=== PATIENT | female | born 1950 | race American Indian/Alaskan Native ===

== ENCOUNTER 2016-08-31 18:50 | Emergency (ER) | payer BC ==
[2016-08-31 19:09] VITALS: BP 153/81; PULSE 87; RESP 16; TEMP 98.4; O2SAT 96
--- NOTE | 2016-08-31 19:23 | ED PDOC ---
Arrival/HPI <Mart Olson - Last Filed: 08/31/16 20:58> - General Historian: Patient - History of Present Illness Time/Duration: Other (hours) Context: Home <John Cadena - Last Filed: 09/03/16 14:44> - General Chief Complaint: Upper Extremity Problem/Injury Time Seen by Provider: 08/31/16 19:17 - History of Present Illness Narrative History of Present Illness (Text): 08/31/16 19:20 This 66 yo female presents to this ED c/o right arm pain x 7 hours. Patient she tripped and fell down forward. She developed arm pain. Denies head injury , dizziness, n/v, abdominal pain, hematuria, neck pain, cp, sob, wrist pain, elbow pain, or abnormal gait (John Cadena) Past Medical History - Provider Review Nursing Documentation Reviewed: Yes - Cardiac Hx Hypertension: Yes - Pulmonary Hx Respiratory Disorders: No - Neurological Hx Neurological Disorder: No - HEENT Hx HEENT Disorder: No - Renal Hx Renal Disorder: No - Endocrine/Metabolic Hx Diabetes Mellitus Type 2: Yes - Hematological/Oncological Hx Blood Disorders: No - Integumentary Hx Dermatological Disorder: No - Musculoskeletal/Rheumatological Hx Falls: Yes - Gastrointestinal Hx Gastrointestinal Disorders: No - Genitourinary/Gynecological Hx Genitourinary Disorders: No - Psychiatric Hx Psychophysiologic Disorder: No Hx Substance Use: No <John Cadena - Last Filed: 09/03/16 14:44> Family/Social History - Physician Review Nursing Documentation Reviewed: Yes Family/Social History: No Known Family HX Smoking Status: Never Smoked Hx Alcohol Use: No Hx Substance Use: No <John Cadena - Last Filed: 09/03/16 14:44> Allergies/Home Meds <Mart Olson - Last Filed: 08/31/16 20:58> <John Cadena - Last Filed: 09/03/16 14:44> Allergies/Adverse Reactions: Allergies No Known Allergies Allergy (Unverified 07/03/13 11:16) Home Medications: Home Meds Medication Instructions Recorded Confirmed Aspirin 81 mg PO DAILY 07/03/13 07/03/13 Nifedipine [Nifedipine ER] 90 mg PO DAILY 07/03/13 07/03/13 Perindopril Erbumine 8 mg PO DAILY 07/03/13 07/03/13 Aspirin [Adult Low Dose Aspirin EC] 1 tab PO DAILY 08/31/16 08/31/16 NIFEdipine ER [Procardia XL] 90 mg PO DAILY 08/31/16 08/31/16 Perindopril Erbumine 8 mg PO DAILY 08/31/16 08/31/16 Review of Systems - Review of Systems Constitutional: Normal. absent: Fatigue, Weight Change, Fevers Eyes: Normal ENT: Normal Respiratory: Normal. absent: SOB, Cough, Sputum Cardiovascular: Normal. absent: Chest Pain, Palpitations Gastrointestinal: Normal. absent: Abdominal Pain, Diarrhea, Nausea, Vomiting Genitourinary Female: Normal. absent: Hematuria Musculoskeletal: Other (See HPI) Skin: Normal. absent: Rash Neurological: Normal. absent: Headache, Dizziness, Focal Weakness, Gait Changes , Speech Changes Endocrine: Normal Hemo/Lymphatic: Normal Psychiatric: Normal <John Cadena P - Last Filed: 09/03/16 14:44> Physical Exam Temperature: Afebrile Blood Pressure: Normal Pulse: Regular Respiratory Rate: Normal Appearance: Positive for: Well-Appearing, Non-Toxic, Comfortable Pain Distress: None Mental Status: Positive for: Alert and Oriented X 3 - Systems Exam Head: Present: Atraumatic, Normocephalic, Other (raccoon sign. No menjivar sign) Pupils: Present: PERRL, Other (no hyphema) Extroacular Muscles: Present: EOMI Conjunctiva: Present: Normal Ears: Present: Normal, NORMAL TM, Normal Canal, Other (no hemotympanum). No: Erythema, TM Bulging, Fluid Mouth: Present: Moist Mucous Membranes Pharnyx: Present: Normal. No: ERYTHEMA, EXUDATE, TONSILS ENLARGED Nose (External): Present: Atraumatic Nose (Internal): Present: Normal Inspection Neck: Present: Normal Range of Motion Respiratory/Chest: Present: Clear to Auscultation, Good Air Exchange. No: Respiratory Distress, Accessory Muscle Use, Wheezes, Tender to Palpation Cardiovascular: Present: Regular Rate and Rhythm, Normal S1, S2. No: Murmurs Abdomen: Present: Normal Bowel Sounds. No: Tenderness, Distention, Peritoneal Signs Back: Present: Normal Inspection Upper Extremity: Present: Normal Inspection, Normal ROM (mild right shoulder tenderness. No deformity, swelling, erythema, or ecchymosis), NORMAL PULSES, Neurovascularly Intact, Capillary Refill < 2s. No: Cyanosis, Edema Lower Extremity: Present: Normal Inspection, NORMAL PULSES, Normal ROM, Neurovascularly Intact, Capillary Refill < 2 s. No: Edema, CALF TENDERNESS Neurological: Present: GCS=15, CN II-XII Intact, Speech Normal Skin: Present: Warm, Dry, Normal Color. No: Rashes Psychiatric: Present: Alert, Oriented x 3, Normal Insight, Normal Concentration <John Cadena - Last Filed: 09/03/16 14:44> Vital Signs Temp Pulse Resp BP Pulse Ox 08/31/16 19:04 98.4 F 87 16 153/81 H 96 Medical Decision Making <Mart Olson - Last Filed: 08/31/16 20:58> Re-evaluation Time: 20:49 Reassessment Condition: Re-examined, Improved <John Cadena - Last Filed: 09/03/16 14:44> ED Course and Treatment: 08/31/16 20:49 Re-evaluation. Patient feels better. Discussed results and plan with patient who expresses understanding. All questions answered and there is agreement with the plan to discharge home with instructions. Patient stable for discharge. Return if symptoms persist or worsen. Patient understand risk of falling when taking Tylenol with Codeine. Patient is aware not to drive or operate machinery while taking pain medication. Patient understands risk of addiction when taking Tylenol with codeine, or other opiods pain medication. (John Cadena) - RAD Interpretation Narrative RAD Interpretations (Text): 08/31/16 20:49 Humerus x-rays: No fx or dislocation Shoulder x-rays: No Fx. or sublux. (John Cadena) Radiology Orders: 08/31/16 19:45 HUMERUS RIGHT [RAD] Stat 08/31/16 19:46 SHOULDER RIGHT [RAD] Stat - Medication Orders Current Medication Orders: Discontinued Medications Acetaminophen (Tylenol 325mg Tab) 650 mg PO STAT STA Stop: 08/31/16 19:47 Last Admin: 08/31/16 19:56 Dose: 650 mg - PA / ENGRAVER / Resident Statement CRISTOPHER has reviewed & agrees with the documentation as recorded. CRISTOPHER has examined the patient and agrees with the treatment plan. <Mart Olson - Last Filed: 08/31/16 20:58> Disposition/Present on Arrival <WesleyMart - Last Filed: 08/31/16 20:58> - Present on Arrival Any Indicators Present on Arrival: No History of DVT/PE: No History of Uncontrolled Diabetes: Yes Urinary Catheter: No History of Decub. Ulcer: No History Surgical Site Infection Following: None - Disposition Have Diagnosis and Disposition been Completed?: Yes Disposition Time: 20:51 Patient Plan: Discharge <John Cadena - Last Filed: 09/03/16 14:44> - Disposition Diagnosis: Arm pain Disposition: HOME/ ROUTINE Condition: GOOD Discharge Instructions (ExitCare): Arm Pain (ED) Additional Instructions: Call Dr. Frank for follow up visit and revaluation in 1-2 days. Take medication as instructed. Return to emergency if symptoms worsen. Be aware pain medication could make you feels drowsy, sleepy and risk for fall. Take it at bedtime only. Prescriptions: Acetaminophen with Codeine [Tylenol with Codeine #3 Tablet] 1 each PO Q6H PRN # 10 tablet PRN Reason: Pain, Severe (8-10) Referrals: Sylvester Frank MD [Primary Care Provider] - Follow up with primary
--- NOTE | 2016-09-01 08:15 | RAD ---
PROCEDURE: Radiographs of the Right Shoulder HISTORY: pain s/p fall COMPARISON: No prior. FINDINGS: BONES: Normal. No fracture. JOINTS: Normal. Glenohumeral and acromioclavicular joints preserved. No osteoarthritis. SOFT TISSUES: Normal. OTHER FINDINGS: None. IMPRESSION: Normal radiographs of the right shoulder.
--- NOTE | 2016-09-01 08:16 | RAD ---
PROCEDURE: Radiographs of the right humerus. HISTORY: pain COMPARISON: None. FINDINGS: BONES: Normal. No fracture or focal lesion. SOFT TISSUES: Normal. OTHER FINDINGS: None. IMPRESSION: Normal radiographs of right humerus.
== END 2016-08-31 21:03 | disposition home or self-care (01) ==
LOC: ED 18:50 → MERGE 18:50 → ED 21:03
DX: M79.601 Pain in right arm (principal)

== ENCOUNTER 2016-11-15 10:35 | Inpatient (IN) | payer MEDICARE, BC ==
[2016-11-15 10:37] VITALS: BMI 22.4
[2016-11-15] MEDS ORDERED: Insulin Regular 1 UNITS/0.01 ML ML IVP STA (10:51)
[2016-11-15] MEDS ORDERED: Sodium Chloride 0.9% 1,000 ML IV ONE (10:52)
--- NOTE | 2016-11-15 10:55 | ED PDOC ---
Arrival/HPI - General Chief Complaint: Weakness/Neurological Deficit Time Seen by Provider: 11/15/16 10:39 Historian: Patient - History of Present Illness Time/Duration: Other (1 day) Symptom Onset: Gradual Symptom Course: Unchanged Severity Level: Moderate Associated Symptoms (Text): 11/15/16 10:53 Generalized weakness and fatigue since yesterday. Some nausea and vomiting this morning. Patient is diabetic, but refuses to take her insulin. No abdominal pain or diarrhea. No chest pain palpitations or dyspnea. No cough congestion or URI. Fever or chills. Past Medical History - Infectious Disease Hx of Infectious Diseases: None - Reproductive Menopause: Yes - Cardiac Hx Hypertension: Yes - Pulmonary Hx Respiratory Disorders: No - Neurological Hx Neurological Disorder: No - HEENT Hx HEENT Disorder: No - Renal Hx Renal Disorder: No - Endocrine/Metabolic Hx Diabetes Mellitus Type 2: Yes - Hematological/Oncological Hx Blood Disorders: No - Integumentary Hx Dermatological Disorder: No - Musculoskeletal/Rheumatological Hx Falls: Yes - Gastrointestinal Hx Gastrointestinal Disorders: No - Genitourinary/Gynecological Hx Genitourinary Disorders: No - Psychiatric Hx Psychophysiologic Disorder: No Hx Substance Use: No - Suicidal Assessment Feels Threatened In Home Enviroment: No Family/Social History - Physician Review Nursing Documentation Reviewed: Yes Family/Social History: Unknown Family HX Smoking Status: Never Smoked Hx Alcohol Use: No Hx Substance Use: No Allergies/Home Meds Allergies/Adverse Reactions: Allergies No Known Allergies Allergy (Verified 11/15/16 13:12) Home Medications: Home Meds Medication Instructions Recorded Confirmed Nifedipine [Nifedipine ER] 90 mg PO DAILY 07/03/13 11/15/16 Perindopril Erbumine 8 mg PO DAILY 08/31/16 11/15/16 Aspirin [Ecotrin] 81 mg PO DAILY 11/15/16 11/15/16 hydroCHLOROthiazide [Microzide] 12.5 mg PO DAILY 11/15/16 11/15/16 Review of Systems - Physician Review All systems were reviewed & negative as marked: Yes - Review of Systems Constitutional: Fatigue. absent: Fevers Respiratory: Normal Cardiovascular: Normal Gastrointestinal: Nausea, Vomiting. absent: Abdominal Pain, Constipation, Diarrhea Genitourinary Female: absent: Dysuria, Frequency, Hematuria Neurological: absent: Headache, Dizziness Physical Exam Vital Signs Temp Pulse Resp BP Pulse Ox 11/15/16 10:46 98.6 F 89 16 117/76 100 Temperature: Afebrile Blood Pressure: Normal Pulse: Regular Respiratory Rate: Normal Appearance: Positive for: Well-Appearing, Non-Toxic, Comfortable Pain Distress: None Mental Status: Positive for: Alert and Oriented X 3 Finger Stick Blood Glucose: 500 - Systems Exam Head: Present: Atraumatic, Normocephalic Pupils: Present: PERRL Extroacular Muscles: Present: EOMI Conjunctiva: Present: Normal Ears: Present: NORMAL TM, Normal Canal. No: Erythema Mouth: Present: Moist Mucous Membranes Pharnyx: No: ERYTHEMA, EXUDATE, TONSILS ENLARGED Neck: Present: Normal Range of Motion Respiratory/Chest: Present: Clear to Auscultation, Good Air Exchange, Decreased Breath Sounds. No: Respiratory Distress, Accessory Muscle Use Cardiovascular: Present: Regular Rate and Rhythm, Normal S1, S2. No: Murmurs Abdomen: Present: Normal Bowel Sounds. No: Tenderness, Distention, Peritoneal Signs, Rebound, Guarding Lower Extremity: Present: Normal Inspection. No: Edema Neurological: Present: GCS=15, CN II-XII Intact, Speech Normal, Motor Func Grossly Intact Skin: Present: Warm, Dry, Normal Color. No: Rashes Psychiatric: Present: Alert, Oriented x 3, Normal Insight, Normal Concentration Medical Decision Making ED Course and Treatment: 11/15/16 10:55 EKG shows normal sinus rhythm rate approximately [address] or T-wave changes 11/15/16 14:[address] dangelo who will place on [facility] observation - Lab Interpretations Lab Results: 11/15/16 11:05 11/15/16 11:05 Lab Results 11/15/16 11:05: Sodium 127 L, Potassium 3.2 L, Chloride 85 L, Carbon Dioxide 25 , Anion Gap 20, BUN 42 H, Creatinine 2.6 H, Est GFR ( Amer) 22, Est GFR ( Non-Af Amer) 18, Random Glucose 691 H*, Calcium 9.2, Magnesium 2.3 H, Total Bilirubin 0.9, AST 35, ALT 10, Alkaline Phosphatase 148 H, Lactate Dehydrogenase 371, Total Creatine Kinase 120, Troponin I 0.03, Total Protein 8.3 , Albumin 4.4, Globulin 3.9, Albumin/Globulin Ratio 1.1 11/15/16 11:05: PT 11.6, INR 1.07, APTT 30.0 11/15/16 11:05: WBC 6.3, RBC 4.95, Hgb 13.1, Hct 37.6, MCV 76.0 L, MCH 26.5, MCHC 34.8, RDW 13.3, Plt Count 224, MPV 10.8, Gran % 63.2, Lymph % (Auto) 29.7, Kingfisher % (Auto) 4.6, Eos % (Auto) 2.2, Baso % (Auto) 0.3, Gran # 4.01, Lymph # 1.9 , Kingfisher # 0.3, Eos # 0.1, Baso # 0.02 - RAD Interpretation Radiology Orders: 11/15/16 10:51 CHEST PORTABLE [RAD] Stat Chest 1 view shows no infiltrate effusion or cardiomegaly Library Media Assistant: ED Physician - Medication Orders Current Medication Orders: Discontinued Medications Sodium Chloride (Sodium Chloride 0.9%) 1,000 mls @ 500 mls/hr IV ONCE ONE Stop: 11/15/16 12:51 Last Admin: 11/15/16 11:11 Dose: 500 mls/hr Insulin Human Regular (Humulin R) 10 units IVP ONCE STA Stop: 11/15/16 10:52 Last Admin: 11/15/16 11:20 Dose: 10 units Disposition/Present on Arrival - Present on Arrival Any Indicators Present on Arrival: No History of DVT/PE: No History of Uncontrolled Diabetes: Yes Urinary Catheter: No History of Decub. Ulcer: No History Surgical Site Infection Following: None - Disposition Have Diagnosis and Disposition been Completed?: Yes Diagnosis: Diabetes, Hyperglycemia, Renal failure, Dehydration Disposition: HOSPITALIZED Disposition Time: 12:41 Patient Plan: Observation Patient Problems: Current Active Problems Problem Status Onset Dehydration Acute Diabetes Acute Hyperglycemia Acute Renal failure Acute Condition: FAIR
[2016-11-15 11:21] LABS: BASO # 0.02 K/mm3 (0.0-2.0); BASO % 0.3 % (0.0-3.0); EOS # 0.1 (0.0-0.7); EOS % 2.2 % (1.5-5.0); GRAN # 4.01 (1.4-6.5); GRAN % 63.2 % (50.0-68.0); HEMOGLOBIN 13.1 gm/dL (12.0-16.0); LYMPH # 1.9 (1.2-3.4); LYMPH % 29.7 % (22.0-35.0); MEAN CORPUSCULAR HEMOGLOBIN 26.5 pg (25.0-35.0); MEAN CORPUSCULAR HGB CONC 34.8 g/dl (31.0-37.0); MEAN PLATELET VOLUME 10.8 fl (7.0-11.0); MONO # 0.3 (0.1-0.6); MONO % 4.6 % (1.0-6.0); PLATELET COUNT 224 10^3/uL (120.0-450.0); RBC 4.95 10^6/uL (3.5-6.1); RED CELL DISTRIBUTION WIDTH 13.3 % (11.5-14.5); WHITE BLOOD COUNT 6.3 10^3/ul (4.5-11.0)
[2016-11-15 11:29] LABS: ALB/GLOB RATIO 1.1 (1.1-1.8); ALBUMIN 4.4 g/dL (3.0-4.8); CALCIUM 9.2 mg/dL (8.4-10.5); MAGNESIUM 2.3 mg/dL (1.7-2.2)
[2016-11-15 11:32] LABS: INR 1.07 (0.93-1.08); PROTHROMBIN TIME 11.6 Seconds (9.9-11.8)
[2016-11-15 11:40] LABS: TROPONIN I 0.03 ng/mL
--- NOTE | 2016-11-15 11:43 | RAD ---
HISTORY: weakness COMPARISON: No prior. FINDINGS: LUNGS: No active pulmonary disease. PLEURA: No significant pleural effusion identified, no pneumothorax apparent. CARDIOVASCULAR: Mild cardiomegaly and aortic tortuosity. OSSEOUS STRUCTURES: No significant abnormalities. VISUALIZED UPPER ABDOMEN: Normal. OTHER FINDINGS: None. IMPRESSION: No active disease.
[2016-11-15 13:39] LABS: PH,URINE 6.5 (4.7-8.0); URINE BILIRUBIN NEGATIVE (NEGATIVE); URINE BLOOD TRACE-INTACT (NEGATIVE); URINE GLUCOSE (UA) >=1000 mg/dL (NEGATIVE); URINE LEUKOCYTE ESTERASE NEGATIVE Leu/uL (NEGATIVE); URINE NITRATE NEGATIVE (NEGATIVE); URINE PROTEIN NEGATIVE mg/dL (<30 mg/dL); URINE UROBILINOGEN 0.2 E.U./dL (<1 E.U./dL)
[2016-11-15 13:41] LABS: URINE APPEARANCE CLEAR (CLEAR); URINE COLOR YELLOW (YELLOW)
[2016-11-15 13:46] LABS: URINE EPITHELIAL CELLS 0 - 2 /hpf (0-5); URINE RBC 0 - 2 /hpf (0-2); URINE WBC 0 - 2 /hpf (0-6)
[2016-11-15] MEDS ORDERED: Pneumococcal 23-Valent Vaccine IM ONE (14:53)
[2016-11-15] MEDS ORDERED: Potassium Chl 40 mEq in D5-1/2 1,000 ML IV SCH (17:10)
[2016-11-15] MEDS ORDERED: Insulin Reg-HIGH-Coverage SC STA (17:48)
[2016-11-15] MEDS ORDERED: Insulin Regular 1 UNITS/0.01 ML ML SC STA (17:51)
--- NOTE | 2016-11-15 18:50 | CT ---
PROCEDURE: CT Abdomen and Pelvis without intravenous contrast HISTORY: abdominal pain COMPARISON: None. TECHNIQUE: Unenhanced study. Neither oral nor intravenous contrast administered. Sensitivity and specificity for acute inflammatory processes limited by the absence of oral and intravenous contrast. Radiation dose: Total exam DLP = 303.74 mGy-cm. This CT exam was performed using one or more of the following dose reduction techniques: Automated exposure control, adjustment of the mA and/or kV according to patient size, and/or use of iterative reconstruction technique. FINDINGS: LOWER THORAX: Unremarkable. LIVER: Punctate calcifications within the liver likely reflecting prior exposure to granulomatous disease. GALLBLADDER AND BILE DUCTS: Unremarkable. PANCREAS: Unremarkable. No gross lesion or ductal dilatation. SPLEEN: Unremarkable. ADRENALS: Unremarkable. No mass. KIDNEYS AND URETERS: Unremarkable. No hydronephrosis. No solid mass. VASCULATURE: Unremarkable. No aortic aneurysm. Diffuse vascular calcifications. BOWEL: Unremarkable. No obstruction. No gross mural thickening. APPENDIX: Unremarkable. Normal appendix. PERITONEUM: Unremarkable. No free fluid. No free air. LYMPH NODES: Unremarkable. No enlarged lymph nodes. BLADDER: Unremarkable. REPRODUCTIVE: Mildly enlarged uterus with calcified fibroids BONES: T11 vertebral body fracture age indeterminate likely old. If Grade 1 anterolisthesis L4-L5. OTHER FINDINGS: None. IMPRESSION: No significant or acute findings to account for/ related to the clinical presentation. Additional benign and/or incidental findings described above.
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
--- NOTE | 2016-11-15 19:08 | CARD ---
APPROVED REPORT EKG Measurement Heart [id number] HI 190P37 [id number] <Conclusion> Normal sinus rhythm Left axis deviation Minimal voltage criteria for LVH, may be normal variant Septal infarct, age undetermined Prolonged QT Abnormal ECG
[2016-11-15] MEDS ORDERED: Potassium Chloride 40 MEQ in Sodium Chloride 0.45% 1,000 ML IV SCH (20:45)
[2016-11-15] MEDS: Insulin Reg-HIGH-Coverage SC SCH (21:56)
[2016-11-15] MEDS ORDERED: Insulin Reg-HIGH-Coverage SC SCH (22:00)
[2016-11-15 22:42] LABS: CALCIUM 9.5 mg/dL (8.4-10.5)
[2016-11-15] MEDS ORDERED: Potassium Chloride 40 mEq/30 ml LIQ UD PO ONE (23:23)
[2016-11-15] MEDS ORDERED: Potassium Chloride 20 mEq ER Tab PO ONE (23:28)
[2016-11-16] MEDS ORDERED: Potassium Chloride 20 mEq ER Tab PO ONE ×2 (03:30→10:29)
[2016-11-16 06:44] LABS: HEMOGLOBIN 13.3 gm/dL (12.0-16.0); MEAN CELL VOLUME 76.2 fL (80.0-105.0); MEAN CORPUSCULAR HEMOGLOBIN 26.4 pg (25.0-35.0); MEAN CORPUSCULAR HGB CONC 34.6 g/dl (31.0-37.0); MEAN PLATELET VOLUME 10.2 fl (7.0-11.0); RBC 5.04 10^6/uL (3.5-6.1); RED CELL DISTRIBUTION WIDTH 13.7 % (11.5-14.5); WHITE BLOOD COUNT 9.7 10^3/ul (4.5-11.0)
[2016-11-16] MEDS: Insulin Reg-HIGH-Coverage SC SCH ×4 (09:19→21:23)
[2016-11-16] MEDS: NIFEdipine 90 mg ER Tab PO SCH (09:32)
[2016-11-16] MEDS ORDERED: PERINDOPRIL ERBUMINE PO SCH (10:00)
[2016-11-16] MEDS: Sodium Chloride 0.9% 1,000 ML IV SCH ×2 (10:57→23:46)
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
--- NOTE | 2016-11-17 00:15 | CP.PCM.PN ---
Subjective - Date & Time of Evaluation Date of Evaluation: 11/16/16 Time of Evaluation: 23:30 - Subjective Subjective: Internal Medicine Follow Up: November 16, 2016 66 yo AA female presenting with abdominal pain and "not feeling well". The patient states that the symptoms started two days ago. The patient was at my office yesterday with similar symptoms. History given by state that the patient was sick for at least 8 days. states that the patient had poor appetite and was very lethargic. The patient laboratories are more consistent with being ill for the 8 days. The patient with significantly elevated glucose levels... blood glucose up to 691. Hypokalemia. There is JASON and renal insufficiency at this time. A day later, the patient's electrolytes have improved. Appreciate Renal Dr. Cesar's note. IVF changed to NS. Dehydration improved. CT abdomen and pelvis did not show any acute disease. Renal function improving but not back to the patient's baseline. Continued supportive care. Objective - Vital Signs/Intake and Output Vital Signs (last 24 hours): Temp Pulse Resp BP Pulse Ox 98.6 F 78 20 102/66 98 11/16/16 16:00 11/16/16 16:00 11/16/16 16:00 11/16/16 16:00 11/16/16 16:00 Intake and Output: 11/16/16 11/17/16 18:59 06:59 Intake Total 1080 1260 Balance 1080 1260 - Medications Medications: Current Medications Aspirin (Ecotrin) 81 mg PO DAILY [facility] Last Admin: 11/16/16 09:20 Dose: 81 mg Fluconazole (Diflucan) 100 mg PO DAILY [facility] PRN Reason: Protocol Stop: 11/21/16 10:01 Sodium Chloride (Sodium Chloride 0.9%) 1,000 mls @ 100 mls/hr IV .Q10H [facility] Stop: 11/19/16 10:31 Last Admin: 11/16/16 23:46 Dose: 100 mls/hr Insulin Human Regular (Humulin R High) 0 units SC ACHS [facility] PRN Reason: Protocol Last Admin: 11/16/16 21:23 Dose: Not Given Nifedipine (Procardia Xl) 90 mg PO DAILY [facility] Last Admin: 11/16/16 09:32 Dose: 90 mg - Labs Labs: 11/16/16 06:15 11/16/16 06:15 PT 11.6 Seconds (9.9-11.8) 11/15/16 11:05 INR 1.07 (0.93-1.08) 11/15/16 11:05 APTT 30.0 Seconds (23.7-30.8) 11/15/16 11:05 - Constitutional Appears: Non-toxic, No Acute Distress, Chronically Ill - Head Exam Head Exam: ATRAUMATIC, NORMOCEPHALIC - Eye Exam Eye Exam: EOMI, PERRL Pupil Exam: NORMAL ACCOMODATION, PERRL - ENT Exam ENT Exam: Mucous Membranes Moist, Normal External Ear Exam, TM's Normal Bilaterally - Neck Exam Neck Exam: Full ROM, Normal Inspection - Respiratory Exam Respiratory Exam: Clear to Ausculation Bilateral, NORMAL BREATHING PATTERN. absent: Rales, Rhonchi, Wheezes - Cardiovascular Exam Cardiovascular Exam: REGULAR RHYTHM, RRR, +S1, +S2 - GI/Abdominal Exam GI & Abdominal Exam: Soft, Normal Bowel Sounds. absent: Distended, Tenderness - Extremities Exam Extremities Exam: Full ROM, Normal Inspection - Neurological Exam Neurological Exam: Alert, Awake, CN II-XII Intact, Oriented x3 - Psychiatric Exam Psychiatric exam: Normal Affect, Normal Mood - Skin Skin Exam: Intact, Normal Color Assessment and Plan - Assessment and Plan (Free Text) Assessment: 66 yo AA female with abdominal pain, fatigue, weakness, and generally feeling unwell. The patient was found to have low sodium, low potassium, low chloride, new onset renal insufficiency, and significantly elevated glucose levels. The patient was severely dehydrated. Multiple electrolyte imbalances. Started on diabetic diet. Hydration with 1/2 NS with 40 mEq of Potassium. Renal consult with Dr. Tolentino who is familiar with this patient from her time at [facility]. Recheck laboratories in AM. Continue on insulin sliding scale for now. Normally, the patient's diabetes is diet controlled. CT abdomen for abdominal pain... negative Electrolyte imbalances are resolving. SHOAIB-I/ARB on hold Renal insufficiency and JASON Continue hydration with NS at this time. Potential discharge in the next 24 to 48 hours.
[2016-11-17 08:03] LABS: CALCIUM 8.3 mg/dL (8.4-10.5)
[2016-11-17] MEDS: Insulin Reg-HIGH-Coverage SC SCH ×4 (08:33→22:00)
[2016-11-17] MEDS: NIFEdipine 90 mg ER Tab PO SCH (09:23)
[2016-11-17] MEDS: Sodium Chloride 0.9% 1,000 ML IV SCH (09:29)
--- NOTE | 2016-11-17 13:12 | CP.PCM.PN ---
Subjective - Date & Time of Evaluation Date of Evaluation: 11/17/16 Time of Evaluation: 13:08 - Subjective Subjective: Follow up Nephrology Consultation: Assessment: Stable Acute Kidney Injury (N17.9) likely due to pre-renal state caused by dehydration , osmotic diuresis, severe hyperglycemia, hyperosmolar state: improving Hypokalemia Possibly had Hypertensive Chronic Kidney Disease (I12.9) May have underlying Chronic Kidney Disease (N18.9) Stage 3 with ? mg proteinuria (R80.9) ? due to HTN (serum creatinine 1.5 in 2013) HTN (I12.9) Hypertriglyceridemia Plan Hypertension control with meds as ordered. Hold ACEI or ARB due to JASON. can resume it as outpt once renal function close to baseline Supplement KDUR as needed. Vit D 1000 units/day added continue with IVF as normal saline @ 100 ml/hr Monitor Input/Output, daily weights and renal function with basic metabolic panel Check spot protein/creatinine and albumin/creatinine ratio GN work up not indicated at this time. Dose meds/antibiotics for reduced GFR. Avoid fleets enema/magnesium based laxatives. Avoid nephrotoxins/NSAIDs/ iodinated contrast (unless needed emergently) Glycemic control. avoid metformin for now. Further work up/management as per primary team Thanks for allowing me to participate in care of your patient. Please call if any Qs. Stable from renal perspective once planned for d/c and to f/up in office with me in 1-[address] Fernie Cesar Office: [phone] ROS: Denies chest pain, palpitation, shortness of breath, leg swelling. no urinary complaints she feel well Physical Examination: General Appearance: Comfortable, in no acute respiratory distress, co-operative . Vitals reviewed and noted as below Lungs: Normal respiratory rate/effort. Breath sounds bilateral equal and clear Heart: Normal rate. s1s2 normal. No rub or gallop. Extremities: no edema. No varicose veins Neurological: Patient is alert, awake and oriented to person, place and time. No focal deficit. Strength bilateral appropriate and equal Skin: Warm and dry. Normal turgor. No rash. Palpitation: Normal elasticity for age Abdomen: Abdomen is soft. Bowel sounds +. There is no abdominal tenderness, no guarding/rigidity no organomegaly Psych: normal insight and normal affect/mood MSK: no joint tenderness or swelling. Digits and nails normal, no deformity : kidney or bladder not palpable Labs/imaging/EKG reviewed. Past medical history, past surgical history, family history, social history, allergy reviewed and noted as below Family hx: no hx of CKD. Rest non-contributory WORK up; UA: trace blood no protein CT abdomen: unremarkable kidneys/bladder/adrenals Objective - Vital Signs/Intake and Output Vital Signs (last 24 hours): Temp Pulse Resp BP Pulse Ox 98.5 F 82 19 125/87 98 11/17/16 06:00 11/17/16 06:00 11/17/16 06:00 11/17/16 06:00 11/17/16 06:00 Intake and Output: 11/17/16 11/17/16 06:59 18:59 Intake Total 1260 0 Balance 1260 0 - Medications Medications: Current Medications Aspirin (Ecotrin) 81 mg PO DAILY [facility] Last Admin: 11/17/16 09:23 Dose: 81 mg Fluconazole (Diflucan) 100 mg PO DAILY [facility] PRN Reason: Protocol Stop: 11/21/16 10:01 Last Admin: 11/17/16 09:23 Dose: 100 mg Sodium Chloride (Sodium Chloride 0.9%) 1,000 mls @ 100 mls/hr IV .Q10H [facility] Stop: 11/19/16 10:31 Last Admin: 11/17/16 09:29 Dose: 100 mls/hr Insulin Human Regular (Humulin R High) 0 units SC ACHS [facility] PRN Reason: Protocol Last Admin: 11/17/16 12:14 Dose: 7 units Nifedipine (Procardia Xl) 90 mg PO DAILY [facility] Last Admin: 11/17/16 09:23 Dose: 90 mg Vitamin D (Vitamin D 400 Intl Units Tab) 1,000 intlu PO DAILY [facility] - Labs Labs: 11/16/16 06:15 11/17/16 07:40 PT 11.6 Seconds (9.9-11.8) 11/15/16 11:05 INR 1.07 (0.93-1.08) 11/15/16 11:05 APTT 30.0 Seconds (23.7-30.8) 11/15/16 11:05
--- NOTE | 2016-11-17 18:12 | CP.PCM.PN ---
Subjective - Date & Time of Evaluation Date of Evaluation: 11/17/16 Time of Evaluation: 17:30 - Subjective Subjective: Internal Medicine Follow Up: November 17, 2016 66 yo AA female presenting with abdominal pain and "not feeling well". The patient states that the symptoms started two days ago. The patient was at my office yesterday with similar symptoms. History given by state that the patient was sick for at least 8 days. states that the patient had poor appetite and was very lethargic. The patient laboratories are more consistent with being ill for the 8 days. The patient with significantly elevated glucose levels... blood glucose up to 691. Hypokalemia. There is JASON and renal insufficiency at this time. A day later, the patient's electrolytes have improved. Appreciate Renal Dr. Cesar's note. IVF changed to NS. Dehydration improved. CT abdomen and pelvis did not show any acute disease. Renal function improving but not back to the patient's baseline. Creatinine at 2 today. Continued supportive care. Potential discharge tomorrow. Objective - Vital Signs/Intake and Output Vital Signs (last 24 hours): Temp Pulse Resp BP Pulse Ox 98.5 F 82 19 125/87 98 11/17/16 06:00 11/17/16 06:00 11/17/16 06:00 11/17/16 06:00 11/17/16 06:00 Intake and Output: 11/17/16 11/17/16 06:59 18:59 Intake Total 1260 720 Balance 1260 720 - Medications Medications: Current Medications Aspirin (Ecotrin) 81 mg PO DAILY [facility] Last Admin: 11/17/16 09:23 Dose: 81 mg Cholecalciferol (Vitamin D) 1,000 iu PO DAILY [facility] Fluconazole (Diflucan) 100 mg PO DAILY [facility] PRN Reason: Protocol Stop: 11/21/16 10:01 Last Admin: 11/17/16 09:23 Dose: 100 mg Sodium Chloride (Sodium Chloride 0.9%) 1,000 mls @ 100 mls/hr IV .Q10H [facility] Stop: 11/19/16 10:31 Last Admin: 11/17/16 09:29 Dose: 100 mls/hr Insulin Human Regular (Humulin R High) 0 units SC ACHS [facility] PRN Reason: Protocol Last Admin: 11/17/16 17:52 Dose: 2 units Nifedipine (Procardia Xl) 90 mg PO DAILY [facility] Last Admin: 11/17/16 09:23 Dose: 90 mg - Labs Labs: 11/16/16 06:15 11/17/16 07:40 PT 11.6 Seconds (9.9-11.8) 11/15/16 11:05 INR 1.07 (0.93-1.08) 11/15/16 11:05 APTT 30.0 Seconds (23.7-30.8) 11/15/16 11:05 - Constitutional Appears: Non-toxic, No Acute Distress, Chronically Ill - Head Exam Head Exam: ATRAUMATIC, NORMOCEPHALIC - Eye Exam Eye Exam: EOMI, PERRL Pupil Exam: NORMAL ACCOMODATION, PERRL - ENT Exam ENT Exam: Mucous Membranes Moist, Normal External Ear Exam, TM's Normal Bilaterally - Neck Exam Neck Exam: Full ROM, Normal Inspection - Respiratory Exam Respiratory Exam: Clear to Ausculation Bilateral, NORMAL BREATHING PATTERN. absent: Rales, Rhonchi, Wheezes - Cardiovascular Exam Cardiovascular Exam: REGULAR RHYTHM, RRR, +S1, +S2 - GI/Abdominal Exam GI & Abdominal Exam: Soft, Normal Bowel Sounds. absent: Distended, Tenderness - Extremities Exam Extremities Exam: Full ROM, Normal Inspection - Neurological Exam Neurological Exam: Alert, Awake, CN II-XII Intact, Oriented x3 - Psychiatric Exam Psychiatric exam: Normal Affect, Normal Mood - Skin Skin Exam: Intact, Normal Color Assessment and Plan - Assessment and Plan (Free Text) Assessment: 66 yo AA female with abdominal pain, fatigue, weakness, and generally feeling unwell. The patient was found to have low sodium, low potassium, low chloride, new onset renal insufficiency, and significantly elevated glucose levels. The patient was severely dehydrated. Multiple electrolyte imbalances. Started on diabetic diet. Hydration with 1/2 NS with 40 mEq of Potassium. Renal consult with Dr. Tolentino who is familiar with this patient from her time at [facility]. Recheck laboratories in AM. Continue on insulin sliding scale for now. Normally, the patient's diabetes is diet controlled. CT abdomen for abdominal pain... negative Electrolyte imbalances mostly resolved. SHOAIB-I/ARB on hold Renal insufficiency and JASON - follow by Dr. Cesar of nephrology. Slowly improving. Continue hydration with NS at this time. Potential discharge in the next 24 hours.
[2016-11-18] MEDS: Sodium Chloride 0.9% 1,000 ML IV SCH (05:10)
[2016-11-18 06:29] LABS: HEMOGLOBIN 12.7 gm/dL (12.0-16.0); MEAN CELL VOLUME 78.3 fL (80.0-105.0); MEAN CORPUSCULAR HGB CONC 33.2 g/dl (31.0-37.0); RBC 4.89 10^6/uL (3.5-6.1); WHITE BLOOD COUNT 8.6 10^3/ul (4.5-11.0)
[2016-11-18 07:19] LABS: ALBUMIN 3.9 g/dL (3.0-4.8); CALCIUM 8.4 mg/dL (8.4-10.5)
[2016-11-18] MEDS: Insulin Reg-HIGH-Coverage SC SCH ×2 (08:09→12:39)
[2016-11-18] MEDS: NIFEdipine 90 mg ER Tab PO SCH (10:10)
[2016-11-18] MEDS ORDERED: Potassium Chloride 20 mEq ER Tab PO ONE ×2 (13:55→17:15)
--- NOTE | 2016-11-18 13:58 | CP.PCM.PN ---
Subjective - Date & Time of Evaluation Date of Evaluation: 11/18/16 Time of Evaluation: 13:56 - Subjective Subjective: Follow up Nephrology Consultation: Assessment: Stable Acute Kidney Injury (N17.9) likely due to pre-renal state caused by dehydration , osmotic diuresis, severe hyperglycemia, hyperosmolar state: improving Hypokalemia Possibly had Hypertensive Chronic Kidney Disease (I12.9) May have underlying Chronic Kidney Disease (N18.9) Stage 3 without proteinuria ? due to HTN (serum creatinine 1.5 in 2012) HTN (I12.9) Hypertriglyceridemia Plan Hypertension control with meds as ordered. Hold ACEI or ARB due to JASON. can resume it as outpt once renal function close to baseline and if BP elevated Supplement KDUR today. Vit D 1000 units/day added Check spot protein/creatinine and albumin/creatinine ratio GN work up not indicated at this time. Dose meds/antibiotics for improved GFR. Avoid fleets enema/magnesium based laxatives. Avoid nephrotoxins/NSAIDs/ iodinated contrast (unless needed emergently) Glycemic control. can use metformin but avoid extended release or high dosage. Further work up/management as per primary team Thanks for allowing me to participate in care of your patient. Please call if any Qs. Stable from renal perspective once planned for d/c and to f/up in office with me in 1-[address] Fernie Cesar Office: [phone] ROS: Denies chest pain, palpitation, shortness of breath, leg swelling. no urinary complaints she feel well Physical Examination: General Appearance: Comfortable, in no acute respiratory distress, co-operative . Vitals reviewed and noted as below Lungs: Normal respiratory rate/effort. Breath sounds bilateral equal and clear Heart: Normal rate. s1s2 normal. No rub or gallop. Extremities: no edema. No varicose veins Neurological: Patient is alert, awake and oriented to person, place and time. No focal deficit. Strength bilateral appropriate and equal Skin: Warm and dry. Normal turgor. No rash. Palpitation: Normal elasticity for age Abdomen: Abdomen is soft. Bowel sounds +. There is no abdominal tenderness, no guarding/rigidity no organomegaly : kidney or bladder not palpable Labs/imaging/EKG reviewed. Past medical history, past surgical history, family history, social history, allergy reviewed and noted as below Family hx: no hx of CKD. Rest non-contributory WORK up; UA: trace blood no protein CT abdomen: unremarkable kidneys/bladder/adrenals Objective - Vital Signs/Intake and Output Vital Signs (last 24 hours): Temp Pulse Resp BP Pulse Ox 97.9 F 82 18 123/85 97 11/18/16 06:00 11/18/16 06:00 11/18/16 06:00 11/17/16 16:00 11/18/16 06:00 Intake and Output: 11/18/16 11/18/16 06:59 18:59 Intake Total 1999 Balance 1999 - Medications Medications: Current Medications Aspirin (Ecotrin) 81 mg PO DAILY [facility] Last Admin: 11/18/16 10:10 Dose: 81 mg Cholecalciferol (Vitamin D) 1,000 iu PO DAILY [facility] Last Admin: 11/18/16 10:10 Dose: 1,000 iu Fluconazole (Diflucan) 100 mg PO DAILY [facility] PRN Reason: Protocol Stop: 11/21/16 10:01 Last Admin: 11/18/16 10:10 Dose: 100 mg Sodium Chloride (Sodium Chloride 0.9%) 1,000 mls @ 100 mls/hr IV .Q10H [facility] Stop: 11/19/16 10:31 Last Admin: 11/18/16 05:10 Dose: 100 mls/hr Insulin Human Regular (Humulin R High) 0 units SC ACHS [facility] PRN Reason: Protocol Last Admin: 11/18/16 12:39 Dose: 7 units Nifedipine (Procardia Xl) 90 mg PO DAILY [facility] Last Admin: 11/18/16 10:10 Dose: 90 mg Potassium Chloride (K-Dur 20 Meq Er Tab) 40 meq PO ONCE ONE Stop: 11/18/16 13:56 - Labs Labs: 11/18/16 06:00 11/18/16 06:00 PT 11.6 Seconds (9.9-11.8) 11/15/16 11:05 INR 1.07 (0.93-1.08) 11/15/16 11:05 APTT 30.0 Seconds (23.7-30.8) 11/15/16 11:05
--- NOTE | 2016-11-18 16:17 | CP.PCM.DIS ---
Provider - Provider Date of Admission: 11/15/16 18:13 Attending physician: Sylvester Frank MD Primary care physician: NO PRIMARY CARE PROVIDER Consults: Nephrology - Dr. Cesar Time Spent in preparation of Discharge (in minutes): 45 Hospital Course - Lab Results Lab Results: Most Recent Lab Values WBC 8.6 10^3/ul (4.5-11.0) 11/18/16 06:00 RBC 4.89 10^6/uL (3.5-6.1) 11/18/16 06:00 Hgb 12.7 gm/dL (12.0-16.0) 11/18/16 06:00 Hct 38.3 % (36.0-48.0) 11/18/16 06:00 MCV 78.3 fL (80.0-105.0) L 11/18/16 06:00 MCH 26.0 pg (25.0-35.0) 11/18/16 06:00 MCHC 33.2 g/dl (31.0-37.0) 11/18/16 06:00 RDW 14.0 % (11.5-14.5) 11/18/16 06:00 Plt Count 234 10^3/uL (120.0-450.0) 11/18/16 06:00 MPV 10.0 fl (7.0-11.0) 11/18/16 06:00 Gran % 63.2 % (50.0-68.0) 11/15/16 11:05 Lymph % (Auto) 29.7 % (22.0-35.0) 11/15/16 11:05 [place] % (Auto) 4.6 % (1.0-6.0) 11/15/16 11:05 Eos % (Auto) 2.2 % (1.5-5.0) 11/15/16 11:05 Baso % (Auto) 0.3 % (0.0-3.0) 11/15/16 11:05 Gran # 4.01 (1.4-6.5) 11/15/16 11:05 Lymph # 1.9 (1.2-3.4) 11/15/16 11:05 [place] # 0.3 (0.1-0.6) 11/15/16 11:05 Eos # 0.1 (0.0-0.7) 11/15/16 11:05 Baso # 0.02 K/mm3 (0.0-2.0) 11/15/16 11:05 PT 11.6 Seconds (9.9-11.8) 11/15/16 11:05 INR 1.07 (0.93-1.08) 11/15/16 11:05 APTT 30.0 Seconds (23.7-30.8) 11/15/16 11:05 Sodium 140 mmol/L (132-148) 11/18/16 06:00 Potassium 3.6 mmol/L (3.6-5.0) 11/18/16 06:00 Chloride 106 mmol/L (98-107) 11/18/16 06:00 Carbon Dioxide 22 mmol/L (21-33) 11/18/16 06:00 Anion Gap 16 (10-20) 11/18/16 06:00 BUN 22 mg/dL (7-21) H 11/18/16 06:00 Creatinine 1.6 mg/dL (0.5-1.4) H 11/18/16 06:00 Est GFR ( Amer) 39 11/18/16 06:00 Est GFR (Non-Af Amer) 32 11/18/16 06:00 POC Glucose (mg/dL) 268 mg/dL (65-110) H 11/18/16 11:48 Random Glucose 245 mg/dL (70-110) H 11/18/16 06:00 Hemoglobin A1c 17.2 % (4.2-6.5) H D 11/16/16 06:15 Calcium 8.4 mg/dL (8.4-10.5) 11/18/16 06:00 Phosphorus 2.6 mg/dL (2.5-4.5) 11/17/16 07:40 Magnesium 2.3 mg/dL (1.7-2.2) H 11/15/16 11:05 Total Bilirubin 1.0 mg/dL (0.2-1.3) 11/18/16 06:00 AST 30 U/L (15-39) 11/18/16 06:00 ALT 22 U/L (7-56) 11/18/16 06:00 Alkaline Phosphatase 95 U/L (38-133) 11/18/16 06:00 Lactate Dehydrogenase 371 U/L (333-699) 11/15/16 11:05 Total Creatine Kinase 120 U/L (35-230) 11/15/16 11:05 Troponin I 0.03 ng/mL 11/15/16 11:05 Total Protein 7.9 g/dL (5.8-8.3) 11/18/16 06:00 Albumin 3.9 g/dL (3.0-4.8) 11/18/16 06:00 Globulin 3.9 gm/dL 11/18/16 06:00 Albumin/Globulin Ratio 1.0 (1.1-1.8) L 11/18/16 06:00 Triglycerides 402 mg/dL (35-160) H 11/16/16 06:15 Cholesterol 223 mg/dL (130-200) H 11/16/16 06:15 HDL Cholesterol 29 mg/dL (29-60) 11/16/16 06:15 25-OH Vitamin D Total 32.0 NG/ML (30.0-100.0) 11/17/16 05:50 PTH Intact Whole [place] 79 pg/mL (14-64) H 11/16/16 14:13 Urine Color Yellow (YELLOW) 11/15/16 13:25 Urine Appearance Clear (CLEAR) 11/15/16 13:25 Urine pH 6.5 (4.7-8.0) 11/15/16 13:25 Ur Specific [place] <= 1.005 (1.005-1.035) 11/15/16 13:25 Urine Protein Negative mg/dL (<30 mg/dL) 11/15/16 13:25 Urine Glucose (UA) >=1000 mg/dL (NEGATIVE) 11/15/16 13:25 Urine Ketones Negative mg/dL (NEGATIVE) 11/15/16 13:25 Urine Blood Trace-intact (NEGATIVE) H 11/15/16 13:25 Urine Nitrate Negative (NEGATIVE) 11/15/16 13:25 Urine Bilirubin Negative (NEGATIVE) 11/15/16 13:25 Urine Urobilinogen 0.2 E.U./dL (<1 E.U./dL) 11/15/16 13:25 Ur Leukocyte Esterase Negative Raghav/uL (NEGATIVE) 11/15/16 13:25 Urine RBC 0 - 2 /hpf (0-2) 11/15/16 13:25 Urine WBC 0 - 2 /hpf (0-6) 11/15/16 13:25 Ur Epithelial Cells 0 - 2 /hpf (0-5) 11/15/16 13:25 - Hospital Course Hospital Course: Internal Medicine Follow Up: November 18, 2016 66 yo AA female presenting with abdominal pain and "not feeling well". The patient states that the symptoms started two days ago. The patient was at my office yesterday with similar symptoms. History given by state that the patient was sick for at least 8 days. states that the patient had poor appetite and was very lethargic. The patient laboratories are more consistent with being ill for the 8 days. The patient with significantly elevated glucose levels... blood glucose up to 691. Hypokalemia. There is JASON and renal insufficiency at this time. A day later, the patient's electrolytes have improved. Appreciate Renal Dr. Cesar's note. IVF changed to NS. Dehydration improved. CT abdomen and pelvis did not show any acute disease. Renal function improving but not back to the patient's baseline. Creatinine at 1.6 today from initial 2.6. Continued supportive care. Will start Metformin. Diabetic teaching and nutrition done today. Supportive care. - Date & Time of H&P Date of H&P: 11/15/16 Discharge Exam - Head Exam Head Exam: ATRAUMATIC, NORMOCEPHALIC - Eye Exam Eye Exam: EOMI, PERRL Pupil Exam: NORMAL ACCOMODATION, PERRL - ENT Exam ENT Exam: Mucous Membranes Moist, Normal External Ear Exam, TM's Normal Bilaterally - Respiratory Exam Respiratory Exam: Clear to PA & Lateral, NORMAL BREATHING PATTERN. absent: Rales, Rhonchi, Wheezes - Cardiovascular Exam Cardiovascular Exam: REGULAR RHYTHM, RRR, +S1, +S2 - GI/Abdominal Exam GI & Abdominal Exam: Normal Bowel Sounds, Soft. absent: Distended, Tenderness - Extremities Exam Extremities exam: full ROM, normal inspection - Neurological Exam Neurological exam: Alert, CN II-XII Intact, Oriented x3 - Psychiatric Exam Psychiatric exam: Normal Affect, Normal Mood - Skin Skin Exam: Intact, Normal Color Discharge Plan - Follow Up Plan Condition: GOOD Disposition: HOME/ ROUTINE Patient education suggested?: Yes Instructions: Metformin (By mouth) Referrals: Sylvester Frank MD [Staff Provider] - Clinical Quality Measures - Date & Time of Discharge Summary Date of Discharge Summary: 11/18/16 Time of Discharge Summary: 16:16
[2016-11-18 18:04] VITALS: BP 130/74; PULSE 80; RESP 20; TEMP 97.6; O2SAT 98
== END 2016-11-18 18:47 | disposition home or self-care (01) | DRG 683 ==
LOC: ED 10:35 → ERH 12:40 → 3RSO 14:27 → OBSVTOIN 18:13
PROVIDERS: ADMIT Internal Medicine Infectious Disease; ATTEND Internal Medicine Infectious Disease
DX: N17.9 Acute kidney failure, unspecified (principal); E87.0 Hyperosmolality and hypernatremia; E11.22 Type 2 diabetes mellitus with diabetic chronic kidney disease; E87.8 Other disorders of electrolyte and fluid balance, not elsewhere classified; E86.0 Dehydration; E11.65 Type 2 diabetes mellitus with hyperglycemia; E87.6 Hypokalemia; E78.1 Pure hyperglyceridemia; I25.10 Atherosclerotic heart disease of native coronary artery without angina pectoris; I25.2 Old myocardial infarction; Z79.82 Long term (current) use of aspirin; Z86.73 Personal history of transient ischemic attack (TIA), and cerebral infarction without residual deficits; I12.9 Hypertensive chronic kidney disease with stage 1 through stage 4 chronic kidney disease, or unspecified chronic kidney disease; N18.3 Chronic kidney disease, stage 3 (moderate)

== ENCOUNTER 2016-11-22 08:47 | Observation (INO) | payer BC, MEDICARE ==
[2016-11-22 08:47] VITALS: BMI 22.4
[2016-11-22] MEDS ORDERED: Sodium Chloride 0.9% 1,000 ML IV STA (09:06)
[2016-11-22] MEDS ORDERED: Famotidine 20mg/50ml 20 MG/50 ML BAG IV STA (09:06)
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
[2016-11-22 09:40] LABS: VENOUS BLOOD GAS BASE EXCESS 2.8 mmol/L (0.0-2.0); VENOUS BLOOD GAS PO2 24 mm/Hg (30-55); VENOUS BLOOD PH 7.49 (7.32-7.43)
[2016-11-22 09:44] LABS: BASO # 0.02 K/mm3 (0.0-2.0); BASO % 0.2 % (0.0-3.0); EOS # 0.2 (0.0-0.7); EOS % 1.9 % (1.5-5.0); GRAN % 60.4 % (50.0-68.0); HEMOGLOBIN 12.3 gm/dL (12.0-16.0); LYMPH # 2.7 (1.2-3.4); MEAN CELL VOLUME 77.3 fL (80.0-105.0); MEAN CORPUSCULAR HEMOGLOBIN 26.9 pg (25.0-35.0); MEAN CORPUSCULAR HGB CONC 34.7 g/dl (31.0-37.0); MEAN PLATELET VOLUME 9.7 fl (7.0-11.0); MONO # 0.4 (0.1-0.6); MONO % 4.5 % (1.0-6.0); PLATELET COUNT 260 10^3/uL (120.0-450.0); RBC 4.58 10^6/uL (3.5-6.1); RED CELL DISTRIBUTION WIDTH 13.8 % (11.5-14.5); WHITE BLOOD COUNT 8.3 10^3/ul (4.5-11.0)
[2016-11-22 09:50] LABS: ALB/GLOB RATIO 1.1 (1.1-1.8); ALBUMIN 4.5 g/dL (3.0-4.8); CALCIUM 10.1 mg/dL (8.4-10.5)
--- NOTE | 2016-11-22 09:50 | RAD ---
HISTORY: Cough COMPARISON: 11/15/2016. FINDINGS: LUNGS: The lungs are well inflated and clear. PLEURA: No significant pleural effusion identified, no pneumothorax apparent. CARDIOVASCULAR: Normal. OSSEOUS STRUCTURES: No significant abnormalities. VISUALIZED UPPER ABDOMEN: Normal. OTHER FINDINGS: None. IMPRESSION: No active pulmonary disease.
[2016-11-22 09:53] LABS: INR 1.01 (0.93-1.08); PARTIAL THROMBOPLASTIN TIME 29.5 Seconds (23.7-30.8); PROTHROMBIN TIME 10.9 Seconds (9.9-11.8)
[2016-11-22 10:02] LABS: TROPONIN I 0.02 ng/mL
--- NOTE | 2016-11-22 10:36 | CT ---
PROCEDURE: CT Abdomen and Pelvis without intravenous contrast HISTORY: Abdominal pain COMPARISON: 11/15/2016. TECHNIQUE: CT scan of the abdomen and pelvis was performed without administration of intravenous or oral contrast. Coronal and sagittal reformatted images were obtained. This CT exam was performed using one or more of the following dose reduction techniques: Automated exposure control, adjustment of the mA and/or kV according to patient size, and/or use of iterative reconstruction technique. FINDINGS: LOWER THORAX: The lung bases are clear. LIVER: The liver is normal in size. No gross lesion or ductal dilatation. GALLBLADDER AND BILE DUCTS: There are no calcified gallstones, wall thickening or pericholecystic fluid. PANCREAS: Normal in size. No gross lesion or ductal dilatation. SPLEEN: The spleen is normal in size. ADRENALS: Normal in size without discrete nodule. KIDNEYS AND URETERS: Both kidneys are normal in size without hydronephrosis or nephrolithiasis. . No hydronephrosis. No solid mass. VASCULATURE: There are atherosclerotic vascular calcifications. No aortic aneurysm. BOWEL: The small bowel loops are normal in caliber. There is mild distention of fluid-filled ascending and transverse colon. There is large amount of stool in the descending colon. APPENDIX: The appendix is normal in caliber. There is mild distension of fluid base of appendix. There is air in the proximal appendix. There are no significant inflammatory changes in the right lower quadrant. PERITONEUM: There is interval development of small amount of free fluid in the pelvis. No free intraperitoneal air. LYMPH NODES: No enlarged lymph nodes. BLADDER: Grossly normal in appearance. REPRODUCTIVE: There is an enlarged fibroid uterus. BONES: There is an age indeterminate anterior compression deformity of the T11 vertebral body. There is advanced degenerative disc disease at L4-5 with grade 1 anterior listhesis of L4 on L5, vacuum disc and vacuum phenomenon in the facet joints. OTHER FINDINGS: There is a small sliding hiatal hernia. IMPRESSION: 1. Interval development of free fluid in the pelvis which is of uncertain etiology. 2. Mild dilatation of fluid-filled ascending and transverse colon is nonspecific and could represent nonspecific colitis. No definite evidence of pericolonic inflammatory changes. Large amount of stool in the descending colon and rectum consistent with constipation. No evidence of bowel obstruction. 3. Apparent mild mural thickening of the urinary bladder wall is nonspecific and could be related to underdistention however acute cystitis cannot be excluded. Please correlate with urine analysis.
[2016-11-22 11:18] LABS: URINE BILIRUBIN NEGATIVE (NEGATIVE); URINE BLOOD NEGATIVE (NEGATIVE); URINE GLUCOSE (UA) 250 mg/dL (NEGATIVE); URINE LEUKOCYTE ESTERASE NEGATIVE Leu/uL (NEGATIVE); URINE NITRATE NEGATIVE (NEGATIVE); URINE PROTEIN TRACE mg/dL (<30 mg/dL); URINE UROBILINOGEN 0.2 E.U./dL (<1 E.U./dL)
[2016-11-22 11:19] LABS: URINE APPEARANCE CLEAR (CLEAR); URINE COLOR LIGHT YELLOW (YELLOW)
[2016-11-22 11:25] LABS: URINE BACTERIA TRACE (NEG); URINE EPITHELIAL CELLS 0 - 2 /hpf (0-5); URINE RBC NEGATIVE /hpf (0-2); URINE WBC 0 - 2 /hpf (0-6)
--- NOTE | 2016-11-22 14:22 | CP.PCM.CON ---
History of Present Illness - History of Present Illness History of Present Illness: Initial Nephrology Consultation: Assessment: Stable Acute Kidney Injury (N17.9) likely due to pre-renal state as evident by hemoconcentration elevated albumin/ca Constipation Possibly had Hypertensive Chronic Kidney Disease (I12.9) May have underlying Chronic Kidney Disease (N18.3) Stage 3 without proteinuria ? due to HTN (serum creatinine 1.5 in 2013) HTN (I12.9) Hypertriglyceridemia Plan No acute need for renal replacement therapy at this time. Hypertension control with home meds. Hold ACEI/ARB due to JASON will order IVF as normal saline @ 100 ml/hr will give lactulose Monitor Input/Output, daily weights and renal function with basic metabolic panel Check spot protein/creatinine and albumin/creatinine ratio Dose meds/antibiotics for reduced GFR. Avoid fleets enema/magnesium based laxatives. Avoid nephrotoxins/NSAIDs/ iodinated contrast (unless needed emergently) Glycemic control Further work up/management as per primary team Thanks for allowing me to participate in care of your patient. Will follow patient with you. Please call if any Qs Dr Fernie Cesar Office: [phone] Chief Complaint; pain abdomen Reason for consult: elevated creatinine, JASON HPI: Pt is a 66 y/o F with hx of diabetes Mellitus , hypertension (x 3 years), hx of CAD/MA and stroke in past presented with complaints of abdomen pain since last night and found to have severe constipation with elevated creatinine. She was recently admitted and d/c from hospital for hyperosmolar hyperglycemic state and JASON her serum creatinine was 1.5 in 2013. improved from 2.6 at presentation to 1.6 at d/c now back with cr 2.2 Denies chest pain, palpitation, shortness of breath, leg swelling Denies blood or bubbles in urine Denies OTC/herbal meds or NSAIDs No recent iodinated contrast exposure. No obvious episodes of low BP. c/o abdomen pain and constipation. ROS: Constitutional Symptoms: Denies fever. No chills. No Recent Weight Changes Eyes: denies change in vision, denies watery eyes, denies double vision Ears/Nose/Mouth/Throat: Denies Abnormal Taste. No Bad breath no Bad Taste. Cardiovascular: No chest pain. There is no shortness of breath. No palpitations. Pulmonary: No shortness of breath no cough. Gastrointestinal: c/o abdominal pain No nausea. No vomiting. c/o constipation. Denies Bleeding Genitourinary: No Change in force of strain when urinating. had increase in urinary frequency. No pain while urinating. Denies blood in urine. Neurological: Denies headaches. No dizziness. Denies loss of balance. Denies weakness, denies tingling/numbness Dermatological: No Rash or Bruising or ulcers. Psychiatric: Denies Anxiety. No depression. Denies hallucinations. Rheumatological: No joint pain. Denies Joint swelling Endocrine: Denies tiredness/Fatigue denies Heat/Cold Intolerance. All other negative Physical Examination: General Appearance: Comfortable, in no acute respiratory distress, co-operative . Vitals reviewed and noted as below Head; Atraumatic, normocephalic ENT: no ulcers no thrush. Tongue is midline appears dry and coated. Oropharynx: no rash or ulcers. EYES: Pupils are equal, round and reactive to light accommodation. Eye muscles and extraocular movement intact. Sclera is anicteric. Neck; supple no lymphadenopathy, no thyromegaly or bruit Lungs: Normal respiratory rate/effort. Breath sounds bilateral equal and clear Heart: Normal rate. s1s2 normal. No rub or gallop. Extremities: no edema. No varicose veins Neurological: Patient is alert, awake and oriented to person, place and time. No focal deficit. Strength bilateral appropriate and equal Skin: Warm and dry. Normal turgor. No rash. Palpitation: Normal elasticity for age Abdomen: Abdomen is soft. Bowel sounds +. There is lower abdominal tenderness, no guarding/rigidity no organomegaly Psych: normal insight and normal affect/mood MSK: no joint tenderness or swelling. Digits and nails normal, no deformity : kidney or bladder not palpable Labs/imaging/EKG reviewed. Past medical history, past surgical history, family history, social history, allergy reviewed and noted as below Family hx: no hx of CKD. Rest non-contributory WORK up; UA: trace blood no protein has glucoe CT abdomen: unremarkable kidneys/bladder/adrenals. has extensive stool CK normal previously Vit D 32 and PTH 79 Past Patient History - Infectious Disease Hx of Infectious Diseases: None - Past Medical History & Family History Past Medical History?: Yes - Past Social History Smoking Status: Never Smoked - CARDIAC Hx Cardiac Disorders: Yes Hx Hypertension: Yes - PULMONARY Hx Respiratory Disorders: No - NEUROLOGICAL Hx Neurological Disorder: No - HEENT Hx HEENT Problems: No - RENAL Hx Chronic Kidney Disease: No - ENDOCRINE/METABOLIC Hx Endocrine Disorders: Yes Hx Diabetes Mellitus Type 2: Yes (diet controlled) - HEMATOLOGICAL/ONCOLOGICAL Hx Blood Disorders: No - INTEGUMENTARY Hx Dermatological Problems: Yes Other/Comment: BILATERAL LE SCARRING FROM A MECHANICAL FALL.HIT IT UNDER HER CAR. - MUSCULOSKELETAL/RHEUMATOLOGICAL Hx Falls: Yes - GASTROINTESTINAL Hx Gastrointestinal Disorders: No - GENITOURINARY/GYNECOLOGICAL Hx Genitourinary Disorders: No - PSYCHIATRIC Hx Psychophysiologic Disorder: No Hx Substance Use: No - SURGICAL HISTORY Hx Surgeries: No Meds Allergies/Adverse Reactions: Allergies Allergy/AdvReac Type Severity Reaction Status Date / Time No Known Allergies Allergy Verified 11/22/16 09:20 Results - Vital Signs Recent Vital Signs: Last Vital Signs Temp 98.0 F 11/22/16 11:04 Pulse 76 11/22/16 13:00 Resp 16 11/22/16 13:00 BP 134/70 11/22/16 13:00 Pulse Ox 98 11/22/16 13:00 - Labs Result Diagrams: 11/22/16 09:30 11/22/16 09:30 Labs: Laboratory Results - last 24 hr 11/22/16 13:29 POC Glucose (mg/dL) 228 H
[2016-11-22] MEDS ORDERED: Pneumococcal 23-Valent Vaccine IM ONE (16:34)
--- NOTE | 2016-11-22 16:35 | CARD ---
APPROVED REPORT EKG Measurement Heart [id number] <Conclusion> Normal sinus rhythm Nonspecific T wave abnormality Abnormal ECG
[2016-11-22] MEDS: Insulin Reg-MEDIUM-Coverage SC SCH ×2 (16:55→22:54)
--- NOTE | 2016-11-22 17:10 | CP.PCM.HP ---
History of Present Illness - History of Present Illness History of Present Illness: Internal Medicine H&P: November 22, 2016 66 yo AA female presenting again with one day history of abdominal pain and " not feeling well". There is JASON and renal insufficiency at this time with a creatinine value up to 2.2 again. Appear pre-renal in origin. The patient was found to have glucose levels above 250 again. She describes the pain as stabbing but intermittent. CT of the abdomen and pelvis was negative. Spoke with Dr. Cesar who recommended holding ACEI/ARB and hydralazine at this point. Patient admitted for observation. PMHx: Diabetes Mellitus - controlled by diet usually - average glucose 130-140 CAD HTN Stroke and HI several years ago. Back Pain PSHx: cardiac cath Allergies: NKDA Social Hx: No tobacco, EtOH, or illicit drug use Active Medications Aspirin (Ecotrin) 81 mg PO DAILY [facility] Sodium Chloride (Sodium Chloride 0.9%) 1,000 mls @ 100 mls/hr IV .Q10H [facility] Stop: 11/25/16 14:31 Insulin Human Regular (Humulin R Med) 0 units SC ACHS [facility] PRN Reason: Protocol Last Admin: 11/22/16 16:55 Dose: 3 units Nifedipine (Procardia Xl) 90 mg PO DAILY [facility] Family Hx: none given ROS: weakness. poor appetite. Patient denies fevers, chills, nausea, vomiting, diarrhea, headaches, dizziness, chest pain, melena, hematuria, hematemesis, hematochezia, depression, anxiety. Present on Admission - Present on Admission Any Indicators Present on Admission: Yes History of DVT/PE: No History of Uncontrolled Diabetes: Yes Urinary Catheter: No Decubitus Ulcer Present: No Review of Systems - Gastrointestinal Gastrointestinal: Abdominal Pain Past Patient History - Infectious Disease Hx of Infectious Diseases: None - Past Medical History & Family History Past Medical History?: Yes - Past Social History Smoking Status: Never Smoked Chewing Tobacco Use: No Cigar Use: No Alcohol: Social Drugs: Denies Home Situation {Lives}: With Family Domestic Violence: Negative - CARDIAC Hx Cardiac Disorders: Yes Hx Hypertension: Yes - PULMONARY Hx Respiratory Disorders: No - NEUROLOGICAL Hx Transient Ischemic Attacks (TIA): Yes (x2 5 yrs ago) Other/Comment: intermittent tingling numbness to r arm and r leg since tia x 2 - HEENT Hx HEENT Problems: Yes Hx Blind: Yes - RENAL Hx Chronic Kidney Disease: No - ENDOCRINE/METABOLIC Hx Endocrine Disorders: Yes Hx Diabetes Mellitus Type 2: Yes - HEMATOLOGICAL/ONCOLOGICAL Hx Blood Disorders: No - INTEGUMENTARY Hx Dermatological Problems: Yes Other/Comment: BILATERAL LE SCARRING FROM A MECHANICAL FALL.HIT IT UNDER HER CAR , 10 yrs ago her car door flew open she went to grab the handle and fell out and under car - MUSCULOSKELETAL/RHEUMATOLOGICAL Hx Falls: (mechanical fall 10 yrs ago) - GASTROINTESTINAL Hx Gastrointestinal Disorders: No - GENITOURINARY/GYNECOLOGICAL Hx Genitourinary Disorders: No - PSYCHIATRIC Hx Psychophysiologic Disorder: No Hx Substance Use: No - SURGICAL HISTORY Hx Surgeries: No Meds Allergies/Adverse Reactions: Allergies Allergy/AdvReac Type Severity Reaction Status Date / Time No Known Allergies Allergy Verified 11/22/16 09:20 Physical Exam - Constitutional Appears: Non-toxic, No Acute Distress, Chronically Ill - Head Exam Head Exam: ATRAUMATIC, NORMOCEPHALIC - Eye Exam Eye Exam: EOMI, PERRL Pupil Exam: NORMAL ACCOMODATION, PERRL - ENT Exam ENT Exam: Mucous Membranes Moist, Normal External Ear Exam, TM's Normal Bilaterally - Neck Exam Neck exam: Positive for: Full Rom, Normal Inspection - Respiratory Exam Respiratory Exam: Clear to Auscultation Bilateral, NORMAL BREATHING PATTERN. absent: Rales, Rhonchi, Wheezes - Cardiovascular Exam Cardiovascular Exam: REGULAR RHYTHM, RRR, +S1, +S2 - GI/Abdominal Exam GI & Abdominal Exam: Normal Bowel Sounds, Soft, Tenderness. absent: Distended Additional comments: mild epigastric tenderness - Extremities Exam Extremities exam: Positive for: full ROM, normal inspection - Neurological Exam Neurological exam: Alert, CN II-XII Intact, Oriented x3 - Psychiatric Exam Psychiatric exam: Normal Affect, Normal Mood - Skin Skin Exam: Intact, Normal Color Results - Vital Signs Recent Vital Signs: Last Vital Signs Temp 98 F 11/22/16 16:17 Pulse 76 11/22/16 16:17 Resp 16 11/22/16 16:17 BP 134/70 11/22/16 16:17 Pulse Ox 98 11/22/16 13:00 - Labs Result Diagrams: 11/22/16 09:30 11/22/16 09:30 Labs: Laboratory Results - last 24 hr 11/22/16 11/22/16 13:29 15:50 POC Glucose (mg/dL) 228 H 217 H Assessment & Plan - Assessment and Plan (Free Text) Assessment: 66 yo AA female with abdominal pain, fatigue, weakness, and generally feeling unwell for one day. Recent discharged from [facility] 5 days ago. The patient was found to have significantly elevated glucose levels and elevated BUN/Cr values. The patient appears dehydrated. No significant electrolyte imbalances compared to the prior hospitalization. Appreciate Renal consult with Dr. Cesar who is familiar with this patient from her last hospitalization. Held ACEI/ARB and hydralazine as per Dr. Cesar's recommendations. Recheck laboratories in AM. Continue on insulin sliding scale for now. On observation at this time. CT abdomen for abdominal pain.
[2016-11-23] MEDS: Sodium Chloride 0.9% 1,000 ML IV SCH ×3 (06:43→21:35)
[2016-11-23 07:13] LABS: CALCIUM 8.8 mg/dL (8.4-10.5)
[2016-11-23 07:17] VITALS: RESP 20
[2016-11-23] MEDS: Insulin Reg-MEDIUM-Coverage SC SCH ×4 (08:04→21:34)
[2016-11-23] MEDS: NIFEdipine 90 mg ER Tab PO SCH (09:26)
[2016-11-23] MEDS ORDERED: PERINDOPRIL ERBUMINE PO SCH (10:00)
[2016-11-23] MEDS ORDERED: Potassium Chloride 20 mEq ER Tab PO ONE (10:28)
--- NOTE | 2016-11-23 10:59 | CP.PCM.PN ---
Subjective - Date & Time of Evaluation Date of Evaluation: 11/23/16 Time of Evaluation: 10:50 - Subjective Subjective: Follow up Nephrology Consultation: Assessment: Stable Acute Kidney Injury (N17.9) likely due to pre-renal state as evident by hemoconcentration elevated albumin/ca: improved Constipation Hypertensive Chronic Kidney Disease (I12.9) Likely Chronic Kidney Disease (N18.3) Stage 3 with microalbuminuria (100mg) ? due to HTN (serum creatinine 1.5 in 2012) HTN (I12.9) Hypertriglyceridemia Plan renal function improved with IVF. Hypertension controlled. can resume her ACEI at d/c. continue to avoid diuretics /hctz due to tendency to get pre-renal state. ordered 1 dose of KDUR 40 meq Dose meds/antibiotics for reduced GFR. Avoid fleets enema/magnesium based laxatives. Avoid nephrotoxins/NSAIDs/ iodinated contrast (unless needed emergently) Glycemic control Further work up/management as per primary team Thanks for allowing me to participate in care of your patient. stable from renal perspective. f/up in office 1 week. Please call if any Qs Dr Fernie Cesar ([address] [place] [address]) Office: [phone] ROS: she feels well. no complaints. no pain abdomen. had a BM. denies CP/SOB/ nausea/vomitting. No urinary complaints. Physical Examination: General Appearance: Comfortable, in no acute respiratory distress, co-operative . Vitals reviewed and noted as below Lungs: Normal respiratory rate/effort. Breath sounds bilateral equal and clear Heart: Normal rate. s1s2 normal. No rub or gallop. Extremities: no edema. No varicose veins Neurological: Patient is alert, awake and oriented to person, place and time. No focal deficit. Strength bilateral appropriate and equal Skin: Warm and dry. Normal turgor. No rash. Palpitation: Normal elasticity for age Abdomen: Abdomen is soft. Bowel sounds +. There is no abdominal tenderness, no guarding/rigidity no organomegaly : kidney or bladder not palpable WORK up; UA: trace blood no protein has glucoe CT abdomen: unremarkable kidneys/bladder/adrenals. has extensive stool CK normal previously Vit D 32 and PTH 79 Objective - Vital Signs/Intake and Output Vital Signs (last 24 hours): Temp Pulse Resp BP Pulse Ox 98 F 74 20 114/79 98 11/23/16 08:29 11/23/16 08:29 11/23/16 08:29 11/23/16 08:29 11/23/16 08:29 Intake and Output: 11/23/16 11/23/16 06:59 18:59 Intake Total 840 1440 Output Total 200 Balance 640 1440 - Medications Medications: Current Medications Aspirin (Ecotrin) 81 mg PO DAILY [facility] Last Admin: 11/23/16 09:26 Dose: 81 mg Sodium Chloride (Sodium Chloride 0.9%) 1,000 mls @ 100 mls/hr IV .Q10H [facility] Stop: 11/25/16 14:31 Last Admin: 11/23/16 06:43 Dose: 100 mls/hr Insulin Human Regular (Humulin R Med) 0 units SC ACHS [facility] PRN Reason: Protocol Last Admin: 11/23/16 08:04 Dose: 1 units Nifedipine (Procardia Xl) 90 mg PO DAILY [facility] Last Admin: 11/23/16 09:26 Dose: 90 mg - Labs Labs: 11/23/16 06:00 PT 10.9 Seconds (9.9-11.8) 11/22/16 09:30 INR 1.01 (0.93-1.08) 11/22/16 09:30 APTT 29.5 Seconds (23.7-30.8) 11/22/16 09:30
--- NOTE | 2016-11-23 16:36 | CP.PCM.PN ---
Subjective - Date & Time of Evaluation Date of Evaluation: 11/23/16 Time of Evaluation: 15:30 - Subjective Subjective: Internal Medicine Follow Up: November 23, 2016 66 yo AA female presenting again with one day history of abdominal pain and " not feeling well". There is JASON and renal insufficiency at this time with a creatinine value up to 2.2 again. Appear pre-renal in origin. The patient was found to have glucose levels above 250 again. She describes the pain as stabbing but intermittent. CT of the abdomen and pelvis was negative. Spoke with Dr. Cesar who recommended holding ACEI/ARB and hydrochlorothiazide at this point. With the improvement in the kidney function, Perinopril was restarted. Patient admitted for observation. No complaints at this time. Objective - Vital Signs/Intake and Output Vital Signs (last 24 hours): Temp Pulse Resp BP Pulse Ox 98 F 74 20 114/79 98 11/23/16 08:29 11/23/16 08:29 11/23/16 08:29 11/23/16 08:29 11/23/16 08:29 Intake and Output: 11/23/16 11/23/16 06:59 18:59 Intake Total 840 1440 Output Total 200 Balance 640 1440 - Medications Medications: Current Medications Aspirin (Ecotrin) 81 mg PO DAILY [facility] Last Admin: 11/23/16 09:26 Dose: 81 mg Sodium Chloride (Sodium Chloride 0.9%) 1,000 mls @ 100 mls/hr IV .Q10H [facility] Stop: 11/25/16 14:31 Last Admin: 11/23/16 12:45 Dose: 100 mls/hr Insulin Human Regular (Humulin R Med) 0 units SC ACHS [facility] PRN Reason: Protocol Last Admin: 11/23/16 16:09 Dose: 5 units Nifedipine (Procardia Xl) 90 mg PO DAILY [facility] Last Admin: 11/23/16 09:26 Dose: 90 mg - Labs Labs: 11/23/16 06:00 PT 10.9 Seconds (9.9-11.8) 11/22/16 09:30 INR 1.01 (0.93-1.08) 11/22/16 09:30 APTT 29.5 Seconds (23.7-30.8) 11/22/16 09:30 - Constitutional Appears: Non-toxic, No Acute Distress, Chronically Ill - Head Exam Head Exam: ATRAUMATIC, NORMOCEPHALIC - Eye Exam Eye Exam: EOMI, PERRL Pupil Exam: NORMAL ACCOMODATION, PERRL - ENT Exam ENT Exam: Mucous Membranes Moist, Normal External Ear Exam, TM's Normal Bilaterally - Neck Exam Neck Exam: Full ROM, Normal Inspection - Respiratory Exam Respiratory Exam: Clear to Ausculation Bilateral, NORMAL BREATHING PATTERN. absent: Rales, Rhonchi, Wheezes - Cardiovascular Exam Cardiovascular Exam: REGULAR RHYTHM, RRR, +S1, +S2 - GI/Abdominal Exam GI & Abdominal Exam: Soft, Normal Bowel Sounds. absent: Distended, Tenderness - Extremities Exam Extremities Exam: Full ROM, Normal Inspection - Neurological Exam Neurological Exam: Alert, Awake, CN II-XII Intact, Oriented x3 - Psychiatric Exam Psychiatric exam: Normal Affect, Normal Mood - Skin Skin Exam: Intact, Normal Color Assessment and Plan - Assessment and Plan (Free Text) Assessment: 66 yo AA female with abdominal pain, fatigue, weakness, and generally feeling unwell for one day. Recent discharged from [facility] 5 days ago. The patient was found to have significantly elevated glucose levels and elevated BUN/Cr values. The patient appears dehydrated. No significant electrolyte imbalances compared to the prior hospitalization. Appreciate Renal consult with Dr. Cesar who is familiar with this patient from her last hospitalization. Held ACEI/ARB and hydralazine as per Dr. Cesar's recommendations. Recheck laboratories in AM. Continue on insulin sliding scale for now. On observation at this time. CT abdomen for abdominal pain - nonspecific colitis seen. interval fluid appearance in pelvis. Plan for potential discharge tomorrow. Checking to see if the patient is able to receive any nursing services.
[2016-11-24] MEDS: Insulin Reg-MEDIUM-Coverage SC SCH ×3 (08:22→16:55)
[2016-11-24] MEDS: NIFEdipine 90 mg ER Tab PO SCH (09:14)
--- NOTE | 2016-11-24 12:11 | CP.PCM.PN ---
Subjective - Date & Time of Evaluation Date of Evaluation: 11/24/16 Time of Evaluation: 11:59 - Subjective Subjective: Follow up Nephrology Consultation: Assessment: Stable Acute Kidney Injury (N17.9) likely due to pre-renal state as evident by hemo- concentration elevated albumin/ca: improved Constipation Hypertensive Chronic Kidney Disease (I12.9) Likely Chronic Kidney Disease (N18.3) Stage 3 with microalbuminuria (100mg) ? due to HTN (serum creatinine 1.5 in 2012) HTN (I12.9) Hypertriglyceridemia Plan renal function improved with IVF. Hypertension controlled. can resume her ACEI at d/c. continue to avoid diuretics /hctz due to tendency to get pre-renal state. Dose meds/antibiotics for reduced GFR. Avoid fleets enema/magnesium based laxatives. Avoid nephrotoxins/NSAIDs/ iodinated contrast (unless needed emergently) Glycemic control Further work up/management as per primary team Thanks for allowing me to participate in care of your patient. stable from renal perspective. f/up in office 1 week. Please call if any Qs Dr Fernie Cesar ([address] [place] [address]) Office: [phone] ROS: she feels well. no complaints. no pain abdomen. had a BM. denies CP/SOB/ nausea/vomitting. No urinary complaints. Physical Examination: General Appearance: Comfortable, in no acute respiratory distress, co-operative . Vitals reviewed and noted as below Lungs: Normal respiratory rate/effort. Breath sounds bilateral equal and clear Heart: Normal rate. s1s2 normal. No rub or gallop. Extremities: no edema. No varicose veins Neurological: Patient is alert, awake and oriented to person, place and time. No focal deficit. Strength bilateral appropriate and equal Skin: Warm and dry. Normal turgor. No rash. Palpitation: Normal elasticity for age Abdomen: Abdomen is soft. Bowel sounds +. There is no abdominal tenderness, no guarding/rigidity no organomegaly : kidney or bladder not palpable WORK up; UA: trace blood no protein has glucoe CT abdomen: unremarkable kidneys/bladder/adrenals. has extensive stool CK normal previously Vit D 32 and PTH 79 Objective - Vital Signs/Intake and Output Vital Signs (last 24 hours): Temp Pulse Resp BP Pulse Ox 98.2 F 68 20 132/93 H 100 07/27/17 09:37 11/24/16 09:37 11/24/16 09:37 11/24/16 09:37 11/24/16 09:37 Intake and Output: 11/24/16 11/24/16 06:59 18:59 Intake Total 3120 Balance 3120 - Medications Medications: Current Medications Aspirin (Ecotrin) 81 mg PO DAILY [facility] Last Admin: 11/24/16 09:14 Dose: 81 mg Docusate Sodium (Colace) 100 mg PO TID [facility] Last Admin: 11/24/16 09:14 Dose: 100 mg Sodium Chloride (Sodium Chloride 0.9%) 1,000 mls @ 100 mls/hr IV .Q10H [facility] Stop: 11/25/16 14:31 Last Admin: 11/23/16 21:35 Dose: 100 mls/hr Insulin Human Regular (Humulin R Med) 0 units SC ACHS [facility] PRN Reason: Protocol Last Admin: 11/24/16 08:22 Dose: 3 units Nifedipine (Procardia Xl) 90 mg PO DAILY [facility] Last Admin: 11/24/16 09:14 Dose: 90 mg - Labs Labs: 11/23/16 06:00 PT 10.9 Seconds (9.9-11.8) 11/22/16 09:30 INR 1.01 (0.93-1.08) 11/22/16 09:30 APTT 29.5 Seconds (23.7-30.8) 11/22/16 09:30
[2016-11-24 17:30] VITALS: BP 121/87; PULSE 76; TEMP 98.9; O2SAT 98
--- NOTE | 2016-11-24 17:46 | CP.PCM.DIS ---
Provider - Provider Date of Admission: 11/22/16 12:27 Attending physician: Sylvester Frank MD Primary care physician: NO PRIMARY CARE PROVIDER Consults: Nephrology - Dr. Cesar Time Spent in preparation of Discharge (in minutes): 45 Hospital Course - Lab Results Lab Results: Most Recent Lab Values WBC 8.3 10^3/ul (4.5-11.0) 11/22/16 09:30 RBC 4.58 10^6/uL (3.5-6.1) 11/22/16 09:30 Hgb 12.3 gm/dL (12.0-16.0) 11/22/16 09:30 Hct 35.4 % (36.0-48.0) L 11/22/16 09:30 MCV 77.3 fL (80.0-105.0) L 11/22/16 09:30 MCH 26.9 pg (25.0-35.0) 11/22/16 09:30 MCHC 34.7 g/dl (31.0-37.0) 11/22/16 09:30 RDW 13.8 % (11.5-14.5) 11/22/16 09:30 Plt Count 260 10^3/uL (120.0-450.0) 11/22/16 09:30 MPV 9.7 fl (7.0-11.0) 11/22/16 09:30 Gran % 60.4 % (50.0-68.0) 11/22/16 09:30 Lymph % (Auto) 33.0 % (22.0-35.0) 11/22/16 09:30 Yates % (Auto) 4.5 % (1.0-6.0) 11/22/16 09:30 Eos % (Auto) 1.9 % (1.5-5.0) 11/22/16 09:30 Baso % (Auto) 0.2 % (0.0-3.0) 11/22/16 09:30 Gran # 5.00 (1.4-6.5) 11/22/16 09:30 Lymph # 2.7 (1.2-3.4) 11/22/16 09:30 Yates # 0.4 (0.1-0.6) 11/22/16 09:30 Eos # 0.2 (0.0-0.7) 11/22/16 09:30 Baso # 0.02 K/mm3 (0.0-2.0) 11/22/16 09:30 PT 10.9 Seconds (9.9-11.8) 11/22/16 09:30 INR 1.01 (0.93-1.08) 11/22/16 09:30 APTT 29.5 Seconds (23.7-30.8) 11/22/16 09:30 pO2 24 mm/Hg (30-55) L 11/22/16 09:30 VBG pH 7.49 (7.32-7.43) H 11/22/16 09:30 VBG pCO2 34.0 (40-60) L 11/22/16 09:30 VBG HCO3 25.9 mmol/l (21-28) 11/22/16 09:30 VBG Total CO2 26.9 mmol.L (22-28) 11/22/16 09:30 VBG O2 Sat (Calc) 59.4 % (40-65) 11/22/16 09:30 VBG Base Excess 2.8 mmol/L (0.0-2.0) H 11/22/16 09:30 VBG Potassium 4.5 mmol/L (3.6-5.2) 11/22/16 09:30 Sodium 135.0 mmol/L (132-148) 11/22/16 09:30 Chloride 101.0 mmol/L (98-107) 11/22/16 09:30 Glucose 269 mg/dl (65-105) H 11/22/16 09:30 Lactate 1.8 mmol/L (0.7-2.1) 11/22/16 09:30 FiO2 21.0 % 11/22/16 09:30 Sodium 140 mmol/L (132-148) 11/23/16 06:00 Potassium 3.5 mmol/L (3.6-5.0) L 11/23/16 06:00 Chloride 106 mmol/L (98-107) 11/23/16 06:00 Carbon Dioxide 24 mmol/L (21-33) 11/23/16 06:00 Anion Gap 14 (10-20) 11/23/16 06:00 BUN 24 mg/dL (7-21) H 11/23/16 06:00 Creatinine 1.7 mg/dL (0.5-1.4) H 11/23/16 06:00 Est GFR ( Amer) 36 11/23/16 06:00 Est GFR (Non-Af Amer) 30 11/23/16 06:00 POC Glucose (mg/dL) 188 mg/dL (65-110) H 11/24/16 16:05 Random Glucose 150 mg/dL (70-110) H 11/23/16 06:00 Calcium 8.8 mg/dL (8.4-10.5) 11/23/16 06:00 Total Bilirubin 1.2 mg/dL (0.2-1.3) 11/22/16 09:30 AST 39 U/L (15-39) 11/22/16 09:30 ALT 29 U/L (7-56) 11/22/16 09:30 Alkaline Phosphatase 97 U/L (38-133) 11/22/16 09:30 Lactate Dehydrogenase 442 U/L (333-699) 11/22/16 09:30 Total Creatine Kinase 63 U/L (35-230) 11/22/16 09:30 Troponin I 0.02 ng/mL D 11/22/16 09:30 Total Protein 8.6 g/dL (5.8-8.3) H 11/22/16 09:30 Albumin 4.5 g/dL (3.0-4.8) 11/22/16 09:30 Globulin 4.2 gm/dL 11/22/16 09:30 Albumin/Globulin Ratio 1.1 (1.1-1.8) 11/22/16 09:30 Lipase 248 U/L (23-300) 11/22/16 09:30 Venous Blood Potassium 4.5 mmol/L (3.6-5.2) 11/22/16 09:30 Urine Color Light yellow (YELLOW) 11/22/16 11:05 Urine Appearance Clear (CLEAR) 11/22/16 11:05 Urine pH 7.0 (4.7-8.0) 11/22/16 11:05 Ur Specific Orange 1.010 (1.005-1.035) 11/22/16 11:05 Urine Protein Trace mg/dL (<30 mg/dL) H 11/22/16 11:05 Urine Glucose (UA) 250 mg/dL (NEGATIVE) H 11/22/16 11:05 Urine Ketones Negative mg/dL (NEGATIVE) 11/22/16 11:05 Urine Blood Negative (NEGATIVE) 11/22/16 11:05 Urine Nitrate Negative (NEGATIVE) 11/22/16 11:05 Urine Bilirubin Negative (NEGATIVE) 11/22/16 11:05 Urine Urobilinogen 0.2 E.U./dL (<1 E.U./dL) 11/22/16 11:05 Ur Leukocyte Esterase Negative Raghav/uL (NEGATIVE) 11/22/16 11:05 Urine RBC Negative /hpf (0-2) 11/22/16 11:05 Urine WBC 0 - 2 /hpf (0-6) 11/22/16 11:05 Ur Epithelial Cells 0 - 2 /hpf (0-5) 11/22/16 11:05 Urine Bacteria Trace (NEG) 11/22/16 11:05 Ur Random Creatinine 34 mg/dL 11/22/16 16:40 Urine Microalbumin 45.6 mg/L (0.0-16.6) H 11/22/16 16:40 - Hospital Course Hospital Course: Internal Medicine Follow Up: November 24, 2016 66 yo AA female presenting again with one day history of abdominal pain and " not feeling well". There is JASON and renal insufficiency at this time with a creatinine value up to 2.2 again. Appear pre-renal in origin. The patient was found to have glucose levels above 250 again. She describes the pain as stabbing but intermittent. CT of the abdomen and pelvis was negative. Spoke with Dr. Cesar who recommended holding ACEI/ARB and hydrochlorothiazide at this point. With the improvement in the kidney function, Perinopril was restarted. Patient admitted for observation. No complaints at this time. Improved with fluids and renal function improved. Discharge Exam - Head Exam Head Exam: ATRAUMATIC, NORMOCEPHALIC - Eye Exam Eye Exam: EOMI, PERRL Pupil Exam: NORMAL ACCOMODATION, PERRL - ENT Exam ENT Exam: Mucous Membranes Moist, Normal External Ear Exam, TM's Normal Bilaterally - Neck Exam Neck exam: Full Rom, Normal Inspection - Respiratory Exam Respiratory Exam: Clear to PA & Lateral, NORMAL BREATHING PATTERN. absent: Rales, Rhonchi, Wheezes - Cardiovascular Exam Cardiovascular Exam: REGULAR RHYTHM, RRR, +S1, +S2 - GI/Abdominal Exam GI & Abdominal Exam: Normal Bowel Sounds, Soft. absent: Distended, Tenderness - Extremities Exam Extremities exam: full ROM, normal inspection - Neurological Exam Neurological exam: Alert, CN II-XII Intact, Oriented x3 - Psychiatric Exam Psychiatric exam: Normal Affect, Normal Mood - Skin Skin Exam: Intact, Normal Color Discharge Plan - Follow Up Plan Condition: STABLE Disposition: HOME/ ROUTINE Additional Instructions: 66 yo AA female with abdominal pain, fatigue, weakness, and generally feeling unwell for one day. [place] [facility] [place] The patient was found to have significantly elevated glucose levels and elevated BUN/Cr values. The patient appears dehydrated. No significant electrolyte imbalances compared to the prior hospitalization. Appreciate Renal consult with Dr. Cesar who is familiar with this patient from her last hospitalization. Held hydrochlorothiazide as per Dr. Cesar's recommendations. On observation at this time. CT abdomen for abdominal pain - nonspecific colitis seen. interval fluid appearance in pelvis. Improved. Checking to see if the patient is able to receive any nursing services. Discharge to home with follow up in 1 week in my office. Continue to hold hydrochlorothiazide. Referrals: Sylvester Frank MD [Staff Provider] -
== END 2016-11-24 19:18 | disposition home or self-care (01) ==
LOC: ED 08:47 → ERH 12:27 → 3RSO 13:15
PROVIDERS: ADMIT Internal Medicine Infectious Disease; ATTEND Internal Medicine Infectious Disease
DX: N17.9 Acute kidney failure, unspecified (principal); E11.22 Type 2 diabetes mellitus with diabetic chronic kidney disease; I12.9 Hypertensive chronic kidney disease with stage 1 through stage 4 chronic kidney disease, or unspecified chronic kidney disease; N18.3 Chronic kidney disease, stage 3 (moderate); E11.65 Type 2 diabetes mellitus with hyperglycemia; E86.0 Dehydration; E78.1 Pure hyperglyceridemia; H54.0 Blindness, both eyes; I25.10 Atherosclerotic heart disease of native coronary artery without angina pectoris; I25.2 Old myocardial infarction; Z86.73 Personal history of transient ischemic attack (TIA), and cerebral infarction without residual deficits; K59.00 Constipation, unspecified; Z79.82 Long term (current) use of aspirin; W19.XXXA Unspecified fall, initial encounter; R40.2412 Glasgow coma scale score 13-15, at arrival to emergency department; M54.9 Dorsalgia, unspecified; R10.9 Unspecified abdominal pain; R80.9 Proteinuria, unspecified
CPT/HCPCS: 36415; 71010; 74176; 80048; 80053; 81001; 82043; 82550; 82570; 82803; 82948; 83615; 83690; 84484; 85025; 85610; 85730; 93005; 96374; 99285; G0378; J2405; J7040

== ENCOUNTER 2017-06-22 02:01 | Inpatient (IN) | payer MEDICARE, BC ==
[2017-06-22 02:02] VITALS: BMI 22.4
--- NOTE | 2017-06-22 02:46 | ED PDOC ---
Arrival/HPI - General Chief Complaint: Lower Extremity Problem/Injury Time Seen by Provider: 06/22/17 02:30 Historian: Patient - History of Present Illness Narrative History of Present Illness (Text): 06/22/17 02:46 David Rdz is a 67 year old female, whose medical history includes diabetes, CAD, hypertension, TIA, CT, and chronic back pain, who presents to the Emergency department complaining of left lower leg swelling/pain. Patient states she was seen at an Urgent Care Center 2 weeks prior and had a splinter removed from her left lower leg. Patient states she then went to an ER while in [place] last week after she developed pain/swelling to the area and was prescribed Augmentin. Patient states she completed the course of antibiotics but is still experiencing pain/swelling to the area and came in for further evaluation. Patient denies any decreased range of motion, weakness/numbness/ tingling in the extremity, fever, chills, or any other complaints. Time/Duration: < month (2 weeks) Symptom Onset: Gradual Symptom Course: Unchanged Activities at Onset: Light Context: Home Past Medical History - Provider Review Nursing Documentation Reviewed: Yes - Infectious Disease Hx of Infectious Diseases: None - Cardiac Hx Cardiac Disorders: Yes Hx Hypertension: Yes - Pulmonary Hx Respiratory Disorders: No - Neurological Hx Transient Ischemic Attacks (TIA): Yes (x2 5 yrs ago) Other/Comment: intermittent tingling numbness to r arm and r leg since tia x 2 - HEENT Hx HEENT Disorder: Yes Hx Blind: Yes - Renal Hx Renal Disorder: No - Endocrine/Metabolic Hx Endocrine Disorders: Yes Hx Diabetes Mellitus Type 2: Yes - Hematological/Oncological Hx Blood Disorders: No - Integumentary Hx Dermatological Disorder: Yes Other/Comment: BILATERAL LE SCARRING FROM A MECHANICAL FALL.HIT IT UNDER HER CAR , 10 yrs ago her car door flew open she went to grab the handle and fell out and under car - Musculoskeletal/Rheumatological Hx Falls: (mechanical fall 10 yrs ago) - Gastrointestinal Hx Gastrointestinal Disorders: No - Genitourinary/Gynecological Hx Genitourinary Disorders: No - Psychiatric Hx Psychophysiologic Disorder: No Hx Substance Use: No - Suicidal Assessment Feels Threatened In Home Enviroment: No Family/Social History - Physician Review Nursing Documentation Reviewed: Yes Family/Social History: Unknown Family HX Smoking Status: Never Smoked Hx Alcohol Use: No Hx Substance Use: No Allergies/Home Meds Allergies/Adverse Reactions: Allergies EGG Allergy (Verified 11/24/16 16:34) ANAPHYLAXIS Home Medications: Home Meds Medication Instructions Recorded Confirmed Nifedipine [Nifedipine ER] 90 mg PO DAILY 07/03/13 06/22/17 Perindopril Erbumine 8 mg PO DAILY 08/31/16 06/22/17 Aspirin [Ecotrin] 81 mg PO DAILY 11/15/16 06/22/17 hydroCHLOROthiazide [Microzide] 12.5 mg PO DAILY 11/15/16 06/22/17 Review of Systems - Physician Review All systems were reviewed & negative as marked: Yes - Review of Systems Constitutional: Normal. absent: Fevers Eyes: Normal ENT: Normal Respiratory: Normal. absent: SOB, Cough Cardiovascular: Normal. absent: Chest Pain Gastrointestinal: Normal. absent: Abdominal Pain, Diarrhea, Nausea, Vomiting Genitourinary Female: Normal. absent: Dysuria, Frequency, Hematuria, Urine Output Changes Musculoskeletal: Normal. absent: Back Pain, Neck Pain Skin: Cellulitis (+left lower leg cellulitis) Neurological: Normal. absent: Headache, Dizziness Endocrine: Normal Hemo/Lymphatic: Normal Psychiatric: Normal Physical Exam Vital Signs Reviewed: Yes Vital Signs Temp Pulse Resp BP Pulse Ox 06/22/17 02:16 97.8 F 73 18 147/89 98 Temperature: Afebrile Blood Pressure: Normal Pulse: Regular Respiratory Rate: Normal Appearance: Positive for: Well-Appearing, Non-Toxic, Comfortable Pain Distress: None Mental Status: Positive for: Alert and Oriented X 3 - Systems Exam Head: Present: Atraumatic, Normocephalic Pupils: Present: PERRL Extroacular Muscles: Present: EOMI Conjunctiva: Present: Normal Mouth: Present: Moist Mucous Membranes Neck: Present: Normal Range of Motion. No: Meningeal Signs, MIDLINE TENDERNESS , Paraspinal Tenderness Respiratory/Chest: Present: Clear to Auscultation, Good Air Exchange. No: Respiratory Distress, Accessory Muscle Use Cardiovascular: Present: Regular Rate and Rhythm, Normal S1, S2. No: Murmurs Abdomen: Present: Normal Bowel Sounds. No: Tenderness, Distention, Peritoneal Signs Back: Present: Normal Inspection Upper Extremity: Present: Normal Inspection. No: Cyanosis, Edema Lower Extremity: Present: NORMAL PULSES, Normal ROM, Swelling (Swelling with confluent erythema to left lower leg), Erythema, Neurovascularly Intact, Capillary Refill < 2 s. No: Edema, Cyanosis, Deformity, Temperature Abnormalties Neurological: Present: GCS=15, CN II-XII Intact, Speech Normal Skin: Present: Warm, Dry, Normal Color. No: Rashes Psychiatric: Present: Alert, Oriented x 3, Normal Insight, Normal Concentration Medical Decision Making ED Course and Treatment: 06/22/17 02:46 Impression: 67 year old female complaining of a left lower leg wound with swelling and pain to the area for 2 weeks. Differential Diagnosis included but are not limited to: cellulitis Plan: -- Labs, blood culture -- Vancomycin -- Zosyn -- Reassess and disposition Prior Visits: Notes and results from previous visits were reviewed. Progress Notes: 06/22/17 04:[address] Frank, who is aware and agrees with plan. Accepts pt in to his service. Pt will go to [facility] observation for cellulitis. - Lab Interpretations Lab Results: 06/22/17 02:55 06/22/17 02:55 Lab Results 06/22/17 02:55: WBC 10.0 D, RBC 3.98, Hgb 10.6 L, Hct 32.3 L, MCV 81.2, MCH 26.6, MCHC 32.8, RDW 13.8, Plt Count 242, MPV 9.8 06/22/17 02:55: Sodium 145, Potassium 3.2 L, Chloride 104, Carbon Dioxide 28, Anion Gap 16, BUN 23 H, Creatinine 1.6 H, Est GFR ( Amer) 39, Est GFR ( Non-Af Amer) 32, Random Glucose 117 H, Calcium 9.6, Total Bilirubin 0.7, AST 40 H, ALT 21, Alkaline Phosphatase 94, Total Protein 8.3, Albumin 4.2, Globulin 4.1 , Albumin/Globulin Ratio 1.0 L I have reviewed the lab results: Yes - Medication Orders Current Medication Orders: Vancomycin HCl (Vancomycin 500mg In Ns) 500 mg in 100 mls @ 200 mls/hr IVPB STAT STA PRN Reason: Protocol Stop: 06/22/17 04:26 Discontinued Medications Piperacillin Sod/Tazobactam Sod (Zosyn 3.375 In Ns 100ml) 100 mls @ 200 mls/hr IV STAT STA PRN Reason: Protocol Stop: 06/22/17 03:27 Last Admin: 06/22/17 03:25 Dose: 200 mls/hr eMAR Start Stop Document 06/22/17 03:25 RD (Rec: 06/22/17 03:25 RD [id number]) Intravenous Solution Start Date 06/22/17 Start Time 03:25 End Date 06/22/17 End time 03:55 Total Infusion Time 30 Oxycodone/Acetaminophen (Percocet 5/325 Mg Tab) 1 tab PO STAT STA Stop: 06/22/17 03:30 Last Admin: 06/22/17 03:40 Dose: 1 tab MAR Pain Assessment Document 06/22/17 03:40 RD (Rec: 06/22/17 03:41 RD [id number]) Pain Reassessment Is this a pain reassessment? No Sleep Is patient sleeping during reassessment? No Presence of Pain Presence of Pain Yes Pain Scale Used Pain Scale Used Numeric Location Left, Right or Bilateral Left Upper or Lower Lower Pain Location Body Site Leg Description Description Constant Pain Behavior Irritability Potassium Chloride (Potassium Chloride Oral Soln) 20 meq PO STAT STA Stop: 06/22/17 03:53 Last Admin: 06/22/17 04:09 Dose: 20 meq - Scribe Statement The provider has reviewed the documentation as recorded by the Scribe Dilia Frost All medical record entries made by the Celioiblea were at my direction and personally dictated by me. I have reviewed the chart and agree that the record accurately reflects my personal performance of the history, physical exam, medical decision making, and the department course for this patient. I have also personally directed, reviewed, and agree with the discharge instructions and disposition. Disposition/Present on Arrival - Present on Arrival Any Indicators Present on Arrival: No History of DVT/PE: No History of Uncontrolled Diabetes: Yes Urinary Catheter: No History of Decub. Ulcer: No History Surgical Site Infection Following: None - Disposition Have Diagnosis and Disposition been Completed?: Yes Diagnosis: Cellulitis of left leg Disposition: HOSPITALIZED Disposition Time: 04:20 Patient Plan: Observation Condition: STABLE Discharge Instructions (ExitCare): Cellulitis (ED) Forms: [employer] (Portuguese)
[2017-06-22] MEDS ORDERED: Piperacillin/Tazobact 3.375 gm 100 ML IV STA (02:58)
[2017-06-22] MEDS ORDERED: Vancomycin 1gm in NS 250ml 1 GM/250 ML BAG IVPB STA (03:01)
[2017-06-22 03:14] LABS: HEMOGLOBIN 10.6 g/dL (12.0-16.0); MEAN CELL VOLUME 81.2 fl (80.0-105.0); MEAN CORPUSCULAR HEMOGLOBIN 26.6 pg (25.0-35.0); MEAN CORPUSCULAR HGB CONC 32.8 g/dl (31.0-37.0); MEAN PLATELET VOLUME 9.8 fl (7.0-11.0); RBC 3.98 10^6/uL (3.5-6.1); RED CELL DISTRIBUTION WIDTH 13.8 % (11.5-14.5)
[2017-06-22 03:29] LABS: ALBUMIN 4.2 g/dL (3.0-4.8); CALCIUM 9.6 mg/dL (8.4-10.5)
[2017-06-22] MEDS ORDERED: Oxycodone/Acetaminophen 5/325 mg Tab PO STA (03:29)
[2017-06-22] MEDS ORDERED: Potassium Chloride 20 mEq/15 ml LIQ UD PO STA (03:52)
[2017-06-22] MEDS ORDERED: Vancomycin 500mg in NS 500 MG/100 ML BAG IVPB STA (03:57)
[2017-06-22] MEDS: Sodium Chloride 0.9% 1,000 ML IV SCH ×2 (04:36→18:35)
[2017-06-22] MEDS: Oxycodone/Acetaminophen 5/325 mg Tab PO PRN ×2 (13:35→18:31)
--- NOTE | 2017-06-22 20:35 | CP.PCM.HP ---
History of Present Illness - History of Present Illness History of Present Illness: Internal Medicine H&P: June 22, 2017 67 yo AA female presenting with left lower leg pain and swelling. The patient had a splinter removed 2 weeks ago at an Urgent Care center. She was in [place] a week ago where she received Augmentin for treatment of the leg as the pain and swelling did not subside. Still having pain and swelling to the area so she came to the ER for further evaluation. PMHx: Diabetes Mellitus CAD HTN Stroke and NJ several years ago. Chronic Back Pain TIA PSHx: cardiac cath Allergies: NKDA Social Hx: No tobacco, EtOH, or illicit drug use Active Medications Hydrochlorothiazide (Microzide) 12.5 mg PO DAILY SKINNY Sodium Chloride (Sodium Chloride 0.9%) 1,000 mls @ 100 mls/hr IV .Q10H SKINNY Last Admin: 06/22/17 18:35 Dose: 100 mls/hr Lisinopril (Zestril) 40 mg PO DAILY SKINNY Metformin HCl (Glucophage Xr) 1,000 mg PO DAILY [facility] Nifedipine (Procardia Xl) 90 mg PO DAILY SKINNY Oxycodone/Acetaminophen (Percocet 5/325 Mg Tab) 1 tab PO Q6H PRN PRN Reason: Pain, moderate (4-7) Stop: 06/25/17 13:14 Last Admin: 06/22/17 18:31 Dose: 1 tab Family Hx: none given ROS: weakness. poor appetite. Patient denies fevers, chills, nausea, vomiting, diarrhea, headaches, dizziness, chest pain, melena, hematuria, hematemesis, hematochezia, depression, anxiety. Present on Admission - Present on Admission Any Indicators Present on Admission: Yes History of Uncontrolled Diabetes: Yes Review of Systems - Review of Systems All systems: reviewed and no additional remarkable complaints except Past Patient History - Infectious Disease Hx of Infectious Diseases: None - Past Medical History & Family History Past Medical History?: Yes - Past Social History Smoking Status: Never Smoked Drugs: Denies - CARDIAC Hx Heart Attack: Yes Hx Hypertension: Yes - PULMONARY Hx Respiratory Disorders: No - NEUROLOGICAL Hx Transient Ischemic Attacks (TIA): Yes Other/Comment: 2 strokes in 15 years, occasional right sided lower extremity weakness - HEENT Hx HEENT Problems: Yes Hx Blind: Yes - RENAL Hx Chronic Kidney Disease: No - ENDOCRINE/METABOLIC Hx Diabetes Mellitus Type 2: Yes (control with PO meds) - HEMATOLOGICAL/ONCOLOGICAL Hx Blood Disorders: No - INTEGUMENTARY Hx Dermatological Problems: Yes Other/Comment: BILATERAL LE SCARRING FROM A MECHANICAL FALL.HIT IT UNDER HER CAR , 10 yrs ago her car door flew open she went to grab the handle and fell out and under car - MUSCULOSKELETAL/RHEUMATOLOGICAL Hx Falls: No - GASTROINTESTINAL Hx Gastrointestinal Disorders: No - GENITOURINARY/GYNECOLOGICAL Other/Comment: 2 children - PSYCHIATRIC Hx Psychophysiologic Disorder: No Hx Substance Use: No - SURGICAL HISTORY Hx Surgeries: No Meds Allergies/Adverse Reactions: Allergies Allergy/AdvReac Type Severity Reaction Status Date / Time No Known Allergies Allergy Verified 06/22/17 19:55 Physical Exam - Constitutional Appears: Non-toxic, No Acute Distress - Head Exam Head Exam: ATRAUMATIC, NORMOCEPHALIC - Eye Exam Eye Exam: EOMI, PERRL Pupil Exam: NORMAL ACCOMODATION, PERRL - ENT Exam ENT Exam: Mucous Membranes Moist, Normal External Ear Exam, TM's Normal Bilaterally - Neck Exam Neck exam: Positive for: Full Rom, Normal Inspection - Respiratory Exam Respiratory Exam: Clear to Auscultation Bilateral, NORMAL BREATHING PATTERN. absent: Rales, Rhonchi, Wheezes - Cardiovascular Exam Cardiovascular Exam: REGULAR RHYTHM, RRR, +S1, +S2 - GI/Abdominal Exam GI & Abdominal Exam: Normal Bowel Sounds, Soft. absent: Distended, Tenderness - Extremities Exam Extremities exam: Positive for: full ROM Additional comments: 1 cm ulceration just above the Achilles tendon area in left leg with swelling and fullness of the surrounding tissues. No additional warmth and mild tenderness at this time. Full ROM of the leg, ankle, and foot. - Neurological Exam Neurological exam: Alert, CN II-XII Intact, Oriented x3 - Psychiatric Exam Psychiatric exam: Normal Affect, Normal Mood - Skin Skin Exam: Intact, Normal Color Results - Vital Signs Recent Vital Signs: Last Vital Signs Temp 98.4 F 06/22/17 08:20 Pulse 64 06/22/17 08:20 Resp 16 06/22/17 15:56 BP 142/91 H 06/22/17 08:20 Pulse Ox 95 06/22/17 08:20 - Labs Result Diagrams: 06/22/17 02:55 06/22/17 02:55 Labs: Laboratory Results - last 24 hr 06/22/17 06/22/17 06/22/17 07:24 11:11 16:29 POC Glucose (mg/dL) 127 H 131 H 110 Assessment & Plan - Assessment and Plan (Free Text) Assessment: 67 yo AA female with 2 week history of pain in the left calf. The patient had a splinter removed 2 weeks ago at an Urgent Care center. The patient continued to have pain in the left with increasing swelling of the area. She was in [place] and went to the ER for evaluation. Given Augmentin for treatment which did not help. Came to [facility] [place] for [place] and admitted for further care. Percocet for pain control. Patient with DM, CAD with history of [place], and HTN. Currently on Aceon, Metformin, Nifedipine, and HCTZ. Will obtain CT of the left lower leg. Will obtain surgery evaluation of the left lower leg given the 2 week history of the pain and the ulceration. Thank you for allowing me to participate in the care of the patient, we will follow with you.
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
[2017-06-23] MEDS: Oxycodone/Acetaminophen 5/325 mg Tab PO PRN (05:58)
[2017-06-23] MEDS: NIFEdipine 90 mg ER Tab PO SCH (09:59)
--- NOTE | 2017-06-23 10:26 | CT ---
PROCEDURE: CT of the left ankle and foot without contrast HISTORY: splinter and ulceration near achilles area. COMPARISON: No prior similar study available for comparison. TECHNIQUE: Axial and reformatted coronal and sagittal CT images of the left ankle and foot were obtained in bone and soft tissue windows. FINDINGS: There is no evidence of acute fracture or dislocation at the left ankle and proximal left foot. Casa diffuse mild soft tissue swelling noted at the posterior and plantar aspect of the left ankle and proximal left foot. The Achilles tendon appears intact in this study. There is a small enthesophyte noted at the insertion site of the Achilles tendon. No evidence of discrete fluid collection. The assessment for ligament and tendon injury is more sensitive by MRI. IMPRESSION: No evidence of Achilles tendon tear or retraction. Small enthesophyte noted at the insertion site of the Achilles tendon. No evidence of acute fracture or dislocation. Soft tissue swelling more prominent at the posterior and plantar aspect of the left ankle.
--- NOTE | 2017-06-23 10:55 | CP.PCM.PCO ---
Physician Communication Note - Physician Communication Note Physician Communication Note: Cellulitis/DM/No FB-Infection/Rx Topical Bactroban
[2017-06-23] MEDS ORDERED: Vancomycin 500mg in NS 500 MG/100 ML BAG IVPB STA ×2 (13:57→17:15)
[2017-06-23] MEDS: cefTRIAXone 1 gm 1 GM/100 ML BAG IVPB SCH (14:27)
--- NOTE | 2017-06-23 15:38 | CP.PCM.PN ---
Subjective - Date & Time of Evaluation Date of Evaluation: 06/23/17 Time of Evaluation: 14:00 - Subjective Subjective: Internal Medicine Follow Up: June 23, 2017 67 yo AA female presenting with left lower leg pain and swelling. The patient had a splinter removed 2 weeks ago at an Urgent Care center. She was in [place] a week ago where she received Augmentin for treatment of the leg as the pain and swelling did not subside. Still having pain and swelling to the area so she came to the ER for further evaluation. CT showed no major structural abnormalities. Seen by Surgery. Objective - Vital Signs/Intake and Output Vital Signs (last 24 hours): Temp Pulse Resp BP Pulse Ox 98.0 F 88 20 146/88 96 06/23/17 07:30 06/23/17 07:30 06/23/17 07:30 06/23/17 07:30 06/23/17 07:30 Intake and Output: 06/23/17 06/23/17 06:59 18:59 Intake Total 240 240 Balance 240 240 - Medications Medications: Current Medications Hydrochlorothiazide (Microzide) 12.5 mg PO DAILY [facility] Last Admin: 06/23/17 09:59 Dose: 12.5 mg Ceftriaxone Sodium (Rocephin 1 Gram Ivpb) 1 gm in 100 mls @ 100 mls/hr IVPB DAILY [facility] PRN Reason: Protocol Last Admin: 06/23/17 14:27 Dose: 100 mls/hr Vancomycin HCl (Vancomycin 750 Mg In Ns) 750 mg in 250 mls @ 167 mls/hr IVPB DAILY [facility] PRN Reason: Protocol Ketorolac Tromethamine (Toradol) 15 mg IM Q6 PRN PRN Reason: Pain, moderate (4-7) Stop: 06/28/17 14:01 Last Admin: 06/23/17 14:27 Dose: 15 mg Lisinopril (Zestril) 40 mg PO DAILY [facility] Last Admin: 06/23/17 09:59 Dose: 40 mg Metformin HCl (Glucophage Xr) 1,000 mg PO DAILY [facility] Last Admin: 06/23/17 09:58 Dose: 1,000 mg Mupirocin (Bactroban Ointment) 0 gm TOP BID [facility] Last Admin: 06/23/17 11:48 Dose: 1 appl Nifedipine (Procardia Xl) 90 mg PO DAILY [facility] Last Admin: 06/23/17 09:59 Dose: 90 mg - Constitutional Appears: Non-toxic, No Acute Distress - Head Exam Head Exam: ATRAUMATIC, NORMOCEPHALIC - Eye Exam Eye Exam: EOMI, PERRL Pupil Exam: NORMAL ACCOMODATION, PERRL - ENT Exam ENT Exam: Mucous Membranes Moist, Normal External Ear Exam, TM's Normal Bilaterally - Neck Exam Neck Exam: Full ROM, Normal Inspection - Respiratory Exam Respiratory Exam: Clear to Ausculation Bilateral, NORMAL BREATHING PATTERN. absent: Rales, Rhonchi, Wheezes - Cardiovascular Exam Cardiovascular Exam: REGULAR RHYTHM, RRR, +S1, +S2 - GI/Abdominal Exam GI & Abdominal Exam: Soft, Normal Bowel Sounds. absent: Distended, Tenderness - Extremities Exam Extremities Exam: Full ROM Additional comments: 1 cm ulceration just above the Achilles tendon area in left leg with swelling and fullness of the surrounding tissues. No additional warmth and mild tenderness at this time. Full ROM of the leg, ankle, and foot. - Neurological Exam Neurological Exam: Alert, Awake, CN II-XII Intact, Oriented x3 - Psychiatric Exam Psychiatric exam: Normal Affect, Normal Mood - Skin Skin Exam: Intact, Normal Color Assessment and Plan - Assessment and Plan (Free Text) Assessment: 67 yo AA female with 2 week history of pain in the left calf. The patient had a splinter removed 2 weeks ago at an Urgent Care center. The patient continued to have pain in the left with increasing swelling of the area. She was in [place] and went to the ER for evaluation. Given Augmentin for treatment which did not help. Came to [facility] ER for evaluation and admitted for further care. Percocet for pain control. Patient with DM, CAD with history of [place], and HTN. Currently on Aceon, Metformin, Nifedipine, and HCTZ. Will obtain CT of the left lower leg. Will obtain surgery evaluation of the left lower leg given the 2 week history of the pain and the ulceration. CT unremarkable. Surgery was comfortable with local wound care. Thank you for allowing me to participate in the care of the patient, we will follow with you.
[2017-06-23] MEDS ORDERED: oxyCODONE 5 mg Immediate Release Tab PO ONE ×2 (18:08→21:10)
[2017-06-23] MEDS ORDERED: oxyCODONE 5 mg Immediate Release Tab PO PRN (21:02)
[2017-06-24 06:51] LABS: HEMOGLOBIN 11.1 g/dL (12.0-16.0); MEAN CELL VOLUME 80.8 fl (80.0-105.0); MEAN CORPUSCULAR HEMOGLOBIN 26.4 pg (25.0-35.0); MEAN CORPUSCULAR HGB CONC 32.6 g/dl (31.0-37.0); MEAN PLATELET VOLUME 9.5 fl (7.0-11.0); RBC 4.21 10^6/uL (3.5-6.1); RED CELL DISTRIBUTION WIDTH 13.6 % (11.5-14.5); WHITE BLOOD COUNT 7.1 10^3/ul (4.5-11.0)
[2017-06-24 07:02] LABS: CALCIUM 8.9 mg/dL (8.4-10.5)
[2017-06-24] MEDS: cefTRIAXone 1 gm 1 GM/100 ML BAG IVPB SCH (09:47)
[2017-06-24] MEDS: Vancomycin 750mg 750 MG/250 ML BAG IVPB SCH (09:47)
[2017-06-24] MEDS: NIFEdipine 90 mg ER Tab PO SCH (09:47)
--- NOTE | 2017-06-24 16:11 | CP.PCM.PN ---
Subjective - Date & Time of Evaluation Date of Evaluation: 06/24/17 Time of Evaluation: 15:00 - Subjective Subjective: Internal Medicine Follow Up: June 24, 2017 67 yo AA female presenting with left lower leg pain and swelling. The patient had a splinter removed 2 weeks ago at an Urgent Care center. She was in [place] a week ago where she received Augmentin for treatment of the leg as the pain and swelling did not subside. Still having pain and swelling to the area so she came to the ER for further evaluation. CT showed no major structural abnormalities. Seen by Surgery. Overall swelling and induration improving slowly. Objective - Vital Signs/Intake and Output Vital Signs (last 24 hours): Temp Pulse Resp BP Pulse Ox 97.7 F 70 20 146/88 96 06/24/17 07:00 06/24/17 07:00 06/24/17 07:00 06/24/17 07:00 06/24/17 07:00 Intake and Output: 06/24/17 06/24/17 06:59 18:59 Intake Total 240 Balance 240 - Medications Medications: Current Medications Acetaminophen (Tylenol 325mg Tab) 650 mg PO Q6H PRN PRN Reason: Pain, moderate (4-7) Last Admin: 06/24/17 05:48 Dose: 650 mg Hydrochlorothiazide (Microzide) 12.5 mg PO DAILY [facility] Last Admin: 06/24/17 09:46 Dose: 12.5 mg Ceftriaxone Sodium (Rocephin 1 Gram Ivpb) 1 gm in 100 mls @ 100 mls/hr IVPB DAILY [facility] PRN Reason: Protocol Last Admin: 06/24/17 09:47 Dose: 100 mls/hr Vancomycin HCl (Vancomycin 750 Mg In Ns) 750 mg in 250 mls @ 167 mls/hr IVPB DAILY [facility] PRN Reason: Protocol Last Admin: 06/24/17 09:47 Dose: 167 mls/hr Lisinopril (Zestril) 40 mg PO DAILY [facility] Last Admin: 06/24/17 09:47 Dose: 40 mg Metformin HCl (Glucophage Xr) 1,000 mg PO DAILY [facility] Last Admin: 06/24/17 09:46 Dose: 1,000 mg Mupirocin (Bactroban Ointment) 0 gm TOP BID [facility] Last Admin: 06/24/17 09:43 Dose: 1 appl Nifedipine (Procardia Xl) 90 mg PO DAILY [facility] Last Admin: 06/24/17 09:47 Dose: 90 mg - Labs Labs: 06/24/17 06:00 06/24/17 06:00 - Constitutional Appears: Non-toxic, No Acute Distress, Chronically Ill - Head Exam Head Exam: ATRAUMATIC, NORMOCEPHALIC - Eye Exam Eye Exam: EOMI, PERRL Pupil Exam: NORMAL ACCOMODATION, PERRL - ENT Exam ENT Exam: Mucous Membranes Moist, Normal External Ear Exam, TM's Normal Bilaterally - Neck Exam Neck Exam: Full ROM, Normal Inspection - Respiratory Exam Respiratory Exam: Clear to Ausculation Bilateral, NORMAL BREATHING PATTERN. absent: Rales, Rhonchi, Wheezes - Cardiovascular Exam Cardiovascular Exam: REGULAR RHYTHM, RRR, +S1, +S2 - GI/Abdominal Exam GI & Abdominal Exam: Soft, Normal Bowel Sounds. absent: Distended, Tenderness - Extremities Exam Extremities Exam: Full ROM Additional comments: 1 cm ulceration just above the Achilles tendon area in left leg with swelling and fullness of the surrounding tissues. No additional warmth and mild tenderness at this time. Full ROM of the leg, ankle, and foot. - Neurological Exam Neurological Exam: Alert, Awake, CN II-XII Intact, Oriented x3 - Psychiatric Exam Psychiatric exam: Normal Affect, Normal Mood - Skin Skin Exam: Intact, Normal Color Assessment and Plan - Assessment and Plan (Free Text) Assessment: 67 yo AA female with 2 week history of pain in the left calf. The patient had a splinter removed 2 weeks ago at an Urgent Care center. The patient continued to have pain in the left with increasing swelling of the area. She was in [place] and went to the ER for evaluation. Given Augmentin for treatment which did not help. Came to [facility] ER for evaluation and admitted for further care. Percocet for pain control. Patient with DM, CAD with history of [place], and HTN. Currently on Aceon, Metformin, Nifedipine, and HCTZ. Will obtain CT of the left lower leg. Will obtain surgery evaluation of the left lower leg given the 2 week history of the pain and the ulceration. CT unremarkable. Surgery was comfortable with local wound care. On Rocephin and IV Vancomycin for treatment at this time. Thank you for allowing me to participate in the care of the patient, we will follow with you.
[2017-06-24] MEDS ORDERED: Potassium Chloride 20 mEq ER Tab PO ONE (16:26)
[2017-06-24] MEDS ORDERED: oxyCODONE 5 mg Immediate Release Tab PO STA ×2 (16:31)
[2017-06-25 00:52] VITALS: RESP 20
[2017-06-25] MEDS ORDERED: oxyCODONE 5 mg Immediate Release Tab PO STA (03:11)
--- NOTE | 2017-06-25 05:36 | CP.PCM.PN ---
Subjective - Date & Time of Evaluation Date of Evaluation: 06/25/17 Time of Evaluation: 05:36 - Subjective Subjective: S:Seen at bedside. She complained of back pain. It is chronic problem. No other complaints. Medical record was reviewed. O:Stable. Not in distress. Last Vital Signs 3 Temp 98 F 06/25/17 00:00 Pulse 73 06/25/17 00:00 Resp 20 06/25/17 00:00 BP 135/88 06/24/17 16:00 Pulse Ox 92 L 06/25/17 00:00 LUNGS:Normal breathing pattern. Tnnzrnl-[id number]-Ulypfqn intact. A: Back pain. P:Oxycodone as ordered. Objective - Vital Signs/Intake and Output Vital Signs (last 24 hours): Temp Pulse Resp BP Pulse Ox 98 F 73 20 135/88 92 L 06/25/17 00:00 06/25/17 00:00 06/25/17 00:00 06/24/17 16:00 06/25/17 00:00 - Medications Medications: Current Medications Acetaminophen (Tylenol 325mg Tab) 650 mg PO Q6H PRN PRN Reason: Pain, moderate (4-7) Last Admin: 06/24/17 21:26 Dose: 650 mg Hydrochlorothiazide (Microzide) 12.5 mg PO DAILY [facility] Last Admin: 06/24/17 09:46 Dose: 12.5 mg Ceftriaxone Sodium (Rocephin 1 Gram Ivpb) 1 gm in 100 mls @ 100 mls/hr IVPB DAILY [facility] PRN Reason: Protocol Last Admin: 06/24/17 09:47 Dose: 100 mls/hr Vancomycin HCl (Vancomycin 750 Mg In Ns) 750 mg in 250 mls @ 167 mls/hr IVPB DAILY [facility] PRN Reason: Protocol Last Admin: 06/24/17 09:47 Dose: 167 mls/hr Lisinopril (Zestril) 40 mg PO DAILY [facility] Last Admin: 06/24/17 09:47 Dose: 40 mg Metformin HCl (Glucophage Xr) 1,000 mg PO DAILY [facility] Last Admin: 06/24/17 09:46 Dose: 1,000 mg Mupirocin (Bactroban Ointment) 0 gm TOP BID [facility] Last Admin: 06/24/17 17:39 Dose: 1 appl Nifedipine (Procardia Xl) 90 mg PO DAILY [facility] Last Admin: 06/24/17 09:47 Dose: 90 mg - Labs Labs: 06/24/17 06:00 06/24/17 06:00
[2017-06-25] MEDS: NIFEdipine 90 mg ER Tab PO SCH (09:13)
[2017-06-25] MEDS: cefTRIAXone 1 gm 1 GM/100 ML BAG IVPB SCH (09:13)
[2017-06-25] MEDS: Vancomycin 750mg 750 MG/250 ML BAG IVPB SCH (09:14)
--- NOTE | 2017-06-25 17:26 | CP.PCM.DIS ---
Provider - Provider Date of Admission: 06/23/17 16:45 Attending physician: Sylvester Frank MD Primary care physician: Sylvester Frank MD Consults: Dr. Merlos - Surgery Time Spent in preparation of Discharge (in minutes): 35 Hospital Course - Lab Results Lab Results: Most Recent Lab Values WBC 7.1 10^3/ul (4.5-11.0) D 06/24/17 06:00 RBC 4.21 10^6/uL (3.5-6.1) 06/24/17 06:00 Hgb 11.1 g/dL (12.0-16.0) L 06/24/17 06:00 Hct 34.0 % (36.0-48.0) L 06/24/17 06:00 MCV 80.8 fl (80.0-105.0) 06/24/17 06:00 MCH 26.4 pg (25.0-35.0) 06/24/17 06:00 MCHC 32.6 g/dl (31.0-37.0) 06/24/17 06:00 RDW 13.6 % (11.5-14.5) 06/24/17 06:00 Plt Count 245 10^3/uL (120.0-450.0) 06/24/17 06:00 MPV 9.5 fl (7.0-11.0) 06/24/17 06:00 ESR 69 mm/hr (0.0-20.0) H 06/24/17 06:00 Sodium 142 mmol/L (132-148) 06/24/17 06:00 Potassium 3.0 mmol/L (3.6-5.0) L 06/24/17 06:00 Chloride 104 mmol/L (98-107) 06/24/17 06:00 Carbon Dioxide 26 mmol/L (21-33) 06/24/17 06:00 Anion Gap 15 (10-20) 06/24/17 06:00 BUN 17 mg/dL (7-21) 06/24/17 06:00 Creatinine 1.4 mg/dl (0.7-1.2) H 06/24/17 06:00 Est GFR ( Amer) 45 06/24/17 06:00 Est GFR (Non-Af Amer) 37 06/24/17 06:00 POC Glucose (mg/dL) 108 mg/dL (65-110) 06/25/17 16:03 Random Glucose 135 mg/dL (70-110) H 06/24/17 06:00 Calcium 8.9 mg/dL (8.4-10.5) 06/24/17 06:00 Total Bilirubin 0.7 mg/dL (0.2-1.3) 06/22/17 02:55 AST 40 U/L (14-36) H 06/22/17 02:55 ALT 21 U/L (7-56) 06/22/17 02:55 Alkaline Phosphatase 94 U/L (38-126) 06/22/17 02:55 Total Protein 8.3 g/dL (5.8-8.3) 06/22/17 02:55 Albumin 4.2 g/dL (3.0-4.8) 06/22/17 02:55 Globulin 4.1 gm/dL 06/22/17 02:55 Albumin/Globulin Ratio 1.0 (1.1-1.8) L 06/22/17 02:55 - Hospital Course Hospital Course: Internal Medicine Follow Up: June 25, 2017 67 yo AA female presenting with left lower leg pain and swelling. The patient had a splinter removed 2 weeks ago at an Urgent Care center. She was in [place] a week ago where she received Augmentin for treatment of the leg as the pain and swelling did not subside. Still having pain and swelling to the area so she came to the ER for further evaluation. CT showed no major structural abnormalities. Seen by Surgery. Overall swelling and induration improving slowly. Patient still complaining of pain but on exam the Achilles shows no erythema or induration. - Date & Time of H&P Date of H&P: 06/22/17 Time of H&P: 20:22 Discharge Exam - Head Exam Head Exam: ATRAUMATIC, NORMOCEPHALIC - Eye Exam Eye Exam: EOMI, PERRL Pupil Exam: NORMAL ACCOMODATION, PERRL - ENT Exam ENT Exam: Mucous Membranes Moist, Normal External Ear Exam, TM's Normal Bilaterally - Neck Exam Neck exam: Full Rom, Tenderness - Respiratory Exam Respiratory Exam: Clear to PA & Lateral, NORMAL BREATHING PATTERN. absent: Rales, Rhonchi, Wheezes - Cardiovascular Exam Cardiovascular Exam: REGULAR RHYTHM, RRR, +S1, +S2 - GI/Abdominal Exam GI & Abdominal Exam: Normal Bowel Sounds, Soft. absent: Distended, Tenderness - Extremities Exam Extremities exam: full ROM Additional comments: 1 cm ulceration just above the Achilles tendon area in left leg with swelling and fullness of the surrounding tissues. No additional warmth and mild tenderness at this time. Full ROM of the leg, ankle, and foot. - Neurological Exam Neurological exam: Alert, CN II-XII Intact, Oriented x3 - Psychiatric Exam Psychiatric exam: Normal Affect, Normal Mood - Skin Skin Exam: Intact, Normal Color Discharge Plan - Follow Up Plan Condition: STABLE Disposition: HOME/ ROUTINE Additional Instructions: 67 yo AA female with 2 week history of pain in the left calf. The patient had a splinter removed 2 weeks ago at an Urgent Care center. The patient continued to have pain in the left with increasing swelling of the area. She was in [place] and went to the ER for evaluation. Given Augmentin for treatment which did not help. Came to [facility] ER for evaluation and admitted for further care. Percocet for pain control. Patient with DM, CAD with history of [place], and HTN. Currently on Aceon, Metformin, Nifedipine, and HCTZ. Will obtain CT of the left lower leg. Will obtain surgery evaluation of the left lower leg given the 2 week history of the pain and the ulceration. CT unremarkable. Surgery was comfortable with local wound care. On Rocephin and IV Vancomycin for treatment in hospital. For discharge with Omnicef 300mg PO BID, Clindamycin 300mg PO Q8hrs, and Bactoban Ointment to the wound area twice a day. The patient should take the antibiotics for 10 more days. Follow Up in my office within a week.
[2017-06-25 17:37] VITALS: BP 143/86; PULSE 79; TEMP 98.2; O2SAT 98
== END 2017-06-25 19:30 | disposition home or self-care (01) | DRG 603 ==
LOC: ED 02:01 → ERH 04:20 → 5RNO 06:09 → OBSVTOIN 06-23 16:45
PROVIDERS: ADMIT Internal Medicine Infectious Disease; ATTEND Internal Medicine Infectious Disease
DX: L03.116 Cellulitis of left lower limb (principal); E11.621 Type 2 diabetes mellitus with foot ulcer; L97.329 Non-pressure chronic ulcer of left ankle with unspecified severity; I10 Essential (primary) hypertension; I25.10 Atherosclerotic heart disease of native coronary artery without angina pectoris; M54.9 Dorsalgia, unspecified; I25.2 Old myocardial infarction; Z86.73 Personal history of transient ischemic attack (TIA), and cerebral infarction without residual deficits; Z79.82 Long term (current) use of aspirin; Z79.84 Long term (current) use of oral hypoglycemic drugs

== ENCOUNTER 2017-07-18 18:01 | Inpatient (IN) | payer MEDICARE, BC ==
[2017-07-18 18:25] VITALS: BMI 23.3
[2017-07-18] MEDS ORDERED: Oxycodone/Acetaminophen 5/325 mg Tab PO STA (18:25)
[2017-07-18 19:13] LABS: BASO # 0.03 K/mm3 (0.0-2.0); BASO % 0.3 % (0.0-3.0); EOS # 0.3 (0.0-0.7); EOS % 3.4 % (1.5-5.0); GRAN # 5.33 (1.4-6.5); HEMOGLOBIN 11.7 g/dL (12.0-16.0); LYMPH # 3.5 (1.2-3.4); LYMPH % 36.4 % (22.0-35.0); MEAN CELL VOLUME 78.9 fl (80.0-105.0); MEAN CORPUSCULAR HEMOGLOBIN 26.5 pg (25.0-35.0); MEAN CORPUSCULAR HGB CONC 33.6 g/dl (31.0-37.0); MEAN PLATELET VOLUME 9.8 fl (7.0-11.0); MONO # 0.4 (0.1-0.6); MONO % 3.9 % (1.0-6.0); RBC 4.41 10^6/uL (3.5-6.1); WHITE BLOOD COUNT 9.5 10^3/ul (4.5-11.0)
[2017-07-18 19:16] LABS: ALBUMIN 4.7 g/dL (3.0-4.8)
--- NOTE | 2017-07-18 19:25 | ED PDOC ---
Arrival/HPI - General Chief Complaint: Abnormal Skin Integrity Time Seen by Provider: 07/18/17 18:24 Historian: Patient - History of Present Illness Narrative History of Present Illness (Text): 07/18/17 19:21 67yr old female with hx of DM presents today with chronic leg wound x 1 month. pt sent in by PMD dr. dangelo for admission for infected, non healing wound to left leg. pt denies fever/chills. c/o pain to wound site. denies numbness, weakness, tingling in the extremities. no other complaints. Past Medical History - Provider Review Nursing Documentation Reviewed: Yes - Travel History Have you recently traveled outside [place] w/in the past 3 mons?: No - Infectious Disease Hx of Infectious Diseases: None - Reproductive Menopause: Yes - Cardiac Hx Hypertension: Yes - Pulmonary Hx Respiratory Disorders: No - Neurological Hx Transient Ischemic Attacks (TIA): Yes Other/Comment: 2 strokes in 15 years, occasional right sided lower extremity weakness - HEENT Hx HEENT Disorder: Yes Hx Blind: Yes - Renal Hx Renal Disorder: No - Endocrine/Metabolic Hx Diabetes Mellitus Type 2: Yes (control with PO meds) - Hematological/Oncological Hx Blood Disorders: No - Integumentary Hx Dermatological Disorder: Yes - Musculoskeletal/Rheumatological Hx Falls: No - Gastrointestinal Hx Gastrointestinal Disorders: No - Genitourinary/Gynecological Other/Comment: 2 children - Psychiatric Hx Psychophysiologic Disorder: No Hx Substance Use: No - Anesthesia Hx Anesthesia Reactions: No Hx Malignant Hyperthermia: No - Suicidal Assessment Feels Threatened In Home Enviroment: No Family/Social History - Physician Review Nursing Documentation Reviewed: Yes Family/Social History: Unknown Family HX Smoking Status: Never Smoked Hx Alcohol Use: No Hx Substance Use: No Allergies/Home Meds Allergies/Adverse Reactions: Allergies No Known Allergies Allergy (Verified 06/22/17 19:55) Home Medications: Home Meds Medication Instructions Recorded Confirmed Nifedipine [Nifedipine ER] 90 mg PO DAILY 07/03/13 07/18/17 Perindopril Erbumine 8 mg PO DAILY 08/31/16 07/18/17 Aspirin [Ecotrin] 81 mg PO DAILY 11/15/16 07/18/17 hydroCHLOROthiazide [Microzide] 12.5 mg PO DAILY 11/15/16 07/18/17 Review of Systems - Review of Systems Constitutional: absent: Fatigue, Fevers Respiratory: absent: SOB, Cough Cardiovascular: absent: Chest Pain, Palpitations Gastrointestinal: absent: Abdominal Pain, Nausea, Vomiting Genitourinary Female: absent: Dysuria Musculoskeletal: Arthralgias. absent: Back Pain, Neck Pain Skin: Skin Lesions Neurological: absent: Headache, Dizziness Psychiatric: absent: Anxiety, Depression Physical Exam Vital Signs Reviewed: Yes Vital Signs Temp Pulse Resp BP Pulse Ox 07/18/17 18:01 98.1 F 81 18 152/86 H 97 Temperature: Afebrile Blood Pressure: Hypertensive Pulse: Regular Respiratory Rate: Normal Appearance: Positive for: Well-Appearing, Non-Toxic, Comfortable Pain Distress: None Mental Status: Positive for: Alert and Oriented X 3 Finger Stick Blood Glucose: 136 - Systems Exam Head: Present: Atraumatic Neck: Present: Normal Range of Motion Respiratory/Chest: Present: Clear to Auscultation, Good Air Exchange. No: Respiratory Distress, Accessory Muscle Use Cardiovascular: Present: Regular Rate and Rhythm, Normal S1, S2. No: Murmurs Abdomen: No: Tenderness Back: Present: Normal Inspection Upper Extremity: Present: Normal ROM Lower Extremity: Present: Normal ROM, Tenderness (left leg; there is a approx 3cm by 2cm wound to calf with surrounding erythema; + tenderness. ), Erythema Neurological: Present: GCS=15, Speech Normal Skin: Present: Warm, Dry, Normal Color Psychiatric: Present: Alert, Oriented x 3 Medical Decision Making ED Course and Treatment: 07/18/17 20:13 67yr old female with chronic wound to left leg; completed PO abx without improvement. sent in by dr. dangelo for admission. cbc; wnl cmp:cr 2.1 blood cultures pending case discussed with dr. dangelo; will start teflaro and consult dr. spring. teflaro 300mg given IV. wound dressed impression; chronic wound infection, renal insuffiency admit to med/surg - Lab Interpretations Lab Results: 07/18/17 18:45 07/18/17 18:45 Lab Results 07/18/17 18:45: WBC 9.5 D, RBC 4.41, Hgb 11.7 L, Hct 34.8 L, MCV 78.9 L, MCH 26.5, MCHC 33.6, RDW 14.0, Plt Count 301, MPV 9.8, Gran % 56.0, Lymph % (Auto) 36.4 H, [place] % (Auto) 3.9, Eos % (Auto) 3.4, Baso % (Auto) 0.3, Gran # 5.33, Lymph # (Auto) 3.5 H, [place] # (Auto) 0.4, Eos # (Auto) 0.3, Baso # (Auto) 0.03 07/18/17 18:45: Sodium 144, Potassium 3.5 L, Chloride 105, Carbon Dioxide 22, Anion Gap 20, BUN 29 H, Creatinine 2.1 H, Est GFR ( Amer) 28, Est GFR ( Non-Af Amer) 23, Random Glucose 150 H, Calcium 10.0, Total Bilirubin 0.6, AST 30 , ALT 17, Alkaline Phosphatase 105, Total Protein 9.3 H, Albumin 4.7, Globulin 4.6, Albumin/Globulin Ratio 1.0 L 07/18/17 18:17: POC Glucose (mg/dL) 136 H - Medication Orders Current Medication Orders: Discontinued Medications Ceftaroline Fosamil 300 mg/ (Sodium Chloride) 50 mls @ 50 mls/hr IVPB Q12H [facility] PRN Reason: Protocol Stop: 07/18/17 21:29 Ceftaroline Fosamil 300 mg/ (Sodium Chloride) 50 mls @ 50 mls/hr IVPB STAT STA PRN Reason: Protocol Stop: 07/18/17 21:15 Last Admin: 07/18/17 21:17 Dose: 50 mls/hr eMAR Start Stop Document 07/18/17 21:17 HI (Rec: 07/18/17 21:17 HI [id number]) Intravenous Solution Start Date 07/18/17 Start Time 21:17 Oxycodone/Acetaminophen (Percocet 5/325 Mg Tab) 1 tab PO STAT STA Stop: 07/18/17 18:26 Last Admin: 07/18/17 19:10 Dose: 1 tab [facility] Pain Assessment Document 07/18/17 19:10 HI (Rec: 07/18/17 19:17 HI [id number]) Pain Reassessment Is this a pain reassessment? No Sleep Is patient sleeping during reassessment? No Presence of Pain Presence of Pain No Location Left, Right or Bilateral Left Pain Location Body Site Leg Re-Assess: MAR Pain Assessment Document 07/18/17 20:10 HI (Rec: 07/18/17 20:27 NM [id number]) Pain Reassessment Is this a pain reassessment? Yes Sleep Is patient sleeping during reassessment? No Presence of Pain Presence of Pain Yes Pain Scale Used Pain Scale Used Numeric Location Left, Right or Bilateral Left Pain Location Body Site Leg Description Description Constant Intensity of Pain at present 2 Disposition/Present on Arrival - Present on Arrival Any Indicators Present on Arrival: Yes History of DVT/PE: Yes History of Uncontrolled Diabetes: Yes Urinary Catheter: No History of Decub. Ulcer: No History Surgical Site Infection Following: None - Disposition Have Diagnosis and Disposition been Completed?: Yes Diagnosis: Diabetes, Renal insufficiency, Wound, open, leg, Wound infection Disposition: HOSPITALIZED Disposition Time: 20:15 Patient Plan: Admission Patient Problems: Current Active Problems Problem Status Onset Diabetes Acute Renal insufficiency Acute Wound infection Acute Wound, open, leg Acute Condition: FAIR
--- NOTE | 2017-07-18 19:35 | CP.PCM.HP ---
History of Present Illness - History of Present Illness History of Present Illness: Internal Medicine H&P: July 18, 2017 67 yo AA female presenting with left lower leg pain and swelling. The patient had a splinter removed 2 weeks ago at an Urgent Care center. She was in [place] over a month ago where she received Augmentin for treatment of the leg as the pain and swelling did not subside. Still having pain and swelling to the area so she came to the ER for further evaluation. She was in [facility] for several days with IV antibiotics of Vancomycin and Zosyn for antibiotic coverage. She was sent home with Keflex and followed as an outpatient. The patient had worsening of the wound and started on Sivextro and Omnicef which she was nearing completion. The wound continued to increase in size. Persistent pain to the left leg wound at the Achilles site. Tissues here are ng and tender. The original edema is not present however. PMHx: Diabetes Mellitus CAD HTN Stroke and [place] several years ago. Chronic Back Pain TIA PSHx: cardiac cath Allergies: NKDA Social Hx: No tobacco, EtOH, or illicit drug use Active Medications Hydrochlorothiazide (Microzide) 12.5 mg PO DAILY [facility] Sodium Chloride (Sodium Chloride 0.9%) 1,000 mls @ 100 mls/hr IV .Q10H [facility] Last Admin: 06/22/17 18:35 Dose: 100 mls/hr Lisinopril (Zestril) 40 mg PO DAILY [facility] Metformin HCl (Glucophage Xr) 1,000 mg PO DAILY [facility] Nifedipine (Procardia Xl) 90 mg PO DAILY [facility] Oxycodone/Acetaminophen (Percocet 5/325 Mg Tab) 1 tab PO Q6H PRN PRN Reason: Pain, moderate (4-7) Stop: 06/25/17 13:14 Last Admin: 06/22/17 18:31 Dose: 1 tab Family Hx: none given ROS: weakness. poor appetite. Patient denies fevers, chills, nausea, vomiting, diarrhea, headaches, dizziness, chest pain, melena, hematuria, hematemesis, hematochezia, depression, anxiety. Present on Admission - Present on Admission Any Indicators Present on Admission: No Past Patient History - Infectious Disease Hx of Infectious Diseases: None - Past Medical History & Family History Past Medical History?: Yes - Past Social History Smoking Status: Never Smoked - CARDIAC Hx Hypertension: Yes - PULMONARY Hx Respiratory Disorders: No - NEUROLOGICAL Hx Transient Ischemic Attacks (TIA): Yes Other/Comment: 2 strokes in 15 years, occasional right sided lower extremity weakness - HEENT Hx HEENT Problems: Yes Hx Blind: Yes - RENAL Hx Chronic Kidney Disease: No - ENDOCRINE/METABOLIC Hx Diabetes Mellitus Type 2: Yes (control with PO meds) - HEMATOLOGICAL/ONCOLOGICAL Hx Blood Disorders: No - INTEGUMENTARY Hx Dermatological Problems: Yes - MUSCULOSKELETAL/RHEUMATOLOGICAL Hx Falls: No - GASTROINTESTINAL Hx Gastrointestinal Disorders: No - GENITOURINARY/GYNECOLOGICAL Other/Comment: 2 children - PSYCHIATRIC Hx Psychophysiologic Disorder: No Hx Substance Use: No - SURGICAL HISTORY Hx Surgeries: No - ANESTHESIA Hx Anesthesia Reactions: No Hx Malignant Hyperthermia: No Meds Allergies/Adverse Reactions: Allergies Allergy/AdvReac Type Severity Reaction Status Date / Time No Known Allergies Allergy Verified 06/22/17 19:55 Physical Exam - Constitutional Appears: Non-toxic, No Acute Distress - Head Exam Head Exam: ATRAUMATIC, NORMOCEPHALIC - Eye Exam Eye Exam: EOMI, PERRL Pupil Exam: NORMAL ACCOMODATION, PERRL - ENT Exam ENT Exam: Mucous Membranes Moist, Normal External Ear Exam, TM's Normal Bilaterally - Neck Exam Neck exam: Positive for: Full Rom, Normal Inspection - Respiratory Exam Respiratory Exam: Clear to Auscultation Bilateral, NORMAL BREATHING PATTERN. absent: Rales, Rhonchi, Wheezes - Cardiovascular Exam Cardiovascular Exam: REGULAR RHYTHM, RRR, +S1, +S2 - GI/Abdominal Exam GI & Abdominal Exam: Normal Bowel Sounds, Soft. absent: Distended, Tenderness - Extremities Exam Extremities exam: Positive for: full ROM Additional comments: 4 cm diameter wound on the posterior lower left leg at site of a splinter removal. The patient with ng tissue with continued pain and swelling. No drainage. No fevers. - Neurological Exam Neurological exam: Alert, CN II-XII Intact, Oriented x3 - Psychiatric Exam Psychiatric exam: Normal Affect, Normal Mood - Skin Skin Exam: Intact, Normal Color Results - Vital Signs Recent Vital Signs: Last Vital Signs Temp 98.1 F 07/18/17 18:01 Pulse 81 07/18/17 18:01 Resp 18 07/18/17 18:01 BP 152/86 H 07/18/17 18:01 Pulse Ox 97 07/18/17 18:01 - Labs Result Diagrams: 07/18/17 18:45 Labs: Laboratory Results - last 24 hr 07/18/17 07/18/17 18:17 18:45 WBC 9.5 D RBC 4.41 Hgb 11.7 L Hct 34.8 L MCV 78.9 L MCH 26.5 MCHC 33.6 RDW 14.0 Plt Count 301 MPV 9.8 Gran % 56.0 Lymph % (Auto) 36.4 H [place] % (Auto) 3.9 Eos % (Auto) 3.4 Baso % (Auto) 0.3 Gran # 5.33 Lymph # (Auto) 3.5 H [place] # (Auto) 0.4 Eos # (Auto) 0.3 Baso # (Auto) 0.03 POC Glucose (mg/dL) 136 H Assessment & Plan - Assessment and Plan (Free Text) Assessment: 67 yo AA female with left ankle wound that started from a splinter around the Achilles insertion point. Splinter was removed at a [facility] and sent home without antibiotics. Patient went to [place] and went to ER in the area. Given Augmentin PO. When she returned to [place], the [place] [facility] [place] persisted and the wound appeared to the patient to be enlarging. She was given IV antibiotics and cleared for discharge a few days later. She was initially given Keflex then Sivextro and Omnicef for antibiotic treatment. Admitted for further evaluation of the left lower leg wound. Dr. Merlos of surgery to evaluate. Start with Teflaro 600mg IV Q12hrs for antibiotic treatment. May need debridement of the ulceration.
[2017-07-19] MEDS: Oxycodone/Acetaminophen 5/325 mg Tab PO PRN ×3 (05:55→21:38)
--- NOTE | 2017-07-19 07:12 | CP.PCM.PCO ---
Physician Communication Note - Physician Communication Note Physician Communication Note: Wound debridement needed/CT Leg ordered
--- NOTE | 2017-07-19 07:58 | CP.PCM.CON ---
<Sin Rubi - Last Filed: 07/19/17 08:08> History of Present Illness - History of Present Illness History of Present Illness: Surgery 67 F w PMH of Cellulitis, DM, HTN, CAD s/p cardiac cath came with non heeling L LE wound. Ulceration started about a month ago. Denies F/C/N/V/D/CP/SOB/ trauma. Area had gotten gradually worse with pain and ulceration. Pt was admitted last month for IV ABX and was sent home with PO ABX. ABX alone didn't help. Denies bleeding from the wound or drainage, claudication, pain at rest. PMH: cellulitis, DM, HTN, CAD, [place], TIA PSH: Cardiac cath SS: non smoker, non drinker Review of Systems - Review of Systems Review of Systems: See HPI Past Patient History - Infectious Disease Hx of Infectious Diseases: None - Past Medical History & Family History Past Medical History?: Yes - Past Social History Smoking Status: Never Smoked - CARDIAC Hx Hypertension: Yes - PULMONARY Hx Respiratory Disorders: No - NEUROLOGICAL Hx Transient Ischemic Attacks (TIA): Yes Other/Comment: 2 strokes in 15 years, occasional right sided lower extremity weakness - HEENT Hx HEENT Problems: Yes Hx Blind: Yes - RENAL Hx Chronic Kidney Disease: No - ENDOCRINE/METABOLIC Hx Diabetes Mellitus Type 2: Yes (control with PO meds) - HEMATOLOGICAL/ONCOLOGICAL Hx Blood Disorders: No - INTEGUMENTARY Hx Dermatological Problems: Yes - MUSCULOSKELETAL/RHEUMATOLOGICAL Hx Falls: No - GASTROINTESTINAL Hx Gastrointestinal Disorders: No - GENITOURINARY/GYNECOLOGICAL Other/Comment: 2 children - PSYCHIATRIC Hx Psychophysiologic Disorder: No Hx Substance Use: No - SURGICAL HISTORY Hx Surgeries: No - ANESTHESIA Hx Anesthesia Reactions: No Hx Malignant Hyperthermia: No Meds Allergies/Adverse Reactions: Allergies Allergy/AdvReac Type Severity Reaction Status Date / Time EGG Allergy Intermediate RASH Verified 07/19/17 08:40 - Medications Medications: Current Medications Aspirin (Ecotrin) 81 mg PO DAILY [facility] Hydrochlorothiazide (Microzide) 12.5 mg PO DAILY [facility] Lisinopril (Zestril) 40 mg PO DAILY [facility] Metformin HCl (Glucophage) 500 mg PO BID [facility] Nifedipine (Procardia Xl) 90 mg PO DAILY [facility] Oxycodone/Acetaminophen (Percocet 5/325 Mg Tab) 1 tab PO Q8 PRN PRN Reason: Pain, moderate (4-7) Stop: 07/22/17 06:01 Last Admin: 07/19/17 05:55 Dose: 1 tab Physical Exam - Constitutional Appears: No Acute Distress - Head Exam Head Exam: ATRAUMATIC, NORMAL INSPECTION, NORMOCEPHALIC - Eye Exam Eye Exam: EOMI, Normal appearance, PERRL Pupil Exam: NORMAL ACCOMODATION, PERRL - ENT Exam ENT Exam: Mucous Membranes Moist, Normal Exam - Neck Exam Neck exam: Positive for: Normal Inspection - Respiratory Exam Respiratory Exam: Clear to Auscultation Bilateral, NORMAL BREATHING PATTERN - Cardiovascular Exam Cardiovascular Exam: REGULAR RHYTHM - GI/Abdominal Exam GI & Abdominal Exam: Normal Bowel Sounds, Soft. absent: Tenderness - Extremities Exam Extremities exam: Positive for: full ROM, tenderness Additional comments: Above L medial maleolus with 3x4cm ulceration with necrotic tissue surround . 10cm skin discoloration and erythema. Dressing applied. - Back Exam Back exam: NORMAL INSPECTION - Neurological Exam Neurological exam: Alert, CN II-XII Intact, Normal Gait, Oriented x3, Reflexes Normal - Psychiatric Exam Psychiatric exam: Normal Affect, Normal Mood - Skin Skin Exam: Dry, Erythema, Intact, Warm Results - Vital Signs Recent Vital Signs: Last Vital Signs Temp 98.1 F 07/18/17 18:01 Pulse 82 07/18/17 22:37 Resp 18 07/18/17 23:59 BP 150/79 07/18/17 22:37 Pulse Ox 99 07/18/17 22:37 - Labs Result Diagrams: 07/18/17 18:45 07/18/17 18:45 Assessment & Plan - Assessment and Plan (Free Text) Assessment: L LE non healing ulcer -Will plan on wound debridement on THurs AM in OR -NPO after midnight -f/u CT LE -f/u arterial US of LE DW Dr. Merlos <Sylvester Merlos - Last Filed: 07/19/17 11:17> Meds - Medications Medications: Current Medications Aspirin (Ecotrin) 81 mg PO DAILY [facility] Hydrochlorothiazide (Microzide) 12.5 mg PO DAILY [facility] Last Admin: 07/19/17 10:18 Dose: 12.5 mg Lisinopril (Zestril) 40 mg PO DAILY [facility] Last Admin: 07/19/17 10:19 Dose: 40 mg Metformin HCl (Glucophage) 500 mg PO BID [facility] Nifedipine (Procardia Xl) 90 mg PO DAILY [facility] Last Admin: 07/19/17 10:18 Dose: 90 mg Oxycodone/Acetaminophen (Percocet 5/325 Mg Tab) 1 tab PO Q8 PRN PRN Reason: Pain, moderate (4-7) Stop: 07/22/17 06:01 Last Admin: 07/19/17 05:55 Dose: 1 tab Results - Vital Signs Recent Vital Signs: Last Vital Signs Temp 98.9 F 07/19/17 08:11 Pulse 85 07/19/17 08:11 Resp 20 07/19/17 08:11 BP 144/80 07/19/17 08:11 Pulse Ox 99 07/19/17 08:11 - Labs Result Diagrams: 07/18/17 18:45 07/18/17 18:45 Labs: Laboratory Results - last 24 hr 07/19/17 06:24 POC Glucose (mg/dL) 130 H Assessment & Plan - Assessment and Plan (Free Text) Assessment: This consult done under my direct supervision Hayden Merlos MD FACS
--- NOTE | 2017-07-19 08:42 | CT ---
PROCEDURE: CT of the lower extremities bilaterally without contrast HISTORY: non healing wound COMPARISON: TECHNIQUE: CT of the lower extremities was performed from the knee to the ankle. Sagittal and coronal reconstructions were provided Total exam DLP = 218 mGy-cm. This CT exam was performed using one or more of the following dose reduction techniques: Automated exposure control, adjustment of the mA and/or kV according to patient size, and/or use of iterative reconstruction technique. FINDINGS: There is no evidence of osteomyelitis. There is no evidence of a focal abscess. There is minimal subcutaneous edema along the posterior aspect of the left calf. IMPRESSION: No evidence of abscess
[2017-07-19] MEDS: NIFEdipine 90 mg ER Tab PO SCH (10:18)
--- NOTE | 2017-07-19 15:05 | US ---
PROCEDURE: Lower extremity MARIBETH exam HISTORY: Peripheral vascular disease with pain and ulceration PHYSICIAN(S): Bruce Castro MD. FINDINGS: Comparing with the distal waveforms, the ABIs may be inaccurate due to calcification: Right, 1.11 and left, 1.18 The brachial systolic pressures are symmetric. The high thigh pressures and waveforms are relatively normal. The calf PVR waveforms augment normally. No significant gradients are noted across the thighs. The ankle and metatarsal waveforms are somewhat limited by artifact. They appear to be mildly blunted and symmetric. This could represent bilateral tibial disease. IMPRESSION: 1. Limited study. The ABIs may be inaccurate due to calcified vessels 2. Bilateral tibial disease. The distal waveforms at the ankle and metatarsal level are mildly blunted and symmetric
--- NOTE | 2017-07-19 18:52 | CP.PCM.PN ---
Subjective - Date & Time of Evaluation Date of Evaluation: 07/19/17 Time of Evaluation: 17:00 - Subjective Subjective: Internal Medicine Progress Note: July 19, 2017 67 yo AA female presenting with left lower leg pain and swelling. The patient had a splinter removed 2 weeks ago at an Urgent Care center. She was in [place] over a month ago where she received Augmentin for treatment of the leg as the pain and swelling did not subside. Still having pain and swelling to the area so she came to the ER for further evaluation. She was in [facility] for several days with IV antibiotics of Vancomycin and Zosyn for antibiotic coverage. She was sent home with Keflex and followed as an outpatient. The patient had worsening of the wound and started on Sivextro and Omnicef which she was nearing completion. The wound continued to increase in size. Persistent pain to the left leg wound at the Achilles site. Tissues here are ng and tender. The original edema is not present however. Seen by Dr. Merlos. For OR tomorrow for debridement. The patient with renal insufficiency. Metformin stopped. Objective - Vital Signs/Intake and Output Vital Signs (last 24 hours): Temp Pulse Resp BP Pulse Ox 97.4 F L 60 20 136/85 99 07/19/17 14:51 07/19/17 14:51 07/19/17 14:51 07/19/17 14:51 07/19/17 14:51 Intake and Output: 07/19/17 07/19/17 06:59 18:59 Intake Total 120 640 Balance 120 640 - Medications Medications: Current Medications Aspirin (Ecotrin) 81 mg PO DAILY [facility] Hydrochlorothiazide (Microzide) 12.5 mg PO DAILY [facility] Last Admin: 07/19/17 10:18 Dose: 12.5 mg Dextrose/Sodium Chloride (Dextrose 5%/0.9% Ns 1000 Ml) 1,000 mls @ 100 mls/hr IV .Q10H [facility] Lisinopril (Zestril) 40 mg PO DAILY [facility] Last Admin: 07/19/17 10:19 Dose: 40 mg Nifedipine (Procardia Xl) 90 mg PO DAILY [facility] Last Admin: 07/19/17 10:18 Dose: 90 mg Oxycodone/Acetaminophen (Percocet 5/325 Mg Tab) 1 tab PO Q8 PRN PRN Reason: Pain, moderate (4-7) Stop: 07/22/17 06:01 Last Admin: 07/19/17 12:51 Dose: 1 tab - Constitutional Appears: Non-toxic, No Acute Distress - Head Exam Head Exam: ATRAUMATIC, NORMOCEPHALIC - Eye Exam Eye Exam: EOMI, PERRL Pupil Exam: NORMAL ACCOMODATION, PERRL - ENT Exam ENT Exam: Mucous Membranes Moist, Normal External Ear Exam, TM's Normal Bilaterally - Neck Exam Neck Exam: Full ROM, Normal Inspection - Respiratory Exam Respiratory Exam: Clear to Ausculation Bilateral, NORMAL BREATHING PATTERN. absent: Rales, Rhonchi, Wheezes - Cardiovascular Exam Cardiovascular Exam: REGULAR RHYTHM, RRR, +S1, +S2 - GI/Abdominal Exam GI & Abdominal Exam: Soft, Normal Bowel Sounds. absent: Distended, Tenderness - Extremities Exam Extremities Exam: Full ROM Additional comments: 4 cm diameter wound on the posterior lower left leg at site of a splinter removal. The patient with ng tissue with continued pain and swelling. No drainage. No fevers. - Neurological Exam Neurological Exam: Alert, Awake, CN II-XII Intact, Oriented x3 - Psychiatric Exam Psychiatric exam: Normal Affect, Normal Mood - Skin Skin Exam: Intact, Normal Color Assessment and Plan - Assessment and Plan (Free Text) Assessment: 67 yo AA female with left ankle wound that started from a splinter around the Achilles insertion point. Splinter was removed at a [facility] and sent home without antibiotics. Patient went to [place] and went to ER in the area. Given Augmentin PO. When she returned to [place], the [place] [facility] [place] persisted and the wound appeared to the patient to be enlarging. She was given IV antibiotics and cleared for discharge a few days later. She was initially given Keflex then Sivextro and Omnicef for antibiotic treatment. Admitted for further evaluation of the left lower leg wound. Dr. Merlos of surgery to evaluate. Scheduled for OR tomorrow morning. Start with Teflaro 300mg IV Q12hrs for antibiotic treatment. For debridement of the ulceration tomorrow morning in OR. Renal insufficiency. Dr. Cesar for renal evaluation.
[2017-07-20] MEDS: Dextrose 5%/0.9% NS 1,000 ML IV SCH ×2 (02:19→17:50)
[2017-07-20 09:37] LABS: BASO # 0.02 K/mm3 (0.0-2.0); BASO % 0.3 % (0.0-3.0); EOS # 0.3 (0.0-0.7); EOS % 5.3 % (1.5-5.0); GRAN # 3.17 (1.4-6.5); GRAN % 50.7 % (50.0-68.0); HEMOGLOBIN 10.8 g/dL (12.0-16.0); LYMPH # 2.4 (1.2-3.4); LYMPH % 38.9 % (22.0-35.0); MEAN CORPUSCULAR HEMOGLOBIN 26.4 pg (25.0-35.0); MEAN PLATELET VOLUME 9.6 fl (7.0-11.0); MONO # 0.3 (0.1-0.6); MONO % 4.8 % (1.0-6.0); RBC 4.09 10^6/uL (3.5-6.1); RED CELL DISTRIBUTION WIDTH 13.9 % (11.5-14.5); WHITE BLOOD COUNT 6.3 10^3/ul (4.5-11.0)
[2017-07-20 09:50] LABS: INR 1.06 (0.93-1.08); PROTHROMBIN TIME 12.2 SECONDS (9.4-12.5)
[2017-07-20 09:52] LABS: ALBUMIN 4.1 g/dL (3.0-4.8); CALCIUM 9.5 mg/dL (8.4-10.5)
[2017-07-20] MEDS: NIFEdipine 90 mg ER Tab PO SCH (09:56)
[2017-07-20] MEDS ORDERED: Bupivacaine 0.5% Inj(30mL) ONE (10:26)
--- NOTE | 2017-07-20 10:30 | CP.PCM.CON ---
History of Present Illness - History of Present Illness History of Present Illness: Nephrology Consultation Note: Assessment: Stable Left leg wound/ulcer Acute Kidney Injury (N17.9) resolved Hypertensive Chronic Kidney Disease (I12.9) Chronic Kidney Disease (N18.3) Stage 3 with 130 mg albuminuria likely due to HTN /DM Diabetic kidney Disease (E11.22) hx of CAD, CVA Anemia possible PVD Plan No acute need for renal replacement therapy at this time. Hypertension control with meds as ordered. pt on ACEI as lisinopril add statins continue with IVF while she is NPO Monitor Input/Output, daily weights and renal function with basic metabolic panel Check UA, urine spot protein/creatinine and albumin/creatinine ratio, iron studies, PTH/Vit D, SPEP, SAEED and Greasy/lambda ratio Dose meds/antibiotics for reduced GFR. Avoid fleets enema/magnesium based laxatives. Avoid nephrotoxins/NSAIDs/ iodinated contrast (unless needed emergently) Glycemic control Further work up/management as per primary team Thanks for allowing me to participate in care of your patient. Will follow patient with you. Please call if any Qs Dr Fernie Cesar Office: [phone] Chief Complaint; left leg non healing wound Reason for consult: renal insuff HPI: Pt is a 67 y/o F with hx of diabetes Mellitus , hypertension (x 3 years), hx of CAD/PR and stroke in past presented with complaints of non healing painful left leg wound/ulcer. she is planned for wound debridement today. also being treated with antibioitcs. renal consult for CKD management. she has baseline ckd 3 with cr 1.4-1.7 range with intermittent episodes of JASON Denies chest pain, palpitation, shortness of breath, leg swelling Denies blood or bubbles in urine Denies OTC/herbal meds or NSAIDs. admits to occasional use of Alleve No recent iodinated contrast exposure. No obvious episodes of low BP. ROS: Constitutional Symptoms: Denies fever. No chills. No Recent Weight Changes Cardiovascular: No chest pain. No palpitations. Pulmonary: No shortness of breath no cough. All other negative except as in HPI Physical Examination: General Appearance: Comfortable, in no acute respiratory distress, co-operative . Vitals reviewed and noted as below Head; Atraumatic, normocephalic ENT: no ulcers no thrush. Tongue is midline appears dry and coated. Oropharynx: no rash or ulcers. EYES: Pupils are equal, round and reactive to light accommodation. Eye muscles and extraocular movement intact. Sclera is anicteric. Neck; supple no lymphadenopathy, no thyromegaly or bruit Lungs: Normal respiratory rate/effort. Breath sounds bilateral equal and clear Heart: Normal rate. s1s2 normal. No rub or gallop. Extremities: no edema. No varicose veins. left leg posterior aspect wound/ulcer + Neurological: Patient is alert, awake and oriented to person, place and time. No focal deficit. Strength bilateral appropriate and equal Skin: Warm and dry. Normal turgor. No rash. Palpitation: Normal elasticity for age Abdomen: Abdomen is soft. Bowel sounds +. There is lower abdominal tenderness, no guarding/rigidity no organomegaly Psych: normal insight and normal affect/mood MSK: no joint tenderness or swelling. Digits and nails normal, no deformity : kidney or bladder not palpable Labs/imaging/EKG reviewed. Past medical history, past surgical history, family history, social history, allergy reviewed and noted as below Family hx: no hx of CKD. Rest non-contributory Work up; CT abdomen 2017: unremarkable kidneys/bladder/adrenals. previously Vit D 32 and PTH 79 Past Patient History - Infectious Disease Hx of Infectious Diseases: None - Past Medical History & Family History Past Medical History?: Yes - Past Social History Smoking Status: Never Smoked - CARDIAC Hx Hypertension: Yes - PULMONARY Hx Respiratory Disorders: No - NEUROLOGICAL Hx Transient Ischemic Attacks (TIA): Yes Other/Comment: 2 strokes in 15 years, occasional right sided lower extremity weakness - HEENT Hx HEENT Problems: Yes Hx Blind: Yes - RENAL Hx Chronic Kidney Disease: No - ENDOCRINE/METABOLIC Hx Diabetes Mellitus Type 2: Yes (control with PO meds) - HEMATOLOGICAL/ONCOLOGICAL Hx Blood Transfusions: No - INTEGUMENTARY Hx Dermatological Problems: Yes - MUSCULOSKELETAL/RHEUMATOLOGICAL Hx Falls: No - GASTROINTESTINAL Hx Gastrointestinal Disorders: No - GENITOURINARY/GYNECOLOGICAL Other/Comment: 2 children - PSYCHIATRIC Hx Psychophysiologic Disorder: No Hx Substance Use: No - SURGICAL HISTORY Hx Surgeries: No - ANESTHESIA Hx Anesthesia Reactions: (unknown) Meds Allergies/Adverse Reactions: Allergies Allergy/AdvReac Type Severity Reaction Status Date / Time EGG Allergy Intermediate RASH Verified 07/19/17 08:40 - Medications Medications: Current Medications Aspirin (Ecotrin) 81 mg PO DAILY [facility] Hydrochlorothiazide (Microzide) 12.5 mg PO DAILY [facility] Last Admin: 07/20/17 09:56 Dose: 12.5 mg Dextrose/Sodium Chloride (Dextrose 5%/0.9% Ns 1000 Ml) 1,000 mls @ 100 mls/hr IV .Q10H [facility] Last Admin: 07/20/17 02:19 Dose: 100 mls/hr Ceftaroline Fosamil 300 mg/ (Sodium Chloride) 50 mls @ 50 mls/hr IVPB Q12H [facility] PRN Reason: Protocol Stop: 07/24/17 19:01 Last Admin: 07/19/17 21:34 Dose: 50 mls/hr Lisinopril (Zestril) 40 mg PO DAILY [facility] Last Admin: 07/20/17 09:56 Dose: 40 mg Nifedipine (Procardia Xl) 90 mg PO DAILY [facility] Last Admin: 07/20/17 09:56 Dose: 90 mg Oxycodone/Acetaminophen (Percocet 5/325 Mg Tab) 1 tab PO Q8 PRN PRN Reason: Pain, moderate (4-7) Stop: 07/22/17 06:01 Last Admin: 07/19/17 21:38 Dose: 1 tab Results - Vital Signs Recent Vital Signs: Last Vital Signs Temp 97.5 F L 07/20/17 07:30 Pulse 85 07/20/17 07:30 Resp 20 07/20/17 07:30 BP 131/82 07/20/17 07:30 Pulse Ox 94 L 07/20/17 07:30 - Labs Result Diagrams: 07/20/17 09:00 07/20/17 09:00 Labs: Laboratory Results - last 24 hr 07/19/17 07/19/17 07/19/17 06:24 11:28 21:35 WBC RBC Hgb Hct MCV MCH MCHC RDW Plt Count MPV Gran % Lymph % (Auto) [place] % (Auto) Eos % (Auto) Baso % (Auto) Gran # Lymph # (Auto) [place] # (Auto) Eos # (Auto) Baso # (Auto) PT INR APTT Sodium Potassium Chloride Carbon Dioxide Anion Gap BUN Creatinine Est GFR ( Amer) Est GFR (Non-Af Amer) POC Glucose (mg/dL) 130 H 109 120 H Random Glucose Calcium Total Bilirubin AST ALT Alkaline Phosphatase Total Protein Albumin Globulin Albumin/Globulin Ratio 07/20/17 07/20/17 07/20/17 09:00 09:00 09:00 WBC 6.3 D RBC 4.09 Hgb 10.8 L Hct 32.7 L MCV 80.0 MCH 26.4 MCHC 33.0 RDW 13.9 Plt Count 270 MPV 9.6 Gran % 50.7 Lymph % (Auto) 38.9 H [place] % (Auto) 4.8 Eos % (Auto) 5.3 H Baso % (Auto) 0.3 Gran # 3.17 Lymph # (Auto) 2.4 [place] # (Auto) 0.3 Eos # (Auto) 0.3 Baso # (Auto) 0.02 PT 12.2 INR 1.06 APTT 33.0 Sodium 144 Potassium 3.8 Chloride 110 H Carbon Dioxide 22 Anion Gap 16 BUN 28 H Creatinine 1.7 H Est GFR ( Amer) 36 Est GFR (Non-Af Amer) 30 POC Glucose (mg/dL) Random Glucose 150 H Calcium 9.5 Total Bilirubin 0.4 AST 24 ALT 22 Alkaline Phosphatase 77 Total Protein 8.4 H Albumin 4.1 Globulin 4.2 Albumin/Globulin Ratio 1.0 L
[2017-07-20] MEDS ORDERED: Midazolam 2 MG/2 ML VIAL ONE (10:43)
[2017-07-20] MEDS ORDERED: Propofol 10 mg/ml Inj (20 ML) ONE (10:43)
[2017-07-20] MEDS ORDERED: Sodium Chloride 0.9% 1,000 ML IV SCH (10:45)
[2017-07-20] MEDS ORDERED: Etomidate 20 mg/10ml Inj IV ONE (10:45)
--- NOTE | 2017-07-20 11:23 | PCM.SURG1 ---
Surgeon's Initial Post Op Note - Surgeon's Notes Surgeon: Dr. Merlos Duct Layer Helper: Dr. Rubi Type of Anesthesia: IV Sedation, Local Pre-Operative Diagnosis: Left Leg Non-healing wound located above medial malleolus Operative Findings: Left leg non-healing wound [id number] in size located above medial malleolus Post-Operative Diagnosis: Same Operation Performed: Debridement of [id number] wound on left lower leg to muscular plane with sharp instrument Specimen/Specimens Removed: [id number] eschar Estimated Blood Loss: EBL {In ML}: 5 Blood Products Given: N/A Drains Used: No Drains Post-Op Condition: Good Date of Surgery/Procedure: 07/20/17 Time of Surgery/Procedure: 11:24
[2017-07-20] MEDS ORDERED: Morphine 4 mg/ml ISec IVP PRN (11:28)
--- NOTE | 2017-07-20 15:53 | CARD ---
APPROVED REPORT EKG Measurement Heart [id number] <Conclusion> Sinus rhythm with occasional premature ventricular complexes Left axis deviation Moderate voltage criteria for LVH, may be normal variant ST & T wave abnormality, consider lateral ischemia Abnormal ECG
--- NOTE | 2017-07-20 17:04 | CP.PCM.PN ---
Subjective - Date & Time of Evaluation Date of Evaluation: 07/20/17 Time of Evaluation: 15:00 - Subjective Subjective: Internal Medicine Progress Note: July 20, 2017 67 yo AA female presenting with left lower leg pain and swelling. The patient had a splinter removed 2 weeks ago at an Urgent Care center. She was in [place] over a month ago where she received Augmentin for treatment of the leg as the pain and swelling did not subside. Still having pain and swelling to the area so she came to the ER for further evaluation. She was in [facility] for several days with IV antibiotics of Vancomycin and Zosyn for antibiotic coverage. She was sent home with Keflex and followed as an outpatient. The patient had worsening of the wound and started on Sivextro and Omnicef which she was nearing completion. The wound continued to increase in size. Persistent pain to the left leg wound at the Achilles site. Tissues here are ng and tender. The original edema is not present however. Seen by Dr. Merlos. OR this morning for debridement. The patient with renal insufficiency. Metformin stopped. Debridement of 3x4x1 cm left posterior leg lesion. Objective - Vital Signs/Intake and Output Vital Signs (last 24 hours): Temp Pulse Resp BP Pulse Ox 98.0 F 78 17 132/81 96 07/20/17 12:20 07/20/17 12:20 07/20/17 12:20 07/20/17 12:20 07/20/17 12:20 Intake and Output: 07/20/17 07/20/17 06:59 18:59 Intake Total 620 0 Balance 620 0 - Medications Medications: Current Medications Aspirin (Ecotrin) 81 mg PO DAILY [facility] Atorvastatin Calcium (Lipitor) 10 mg PO DIN [facility] Hydrochlorothiazide (Microzide) 12.5 mg PO DAILY [facility] Last Admin: 07/20/17 09:56 Dose: 12.5 mg Dextrose/Sodium Chloride (Dextrose 5%/0.9% Ns 1000 Ml) 1,000 mls @ 100 mls/hr IV .Q10H [facility] Last Admin: 07/20/17 02:19 Dose: 100 mls/hr Ceftaroline Fosamil 300 mg/ (Sodium Chloride) 50 mls @ 50 mls/hr IVPB Q12H [facility] PRN Reason: Protocol Stop: 07/24/17 19:01 Last Admin: 07/20/17 10:50 Dose: 50 mls/hr Lisinopril (Zestril) 40 mg PO DAILY [facility] Last Admin: 07/20/17 09:56 Dose: 40 mg Nifedipine (Procardia Xl) 90 mg PO DAILY [facility] Last Admin: 07/20/17 09:56 Dose: 90 mg Oxycodone/Acetaminophen (Percocet 5/325 Mg Tab) 1 tab PO Q8 PRN PRN Reason: Pain, moderate (4-7) Stop: 07/22/17 06:01 Last Admin: 07/19/17 21:38 Dose: 1 tab Tramadol HCl (Ultram) 50 mg PO TID [facility] Last Admin: 07/20/17 13:50 Dose: 50 mg - Labs Labs: 07/20/17 09:00 07/20/17 09:00 PT 12.2 SECONDS (9.4-12.5) 07/20/17 09:00 INR 1.06 (0.93-1.08) 07/20/17 09:00 APTT 33.0 Seconds (25.1-36.5) 07/20/17 09:00 - Constitutional Appears: Non-toxic, No Acute Distress - Head Exam Head Exam: ATRAUMATIC, NORMOCEPHALIC - Eye Exam Eye Exam: EOMI, PERRL Pupil Exam: NORMAL ACCOMODATION, PERRL - ENT Exam ENT Exam: Mucous Membranes Moist, Normal External Ear Exam, TM's Normal Bilaterally - Neck Exam Neck Exam: Full ROM, Normal Inspection - Respiratory Exam Respiratory Exam: Clear to Ausculation Bilateral, NORMAL BREATHING PATTERN. absent: Rales, Rhonchi, Wheezes - Cardiovascular Exam Cardiovascular Exam: REGULAR RHYTHM, RRR, +S1, +S2 - GI/Abdominal Exam GI & Abdominal Exam: Soft, Normal Bowel Sounds. absent: Distended, Tenderness - Extremities Exam Extremities Exam: Full ROM Additional comments: 4x3x1 cm wound on the posterior lower left leg at site of a splinter removal. The patient with ng tissue with continued pain and swelling. No drainage. No fevers. Debrided today. - Neurological Exam Neurological Exam: Alert, Awake, CN II-XII Intact, Oriented x3 - Psychiatric Exam Psychiatric exam: Normal Affect, Normal Mood - Skin Skin Exam: Intact, Normal Color Assessment and Plan - Assessment and Plan (Free Text) Assessment: 67 yo AA female with left ankle wound that started from a splinter around the Achilles insertion point. Splinter was removed at a [facility] and sent home without antibiotics. Patient went to [place] and went to ER in the area. Given Augmentin PO. When she returned to [place], the patient came to [facility] as the pain persisted and the wound appeared to the patient to be enlarging. She was given IV antibiotics and cleared for discharge a few days later. She was initially given Keflex then Sivextro and Omnicef for antibiotic treatment. Admitted for further evaluation of the left lower leg wound. Dr. Merlos of surgery to evaluate. Scheduled for OR tomorrow morning. Start with Teflaro 300mg IV Q12hrs for antibiotic treatment. Debridement of the ulceration this morning in OR. Renal insufficiency. Dr. Cesar has seen for renal evaluation. Pain management.
[2017-07-20 17:38] LABS: FOLATE 8.1 ng/mL
--- NOTE | 2017-07-20 19:12 | OP ---
PROCEDURE DATE: 07/20/2017 LOCATION: Room 562, bed 2. PREOPERATIVE DIAGNOSES: 1. Nonhealing ulcer 4 x 7 cm left calf. 2. Hypertensive coronary artery disease. 3. Chronic renal failure. POSTOPERATIVE DIAGNOSES: 1. Nonhealing ulcer 4 x 7 cm left calf. 2. Hypertensive coronary artery disease. 3. Chronic renal failure. PATHOLOGY: Pending. PROCEDURE: 07/20/2017, sharp debridement left lower extremity 4 cm x 7 cm x 1 cm deep to muscle. SURGEON: Sylvester Merlos MD EQUAL OPPORTUNITY ASSISTANT: Sin Rubi DO, PGY-2 TYPE OF ANESTHESIA: MAC-bupivacaine 0.5-15 mL. ANESTHESIA ADMINISTERED BY: Keely Hernandez M.D. OPERATIVE INDICATIONS: The patient is a 67-year-old -[place] female who approximately a month ago had a splinter in her left calf posteriorly at the level of the Achilles tendon insertion to the os calcis. This was removed and healing has been extremely prolonged and ineffective. She has significant pain, has had 2 CAT scans failing to demonstrate any further lesions or foreign material-abscess. The vascular studies indicate that there is blunting of the vessels due to calcification and it is likely that the patient's nonhealing is due to circulatory problem. Debridement now will be done to determine if there is anything further within the subcutaneous space or in the muscle. OPERATIVE NOTE: The patient was brought to the operating room, identified by her wristband, undergoes timeout procedure and is left in her operating gurney with the left lower extremity elevated off the bed by hanging technique. The anesthesiologist provides monitoring and oxygenation with minimal sedation and the left lower extremity is prepped with Betadine and the patient is aseptically draped. Field block infiltration is employed with the bupivacaine circumferentially and underneath the lesion and following good take, the eschar and nonhealing ulcer are widely excised with sharp dissection down through the subcutaneous tissues to the fascia of the deeper musculature. At this point, the specimen is partly transected and a specimen submitted for culture, aerobic and anaerobic and the remainder of the specimen submitted for permanent section analysis to rule out foreign body-other material. Once hemostasis is contained, the wound is covered with a 4 x 4 gauze and Kerlix wrap and wound vacuum therapy will be initiated on the first postoperative day. The patient is awakened, transported to the recovery room in a satisfactory condition. Sponge, instrument and suture count were verified as correct at the end of the procedure. Estimated blood loss during this procedure was less than 0.5 mL of blood. This dictation will be electronically signed without being read. Sylvester Merlos MD
[2017-07-20 19:21] LABS: PH,URINE 5.5 (4.7-8.0); URINE BILIRUBIN NEGATIVE (NEGATIVE); URINE BLOOD NEGATIVE (NEGATIVE); URINE GLUCOSE (UA) NEGATIVE (NEGATIVE); URINE LEUKOCYTE ESTERASE NEGATIVE Leu/uL (NEGATIVE); URINE PROTEIN NEGATIVE mg/dL (<30 mg/dL); URINE UROBILINOGEN 0.2 E.U./dL (<1 E.U./dL)
[2017-07-20 19:25] LABS: URINE APPEARANCE CLEAR (CLEAR); URINE COLOR YELLOW (YELLOW)
[2017-07-20 19:29] LABS: CREATININE,RANDOM URINE 47 mg/dL; TOTAL PROTEIN,RANDOM URINE 24 mg/L
[2017-07-21] MEDS: Oxycodone/Acetaminophen 5/325 mg Tab PO PRN ×2 (00:58→09:32)
[2017-07-21] MEDS: NIFEdipine 90 mg ER Tab PO SCH (09:22)
--- NOTE | 2017-07-21 13:19 | CP.PCM.PN ---
Subjective - Date & Time of Evaluation Date of Evaluation: 07/21/17 Time of Evaluation: 13:16 - Subjective Subjective: Surgery Pt s&e. Pt underwent wound debridement of L LE ulcer yesterday and tolerated it well. Denies F/C/N/V/D/CP/SOB. Awaiting wound vac to arrive. Objective - Vital Signs/Intake and Output Vital Signs (last 24 hours): Temp Pulse Resp BP Pulse Ox 97.9 F 75 18 159/91 H 93 L 07/21/17 07:30 07/21/17 07:30 07/21/17 07:30 07/21/17 07:30 07/21/17 07:30 Intake and Output: 07/21/17 07/21/17 06:59 18:59 Intake Total 180 Balance 180 - Medications Medications: Current Medications Aspirin (Ecotrin) 81 mg PO DAILY [facility] Last Admin: 07/21/17 09:22 Dose: 81 mg Atorvastatin Calcium (Lipitor) 10 mg PO DIN [facility] Hydrochlorothiazide (Microzide) 12.5 mg PO DAILY [facility] Last Admin: 07/21/17 09:23 Dose: 12.5 mg Dextrose/Sodium Chloride (Dextrose 5%/0.9% Ns 1000 Ml) 1,000 mls @ 100 mls/hr IV .Q10H [facility] Last Admin: 07/20/17 17:50 Dose: Not Given Ceftaroline Fosamil 300 mg/ (Sodium Chloride) 50 mls @ 50 mls/hr IVPB Q12H [facility] PRN Reason: Protocol Stop: 07/24/17 19:01 Last Admin: 07/21/17 09:22 Dose: 50 mls/hr Lisinopril (Zestril) 40 mg PO DAILY [facility] Last Admin: 07/21/17 09:23 Dose: 40 mg Nifedipine (Procardia Xl) 90 mg PO DAILY [facility] Last Admin: 07/21/17 09:22 Dose: 90 mg Oxycodone/Acetaminophen (Percocet 5/325 Mg Tab) 1 tab PO Q8 PRN PRN Reason: Pain, moderate (4-7) Stop: 07/22/17 06:01 Last Admin: 07/21/17 09:32 Dose: 1 tab Tramadol HCl (Ultram) 50 mg PO TID [facility] Last Admin: 07/21/17 09:23 Dose: 50 mg - Labs Labs: 07/20/17 09:00 07/20/17 09:00 PT 12.2 SECONDS (9.4-12.5) 07/20/17 09:00 INR 1.06 (0.93-1.08) 07/20/17 09:00 APTT 33.0 Seconds (25.1-36.5) 07/20/17 09:00 - Constitutional Appears: No Acute Distress - Head Exam Head Exam: ATRAUMATIC, NORMAL INSPECTION, NORMOCEPHALIC - Eye Exam Eye Exam: EOMI, Normal appearance, PERRL Pupil Exam: NORMAL ACCOMODATION, PERRL - ENT Exam ENT Exam: Mucous Membranes Moist, Normal Exam - Neck Exam Neck Exam: Full ROM, Normal Inspection. absent: Lymphadenopathy - Respiratory Exam Respiratory Exam: Clear to Ausculation Bilateral, NORMAL BREATHING PATTERN - Cardiovascular Exam Cardiovascular Exam: REGULAR RHYTHM, +S1, +S2. absent: Murmur - GI/Abdominal Exam GI & Abdominal Exam: Soft, Normal Bowel Sounds. absent: Distended, Tenderness - Extremities Exam Extremities Exam: Full ROM. absent: Normal Inspection Additional comments: LLE dressing in place. No bleeding - Back Exam Back Exam: NORMAL INSPECTION - Neurological Exam Neurological Exam: Alert, Awake, CN II-XII Intact, Normal Gait, Oriented x3 - Psychiatric Exam Psychiatric exam: Normal Affect, Normal Mood Assessment and Plan - Assessment and Plan (Free Text) Assessment: POD 1 s/p L LE wound debridement -WIll place wound vac today -Medical management Will DW Dr. Merlos
[2017-07-21] MEDS ORDERED: Oxycodone/Acetaminophen 5/325 mg Tab PO STA (13:29)
[2017-07-21] MEDS ORDERED: Oxycodone/Acetaminophen 5/325 mg Tab PO PRN (13:31)
--- NOTE | 2017-07-21 16:18 | CARD ---
APPROVED REPORT EKG Measurement Heart [id number] <Conclusion> Sinus rhythm with 1st degree AV block Left axis deviation Minimal voltage criteria for LVH, may be normal variant Abnormal QRS-T angle, consider primary T wave abnormality in I and AVL. Abnormal ECG
[2017-07-21 19:02] VITALS: BP 142/90; PULSE 101; RESP 20; TEMP 98; O2SAT 96
--- NOTE | 2017-07-21 23:20 | CP.PCM.DIS ---
Provider - Provider Date of Admission: 07/18/17 20:40 Attending physician: Sylvester Frank MD Primary care physician: Sylvester Frank MD Consults: Dr. Merlos - Surgery Dr. Cesar - Nephrology Time Spent in preparation of Discharge (in minutes): 45 Hospital Course - Lab Results Lab Results: Micro Results 07/20/17 11:01 Leg - Left Gram Stain - Final 07/20/17 11:01 Leg - Left Wound Culture - Preliminary NO GROWTH AFTER 24 HOURS Most Recent Lab Values WBC 6.3 10^3/ul (4.5-11.0) D 07/20/17 09:00 RBC 4.09 10^6/uL (3.5-6.1) 07/20/17 09:00 Hgb 10.8 g/dL (12.0-16.0) L 07/20/17 09:00 Hct 32.7 % (36.0-48.0) L 07/20/17 09:00 MCV 80.0 fl (80.0-105.0) 07/20/17 09:00 MCH 26.4 pg (25.0-35.0) 07/20/17 09:00 MCHC 33.0 g/dl (31.0-37.0) 07/20/17 09:00 RDW 13.9 % (11.5-14.5) 07/20/17 09:00 Plt Count 270 10^3/uL (120.0-450.0) 07/20/17 09:00 MPV 9.6 fl (7.0-11.0) 07/20/17 09:00 Gran % 50.7 % (50.0-68.0) 07/20/17 09:00 Lymph % (Auto) 38.9 % (22.0-35.0) H 07/20/17 09:00 [place] % (Auto) 4.8 % (1.0-6.0) 07/20/17 09:00 Eos % (Auto) 5.3 % (1.5-5.0) H 07/20/17 09:00 Baso % (Auto) 0.3 % (0.0-3.0) 07/20/17 09:00 Gran # 3.17 (1.4-6.5) 07/20/17 09:00 Lymph # (Auto) 2.4 (1.2-3.4) 07/20/17 09:00 [place] # (Auto) 0.3 (0.1-0.6) 07/20/17 09:00 Eos # (Auto) 0.3 (0.0-0.7) 07/20/17 09:00 Baso # (Auto) 0.02 K/mm3 (0.0-2.0) 07/20/17 09:00 PT 12.2 SECONDS (9.4-12.5) 07/20/17 09:00 INR 1.06 (0.93-1.08) 07/20/17 09:00 APTT 33.0 Seconds (25.1-36.5) 07/20/17 09:00 Sodium 144 mmol/L (132-148) 07/20/17 09:00 Potassium 3.8 mmol/L (3.6-5.0) 07/20/17 09:00 Chloride 110 mmol/L (98-107) H 07/20/17 09:00 Carbon Dioxide 22 mmol/L (21-33) 07/20/17 09:00 Anion Gap 16 (10-20) 07/20/17 09:00 BUN 28 mg/dL (7-21) H 07/20/17 09:00 Creatinine 1.7 mg/dl (0.7-1.2) H 07/20/17 09:00 Est GFR ( Amer) 36 07/20/17 09:00 Est GFR (Non-Af Amer) 30 07/20/17 09:00 POC Glucose (mg/dL) 126 mg/dL (65-110) H 07/21/17 10:43 Random Glucose 150 mg/dL (70-110) H 07/20/17 09:00 Calcium 9.5 mg/dL (8.4-10.5) 07/20/17 09:00 Iron 59 ug/dL (45-180) 07/20/17 10:15 TIBC 241 ug/dL (265-497) L 07/20/17 10:15 % Saturation 25 % (20-55) 07/20/17 10:15 Ferritin 157.0 ng/mL 07/20/17 10:08 Total Bilirubin 0.4 mg/dL (0.2-1.3) 07/20/17 09:00 AST 24 U/L (14-36) 07/20/17 09:00 ALT 22 U/L (7-56) 07/20/17 09:00 Alkaline Phosphatase 77 U/L (38-126) 07/20/17 09:00 Total Protein 8.4 g/dL (5.8-8.3) H 07/20/17 09:00 Albumin 4.1 g/dL (3.0-4.8) 07/20/17 09:00 Globulin 4.2 gm/dL 07/20/17 09:00 Albumin/Globulin Ratio 1.0 (1.1-1.8) L 07/20/17 09:00 Vitamin B12 461 pg/mL (239-931) 07/20/17 10:08 25-OH Vitamin D Total 18.7 NG/ML (30.0-100.0) L 07/20/17 10:15 Folate 8.1 ng/mL 07/20/17 10:08 PTH Intact Whole Molec 48 pg/mL (14-64) 07/20/17 10:15 Urine Color Yellow (YELLOW) 07/20/17 19:15 Urine Appearance Clear (CLEAR) 07/20/17 19:15 Urine pH 5.5 (4.7-8.0) 07/20/17 19:15 Ur Specific [place] 1.015 (1.005-1.035) 07/20/17 19:15 Urine Protein Negative mg/dL (<30 mg/dL) 07/20/17 19:15 Urine Glucose (UA) Negative mg/dL (NEGATIVE) 07/20/17 19:15 Urine Ketones Negative mg/dL (NEGATIVE) 07/20/17 19:15 Urine Blood Negative (NEGATIVE) 07/20/17 19:15 Urine Nitrate Negative (NEGATIVE) 07/20/17 19:15 Urine Bilirubin Negative (NEGATIVE) 07/20/17 19:15 Urine Urobilinogen 0.2 E.U./dL (<1 E.U./dL) 07/20/17 19:15 Ur Leukocyte Esterase Negative Raghav/uL (NEGATIVE) 07/20/17 19:15 Ur Random Creatinine 47 mg/dL 07/20/17 19:15 U Random Total Protein 24 mg/L 07/20/17 19:15 Urine Microalbumin 83.4 mg/L (0.0-16.6) H 07/20/17 19:15 - Hospital Course Hospital Course: Internal Medicine Progress Note: July 21, 2017 67 yo AA female presenting with left lower leg pain and swelling. The patient had a splinter removed 2 weeks ago at an Urgent Care center. She was in [place] over a month ago where she received Augmentin for treatment of the leg as the pain and swelling did not subside. Still having pain and swelling to the area so she came to the ER for further evaluation. She was in [facility] for several days with IV antibiotics of Vancomycin and Zosyn for antibiotic coverage. She was sent home with Keflex and followed as an outpatient. The patient had worsening of the wound and started on Sivextro and Omnicef which she was nearing completion. The wound continued to increase in size. Persistent pain to the left leg wound at the Achilles site. Tissues here are ng and tender. The original edema is not present however. Seen by Dr. Merlos. OR on morning of 07/20/2017 for debridement of the wound. The patient with renal insufficiency. Metformin stopped. Debridement of 3x4x1 cm left posterior leg lesion. Wound vac placed today. Dr. Cesar reviewed patient as well. - Date & Time of H&P Date of H&P: 07/18/17 Time of H&P: 19:15 Discharge Exam - Head Exam Head Exam: ATRAUMATIC, NORMOCEPHALIC - Eye Exam Eye Exam: EOMI, PERRL Pupil Exam: NORMAL ACCOMODATION, PERRL - ENT Exam ENT Exam: Mucous Membranes Moist, Normal External Ear Exam, TM's Normal Bilaterally - Neck Exam Neck exam: Full Rom, Normal Inspection - Respiratory Exam Respiratory Exam: Clear to PA & Lateral, NORMAL BREATHING PATTERN. absent: Rales, Rhonchi, Wheezes - Cardiovascular Exam Cardiovascular Exam: REGULAR RHYTHM, RRR, +S1, +S2 - GI/Abdominal Exam GI & Abdominal Exam: Normal Bowel Sounds, Soft. absent: Distended, Tenderness - Extremities Exam Extremities exam: full ROM Additional comments: 4x3x1 cm wound on the posterior lower left leg at site of a splinter removal. The patient with ng tissue with continued pain and swelling. No drainage. No fevers. Debrided 07/20/2017. The patient with wound vac placement today. - Neurological Exam Neurological exam: Alert, CN II-XII Intact, Oriented x3 - Psychiatric Exam Psychiatric exam: Normal Affect, Normal Mood - Skin Skin Exam: Intact, Normal Color Discharge Plan - Follow Up Plan Condition: FAIR Disposition: REHAB FACILITY/REHAB UNIT Instructions: Preventing Falls, Peripherally-Inserted Central Catheter (DC), Flu Vaccine, Negative Pressure Wound Therapy, Cellulitis (DC), Cellulitis (GEN) Additional Instructions: 67 yo AA female with left ankle wound that started from a splinter around the Achilles insertion point. Splinter was removed at a [facility] and sent home without antibiotics. Patient went to [place] and went to ER in the area. Given Augmentin PO. When she returned to [place], the patient came to [facility] as the pain persisted and the wound appeared to the patient to be enlarging. She was given IV antibiotics and cleared for discharge a few days later. She was initially given Keflex then Sivextro and Omnicef for antibiotic treatment. Admitted for further evaluation of the left lower leg wound. Dr. Merlos of surgery evaluated patient. Continued with Teflaro 300mg IV Q12hrs for antibiotic treatment. Debridement of the ulceration in OR on 07/20/2017. Renal insufficiency. Dr. Cesar has seen for renal evaluation. Pain management. apply medihoney to the wound , 4x4 gauze, wrap with kerlix. Follow up at Dr. Merlos office in 1-2 weeks. Referrals: Sylvester Frank MD [Primary Care Provider] - Sylvester Merlos MD [Staff Provider] -
[2017-07-24 13:12] LABS: ALPHA-1-GLOBULIN (PEP) 0.3 g/dL (0.2-0.3)
== END 2017-07-21 19:57 | DRG 264 ==
LOC: ED 18:01 → ERH 20:40 → 5RNO 22:41
PROVIDERS: ADMIT Internal Medicine Infectious Disease; ATTEND Internal Medicine Infectious Disease
PROC: 0JBP0ZZ Excision of Left Lower Leg Subcutaneous Tissue and Fascia, Open Approach (ICD-10-PCS; principal; 2017-07-20 11:00)
DX: E11.51 Type 2 diabetes mellitus with diabetic peripheral angiopathy without gangrene (principal); N17.9 Acute kidney failure, unspecified; E11.22 Type 2 diabetes mellitus with diabetic chronic kidney disease; E11.622 Type 2 diabetes mellitus with other skin ulcer; L97.229 Non-pressure chronic ulcer of left calf with unspecified severity; D64.9 Anemia, unspecified; H54.7 Unspecified visual loss; I12.9 Hypertensive chronic kidney disease with stage 1 through stage 4 chronic kidney disease, or unspecified chronic kidney disease; N18.3 Chronic kidney disease, stage 3 (moderate); I25.10 Atherosclerotic heart disease of native coronary artery without angina pectoris; I25.2 Old myocardial infarction; Z86.73 Personal history of transient ischemic attack (TIA), and cerebral infarction without residual deficits; Z79.899 Other long term (current) drug therapy; Z79.84 Long term (current) use of oral hypoglycemic drugs; Z79.82 Long term (current) use of aspirin

== ENCOUNTER 2017-07-21 19:57 | Inpatient (IN) | payer OTHER, BC ==
[2017-07-21 20:27] VITALS: BMI 27.3
[2017-07-21] MEDS: Dextrose 5%/0.9% NS 1,000 ML IV SCH (21:23)
[2017-07-21] MEDS ORDERED: Vancomycin 1gm in NS 250ml 1 GM/250 ML BAG IVPB SCH ×2 (22:28→22:30)
[2017-07-21] MEDS: Vancomycin 1gm in NS 250ml 1 GM/250 ML BAG IVPB SCH (23:30)
[2017-07-21] MEDS: Oxycodone/Acetaminophen 5/325 mg Tab PO PRN (23:48)
[2017-07-22] MEDS: Cefepime 1gm in NS 100ml 1 GM/100 ML BAG IVPB SCH (05:32)
[2017-07-22] MEDS: Dextrose 5%/0.9% NS 1,000 ML IV SCH (05:32)
[2017-07-22 07:20] LABS: HEMOGLOBIN 10.3 g/dL (12.0-16.0); MEAN CELL VOLUME 80.6 fl (80.0-105.0); MEAN CORPUSCULAR HGB CONC 32.3 g/dl (31.0-37.0); MEAN PLATELET VOLUME 9.4 fl (7.0-11.0); RBC 3.96 10^6/uL (3.5-6.1); RED CELL DISTRIBUTION WIDTH 13.9 % (11.5-14.5); WHITE BLOOD COUNT 8.4 10^3/ul (4.5-11.0)
[2017-07-22 07:34] LABS: CALCIUM 9.4 mg/dL (8.4-10.5)
[2017-07-22] MEDS: NIFEdipine 90 mg ER Tab PO SCH (09:40)
[2017-07-22] MEDS: Oxycodone/Acetaminophen 5/325 mg Tab PO PRN ×3 (09:46→21:38)
[2017-07-22] MEDS ORDERED: Potassium Chloride 20 mEq ER Tab PO ONE (10:13)
[2017-07-22] MEDS ORDERED: Ergocalciferol 50,000 Intl Units Cap PO SCH (13:15)
--- NOTE | 2017-07-22 13:15 | CP.PCM.CON ---
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 Hypertension control with meds as ordered. pt on ACEI as lisinopril continue with statins DC IV fluid Added iron supplementation multivitamin and weekly vitamin D Pending SPEP, SAEED and [place]/lambda ratio Dose meds/antibiotics for reduced GFR. Avoid fleets enema/magnesium based laxatives. Avoid nephrotoxins/NSAIDs/ iodinated contrast (unless needed emergently) Glycemic control Further work up/management as per primary team Thanks for allowing me to participate in care of your patient. Will follow patient with you. Please call if any Qs Dr Fernie Cesar Office: [phone] Chief Complaint; left leg non healing wound Reason for consult: renal insuff HPI: Pt is a 67 y/o F with hx of diabetes Mellitus , hypertension (x 3 years), hx of CAD/NH and stroke in past presented with complaints of non healing painful left leg wound/ulcer. she is s/p wound debridement. also being treated with antibioitcs. renal consult for CKD management. she has baseline ckd 3 with cr 1.4-1.7 range with intermittent episodes of JAOSN Denies chest pain, palpitation, shortness of breath, leg swelling Denies blood or bubbles in urine Denies OTC/herbal meds or NSAIDs. admits to occasional use of Alleve No recent iodinated contrast exposure. No obvious episodes of low BP. ROS: Constitutional Symptoms: Denies fever. No chills. No Recent Weight Changes Cardiovascular: No chest pain. No palpitations. Pulmonary: No shortness of breath no cough. All other negative except as in HPI Physical Examination: General Appearance: Comfortable, in no acute respiratory distress, co-operative . Vitals reviewed and noted as below Head; Atraumatic, normocephalic ENT: no ulcers no thrush. Tongue is midline appears dry and coated. Oropharynx: no rash or ulcers. EYES: Pupils are equal, round and reactive to light accommodation. Eye muscles and extraocular movement intact. Sclera is anicteric. Neck; supple no lymphadenopathy, no thyromegaly or bruit Lungs: Normal respiratory rate/effort. Breath sounds bilateral equal and clear Heart: Normal rate. s1s2 normal. No rub or gallop. Extremities: no edema. No varicose veins. left leg posterior aspect wound/ulcer + s/p wound vac Neurological: Patient is alert, awake and oriented to person, place and time. No focal deficit. Strength bilateral appropriate and equal Skin: Warm and dry. Normal turgor. No rash. Palpitation: Normal elasticity for age Abdomen: Abdomen is soft. Bowel sounds +. There is lower abdominal tenderness, no guarding/rigidity no organomegaly Psych: normal insight and normal affect/mood MSK: no joint tenderness or swelling. Digits and nails normal, no deformity : kidney or bladder not palpable Labs/imaging/EKG reviewed. Past medical history, past surgical history, family history, social history, allergy reviewed and noted as below Family hx: no hx of CKD. Rest non-contributory Work up; CT abdomen 2017: unremarkable kidneys/bladder/adrenals. Vitamin D 18 PTH 48 Iron saturation 25% ferritin 157 Past Patient History - Infectious Disease Hx of Infectious Diseases: None - Past Medical History & Family History Past Medical History?: Yes - Past Social History Smoking Status: Never Smoked - CARDIAC Hx Cardiac Disorders: Yes Hx Hypertension: Yes - PULMONARY Hx Respiratory Disorders: No - NEUROLOGICAL HX Cerebrovascular Accident: Yes (2 episodes in past 15 yrs. occasional R sided LE weakness) - HEENT Hx HEENT Problems: Yes Hx Blind: Yes - RENAL Hx Chronic Kidney Disease: No - ENDOCRINE/METABOLIC Hx Diabetes Mellitus Type 2: Yes - HEMATOLOGICAL/ONCOLOGICAL Hx Cancer: No - INTEGUMENTARY Hx Dermatological Problems: Yes - MUSCULOSKELETAL/RHEUMATOLOGICAL Hx Falls: No - GASTROINTESTINAL Hx Gastrointestinal Disorders: No - GENITOURINARY/GYNECOLOGICAL Hx Genitourinary Disorders: No Hx Reproductive Disorders: No - PSYCHIATRIC Hx Psychophysiologic Disorder: No Hx Substance Use: No - SURGICAL HISTORY Hx Mastectomy: No - ANESTHESIA Hx Anesthesia Reactions: No Hx Malignant Hyperthermia: No Meds Allergies/Adverse Reactions: Allergies Allergy/AdvReac Type Severity Reaction Status Date / Time EGG Allergy Intermediate RASH Verified 07/19/17 08:40 - Medications Medications: Current Medications Aspirin (Ecotrin) 81 mg PO 1000 [facility] PRN Reason: Protocol Last Admin: 07/22/17 09:40 Dose: 81 mg Atorvastatin Calcium (Lipitor) 10 mg PO DIN [facility] PRN Reason: Protocol Hydrochlorothiazide (Microzide) 12.5 mg PO DAILY [facility] PRN Reason: Protocol Last Admin: 07/22/17 09:40 Dose: 12.5 mg Cefepime HCl (Maxipime 1gm) 1 gm in 100 mls @ 100 mls/hr IVPB 0600 [facility] PRN Reason: Protocol Last Admin: 07/22/17 05:32 Dose: 100 mls/hr Vancomycin HCl (Vancomycin 1gm) 1 gm in 250 mls @ 167 mls/hr IVPB 2300 [facility] PRN Reason: Protocol Last Admin: 07/21/17 23:30 Dose: 167 mls/hr Lisinopril (Zestril) 40 mg PO DAILY [facility] PRN Reason: Protocol Last Admin: 07/22/17 09:40 Dose: 40 mg Nifedipine (Procardia Xl) 90 mg PO DAILY [facility] PRN Reason: Protocol Last Admin: 07/22/17 09:40 Dose: 90 mg Oxycodone/Acetaminophen (Percocet 5/325 Mg Tab) 1 tab PO Q6H PRN; Protocol PRN Reason: Pain, severe (8-10) Stop: 07/24/17 20:40 Last Admin: 07/22/17 09:46 Dose: 1 tab Tramadol HCl (Ultram) 50 mg PO TID [facility] PRN Reason: Protocol Last Admin: 07/22/17 12:32 Dose: Not Given Results - Vital Signs Recent Vital Signs: Last Vital Signs Temp 97.5 F L 07/22/17 10:00 Pulse 80 07/22/17 10:00 Resp 20 07/22/17 10:00 BP 146/91 H 07/22/17 10:00 Pulse Ox 95 07/22/17 10:00 - Labs Result Diagrams: 07/22/17 06:45 07/22/17 06:45 Labs: Laboratory Results - last 24 hr 07/22/17 07/22/17 07/22/17 05:33 06:45 06:45 WBC 8.4 D RBC 3.96 Hgb 10.3 L Hct 31.9 L MCV 80.6 MCH 26.0 MCHC 32.3 RDW 13.9 Plt Count 289 MPV 9.4 ESR 68 H Sodium 141 Potassium 3.4 L Chloride 104 Carbon Dioxide 26 Anion Gap 14 BUN 24 H Creatinine 1.8 H Est GFR ( Amer) 34 Est GFR (Non-Af Amer) 28 POC Glucose (mg/dL) 165 H Random Glucose 115 H Calcium 9.4 07/22/17 10:32 WBC RBC Hgb Hct MCV MCH MCHC RDW Plt Count MPV ESR Sodium Potassium Chloride Carbon Dioxide Anion Gap BUN Creatinine Est GFR ( Amer) Est GFR (Non-Af Amer) POC Glucose (mg/dL) 217 H Random Glucose Calcium
--- NOTE | 2017-07-22 14:10 | CP.PCM.HP ---
History of Present Illness - History of Present Illness History of Present Illness: Internal Medicine H&P/Progress Note: July 22, 2017 67 yo AA female presenting with left lower leg pain and swelling. The patient had a splinter removed 2 weeks ago at an Urgent Care center. She was in [place] over a month ago where she received Augmentin for treatment of the leg as the pain and swelling did not subside. Still having pain and swelling to the area so she came to the ER for further evaluation. She was in [facility] for several days with IV antibiotics of Vancomycin and Zosyn for antibiotic coverage. She was sent home with Keflex and followed as an outpatient. The patient had worsening of the wound and started on Sivextro and Omnicef which she was nearing completion. The wound continued to increase in size. Persistent pain to the left leg wound at the Achilles site. Tissues here are ng and tender. The original edema is not present however. Seen by Dr. Merlos. In OR for debridement on 07/20/2017. The patient with renal insufficiency. Metformin stopped. Debridement of 3x4x1 cm left posterior leg lesion. Wound vac placed. On Vancomycin and Cefepime now. Present on Admission - Present on Admission Any Indicators Present on Admission: Yes History of DVT/PE: No History of Uncontrolled Diabetes: No Urinary Catheter: No Decubitus Ulcer Present: No History Surgical Site Infection Following: None Past Patient History - Infectious Disease Hx of Infectious Diseases: None - Past Medical History & Family History Past Medical History?: Yes - Past Social History Smoking Status: Never Smoked - CARDIAC Hx Cardiac Disorders: Yes Hx Hypertension: Yes - PULMONARY Hx Respiratory Disorders: No - NEUROLOGICAL HX Cerebrovascular Accident: Yes (2 episodes in past 15 yrs. occasional R sided LE weakness) - HEENT Hx HEENT Problems: Yes Hx Blind: Yes - RENAL Hx Chronic Kidney Disease: No - ENDOCRINE/METABOLIC Hx Diabetes Mellitus Type 2: Yes - HEMATOLOGICAL/ONCOLOGICAL Hx Cancer: No - INTEGUMENTARY Hx Dermatological Problems: Yes - MUSCULOSKELETAL/RHEUMATOLOGICAL Hx Falls: No - GASTROINTESTINAL Hx Gastrointestinal Disorders: No - GENITOURINARY/GYNECOLOGICAL Hx Genitourinary Disorders: No Hx Reproductive Disorders: No - PSYCHIATRIC Hx Psychophysiologic Disorder: No Hx Substance Use: No - SURGICAL HISTORY Hx Mastectomy: No - ANESTHESIA Hx Anesthesia Reactions: No Hx Malignant Hyperthermia: No Meds Allergies/Adverse Reactions: Allergies Allergy/AdvReac Type Severity Reaction Status Date / Time EGG Allergy Intermediate RASH Verified 07/19/17 08:40 Physical Exam - Constitutional Appears: Non-toxic, No Acute Distress - Head Exam Head Exam: ATRAUMATIC, NORMOCEPHALIC - Eye Exam Eye Exam: EOMI, PERRL Pupil Exam: NORMAL ACCOMODATION, PERRL - ENT Exam ENT Exam: Mucous Membranes Moist, Normal External Ear Exam, TM's Normal Bilaterally - Neck Exam Neck exam: Positive for: Full Rom, Normal Inspection - Respiratory Exam Respiratory Exam: Clear to Auscultation Bilateral, NORMAL BREATHING PATTERN. absent: Rales, Rhonchi, Wheezes - Cardiovascular Exam Cardiovascular Exam: REGULAR RHYTHM, RRR, +S1, +S2 - GI/Abdominal Exam GI & Abdominal Exam: Normal Bowel Sounds, Soft. absent: Distended, Tenderness - Extremities Exam Extremities exam: Positive for: full ROM Additional comments: 4x3x1 cm wound on the posterior lower left leg at site of a splinter removal. The patient with ng tissue with continued pain and swelling. No drainage. No fevers. Debrided 07/20/2017. - Neurological Exam Neurological exam: Alert, CN II-XII Intact, Oriented x3 - Psychiatric Exam Psychiatric exam: Normal Affect, Normal Mood - Skin Skin Exam: Intact, Normal Color Results - Vital Signs Recent Vital Signs: Last Vital Signs Temp 97.5 F L 07/22/17 10:00 Pulse 80 07/22/17 10:00 Resp 20 07/22/17 10:00 BP 146/91 H 07/22/17 10:00 Pulse Ox 95 07/22/17 10:00 - Labs Result Diagrams: 07/22/17 06:45 07/22/17 06:45 Labs: Laboratory Results - last 24 hr 07/22/17 07/22/17 07/22/17 05:33 06:45 06:45 WBC 8.4 D RBC 3.96 Hgb 10.3 L Hct 31.9 L MCV 80.6 MCH 26.0 MCHC 32.3 RDW 13.9 Plt Count 289 MPV 9.4 ESR 68 H Sodium 141 Potassium 3.4 L Chloride 104 Carbon Dioxide 26 Anion Gap 14 BUN 24 H Creatinine 1.8 H Est GFR ( Amer) 34 Est GFR (Non-Af Amer) 28 POC Glucose (mg/dL) 165 H Random Glucose 115 H Calcium 9.4 07/22/17 10:32 WBC RBC Hgb Hct MCV MCH MCHC RDW Plt Count MPV ESR Sodium Potassium Chloride Carbon Dioxide Anion Gap BUN Creatinine Est GFR ( Amer) Est GFR (Non-Af Amer) POC Glucose (mg/dL) 217 H Random Glucose Calcium Assessment & Plan - Assessment and Plan (Free Text) Assessment: 67 yo AA female with left ankle wound that started from a splinter around the Achilles insertion point. Splinter was removed at a [facility] and sent home without antibiotics. Patient went to [place] and went to ER in the area. Given Augmentin PO. When she returned to [place], the patient came to [facility] as the pain persisted and the wound appeared to the patient to be enlarging. She was given IV antibiotics and cleared for discharge a few days later. She was initially given Keflex then Sivextro and Omnicef for antibiotic treatment. Admitted for further evaluation of the left lower leg wound. Dr. Merlos of surgery evaluated. On IV Vancomycin and Cefepime for antibiotic treatment. Debridement of the ulceration in OR on 07/20/2017. Renal insufficiency. Dr. Merlos and Dr. Cesar following patient for surgery and nephrology respectively. Wound vac in place on left posterior lower leg. Pain management.
--- NOTE | 2017-07-22 14:51 | CP.PCM.PCO ---
Physician Communication Note - Physician Communication Note Physician Communication Note: PO 2(Debride Ulcer)-Needs wound Vac
[2017-07-22] MEDS ORDERED: Morphine 2 mg/ml ISec IVP ONE (18:56)
[2017-07-22] MEDS ORDERED: Morphine 4 mg/ml ISec IV STA (19:25)
[2017-07-22] MEDS ORDERED: Vancomycin 1gm in NS 250ml 1 GM/250 ML BAG IVPB SCH (22:00)
[2017-07-22] MEDS: Vancomycin 1gm in NS 250ml 1 GM/250 ML BAG IVPB SCH (22:36)
[2017-07-23] MEDS: Oxycodone/Acetaminophen 5/325 mg Tab PO PRN ×3 (05:24→19:30)
[2017-07-23] MEDS: Cefepime 1gm in NS 100ml 1 GM/100 ML BAG IVPB SCH (05:24)
[2017-07-23] MEDS: NIFEdipine 90 mg ER Tab PO SCH ×2 (06:47→09:57)
--- NOTE | 2017-07-23 07:47 | CP.PCM.PN ---
Subjective - Date & Time of Evaluation Date of Evaluation: 07/23/17 Time of Evaluation: 07:44 - Subjective Subjective: Surgery Pt s&E. NAEON. c/o foot pain. Med adjusted. Wound vac in place. Objective - Vital Signs/Intake and Output Vital Signs (last 24 hours): Temp Pulse Resp BP Pulse Ox 98.2 F 74 20 145/100 H 99 07/23/17 06:00 07/23/17 06:58 07/23/17 06:00 07/23/17 06:58 07/23/17 06:00 - Medications Medications: Current Medications Aspirin (Ecotrin) 81 mg PO 1000 SKINNY PRN Reason: Protocol Last Admin: 07/22/17 09:40 Dose: 81 mg Atorvastatin Calcium (Lipitor) 10 mg PO DIN [facility] PRN Reason: Protocol Last Admin: 07/22/17 17:53 Dose: 10 mg Ergocalciferol (Drisdol 50,000 Intl Units Cap) 1 cap PO Q7D [facility] Ferrous Gluconate (Fergon) 324 mg PO TID [facility] Last Admin: 07/22/17 17:52 Dose: 324 mg Hydrochlorothiazide (Microzide) 12.5 mg PO DAILY [facility] PRN Reason: Protocol Last Admin: 07/22/17 09:40 Dose: 12.5 mg Cefepime HCl (Maxipime 1gm) 1 gm in 100 mls @ 100 mls/hr IVPB 0600 [facility] PRN Reason: Protocol Last Admin: 07/23/17 05:24 Dose: 100 mls/hr Vancomycin HCl (Vancomycin 1gm) 1 gm in 250 mls @ 167 mls/hr IVPB 2300 [facility] PRN Reason: Protocol Last Admin: 07/22/17 22:36 Dose: 167 mls/hr Ibuprofen (Motrin Tab) 400 mg PO Q6H PRN PRN Reason: Pain, Mild (1-3) Lisinopril (Zestril) 40 mg PO DAILY [facility] PRN Reason: Protocol Last Admin: 07/22/17 09:40 Dose: 40 mg Multivitamins/Minerals (Therapeutic-M Tab) 1 tab PO 0800 [facility] Nifedipine (Procardia Xl) 90 mg PO DAILY [facility] PRN Reason: Protocol Last Admin: 07/23/17 06:47 Dose: 90 mg Oxycodone/Acetaminophen (Percocet 5/325 Mg Tab) 1 tab PO Q6H PRN; Protocol PRN Reason: Pain, severe (8-10) Stop: 07/24/17 20:40 Last Admin: 07/23/17 05:24 Dose: 1 tab Oxycodone/Acetaminophen (Percocet 5/325 Mg Tab) 2 tab PO Q4H PRN PRN Reason: Pain, moderate (4-7) Stop: 07/26/17 07:44 Tramadol HCl (Ultram) 50 mg PO TID [facility] PRN Reason: Protocol Last Admin: 07/22/17 17:54 Dose: Not Given - Labs Labs: 07/22/17 06:45 07/22/17 06:45 - Constitutional Appears: No Acute Distress - Head Exam Head Exam: ATRAUMATIC, NORMAL INSPECTION, NORMOCEPHALIC - Eye Exam Eye Exam: EOMI, Normal appearance, PERRL Pupil Exam: NORMAL ACCOMODATION, PERRL - ENT Exam ENT Exam: Mucous Membranes Moist, Normal Exam - Neck Exam Neck Exam: Full ROM, Normal Inspection. absent: Lymphadenopathy - Respiratory Exam Respiratory Exam: Clear to Ausculation Bilateral, NORMAL BREATHING PATTERN - Cardiovascular Exam Cardiovascular Exam: REGULAR RHYTHM, +S1, +S2. absent: Murmur - GI/Abdominal Exam GI & Abdominal Exam: Soft, Normal Bowel Sounds. absent: Tenderness - Extremities Exam Extremities Exam: Full ROM, Normal Capillary Refill, Tenderness. absent: Joint Swelling, Pedal Edema Additional comments: dopplerable distal pulses. wound vac in place on LLE. no leak - Back Exam Back Exam: NORMAL INSPECTION - Neurological Exam Neurological Exam: Alert, Awake, CN II-XII Intact, Normal Gait, Oriented x3 - Psychiatric Exam Psychiatric exam: Normal Affect, Normal Mood - Skin Skin Exam: Dry, Intact, Warm Assessment and Plan - Assessment and Plan (Free Text) Assessment: pod 3 s/p LLE wound debridement w wound vac -change vac on 07/25 -Medical management -Pain control -PT WIll LEONARDO Lyon
[2017-07-23] MEDS: Multivitamin With Minerals Tab PO SCH (08:05)
--- NOTE | 2017-07-23 09:10 | CP.PCM.PCO ---
Physician Communication Note - Physician Communication Note Physician Communication Note: Pt agreeable to wound vac/Wound c/s Negative
--- NOTE | 2017-07-23 10:50 | CP.PCM.PN ---
Subjective - Date & Time of Evaluation Date of Evaluation: 07/23/17 Time of Evaluation: 10:49 - Subjective Subjective: Nephrology Consultation Note: Assessment: Stable Left leg wound/ulcer Status post debridement and wound VAC Acute Kidney Injury (N17.9) resolved Hypertensive Chronic Kidney Disease (I12.9) Chronic Kidney Disease (N18.3) Stage 3 with 130 mg albuminuria likely due to HTN /DM Diabetic kidney Disease (E11.22) hx of CAD, CVA Anemia possible PVD Vitamin D deficiency Plan No acute need for renal replacement therapy at this time. Hypertension control with meds as ordered. pt on ACEI as lisinopril. If bP stays persistently high (>140/90) then can add norvasc 5 mg/day continue with statins Added iron supplementation multivitamin and weekly vitamin D Pending SPEP, SAEED and [place]/lambda ratio Dose meds/antibiotics for reduced GFR. Avoid fleets enema/magnesium based laxatives. Avoid nephrotoxins/NSAIDs/ iodinated contrast (unless needed emergently) Glycemic control Further work up/management as per primary team Thanks for allowing me to participate in care of your patient. Will follow patient with you. Please call if any Qs Dr Fernie Cesar Office: [phone] Chief Complaint; left leg non healing wound Reason for consult: renal insuff HPI: Pt is a 67 y/o F with hx of diabetes Mellitus , hypertension (x 3 years), hx of CAD/[place] and stroke in past presented with complaints of non healing painful left leg wound/ulcer. she is s/p wound debridement. also being treated with antibioitcs. renal consult for CKD management. she has baseline ckd 3 with cr 1.4-1.7 range with intermittent episodes of JASON Denies chest pain, palpitation, shortness of breath, leg swelling Denies blood or bubbles in urine Denies OTC/herbal meds or NSAIDs. admits to occasional use of Alleve No recent iodinated contrast exposure. No obvious episodes of low BP. ROS: Constitutional Symptoms: Denies fever. No chills. No Recent Weight Changes Cardiovascular: No chest pain. No palpitations. Pulmonary: No shortness of breath no cough. All other negative except as in HPI Physical Examination: General Appearance: Comfortable, in no acute respiratory distress, co-operative . Vitals reviewed and noted as below Head; Atraumatic, normocephalic ENT: no ulcers no thrush. Tongue is midline appears dry and coated. Oropharynx: no rash or ulcers. EYES: Pupils are equal, round and reactive to light accommodation. Eye muscles and extraocular movement intact. Sclera is anicteric. Neck; supple no lymphadenopathy, no thyromegaly or bruit Lungs: Normal respiratory rate/effort. Breath sounds bilateral equal and clear Heart: Normal rate. s1s2 normal. No rub or gallop. Extremities: no edema. No varicose veins. left leg posterior aspect wound/ulcer + s/p wound vac Neurological: Patient is alert, awake and oriented to person, place and time. No focal deficit. Strength bilateral appropriate and equal Skin: Warm and dry. Normal turgor. No rash. Palpitation: Normal elasticity for age Abdomen: Abdomen is soft. Bowel sounds +. There is lower abdominal tenderness, no guarding/rigidity no organomegaly Psych: normal insight and normal affect/mood MSK: no joint tenderness or swelling. Digits and nails normal, no deformity : kidney or bladder not palpable Labs/imaging/EKG reviewed. Past medical history, past surgical history, family history, social history, allergy reviewed and noted as below Family hx: no hx of CKD. Rest non-contributory Work up; CT abdomen 2017: unremarkable kidneys/bladder/adrenals. Vitamin D 18 PTH 48 Iron saturation 25% ferritin 157 Objective - Vital Signs/Intake and Output Vital Signs (last 24 hours): Temp Pulse Resp BP Pulse Ox 98.2 F 74 20 145/100 H 99 07/23/17 06:00 07/23/17 06:58 07/23/17 06:00 07/23/17 06:58 07/23/17 06:00 - Medications Medications: Current Medications Aspirin (Ecotrin) 81 mg PO 1000 [facility] PRN Reason: Protocol Last Admin: 07/23/17 09:56 Dose: 81 mg Atorvastatin Calcium (Lipitor) 10 mg PO DIN [facility] PRN Reason: Protocol Last Admin: 07/22/17 17:53 Dose: 10 mg Ergocalciferol (Drisdol 50,000 Intl Units Cap) 1 cap PO Q7D [facility] Ferrous Gluconate (Fergon) 324 mg PO TID [facility] Last Admin: 07/23/17 10:02 Dose: 324 mg Hydrochlorothiazide (Microzide) 12.5 mg PO DAILY [facility] PRN Reason: Protocol Last Admin: 07/23/17 09:57 Dose: 12.5 mg Cefepime HCl (Maxipime 1gm) 1 gm in 100 mls @ 100 mls/hr IVPB 0600 [facility] PRN Reason: Protocol Last Admin: 07/23/17 05:24 Dose: 100 mls/hr Vancomycin HCl (Vancomycin 1gm) 1 gm in 250 mls @ 167 mls/hr IVPB 2300 [facility] PRN Reason: Protocol Last Admin: 07/22/17 22:36 Dose: 167 mls/hr Lisinopril (Zestril) 40 mg PO DAILY [facility] PRN Reason: Protocol Last Admin: 07/23/17 09:57 Dose: 40 mg Multivitamins/Minerals (Therapeutic-M Tab) 1 tab PO 0800 [facility] Last Admin: 07/23/17 08:05 Dose: 1 tab Nifedipine (Procardia Xl) 90 mg PO DAILY [facility] PRN Reason: Protocol Last Admin: 07/23/17 09:57 Dose: Not Given Ondansetron HCl (Zofran Inj) 4 mg IVP Q4H PRN PRN Reason: Nausea/Vomiting Oxycodone/Acetaminophen (Percocet 5/325 Mg Tab) 2 tab PO Q4H PRN PRN Reason: Pain, moderate (4-7) Stop: 07/26/17 07:44 Last Admin: 07/23/17 09:56 Dose: 2 tab Tramadol HCl (Ultram) 50 mg PO TID [facility] PRN Reason: Protocol Last Admin: 07/23/17 09:57 Dose: Not Given - Labs Labs: 07/22/17 06:45 07/22/17 06:45
--- NOTE | 2017-07-23 14:51 | CP.PCM.PN ---
Subjective - Date & Time of Evaluation Date of Evaluation: 07/23/17 Time of Evaluation: 13:30 - Subjective Subjective: Internal Medicine Progress Note: July 23, 2017 67 yo AA female presenting with left lower leg pain and swelling. The patient had a splinter removed 2 weeks ago at an Urgent Care center. She was in [place] over a month ago where she received Augmentin for treatment of the leg as the pain and swelling did not subside. Still having pain and swelling to the area so she came to the ER for further evaluation. She was in [facility] for several days with IV antibiotics of Vancomycin and Zosyn for antibiotic coverage. She was sent home with Keflex and followed as an outpatient. The patient had worsening of the wound and started on Sivextro and Omnicef which she was nearing completion. The wound continued to increase in size. Persistent pain to the left leg wound at the Achilles site. Tissues here are ng and tender. The original edema is not present however. Seen by Dr. Merlos. In OR for debridement on 07/20/2017. The patient with renal insufficiency. Metformin stopped. Debridement of 3x4x1 cm left posterior leg lesion. Wound vac placed. On Vancomycin and Cefepime now. Complaining of pain the left posterior ankle. Objective - Vital Signs/Intake and Output Vital Signs (last 24 hours): Temp Pulse Resp BP Pulse Ox 97.1 F L 74 18 165/93 H 98 07/23/17 10:00 07/23/17 10:00 07/23/17 10:00 07/23/17 10:00 07/23/17 10:00 - Medications Medications: Current Medications Aspirin (Ecotrin) 81 mg PO 1000 [facility]INNY PRN Reason: Protocol Last Admin: 07/23/17 09:56 Dose: 81 mg Atorvastatin Calcium (Lipitor) 10 mg PO DIN [facility] PRN Reason: Protocol Last Admin: 07/22/17 17:53 Dose: 10 mg Ergocalciferol (Drisdol 50,000 Intl Units Cap) 1 cap PO Q7D [facility] Ferrous Gluconate (Fergon) 324 mg PO TID [facility] Last Admin: 07/23/17 14:09 Dose: 324 mg Hydrochlorothiazide (Microzide) 12.5 mg PO DAILY [facility] PRN Reason: Protocol Last Admin: 07/23/17 09:57 Dose: 12.5 mg Cefepime HCl (Maxipime 1gm) 1 gm in 100 mls @ 100 mls/hr IVPB 0600 [facility] PRN Reason: Protocol Last Admin: 07/23/17 05:24 Dose: 100 mls/hr Vancomycin HCl (Vancomycin 1gm) 1 gm in 250 mls @ 167 mls/hr IVPB 2300 [facility] PRN Reason: Protocol Last Admin: 07/22/17 22:36 Dose: 167 mls/hr Lisinopril (Zestril) 40 mg PO DAILY [facility] PRN Reason: Protocol Last Admin: 07/23/17 09:57 Dose: 40 mg Multivitamins/Minerals (Therapeutic-M Tab) 1 tab PO 0800 [facility] Last Admin: 07/23/17 08:05 Dose: 1 tab Nifedipine (Procardia Xl) 90 mg PO DAILY [facility] PRN Reason: Protocol Last Admin: 07/23/17 09:57 Dose: Not Given Ondansetron HCl (Zofran Inj) 4 mg IVP Q4H PRN PRN Reason: Nausea/Vomiting Oxycodone/Acetaminophen (Percocet 5/325 Mg Tab) 2 tab PO Q4H PRN PRN Reason: Pain, moderate (4-7) Stop: 07/26/17 07:44 Last Admin: 07/23/17 09:56 Dose: 2 tab Tramadol HCl (Ultram) 50 mg PO TID [facility] PRN Reason: Protocol Last Admin: 07/23/17 14:09 Dose: Not Given - Labs Labs: 07/22/17 06:45 07/22/17 06:45 - Constitutional Appears: Non-toxic, No Acute Distress - Head Exam Head Exam: ATRAUMATIC, NORMOCEPHALIC - Eye Exam Eye Exam: EOMI, PERRL Pupil Exam: NORMAL ACCOMODATION, PERRL - ENT Exam ENT Exam: Mucous Membranes Moist, Normal External Ear Exam, TM's Normal Bilaterally - Neck Exam Neck Exam: Full ROM, Normal Inspection - Respiratory Exam Respiratory Exam: Clear to Ausculation Bilateral, NORMAL BREATHING PATTERN. absent: Rales, Rhonchi, Wheezes - Cardiovascular Exam Cardiovascular Exam: REGULAR RHYTHM, RRR, +S1, +S2 - GI/Abdominal Exam GI & Abdominal Exam: Soft, Normal Bowel Sounds. absent: Distended, Tenderness - Extremities Exam Extremities Exam: Full ROM Additional comments: 4x3x1 cm wound on the posterior lower left leg at site of a splinter removal. The patient with ng tissue with continued pain and swelling. No drainage. No fevers. Debrided 07/20/2017. - Neurological Exam Neurological Exam: Alert, Awake, CN II-XII Intact, Normal Gait - Psychiatric Exam Psychiatric exam: Normal Affect, Normal Mood - Skin Skin Exam: Intact, Normal Color Additional comments: except for the left posterior leg and ankle. Assessment and Plan - Assessment and Plan (Free Text) Assessment: 67 yo AA female with left ankle wound that started from a splinter around the Achilles insertion point. Splinter was removed at a [facility] and sent home without antibiotics. Patient went to [place] and went to ER in the area. Given Augmentin PO. When she returned to [place], the patient came to [facility] as the pain persisted and the wound appeared to the patient to be enlarging. She was given IV antibiotics and cleared for discharge a few days later. She was initially given Keflex then Sivextro and Omnicef for antibiotic treatment. Admitted for further evaluation of the left lower leg wound. Dr. Merlos of surgery evaluated. On IV Vancomycin and Cefepime for antibiotic treatment. Debridement of the ulceration in OR on 07/20/2017. Renal insufficiency. Dr. Merlos and Dr. Cesar following patient for surgery and nephrology respectively. Wound vac in place on left posterior lower leg. Pain management. She still complains of left posterior leg/ankle pain.
[2017-07-23] MEDS: Vancomycin 1gm in NS 250ml 1 GM/250 ML BAG IVPB SCH (22:14)
[2017-07-24] MEDS: Cefepime 1gm in NS 100ml 1 GM/100 ML BAG IVPB SCH (05:14)
[2017-07-24] MEDS: Oxycodone/Acetaminophen 5/325 mg Tab PO PRN ×2 (05:24→21:24)
[2017-07-24] MEDS: Multivitamin With Minerals Tab PO SCH (08:13)
[2017-07-24] MEDS: NIFEdipine 90 mg ER Tab PO SCH (09:58)
--- NOTE | 2017-07-24 10:23 | CP.PCM.PN ---
Subjective - Date & Time of Evaluation Date of Evaluation: 07/24/17 Time of Evaluation: 10:22 - Subjective Subjective: Nephrology Consultation Note: Assessment: Stable Left leg wound/ulcer Status post debridement and wound VAC Acute Kidney Injury (N17.9) resolved Hypertensive Chronic Kidney Disease (I12.9) Chronic Kidney Disease (N18.3) Stage 3 with 130 mg albuminuria likely due to HTN /DM Diabetic kidney Disease (E11.22) hx of CAD, CVA Anemia possible PVD Vitamin D deficiency Plan No acute need for renal replacement therapy at this time. stable renal fxn Hypertension control with meds as ordered. pt on ACEI as lisinopril. If bP stays persistently high (>140/90) then can increase procardia to 120 mg/day. BP control acceptable for now continue with statins Added iron supplementation multivitamin and weekly vitamin D Pending SPEP, SAEED and [place]/lambda ratio Dose meds/antibiotics for reduced GFR. Avoid fleets enema/magnesium based laxatives. Avoid nephrotoxins/NSAIDs/ iodinated contrast (unless needed emergently) Glycemic control Further work up/management as per primary team Thanks for allowing me to participate in care of your patient. Will follow patient with you. Please call if any Qs Dr Fernie Cesar Office: [phone] Chief Complaint; left leg non healing wound Reason for consult: renal insuff HPI: Pt is a 67 y/o F with hx of diabetes Mellitus , hypertension (x 3 years), hx of CAD/[place] and stroke in past presented with complaints of non healing painful left leg wound/ulcer. she is s/p wound debridement. also being treated with antibioitcs. renal consult for CKD management. she has baseline ckd 3 with cr 1.4-1.7 range with intermittent episodes of JASON Denies chest pain, palpitation, shortness of breath, leg swelling Denies blood or bubbles in urine Denies OTC/herbal meds or NSAIDs. admits to occasional use of Alleve No recent iodinated contrast exposure. No obvious episodes of low BP. ROS: Constitutional Symptoms: Denies fever. No chills. No Recent Weight Changes Cardiovascular: No chest pain. No palpitations. Pulmonary: No shortness of breath no cough. All other negative except as in HPI Physical Examination: General Appearance: Comfortable, in no acute respiratory distress, co-operative . Vitals reviewed and noted as below Head; Atraumatic, normocephalic ENT: no ulcers no thrush. Tongue is midline appears dry and coated. Oropharynx: no rash or ulcers. EYES: Pupils are equal, round and reactive to light accommodation. Eye muscles and extraocular movement intact. Sclera is anicteric. Neck; supple no lymphadenopathy, no thyromegaly or bruit Lungs: Normal respiratory rate/effort. Breath sounds bilateral equal and clear Heart: Normal rate. s1s2 normal. No rub or gallop. Extremities: no edema. No varicose veins. left leg posterior aspect wound/ulcer + s/p wound vac Neurological: Patient is alert, awake and oriented to person, place and time. No focal deficit. Strength bilateral appropriate and equal Skin: Warm and dry. Normal turgor. No rash. Palpitation: Normal elasticity for age Abdomen: Abdomen is soft. Bowel sounds +. There is lower abdominal tenderness, no guarding/rigidity no organomegaly Psych: normal insight and normal affect/mood MSK: no joint tenderness or swelling. Digits and nails normal, no deformity : kidney or bladder not palpable Labs/imaging/EKG reviewed. Past medical history, past surgical history, family history, social history, allergy reviewed and noted as below Family hx: no hx of CKD. Rest non-contributory Work up; CT abdomen 2017: unremarkable kidneys/bladder/adrenals. Vitamin D 18 PTH 48 Iron saturation 25% ferritin 157 Objective - Vital Signs/Intake and Output Vital Signs (last 24 hours): Temp Pulse Resp BP Pulse Ox 98.9 F 83 16 140/81 97 07/24/17 06:00 07/24/17 06:00 07/24/17 06:00 07/24/17 06:00 07/24/17 06:00 - Medications Medications: Current Medications Aspirin (Ecotrin) 81 mg PO 1000 [facility] PRN Reason: Protocol Last Admin: 07/24/17 09:57 Dose: 81 mg Atorvastatin Calcium (Lipitor) 10 mg PO DIN [facility] PRN Reason: Protocol Last Admin: 07/23/17 17:23 Dose: 10 mg Ergocalciferol (Drisdol 50,000 Intl Units Cap) 1 cap PO Q7D [facility] Ferrous Gluconate (Fergon) 324 mg PO TID [facility] Last Admin: 03/26/18 09:57 Dose: 324 mg Hydrochlorothiazide (Microzide) 12.5 mg PO DAILY [facility] PRN Reason: Protocol Last Admin: 07/23/17 09:57 Dose: 12.5 mg Cefepime HCl (Maxipime 1gm) 1 gm in 100 mls @ 100 mls/hr IVPB 0600 [facility] PRN Reason: Protocol Last Admin: 07/24/17 05:14 Dose: 100 mls/hr Vancomycin HCl (Vancomycin 1gm) 1 gm in 250 mls @ 167 mls/hr IVPB 2300 [facility] PRN Reason: Protocol Last Admin: 07/23/17 22:14 Dose: 167 mls/hr Lisinopril (Zestril) 40 mg PO DAILY [facility] PRN Reason: Protocol Last Admin: 07/23/17 09:57 Dose: 40 mg Multivitamins/Minerals (Therapeutic-M Tab) 1 tab PO 0800 [facility] Last Admin: 07/24/17 08:13 Dose: 1 tab Nifedipine (Procardia Xl) 90 mg PO DAILY [facility] PRN Reason: Protocol Last Admin: 07/24/17 09:58 Dose: 90 mg Ondansetron HCl (Zofran Inj) 4 mg IVP Q4H PRN PRN Reason: Nausea/Vomiting Oxycodone/Acetaminophen (Percocet 5/325 Mg Tab) 2 tab PO Q4H PRN PRN Reason: Pain, moderate (4-7) Stop: 07/26/17 07:44 Last Admin: 07/24/17 05:24 Dose: 2 tab Tramadol HCl (Ultram) 50 mg PO TID [facility] PRN Reason: Protocol Last Admin: 07/24/17 10:00 Dose: 50 mg - Labs Labs: 07/22/17 06:45 07/22/17 06:45
--- NOTE | 2017-07-24 17:46 | CP.PCM.PN ---
Subjective - Date & Time of Evaluation Date of Evaluation: 07/24/17 Time of Evaluation: 17:00 - Subjective Subjective: Internal Medicine Progress Note: July 24, 2017 67 yo AA female presenting with left lower leg pain and swelling. The patient had a splinter removed 2 weeks ago at an Urgent Care center. She was in [place] over a month ago where she received Augmentin for treatment of the leg as the pain and swelling did not subside. Still having pain and swelling to the area so she came to the ER for further evaluation. She was in [facility] for several days with IV antibiotics of Vancomycin and Zosyn for antibiotic coverage. She was sent home with Keflex and followed as an outpatient. The patient had worsening of the wound and started on Sivextro and Omnicef which she was nearing completion. The wound continued to increase in size. Persistent pain to the left leg wound at the Achilles site. Tissues here are ng and tender. The original edema is not present however. Seen by Dr. Merlos. In OR for debridement on 07/20/2017. The patient with renal insufficiency. Metformin stopped. Debridement of 3x4x1 cm left posterior leg lesion. Wound vac placed. On Vancomycin and Cefepime now. Complaining of pain the left posterior ankle. Increased percocet dosing. Objective - Vital Signs/Intake and Output Vital Signs (last 24 hours): Temp Pulse Resp BP Pulse Ox 97.6 F 71 18 150/95 H 95 07/24/17 16:00 07/24/17 16:00 07/24/17 16:00 07/24/17 16:00 07/24/17 16:00 - Medications Medications: Current Medications Aspirin (Ecotrin) 81 mg PO 1000 [facility]NY PRN Reason: Protocol Last Admin: 07/24/17 09:57 Dose: 81 mg Atorvastatin Calcium (Lipitor) 10 mg PO DIN [facility] PRN Reason: Protocol Last Admin: 07/24/17 17:03 Dose: 10 mg Ergocalciferol (Drisdol 50,000 Intl Units Cap) 1 cap PO Q7D [facility] Ferrous Gluconate (Fergon) 324 mg PO TID [facility] Last Admin: 07/24/17 17:03 Dose: 324 mg Hydrochlorothiazide (Microzide) 12.5 mg PO DAILY [facility] PRN Reason: Protocol Last Admin: 07/24/17 11:02 Dose: 12.5 mg Cefepime HCl (Maxipime 1gm) 1 gm in 100 mls @ 100 mls/hr IVPB 0600 [facility] PRN Reason: Protocol Last Admin: 07/24/17 05:14 Dose: 100 mls/hr Vancomycin HCl (Vancomycin 1gm) 1 gm in 250 mls @ 167 mls/hr IVPB 2300 [facility] PRN Reason: Protocol Last Admin: 07/23/17 22:14 Dose: 167 mls/hr Lisinopril (Zestril) 40 mg PO DAILY [facility] PRN Reason: Protocol Last Admin: 07/24/17 11:02 Dose: 40 mg Multivitamins/Minerals (Therapeutic-M Tab) 1 tab PO 0800 [facility] Last Admin: 07/24/17 08:13 Dose: 1 tab Nifedipine (Procardia Xl) 90 mg PO DAILY [facility] PRN Reason: Protocol Last Admin: 07/24/17 09:58 Dose: 90 mg Ondansetron HCl (Zofran Inj) 4 mg IVP Q4H PRN PRN Reason: Nausea/Vomiting Last Admin: 07/24/17 14:42 Dose: 4 mg Oxycodone/Acetaminophen (Percocet 5/325 Mg Tab) 2 tab PO Q4H PRN PRN Reason: Pain, moderate (4-7) Stop: 07/26/17 07:44 Last Admin: 07/24/17 05:24 Dose: 2 tab Tramadol HCl (Ultram) 50 mg PO TID [facility] PRN Reason: Protocol Last Admin: 07/24/17 17:03 Dose: Not Given - Labs Labs: 07/22/17 06:45 07/22/17 06:45 - Constitutional Appears: Non-toxic, No Acute Distress - Head Exam Head Exam: ATRAUMATIC, NORMOCEPHALIC - Eye Exam Eye Exam: EOMI, PERRL Pupil Exam: NORMAL ACCOMODATION, PERRL - ENT Exam ENT Exam: Mucous Membranes Moist, Normal External Ear Exam, TM's Normal Bilaterally - Neck Exam Neck Exam: Full ROM, Normal Inspection - Respiratory Exam Respiratory Exam: Clear to Ausculation Bilateral, NORMAL BREATHING PATTERN. absent: Rales, Rhonchi, Wheezes - Cardiovascular Exam Cardiovascular Exam: REGULAR RHYTHM, RRR, +S1, +S2 - GI/Abdominal Exam GI & Abdominal Exam: Soft, Normal Bowel Sounds. absent: Distended, Tenderness - Extremities Exam Extremities Exam: Full ROM Additional comments: 4x3x1 cm wound on the posterior lower left leg at site of a splinter removal. The patient with ng tissue with continued pain and swelling. No drainage. No fevers. Debrided 07/20/2017. - Neurological Exam Neurological Exam: Alert, Awake, CN II-XII Intact, Oriented x3 - Psychiatric Exam Psychiatric exam: Normal Affect, Normal Mood - Skin Skin Exam: Intact, Normal Color Additional comments: except for the left posterior leg and ankle. Assessment and Plan - Assessment and Plan (Free Text) Assessment: 67 yo AA female with left ankle wound that started from a splinter around the Achilles insertion point. Splinter was removed at a [facility] and sent home without antibiotics. Patient went to [place] and went to ER in the area. Given Augmentin PO. When she returned to [place], the patient came to [facility] as the pain persisted and the wound appeared to the patient to be enlarging. She was given IV antibiotics and cleared for discharge a few days later. She was initially given Keflex then Sivextro and Omnicef for antibiotic treatment. Admitted for further evaluation of the left lower leg wound. Dr. Merlos of surgery evaluated. On IV Vancomycin and Cefepime for antibiotic treatment. Debridement of the ulceration in OR on 07/20/2017. Renal insufficiency. Dr. Merlos and Dr. Cesar following patient for surgery and nephrology respectively. Wound vac in place on left posterior lower leg. Minimal drainage from wound vac. Pain management. She still complains of left posterior leg/ankle pain. Percocet dosing was increased yesterday.
[2017-07-24] MEDS: Vancomycin 1gm in NS 250ml 1 GM/250 ML BAG IVPB SCH (22:17)
[2017-07-25] MEDS: Oxycodone/Acetaminophen 5/325 mg Tab PO PRN ×2 (01:35→20:06)
[2017-07-25] MEDS: Cefepime 1gm in NS 100ml 1 GM/100 ML BAG IVPB SCH (05:49)
[2017-07-25 06:55] LABS: BASO # 0.03 K/mm3 (0.0-2.0); BASO % 0.4 % (0.0-3.0); EOS # 0.3 (0.0-0.7); EOS % 3.7 % (1.5-5.0); GRAN # 4.44 (1.4-6.5); GRAN % 55.3 % (50.0-68.0); HEMOGLOBIN 10.1 g/dL (12.0-16.0); LYMPH # 2.8 (1.2-3.4); LYMPH % 34.6 % (22.0-35.0); MEAN CELL VOLUME 80.3 fl (80.0-105.0); MEAN CORPUSCULAR HEMOGLOBIN 25.8 pg (25.0-35.0); MEAN CORPUSCULAR HGB CONC 32.2 g/dl (31.0-37.0); MEAN PLATELET VOLUME 9.4 fl (7.0-11.0); MONO # 0.5 (0.1-0.6); RBC 3.91 10^6/uL (3.5-6.1); RED CELL DISTRIBUTION WIDTH 14.1 % (11.5-14.5)
[2017-07-25 07:05] LABS: CALCIUM 9.4 mg/dL (8.4-10.5)
[2017-07-25] MEDS: Multivitamin With Minerals Tab PO SCH (07:53)
--- NOTE | 2017-07-25 08:41 | CP.PCM.PN ---
Subjective - Date & Time of Evaluation Date of Evaluation: 07/25/17 Time of Evaluation: 08:12 - Subjective Subjective: Surgery No acute events overnight. Pain controlled. WOund vac in place. Objective - Vital Signs/Intake and Output Vital Signs (last 24 hours): Temp Pulse Resp BP Pulse Ox 97.8 F 78 16 96/61 L 92 L 07/25/17 06:00 07/25/17 06:00 07/25/17 06:00 07/25/17 06:00 07/25/17 06:00 - Medications Medications: Current Medications Aspirin (Ecotrin) 81 mg PO 1000 [facility] PRN Reason: Protocol Last Admin: 07/24/17 09:57 Dose: 81 mg Atorvastatin Calcium (Lipitor) 10 mg PO DIN [facility] PRN Reason: Protocol Last Admin: 07/24/17 17:03 Dose: 10 mg Ergocalciferol (Drisdol 50,000 Intl Units Cap) 1 cap PO Q7D [facility] Ferrous Gluconate (Fergon) 324 mg PO TID [facility] Last Admin: 07/24/17 17:03 Dose: 324 mg Hydrochlorothiazide (Microzide) 12.5 mg PO DAILY [facility] PRN Reason: Protocol Last Admin: 07/24/17 11:02 Dose: 12.5 mg Cefepime HCl (Maxipime 1gm) 1 gm in 100 mls @ 100 mls/hr IVPB 0600 [facility] PRN Reason: Protocol Last Admin: 07/25/17 05:49 Dose: 100 mls/hr Vancomycin HCl (Vancomycin 1gm) 1 gm in 250 mls @ 167 mls/hr IVPB 2300 [facility] PRN Reason: Protocol Last Admin: 07/24/17 22:17 Dose: 167 mls/hr Lisinopril (Zestril) 40 mg PO DAILY [facility] PRN Reason: Protocol Last Admin: 07/24/17 11:02 Dose: 40 mg Multivitamins/Minerals (Therapeutic-M Tab) 1 tab PO 0800 [facility] Last Admin: 07/25/17 07:53 Dose: 1 tab Nifedipine (Procardia Xl) 90 mg PO DAILY [facility] PRN Reason: Protocol Last Admin: 07/24/17 09:58 Dose: 90 mg Ondansetron HCl (Zofran Inj) 4 mg IVP Q4H PRN PRN Reason: Nausea/Vomiting Last Admin: 07/24/17 14:42 Dose: 4 mg Oxycodone/Acetaminophen (Percocet 5/325 Mg Tab) 2 tab PO Q4H PRN PRN Reason: Pain, moderate (4-7) Stop: 07/26/17 07:44 Last Admin: 07/25/17 01:35 Dose: 2 tab Tramadol HCl (Ultram) 50 mg PO TID [facility] PRN Reason: Protocol Last Admin: 07/24/17 17:03 Dose: Not Given - Labs Labs: 07/25/17 06:30 07/25/17 06:30 - Constitutional Appears: No Acute Distress - Head Exam Head Exam: ATRAUMATIC, NORMAL INSPECTION, NORMOCEPHALIC - Eye Exam Eye Exam: EOMI, Normal appearance, PERRL Pupil Exam: NORMAL ACCOMODATION, PERRL - ENT Exam ENT Exam: Mucous Membranes Moist, Normal Exam - Neck Exam Neck Exam: Full ROM, Normal Inspection. absent: Lymphadenopathy - Respiratory Exam Respiratory Exam: Clear to Ausculation Bilateral, NORMAL BREATHING PATTERN - Cardiovascular Exam Cardiovascular Exam: REGULAR RHYTHM, +S1, +S2. absent: Murmur - GI/Abdominal Exam GI & Abdominal Exam: Soft, Normal Bowel Sounds. absent: Distended, Tenderness - Extremities Exam Extremities Exam: Full ROM. absent: Normal Inspection Additional comments: WOund vac in place. No leak - Back Exam Back Exam: NORMAL INSPECTION - Neurological Exam Neurological Exam: Alert, Awake, CN II-XII Intact, Normal Gait, Oriented x3 - Psychiatric Exam Psychiatric exam: Normal Affect, Normal Mood - Skin Skin Exam: Dry, Intact, Warm Assessment and Plan - Assessment and Plan (Free Text) Assessment: s/p wound debridement with wound vac -WIll change wound vac today -ABX per ID Will DW Dr. Lyon
[2017-07-25] MEDS: NIFEdipine 90 mg ER Tab PO SCH (10:26)
[2017-07-25] MEDS: HYDROmorphone 0.5 mg/0.5 ml ISec IVP PRN (12:16)
--- NOTE | 2017-07-25 16:38 | CP.PCM.PN ---
Subjective - Date & Time of Evaluation Date of Evaluation: 07/25/17 Time of Evaluation: 16:38 - Subjective Subjective: Nephrology Consultation Note: Assessment: Stable Left leg wound/ulcer Status post debridement and wound VAC Acute Kidney Injury (N17.9) resolved Hypertensive Chronic Kidney Disease (I12.9) Chronic Kidney Disease (N18.3) Stage 3 with 130 mg albuminuria likely due to HTN /DM Diabetic kidney Disease (E11.22) hx of CAD, CVA Anemia possible PVD Vitamin D deficiency Plan No acute need for renal replacement therapy at this time. stable renal fxn Hypertension control with meds as ordered. pt on ACEI as lisinopril. If bP stays persistently high (>140/90) then can increase procardia to 120 mg/day. BP control acceptable for now continue with statins Added iron supplementation multivitamin and weekly vitamin D check vanco level tonight Pending SPEP, SAEED and Krum/lambda ratio Dose meds/antibiotics for reduced GFR. Avoid fleets enema/magnesium based laxatives. Avoid nephrotoxins/NSAIDs/ iodinated contrast (unless needed emergently) Glycemic control Further work up/management as per primary team Thanks for allowing me to participate in care of your patient. Will follow patient with you. Please call if any Qs Dr Fernie Cesar Office: [phone] Chief Complaint; left leg non healing wound Reason for consult: renal insuff HPI: Pt is a 67 y/o F with hx of diabetes Mellitus , hypertension (x 3 years), hx of CAD/TX and stroke in past presented with complaints of non healing painful left leg wound/ulcer. she is s/p wound debridement. also being treated with antibioitcs. renal consult for CKD management. she has baseline ckd 3 with cr 1.4-1.7 range with intermittent episodes of JASON Denies chest pain, palpitation, shortness of breath, leg swelling Denies blood or bubbles in urine Denies OTC/herbal meds or NSAIDs. admits to occasional use of Alleve No recent iodinated contrast exposure. No obvious episodes of low BP. ROS: Constitutional Symptoms: Denies fever. No chills. No Recent Weight Changes Cardiovascular: No chest pain. No palpitations. Pulmonary: No shortness of breath no cough. All other negative except as in HPI Physical Examination: General Appearance: Comfortable, in no acute respiratory distress, co-operative . Vitals reviewed and noted as below Head; Atraumatic, normocephalic ENT: no ulcers no thrush. Tongue is midline appears dry and coated. Oropharynx: no rash or ulcers. EYES: Pupils are equal, round and reactive to light accommodation. Eye muscles and extraocular movement intact. Sclera is anicteric. Neck; supple no lymphadenopathy, no thyromegaly or bruit Lungs: Normal respiratory rate/effort. Breath sounds bilateral equal and clear Heart: Normal rate. s1s2 normal. No rub or gallop. Extremities: no edema. No varicose veins. left leg posterior aspect wound/ulcer + s/p wound vac Neurological: Patient is alert, awake and oriented to person, place and time. No focal deficit. Strength bilateral appropriate and equal Skin: Warm and dry. Normal turgor. No rash. Palpitation: Normal elasticity for age Abdomen: Abdomen is soft. Bowel sounds +. There is lower abdominal tenderness, no guarding/rigidity no organomegaly Psych: normal insight and normal affect/mood MSK: no joint tenderness or swelling. Digits and nails normal, no deformity : kidney or bladder not palpable Labs/imaging/EKG reviewed. Past medical history, past surgical history, family history, social history, allergy reviewed and noted as below Family hx: no hx of CKD. Rest non-contributory Work up; CT abdomen 2017: unremarkable kidneys/bladder/adrenals. Vitamin D 18 PTH 48 Iron saturation 25% ferritin 157 Objective - Vital Signs/Intake and Output Vital Signs (last 24 hours): Temp Pulse Resp BP Pulse Ox 97.4 F L 70 18 131/85 93 L 07/25/17 11:02 07/25/17 11:02 07/25/17 11:02 07/25/17 11:02 07/25/17 11:02 - Medications Medications: Current Medications Aspirin (Ecotrin) 81 mg PO 1000 [facility] PRN Reason: Protocol Last Admin: 07/25/17 10:26 Dose: 81 mg Atorvastatin Calcium (Lipitor) 10 mg PO DIN [facility] PRN Reason: Protocol Last Admin: 07/24/17 17:03 Dose: 10 mg Ergocalciferol (Drisdol 50,000 Intl Units Cap) 1 cap PO Q7D [facility] Ferrous Gluconate (Fergon) 324 mg PO TID [facility] Last Admin: 07/25/17 14:32 Dose: 324 mg Hydrochlorothiazide (Microzide) 12.5 mg PO DAILY [facility] PRN Reason: Protocol Last Admin: 07/25/17 10:26 Dose: 12.5 mg Hydromorphone HCl (Dilaudid) 0.5 mg IVP Q4H PRN PRN Reason: Pain, severe (8-10) Last Admin: 07/25/17 12:16 Dose: 0.5 mg Cefepime HCl (Maxipime 1gm) 1 gm in 100 mls @ 100 mls/hr IVPB 0600 [facility] PRN Reason: Protocol Last Admin: 07/25/17 05:49 Dose: 100 mls/hr Vancomycin HCl (Vancomycin 1gm) 1 gm in 250 mls @ 167 mls/hr IVPB 2300 [facility] PRN Reason: Protocol Last Admin: 07/24/17 22:17 Dose: 167 mls/hr Lisinopril (Zestril) 40 mg PO DAILY [facility] PRN Reason: Protocol Last Admin: 07/25/17 10:27 Dose: 40 mg Multivitamins/Minerals (Therapeutic-M Tab) 1 tab PO 0800 [facility] Last Admin: 07/25/17 07:53 Dose: 1 tab Nifedipine (Procardia Xl) 90 mg PO DAILY [facility] PRN Reason: Protocol Last Admin: 07/25/17 10:26 Dose: 90 mg Ondansetron HCl (Zofran Inj) 4 mg IVP Q4H PRN PRN Reason: Nausea/Vomiting Last Admin: 07/25/17 14:33 Dose: 4 mg Oxycodone/Acetaminophen (Percocet 5/325 Mg Tab) 2 tab PO Q4H PRN PRN Reason: Pain, moderate (4-7) Stop: 07/26/17 07:44 Last Admin: 07/25/17 01:35 Dose: 2 tab Tramadol HCl (Ultram) 50 mg PO TID [facility] PRN Reason: Protocol Last Admin: 07/25/17 14:32 Dose: 50 mg - Labs Labs: 07/25/17 06:30 07/25/17 06:30
--- NOTE | 2017-07-25 18:06 | CP.PCM.PN ---
Subjective - Date & Time of Evaluation Date of Evaluation: 07/25/17 Time of Evaluation: 17:30 - Subjective Subjective: Internal Medicine Progress Note: July 25, 2017 67 yo AA female presenting with left lower leg pain and swelling. The patient had a splinter removed 2 weeks ago at an Urgent Care center. She was in [place] over a month ago where she received Augmentin for treatment of the leg as the pain and swelling did not subside. Still having pain and swelling to the area so she came to the ER for further evaluation. She was in [facility] for several days with IV antibiotics of Vancomycin and Zosyn for antibiotic coverage. She was sent home with Keflex and followed as an outpatient. The patient had worsening of the wound and started on Sivextro and Omnicef which she was nearing completion. The wound continued to increase in size. Persistent pain to the left leg wound at the Achilles site. Tissues here are ng and tender. The original edema is not present however. Seen by Dr. Merlos. In OR for debridement on 07/20/2017. The patient with renal insufficiency. Metformin stopped. Debridement of 3x4x1 cm left posterior leg lesion. Wound vac placed. On Vancomycin and Cefepime now. Complaining of pain the left posterior ankle. On percocet for pain. Objective - Vital Signs/Intake and Output Vital Signs (last 24 hours): Temp Pulse Resp BP Pulse Ox 97.8 F 76 18 119/65 96 07/25/17 17:03 07/25/17 17:03 07/25/17 17:03 07/25/17 17:03 07/25/17 17:03 - Medications Medications: Current Medications Aspirin (Ecotrin) 81 mg PO 1000 [facility] PRN Reason: Protocol Last Admin: 07/25/17 10:26 Dose: 81 mg Atorvastatin Calcium (Lipitor) 10 mg PO DIN [facility] PRN Reason: Protocol Last Admin: 07/25/17 17:19 Dose: 10 mg Ergocalciferol (Drisdol 50,000 Intl Units Cap) 1 cap PO Q7D [facility] Ferrous Gluconate (Fergon) 324 mg PO TID [facility] Last Admin: 07/25/17 17:19 Dose: 324 mg Hydrochlorothiazide (Microzide) 12.5 mg PO DAILY [facility] PRN Reason: Protocol Last Admin: 07/25/17 10:26 Dose: 12.5 mg Hydromorphone HCl (Dilaudid) 0.5 mg IVP Q4H PRN PRN Reason: Pain, severe (8-10) Last Admin: 07/25/17 12:16 Dose: 0.5 mg Cefepime HCl (Maxipime 1gm) 1 gm in 100 mls @ 100 mls/hr IVPB 0600 [facility] PRN Reason: Protocol Last Admin: 07/25/17 05:49 Dose: 100 mls/hr Vancomycin HCl (Vancomycin 1gm) 1 gm in 250 mls @ 167 mls/hr IVPB 2300 [facility] PRN Reason: Protocol Last Admin: 07/24/17 22:17 Dose: 167 mls/hr Lisinopril (Zestril) 40 mg PO DAILY [facility] PRN Reason: Protocol Last Admin: 07/25/17 10:27 Dose: 40 mg Multivitamins/Minerals (Therapeutic-M Tab) 1 tab PO 0800 [facility] Last Admin: 07/25/17 07:53 Dose: 1 tab Nifedipine (Procardia Xl) 90 mg PO DAILY [facility] PRN Reason: Protocol Last Admin: 07/25/17 10:26 Dose: 90 mg Ondansetron HCl (Zofran Inj) 4 mg IVP Q4H PRN PRN Reason: Nausea/Vomiting Last Admin: 07/25/17 17:49 Dose: 4 mg Oxycodone/Acetaminophen (Percocet 5/325 Mg Tab) 2 tab PO Q4H PRN PRN Reason: Pain, moderate (4-7) Stop: 07/26/17 07:44 Last Admin: 07/25/17 01:35 Dose: 2 tab Tramadol HCl (Ultram) 50 mg PO TID [facility] PRN Reason: Protocol Last Admin: 07/25/17 17:46 Dose: 50 mg - Labs Labs: 07/25/17 06:30 07/25/17 06:30 - Constitutional Appears: Non-toxic, No Acute Distress - Head Exam Head Exam: ATRAUMATIC, NORMOCEPHALIC - Eye Exam Eye Exam: EOMI, PERRL Pupil Exam: NORMAL ACCOMODATION, PERRL - ENT Exam ENT Exam: Mucous Membranes Moist, Normal External Ear Exam, TM's Normal Bilaterally - Neck Exam Neck Exam: Full ROM, Normal Inspection - Respiratory Exam Respiratory Exam: Clear to Ausculation Bilateral, NORMAL BREATHING PATTERN. absent: Rales, Rhonchi, Wheezes - Cardiovascular Exam Cardiovascular Exam: REGULAR RHYTHM, RRR, +S1, +S2 - GI/Abdominal Exam GI & Abdominal Exam: Soft, Normal Bowel Sounds. absent: Distended, Tenderness - Extremities Exam Extremities Exam: Full ROM Additional comments: 4x3x1 cm wound on the posterior lower left leg at site of a splinter removal. The patient with ng tissue with continued pain and swelling. No drainage. No fevers. Debrided 07/20/2017. - Neurological Exam Neurological Exam: Alert, Awake, CN II-XII Intact, Oriented x3 - Psychiatric Exam Psychiatric exam: Normal Affect, Normal Mood - Skin Skin Exam: Intact, Normal Color Assessment and Plan - Assessment and Plan (Free Text) Assessment: 67 yo AA female with left ankle wound that started from a splinter around the Achilles insertion point. Splinter was removed at a [facility] and sent home without antibiotics. Patient went to [place] and went to ER in the area. Given Augmentin PO. When she returned to [place], the patient came to [facility] as the pain persisted and the wound appeared to the patient to be enlarging. She was given IV antibiotics and cleared for discharge a few days later. She was initially given Keflex then Sivextro and Omnicef for antibiotic treatment. Admitted for further evaluation of the left lower leg wound. Dr. Merlos of surgery evaluated. On IV Vancomycin and Cefepime for antibiotic treatment. Debridement of the ulceration in OR on 07/20/2017. Renal insufficiency. Dr. Merlos and Dr. Cesar following patient for surgery and nephrology respectively. Wound vac in place on left posterior lower leg. Minimal drainage from wound vac. Creatinine 2.0 today. Pain management. She still complains of left posterior leg/ankle pain. Percocet for pain management.
[2017-07-25] MEDS: Vancomycin 1gm in NS 250ml 1 GM/250 ML BAG IVPB SCH (22:02)
[2017-07-26] MEDS: Oxycodone/Acetaminophen 5/325 mg Tab PO PRN (05:57)
[2017-07-26] MEDS: Cefepime 1gm in NS 100ml 1 GM/100 ML BAG IVPB SCH (05:57)
[2017-07-26] MEDS: Multivitamin With Minerals Tab PO SCH (08:33)
[2017-07-26] MEDS: NIFEdipine 90 mg ER Tab PO SCH (10:19)
[2017-07-26] MEDS: HYDROmorphone 0.5 mg/0.5 ml ISec IVP PRN ×2 (10:31→20:53)
--- NOTE | 2017-07-26 13:30 | CP.PCM.PCO ---
Physician Communication Note - Physician Communication Note Physician Communication Note: L lower extremity Wound vac adjusted today. Tolerated it well.3x4x0.5cm
--- NOTE | 2017-07-26 15:59 | CP.PCM.PN ---
Subjective - Date & Time of Evaluation Date of Evaluation: 07/26/17 Time of Evaluation: 15:30 - Subjective Subjective: Internal Medicine Progress Note: July 26, 2017 67 yo AA female presenting with left lower leg pain and swelling. The patient had a splinter removed 2 weeks ago at an Urgent Care center. She was in [place] over a month ago where she received Augmentin for treatment of the leg as the pain and swelling did not subside. Still having pain and swelling to the area so she came to the ER for further evaluation. She was in [facility] for several days with IV antibiotics of Vancomycin and Zosyn for antibiotic coverage. She was sent home with Keflex and followed as an outpatient. The patient had worsening of the wound and started on Sivextro and Omnicef which she was nearing completion. The wound continued to increase in size. Persistent pain to the left leg wound at the Achilles site. Tissues here are ng and tender. The original edema is not present however. Seen by Dr. Merlos. In OR for debridement on 07/20/2017. The patient with renal insufficiency. Metformin stopped. Debridement of 3x4x1 cm left posterior leg lesion. Wound vac placed. On Vancomycin and Cefepime now. Complaining of pain the left posterior ankle. On percocet for pain. Monitoring Vancomycin levels especially with increase in Creatinine to 2. Objective - Vital Signs/Intake and Output Vital Signs (last 24 hours): Temp Pulse Resp BP Pulse Ox 97.6 F 98 H 18 125/79 92 L 07/26/17 10:00 07/26/17 10:00 07/26/17 10:00 07/26/17 10:00 07/26/17 10:00 - Medications Medications: Current Medications Aspirin (Ecotrin) 81 mg PO 1000 [facility] PRN Reason: Protocol Last Admin: 07/26/17 10:18 Dose: 81 mg Atorvastatin Calcium (Lipitor) 10 mg PO DIN [facility] PRN Reason: Protocol Last Admin: 07/25/17 17:19 Dose: 10 mg Docusate Sodium (Colace) 100 mg PO BID [facility] PRN Reason: Protocol Last Admin: 07/26/17 10:18 Dose: 100 mg Ergocalciferol (Drisdol 50,000 Intl Units Cap) 1 cap PO Q7D [facility] Ferrous Gluconate (Fergon) 324 mg PO TID [facility] Last Admin: 07/26/17 14:31 Dose: 324 mg Hydrochlorothiazide (Microzide) 12.5 mg PO DAILY [facility] PRN Reason: Protocol Last Admin: 07/26/17 10:19 Dose: 12.5 mg Hydromorphone HCl (Dilaudid) 0.5 mg IVP Q4H PRN PRN Reason: Pain, severe (8-10) Last Admin: 07/26/17 10:31 Dose: 0.5 mg Cefepime HCl (Maxipime 1gm) 1 gm in 100 mls @ 100 mls/hr IVPB 0600 [facility] PRN Reason: Protocol Last Admin: 07/26/17 05:57 Dose: 100 mls/hr Vancomycin HCl (Vancomycin 1gm) 1 gm in 250 mls @ 167 mls/hr IVPB 2300 [facility] PRN Reason: Protocol Last Admin: 07/25/17 22:02 Dose: 167 mls/hr Lisinopril (Zestril) 40 mg PO DAILY [facility] PRN Reason: Protocol Last Admin: 07/26/17 10:19 Dose: 40 mg Multivitamins/Minerals (Therapeutic-M Tab) 1 tab PO 0800 [facility] Last Admin: 07/26/17 08:33 Dose: 1 tab Nifedipine (Procardia Xl) 90 mg PO DAILY [facility] PRN Reason: Protocol Last Admin: 07/26/17 10:19 Dose: 90 mg Ondansetron HCl (Zofran Inj) 4 mg IVP Q4H PRN PRN Reason: Nausea/Vomiting Last Admin: 07/25/17 17:49 Dose: 4 mg Tramadol HCl (Ultram) 50 mg PO TID [facility] PRN Reason: Protocol Last Admin: 07/26/17 14:30 Dose: Not Given - Labs Labs: 07/25/17 06:30 07/25/17 06:30 - Constitutional Appears: Non-toxic, No Acute Distress, Chronically Ill - Head Exam Head Exam: ATRAUMATIC, NORMOCEPHALIC - Eye Exam Eye Exam: EOMI, PERRL Pupil Exam: NORMAL ACCOMODATION, PERRL - ENT Exam ENT Exam: Mucous Membranes Moist, Normal External Ear Exam, TM's Normal Bilaterally - Neck Exam Neck Exam: Full ROM, Normal Inspection - Respiratory Exam Respiratory Exam: Clear to Ausculation Bilateral, NORMAL BREATHING PATTERN. absent: Rales, Rhonchi, Wheezes - Cardiovascular Exam Cardiovascular Exam: REGULAR RHYTHM, RRR, +S1, +S2 - GI/Abdominal Exam GI & Abdominal Exam: Soft, Normal Bowel Sounds. absent: Distended, Tenderness - Extremities Exam Extremities Exam: Full ROM Additional comments: 4x3x1 cm wound on the posterior lower left leg at site of a splinter removal. The patient with ng tissue with continued pain and swelling. No drainage. No fevers. Debrided 07/20/2017. Wound vac in place. - Neurological Exam Neurological Exam: Alert, Awake, CN II-XII Intact, Oriented x3 - Psychiatric Exam Psychiatric exam: Normal Affect, Normal Mood - Skin Skin Exam: Intact, Normal Color Assessment and Plan - Assessment and Plan (Free Text) Assessment: 67 yo AA female with left ankle wound that started from a splinter around the Achilles insertion point. Splinter was removed at a [facility] and sent home without antibiotics. Patient went to [place] and went to ER in the area. Given Augmentin PO. [place], the patient came to [facility] as the pain persisted and the wound appeared to the patient to be enlarging. She was given IV antibiotics and cleared for discharge a few days later. She was initially given Keflex then Sivextro and Omnicef for antibiotic treatment. Admitted for further evaluation of the left lower leg wound. Dr. Merlos of surgery evaluated. On IV Vancomycin and Cefepime for antibiotic treatment. Debridement of the ulceration in OR on 07/20/2017. Renal insufficiency. Dr. Merlos and Dr. Cesar following patient for surgery and nephrology respectively. Wound vac in place on left posterior lower leg. Minimal drainage from wound vac. Creatinine 2.0 yesterday. Check CBC and BMP tonight. Clearance from surgery for eventual discharge as well as the need for a wound vac as outpatient. Planning for oral antibiotics on discharge. Pain management. She still complains of left posterior leg/ankle pain. Percocet for pain management.
--- NOTE | 2017-07-26 16:07 | CP.PCM.PN ---
Subjective - Date & Time of Evaluation Date of Evaluation: 07/26/17 Time of Evaluation: 16:06 - Subjective Subjective: Nephrology Consultation Note: Assessment: Stable Left leg wound/ulcer Status post debridement and wound VAC Acute Kidney Injury (N17.9) resolved Hypertensive Chronic Kidney Disease (I12.9) Chronic Kidney Disease (N18.3) Stage 3 with 130 mg albuminuria likely due to HTN /DM Diabetic kidney Disease (E11.22) hx of CAD, CVA Anemia possible PVD Vitamin D deficiency Plan No acute need for renal replacement therapy at this time. stable renal fxn Hypertension control with meds as ordered. pt on ACEI as lisinopril. If bP stays persistently high (>140/90) then can increase procardia to 120 mg/day. BP control acceptable for now continue with statins Added iron supplementation multivitamin and weekly vitamin D check vanco level tonight Dose vanco by level. rpt vanc level and BMP tonight. RN was suggested to check with ID about vanco dose once get the level back Pending SPEP, SAEED and [place]/lambda ratio Dose meds/antibiotics for reduced GFR. Avoid fleets enema/magnesium based laxatives. Avoid nephrotoxins/NSAIDs/ iodinated contrast (unless needed emergently) Glycemic control Further work up/management as per primary team Thanks for allowing me to participate in care of your patient. Will follow patient with you. Please call if any Qs. d/w team Dr Fernie Cesar Office: [phone] Chief Complaint; left leg non healing wound Reason for consult: renal insuff HPI: Pt is a 67 y/o F with hx of diabetes Mellitus , hypertension (x 3 years), hx of CAD/LA and stroke in past presented with complaints of non healing painful left leg wound/ulcer. she is s/p wound debridement. also being treated with antibioitcs. renal consult for CKD management. she has baseline ckd 3 with cr 1.4-1.7 range with intermittent episodes of JASON Denies chest pain, palpitation, shortness of breath, leg swelling Denies blood or bubbles in urine Denies OTC/herbal meds or NSAIDs. admits to occasional use of Alleve No recent iodinated contrast exposure. No obvious episodes of low BP. ROS: Constitutional Symptoms: Denies fever. No chills. No Recent Weight Changes Cardiovascular: No chest pain. No palpitations. Pulmonary: No shortness of breath no cough. All other negative except as in HPI Physical Examination: General Appearance: Comfortable, in no acute respiratory distress, co-operative . Vitals reviewed and noted as below Head; Atraumatic, normocephalic ENT: no ulcers no thrush. Tongue is midline appears dry and coated. Oropharynx: no rash or ulcers. EYES: Pupils are equal, round and reactive to light accommodation. Eye muscles and extraocular movement intact. Sclera is anicteric. Neck; supple no lymphadenopathy, no thyromegaly or bruit Lungs: Normal respiratory rate/effort. Breath sounds bilateral equal and clear Heart: Normal rate. s1s2 normal. No rub or gallop. Extremities: no edema. No varicose veins. left leg posterior aspect wound/ulcer + s/p wound vac Neurological: Patient is alert, awake and oriented to person, place and time. No focal deficit. Strength bilateral appropriate and equal Skin: Warm and dry. Normal turgor. No rash. Palpitation: Normal elasticity for age Abdomen: Abdomen is soft. Bowel sounds +. There is lower abdominal tenderness, no guarding/rigidity no organomegaly Psych: normal insight and normal affect/mood MSK: no joint tenderness or swelling. Digits and nails normal, no deformity : kidney or bladder not palpable Labs/imaging/EKG reviewed. Past medical history, past surgical history, family history, social history, allergy reviewed and noted as below Family hx: no hx of CKD. Rest non-contributory Work up; CT abdomen 2017: unremarkable kidneys/bladder/adrenals. Vitamin D 18 PTH 48 Iron saturation 25% ferritin 157 Objective - Vital Signs/Intake and Output Vital Signs (last 24 hours): Temp Pulse Resp BP Pulse Ox 97.6 F 98 H 18 125/79 92 L 07/26/17 10:00 07/26/17 10:00 07/26/17 10:00 07/26/17 10:00 07/26/17 10:00 - Medications Medications: Current Medications Aspirin (Ecotrin) 81 mg PO 1000 [facility] PRN Reason: Protocol Last Admin: 07/26/17 10:18 Dose: 81 mg Atorvastatin Calcium (Lipitor) 10 mg PO DIN [facility] PRN Reason: Protocol Last Admin: 07/25/17 17:19 Dose: 10 mg Docusate Sodium (Colace) 100 mg PO BID [facility] PRN Reason: Protocol Last Admin: 07/26/17 10:18 Dose: 100 mg Ergocalciferol (Drisdol 50,000 Intl Units Cap) 1 cap PO Q7D [facility] Ferrous Gluconate (Fergon) 324 mg PO TID [facility] Last Admin: 07/26/17 14:31 Dose: 324 mg Hydrochlorothiazide (Microzide) 12.5 mg PO DAILY [facility] PRN Reason: Protocol Last Admin: 07/26/17 10:19 Dose: 12.5 mg Hydromorphone HCl (Dilaudid) 0.5 mg IVP Q4H PRN PRN Reason: Pain, severe (8-10) Last Admin: 07/26/17 10:31 Dose: 0.5 mg Cefepime HCl (Maxipime 1gm) 1 gm in 100 mls @ 100 mls/hr IVPB 0600 [facility] PRN Reason: Protocol Last Admin: 07/26/17 05:57 Dose: 100 mls/hr Vancomycin HCl (Vancomycin 1gm) 1 gm in 250 mls @ 167 mls/hr IVPB 2300 [facility] PRN Reason: Protocol Last Admin: 07/25/17 22:02 Dose: 167 mls/hr Lisinopril (Zestril) 40 mg PO DAILY [facility] PRN Reason: Protocol Last Admin: 07/26/17 10:19 Dose: 40 mg Multivitamins/Minerals (Therapeutic-M Tab) 1 tab PO 0800 [facility] Last Admin: 07/26/17 08:33 Dose: 1 tab Nifedipine (Procardia Xl) 90 mg PO DAILY [facility] PRN Reason: Protocol Last Admin: 07/26/17 10:19 Dose: 90 mg Ondansetron HCl (Zofran Inj) 4 mg IVP Q4H PRN PRN Reason: Nausea/Vomiting Last Admin: 07/25/17 17:49 Dose: 4 mg Tramadol HCl (Ultram) 50 mg PO TID [facility] PRN Reason: Protocol Last Admin: 07/26/17 14:30 Dose: Not Given - Labs Labs: 07/25/17 06:30 07/25/17 06:30
[2017-07-26 22:02] LABS: CALCIUM 9.4 mg/dL (8.4-10.5)
[2017-07-27] MEDS: HYDROmorphone 0.5 mg/0.5 ml ISec IVP PRN ×4 (01:37→15:25)
[2017-07-27] MEDS: Cefepime 1gm in NS 100ml 1 GM/100 ML BAG IVPB SCH (05:46)
[2017-07-27] MEDS: Multivitamin With Minerals Tab PO SCH (08:17)
[2017-07-27] MEDS: NIFEdipine 90 mg ER Tab PO SCH (09:54)
--- NOTE | 2017-07-27 10:41 | CP.PCM.PCO ---
Physician Communication Note - Physician Communication Note Physician Communication Note: Wound vac changes every 3 days. Alternate dressing : Wet to dry
--- NOTE | 2017-07-27 17:57 | CP.PCM.PN ---
Subjective - Date & Time of Evaluation Date of Evaluation: 07/27/17 Time of Evaluation: 17:30 - Subjective Subjective: Internal Medicine Progress Note: July 27, 2017 67 yo AA female presenting with left lower leg pain and swelling. The patient had a splinter removed 2 weeks ago at an Urgent Care center. She was in [place] over a month ago where she received Augmentin for treatment of the leg as the pain and swelling did not subside. Still having pain and swelling to the area so she came to the ER for further evaluation. She was in [facility] for several days with IV antibiotics of Vancomycin and Zosyn for antibiotic coverage. She was sent home with Keflex and followed as an outpatient. The patient had worsening of the wound and started on Sivextro and Omnicef which she was nearing completion. The wound continued to increase in size. Persistent pain to the left leg wound at the Achilles site. Tissues here are ng and tender. The original edema is not present however. Seen by Dr. Merlos. In OR for debridement on 07/20/2017. The patient with renal insufficiency. Metformin stopped. Debridement of 3x4x1 cm left posterior leg lesion. Wound vac placed. On Vancomycin and Cefepime now. Complaining of pain the left posterior ankle. On percocet for pain. Monitoring Vancomycin levels especially with increase in Creatinine to 1.9. Objective - Vital Signs/Intake and Output Vital Signs (last 24 hours): Temp Pulse Resp BP Pulse Ox 97.5 F L 81 18 138/93 H 97 07/27/17 16:00 07/27/17 16:00 07/27/17 16:00 07/27/17 16:00 07/27/17 16:00 - Medications Medications: Current Medications Aspirin (Ecotrin) 81 mg PO 1000 [facility] PRN Reason: Protocol Last Admin: 07/27/17 09:55 Dose: 81 mg Atorvastatin Calcium (Lipitor) 10 mg PO DIN [facility] PRN Reason: Protocol Last Admin: 07/27/17 17:41 Dose: 10 mg Docusate Sodium (Colace) 100 mg PO BID [facility] PRN Reason: Protocol Last Admin: 07/27/17 17:40 Dose: 100 mg Ergocalciferol (Drisdol 50,000 Intl Units Cap) 1 cap PO Q7D [facility] Ferrous Gluconate (Fergon) 324 mg PO TID [facility] Last Admin: 07/27/17 17:41 Dose: 324 mg Hydrochlorothiazide (Microzide) 12.5 mg PO DAILY [facility] PRN Reason: Protocol Last Admin: 07/27/17 09:52 Dose: 12.5 mg Hydromorphone HCl (Dilaudid) 0.5 mg IVP Q4H PRN PRN Reason: Pain, severe (8-10) Last Admin: 07/27/17 15:25 Dose: 0.5 mg Cefepime HCl (Maxipime 1gm) 1 gm in 100 mls @ 100 mls/hr IVPB 0600 [facility] PRN Reason: Protocol Last Admin: 07/27/17 05:46 Dose: 100 mls/hr Vancomycin HCl (Vancomycin 1gm) 1 gm in 250 mls @ 167 mls/hr IVPB 2300 [facility] PRN Reason: Protocol Last Admin: 07/25/17 22:02 Dose: 167 mls/hr Lisinopril (Zestril) 40 mg PO DAILY [facility] PRN Reason: Protocol Last Admin: 07/27/17 09:54 Dose: 40 mg Multivitamins/Minerals (Therapeutic-M Tab) 1 tab PO 0800 [facility] Last Admin: 07/27/17 08:17 Dose: 1 tab Nifedipine (Procardia Xl) 90 mg PO DAILY [facility] PRN Reason: Protocol Last Admin: 07/27/17 09:54 Dose: 90 mg Ondansetron HCl (Zofran Inj) 4 mg IVP Q4H PRN PRN Reason: Nausea/Vomiting Last Admin: 07/27/17 10:01 Dose: 4 mg Tramadol HCl (Ultram) 50 mg PO TID [facility] PRN Reason: Protocol Last Admin: 07/27/17 17:40 Dose: 50 mg - Labs Labs: 07/25/17 06:30 07/26/17 21:45 - Constitutional Appears: Non-toxic, No Acute Distress, Chronically Ill - Head Exam Head Exam: ATRAUMATIC, NORMOCEPHALIC - Eye Exam Eye Exam: EOMI, PERRL Pupil Exam: NORMAL ACCOMODATION, PERRL - ENT Exam ENT Exam: Mucous Membranes Moist, Normal External Ear Exam, TM's Normal Bilaterally - Neck Exam Neck Exam: Full ROM, Normal Inspection - Respiratory Exam Respiratory Exam: Clear to Ausculation Bilateral. absent: Rales, Rhonchi, Wheezes - Cardiovascular Exam Cardiovascular Exam: REGULAR RHYTHM, RRR, +S1, +S2 - GI/Abdominal Exam GI & Abdominal Exam: Soft, Normal Bowel Sounds. absent: Distended, Tenderness - Extremities Exam Extremities Exam: Full ROM Additional comments: 4x3x1 cm wound on the posterior lower left leg at site of a splinter removal. The patient with ng tissue with continued pain and swelling. No drainage. No fevers. Debrided 07/20/2017. Wound vac in place. - Neurological Exam Neurological Exam: Alert, Awake, CN II-XII Intact, Oriented x3 - Psychiatric Exam Psychiatric exam: Normal Affect, Normal Mood - Skin Skin Exam: Intact, Normal Color Assessment and Plan - Assessment and Plan (Free Text) Assessment: 67 yo AA female with left ankle wound that started from a splinter around the Achilles insertion point. Splinter was removed at a [facility] and sent home without antibiotics. Patient went to [place] and went to ER in the area. Given Augmentin PO. When she returned to [place], the patient came [place] [facility] [place] persisted and the wound appeared to the patient to be enlarging. She was given IV antibiotics and cleared for discharge a few days later. She was initially given Keflex then Sivextro and Omnicef for antibiotic treatment. Admitted for further evaluation of the left lower leg wound. Dr. Merlos of surgery evaluated. On IV Vancomycin and Cefepime for antibiotic treatment. Debridement of the ulceration in OR on 07/20/2017. Renal insufficiency. Dr. Merlos and Dr. Cesar following patient for surgery and nephrology respectively. Wound vac in place on left posterior lower leg. Minimal drainage from wound vac. Creatinine 2.0 yesterday. Check CBC and BMP tonight. Clearance from surgery for eventual discharge as well as the need for a wound vac as outpatient. Planning for oral antibiotics on discharge. Case discussed with Dr. Merlos and Dr. Cesar. Pain management. She still complains of left posterior leg/ankle pain. Percocet for pain management.
[2017-07-28] MEDS: Cefepime 1gm in NS 100ml 1 GM/100 ML BAG IVPB SCH (05:19)
[2017-07-28] MEDS: Multivitamin With Minerals Tab PO SCH (08:16)
[2017-07-28] MEDS: NIFEdipine 90 mg ER Tab PO SCH (10:04)
[2017-07-28 10:09] LABS: BASO # 0.02 K/mm3 (0.0-2.0); BASO % 0.3 % (0.0-3.0); EOS # 0.3 (0.0-0.7); EOS % 4.2 % (1.5-5.0); GRAN # 3.97 (1.4-6.5); GRAN % 59.1 % (50.0-68.0); HEMOGLOBIN 10.2 g/dL (12.0-16.0); LYMPH % 30.1 % (22.0-35.0); MEAN CELL VOLUME 79.7 fl (80.0-105.0); MEAN CORPUSCULAR HEMOGLOBIN 26.6 pg (25.0-35.0); MEAN CORPUSCULAR HGB CONC 33.3 g/dl (31.0-37.0); MONO # 0.4 (0.1-0.6); MONO % 6.3 % (1.0-6.0); RBC 3.84 10^6/uL (3.5-6.1); RED CELL DISTRIBUTION WIDTH 13.9 % (11.5-14.5); WHITE BLOOD COUNT 6.7 10^3/ul (4.5-11.0)
[2017-07-28 10:16] LABS: CALCIUM 9.6 mg/dL (8.4-10.5)
[2017-07-28] MEDS: HYDROmorphone 0.5 mg/0.5 ml ISec IVP PRN (12:30)
--- NOTE | 2017-07-28 14:41 | CP.PCM.PN ---
Subjective - Date & Time of Evaluation Date of Evaluation: 07/28/17 Time of Evaluation: 14:35 - Subjective Subjective: SUrgery Home wound vac arrived at bedside. Home wound vac changed today. TOlerated it well. Possible DC tomorrow. Rep explained how vac works. Objective - Vital Signs/Intake and Output Vital Signs (last 24 hours): Temp Pulse Resp BP Pulse Ox 98.5 F 81 18 138/93 H 92 L 07/28/17 06:00 07/28/17 06:00 07/28/17 06:00 07/28/17 06:00 07/28/17 06:00 - Medications Medications: Current Medications Aspirin (Ecotrin) 81 mg PO 1000 [facility] PRN Reason: Protocol Last Admin: 07/28/17 10:05 Dose: 81 mg Atorvastatin Calcium (Lipitor) 10 mg PO DIN [facility] PRN Reason: Protocol Last Admin: 07/27/17 17:41 Dose: 10 mg Docusate Sodium (Colace) 100 mg PO BID [facility] PRN Reason: Protocol Last Admin: 07/28/17 10:04 Dose: 100 mg Ergocalciferol (Drisdol 50,000 Intl Units Cap) 1 cap PO Q7D [facility] Ferrous Gluconate (Fergon) 324 mg PO TID [facility] Last Admin: 07/28/17 10:05 Dose: 324 mg Hydrochlorothiazide (Microzide) 12.5 mg PO DAILY [facility] PRN Reason: Protocol Last Admin: 07/28/17 10:06 Dose: 12.5 mg Hydromorphone HCl (Dilaudid) 0.5 mg IVP Q4H PRN PRN Reason: Pain, severe (8-10) Last Admin: 07/28/17 12:30 Dose: 0.5 mg Cefepime HCl (Maxipime 1gm) 1 gm in 100 mls @ 100 mls/hr IVPB 0600 [facility] PRN Reason: Protocol Last Admin: 07/28/17 05:19 Dose: 100 mls/hr Vancomycin HCl (Vancomycin 1gm) 1 gm in 250 mls @ 167 mls/hr IVPB 2300 [facility] PRN Reason: Protocol Last Admin: 07/25/17 22:02 Dose: 167 mls/hr Lisinopril (Zestril) 40 mg PO DAILY [facility] PRN Reason: Protocol Last Admin: 07/28/17 10:04 Dose: 40 mg Multivitamins/Minerals (Therapeutic-M Tab) 1 tab PO 0800 [facility] Last Admin: 07/28/17 08:16 Dose: 1 tab Nifedipine (Procardia Xl) 90 mg PO DAILY [facility] PRN Reason: Protocol Last Admin: 07/28/17 10:04 Dose: 90 mg Ondansetron HCl (Zofran Inj) 4 mg IVP Q4H PRN PRN Reason: Nausea/Vomiting Last Admin: 07/27/17 10:01 Dose: 4 mg Tramadol HCl (Ultram) 50 mg PO TID [facility] PRN Reason: Protocol Last Admin: 07/28/17 10:03 Dose: 50 mg - Labs Labs: 07/28/17 10:00 07/28/17 10:00 - Constitutional Appears: No Acute Distress - Head Exam Head Exam: ATRAUMATIC, NORMAL INSPECTION, NORMOCEPHALIC - Eye Exam Eye Exam: EOMI, Normal appearance, PERRL Pupil Exam: NORMAL ACCOMODATION, PERRL - ENT Exam ENT Exam: Mucous Membranes Moist, Normal Exam - Neck Exam Neck Exam: Full ROM, Normal Inspection. absent: Lymphadenopathy - Respiratory Exam Respiratory Exam: Clear to Ausculation Bilateral, NORMAL BREATHING PATTERN - Cardiovascular Exam Cardiovascular Exam: REGULAR RHYTHM, +S1, +S2. absent: Murmur - GI/Abdominal Exam GI & Abdominal Exam: Soft, Normal Bowel Sounds. absent: Distended, Tenderness - Extremities Exam Extremities Exam: Full ROM, Tenderness. absent: Normal Inspection Additional comments: L LE medial aspect above maleollus has 3x4x0.5cm wound. WOund vac in place. no leak - Back Exam Back Exam: NORMAL INSPECTION - Neurological Exam Neurological Exam: Alert, Awake, CN II-XII Intact, Oriented x3. absent: Normal Gait - Psychiatric Exam Psychiatric exam: Normal Affect, Normal Mood - Skin Skin Exam: Dry, Warm. absent: Intact, Normal Color Assessment and Plan - Assessment and Plan (Free Text) Assessment: s/p wound debridement with wound vac -HOme WOund vac placed. -WOund vac change q 5 days LEONARDO Merlos
--- NOTE | 2017-07-28 15:51 | CP.PCM.PN ---
Subjective - Date & Time of Evaluation Date of Evaluation: 07/28/17 Time of Evaluation: 14:00 - Subjective Subjective: Internal Medicine Progress Note: July 28, 2017 67 yo AA female presenting with left lower leg pain and swelling. The patient had a splinter removed 2 weeks ago at an Urgent Care center. She was in [place] over a month ago where she received Augmentin for treatment of the leg as the pain and swelling did not subside. Still having pain and swelling to the area so she came to the ER for further evaluation. She was in [facility] for several days with IV antibiotics of Vancomycin and Zosyn for antibiotic coverage. She was sent home with Keflex and followed as an outpatient. The patient had worsening of the wound and started on Sivextro and Omnicef which she was nearing completion. The wound continued to increase in size. Persistent pain to the left leg wound at the Achilles site. Tissues here are ng and tender. The original edema is not present however. Seen by Dr. Merlos. In OR for debridement on 07/20/2017. The patient with renal insufficiency. Metformin stopped. Debridement of 3x4x1 cm left posterior leg lesion. Wound vac placed. On Cefepime alone now. Complaining of pain the left posterior ankle. On percocet for pain. Monitoring Vancomycin levels especially with Creatinine of 1.6. Objective - Vital Signs/Intake and Output Vital Signs (last 24 hours): Temp Pulse Resp BP Pulse Ox 98.5 F 81 18 138/93 H 92 L 07/28/17 06:00 07/28/17 06:00 07/28/17 06:00 07/28/17 06:00 07/28/17 06:00 - Medications Medications: Current Medications Aspirin (Ecotrin) 81 mg PO 1000 [facility] PRN Reason: Protocol Last Admin: 07/28/17 10:05 Dose: 81 mg Atorvastatin Calcium (Lipitor) 10 mg PO DIN [facility] PRN Reason: Protocol Last Admin: 07/27/17 17:41 Dose: 10 mg Docusate Sodium (Colace) 100 mg PO BID [facility] PRN Reason: Protocol Last Admin: 07/28/17 10:04 Dose: 100 mg Ergocalciferol (Drisdol 50,000 Intl Units Cap) 1 cap PO Q7D [facility] Ferrous Gluconate (Fergon) 324 mg PO TID [facility] Last Admin: 07/28/17 15:35 Dose: 324 mg Hydrochlorothiazide (Microzide) 12.5 mg PO DAILY [facility] PRN Reason: Protocol Last Admin: 07/28/17 10:06 Dose: 12.5 mg Hydromorphone HCl (Dilaudid) 0.5 mg IVP Q4H PRN PRN Reason: Pain, severe (8-10) Last Admin: 07/28/17 12:30 Dose: 0.5 mg Cefepime HCl (Maxipime 1gm) 1 gm in 100 mls @ 100 mls/hr IVPB 0600 [facility] PRN Reason: Protocol Last Admin: 07/28/17 05:19 Dose: 100 mls/hr Vancomycin HCl (Vancomycin 1gm) 1 gm in 250 mls @ 167 mls/hr IVPB 2300 [facility] PRN Reason: Protocol Last Admin: 07/25/17 22:02 Dose: 167 mls/hr Lisinopril (Zestril) 40 mg PO DAILY [facility] PRN Reason: Protocol Last Admin: 07/28/17 10:04 Dose: 40 mg Multivitamins/Minerals (Therapeutic-M Tab) 1 tab PO 0800 [facility] Last Admin: 07/28/17 08:16 Dose: 1 tab Nifedipine (Procardia Xl) 90 mg PO DAILY [facility] PRN Reason: Protocol Last Admin: 07/28/17 10:04 Dose: 90 mg Ondansetron HCl (Zofran Inj) 4 mg IVP Q4H PRN PRN Reason: Nausea/Vomiting Last Admin: 07/27/17 10:01 Dose: 4 mg Tramadol HCl (Ultram) 50 mg PO TID [facility] PRN Reason: Protocol Last Admin: 07/28/17 14:59 Dose: Not Given - Labs Labs: 07/28/17 10:00 07/28/17 10:00 - Constitutional Appears: Non-toxic, No Acute Distress, Chronically Ill - Head Exam Head Exam: ATRAUMATIC, NORMOCEPHALIC - Eye Exam Eye Exam: EOMI, PERRL Pupil Exam: NORMAL ACCOMODATION, PERRL - ENT Exam ENT Exam: Mucous Membranes Moist, Normal External Ear Exam, TM's Normal Bilaterally - Neck Exam Neck Exam: Full ROM, Normal Inspection - Respiratory Exam Respiratory Exam: Clear to Ausculation Bilateral, NORMAL BREATHING PATTERN. absent: Rales, Rhonchi, Wheezes - Cardiovascular Exam Cardiovascular Exam: REGULAR RHYTHM, RRR, +S1, +S2 - GI/Abdominal Exam GI & Abdominal Exam: Soft, Normal Bowel Sounds. absent: Distended, Tenderness - Extremities Exam Extremities Exam: Full ROM Additional comments: 4x3x1 cm wound on the posterior lower left leg at site of a splinter removal. The patient with ng tissue with continued pain and swelling. No drainage. No fevers. Debrided 07/20/2017. Wound vac in place. - Neurological Exam Neurological Exam: Alert, Awake, CN II-XII Intact, Oriented x3 - Psychiatric Exam Psychiatric exam: Normal Affect, Normal Mood - Skin Skin Exam: Intact, Normal Color Assessment and Plan - Assessment and Plan (Free Text) Assessment: 67 yo AA female with left ankle wound that started from a splinter around the Achilles insertion point. Splinter was removed at a [facility] and sent home without antibiotics. Patient went to [place] and went to ER in the area. Given Augmentin PO. When she returned to [place], the patient [place] [facility] [place] persisted and the wound appeared to the patient to be enlarging. She was given IV antibiotics and cleared for discharge a few days later. She was initially given Keflex then Sivextro and Omnicef for antibiotic treatment. Admitted for further evaluation of the left lower leg wound. Dr. Merlos of surgery evaluated. On IV Vancomycin and Cefepime for antibiotic treatment. Debridement of the ulceration in OR on 07/20/2017. Renal insufficiency. Dr. Merlos and Dr. Cesar following patient for surgery and nephrology respectively. Wound vac in place on left posterior lower leg. Minimal drainage from wound vac. Creatinine 1.6 now. Despite being off of Vancomycin, the patient still has a level of 9.5 on blood draws today (07/28/2017). Needs wound vac on discharge. Will follow with Dr. Merlos and Tali as outpatient. I will continue on Keflex on discharge 500mg PO BID for 14 days more. Follow up in one week in my office. Case discussed with Dr. Merlos and Dr. Cesar. Pain management. She still complains of left posterior leg/ankle pain. Percocet for pain management.
[2017-07-28] MEDS ORDERED: Potassium Chloride 20 mEq ER Tab PO ONE (16:10)
--- NOTE | 2017-07-28 16:11 | CP.PCM.PN ---
Subjective - Date & Time of Evaluation Date of Evaluation: 07/28/17 Time of Evaluation: 16:10 - Subjective Subjective: Nephrology Consultation Note: Assessment: Stable Left leg wound/ulcer Status post debridement and wound VAC Acute Kidney Injury (N17.9) resolved Hypertensive Chronic Kidney Disease (I12.9) Chronic Kidney Disease (N18.3) Stage 3 with 130 mg albuminuria likely due to HTN /DM Diabetic kidney Disease (E11.22) hx of CAD, CVA Anemia possible PVD Vitamin D deficiency Plan No acute need for renal replacement therapy at this time. stable renal fxn Hypertension control with meds as ordered. pt on ACEI as lisinopril. If bP stays persistently high (>140/90) then can increase procardia to 120 mg/day. BP control acceptable for now continue with statins Added iron supplementation multivitamin and weekly vitamin D Dose meds/antibiotics for reduced GFR. Avoid fleets enema/magnesium based laxatives. Avoid nephrotoxins/NSAIDs/ iodinated contrast (unless needed emergently) Glycemic control Further work up/management as per primary team Thanks for allowing me to participate in care of your patient. Will follow patient with you. Please call if any Qs. d/w team Dr Fernie Cesar Office: [phone] Chief Complaint; left leg non healing wound Reason for consult: renal insuff HPI: Pt is a 67 y/o F with hx of diabetes Mellitus , hypertension (x 3 years), hx of CAD/NC and stroke in past presented with complaints of non healing painful left leg wound/ulcer. she is s/p wound debridement. also being treated with antibioitcs. renal consult for CKD management. she has baseline ckd 3 with cr 1.4-1.7 range with intermittent episodes of JASON Denies chest pain, palpitation, shortness of breath, leg swelling Denies blood or bubbles in urine Denies OTC/herbal meds or NSAIDs. admits to occasional use of Alleve No recent iodinated contrast exposure. No obvious episodes of low BP. ROS: Constitutional Symptoms: Denies fever. No chills. No Recent Weight Changes Cardiovascular: No chest pain. No palpitations. Pulmonary: No shortness of breath no cough. All other negative except as in HPI Physical Examination: General Appearance: Comfortable, in no acute respiratory distress, co-operative . Vitals reviewed and noted as below Head; Atraumatic, normocephalic ENT: no ulcers no thrush. Tongue is midline appears dry and coated. Oropharynx: no rash or ulcers. EYES: Pupils are equal, round and reactive to light accommodation. Eye muscles and extraocular movement intact. Sclera is anicteric. Neck; supple no lymphadenopathy, no thyromegaly or bruit Lungs: Normal respiratory rate/effort. Breath sounds bilateral equal and clear Heart: Normal rate. s1s2 normal. No rub or gallop. Extremities: no edema. No varicose veins. left leg posterior aspect wound/ulcer + s/p wound vac Neurological: Patient is alert, awake and oriented to person, place and time. No focal deficit. Strength bilateral appropriate and equal Skin: Warm and dry. Normal turgor. No rash. Palpitation: Normal elasticity for age Abdomen: Abdomen is soft. Bowel sounds +. There is lower abdominal tenderness, no guarding/rigidity no organomegaly Psych: normal insight and normal affect/mood MSK: no joint tenderness or swelling. Digits and nails normal, no deformity : kidney or bladder not palpable Labs/imaging/EKG reviewed. Past medical history, past surgical history, family history, social history, allergy reviewed and noted as below Family hx: no hx of CKD. Rest non-contributory Work up; CT abdomen 2017: unremarkable kidneys/bladder/adrenals. Vitamin D 18 PTH 48 Iron saturation 25% ferritin 157 Objective - Vital Signs/Intake and Output Vital Signs (last 24 hours): Temp Pulse Resp BP Pulse Ox 98.5 F 81 18 138/93 H 92 L 07/28/17 06:00 07/28/17 06:00 07/28/17 06:00 07/28/17 06:00 07/28/17 06:00 - Medications Medications: Current Medications Aspirin (Ecotrin) 81 mg PO 1000 SKINNY PRN Reason: Protocol Last Admin: 07/28/17 10:05 Dose: 81 mg Atorvastatin Calcium (Lipitor) 10 mg PO DIN SKINNY PRN Reason: Protocol Last Admin: 07/27/17 17:41 Dose: 10 mg Docusate Sodium (Colace) 100 mg PO BID SKINNY PRN Reason: Protocol Last Admin: 07/28/17 10:04 Dose: 100 mg Ergocalciferol (Drisdol 50,000 Intl Units Cap) 1 cap PO Q7D SKINNY Ferrous Gluconate (Fergon) 324 mg PO TID [facility] Last Admin: 07/28/17 15:35 Dose: 324 mg Hydrochlorothiazide (Microzide) 12.5 mg PO DAILY SKINNY PRN Reason: Protocol Last Admin: 07/28/17 10:06 Dose: 12.5 mg Hydromorphone HCl (Dilaudid) 0.5 mg IVP Q4H PRN PRN Reason: Pain, severe (8-10) Last Admin: 07/28/17 12:30 Dose: 0.5 mg Cefepime HCl (Maxipime 1gm) 1 gm in 100 mls @ 100 mls/hr IVPB 0600 SKINNY PRN Reason: Protocol Last Admin: 07/28/17 05:19 Dose: 100 mls/hr Vancomycin HCl (Vancomycin 1gm) 1 gm in 250 mls @ 167 mls/hr IVPB 2300 SKINNY PRN Reason: Protocol Last Admin: 07/25/17 22:02 Dose: 167 mls/hr Lisinopril (Zestril) 40 mg PO DAILY [facility] PRN Reason: Protocol Last Admin: 07/28/17 10:04 Dose: 40 mg Multivitamins/Minerals (Therapeutic-M Tab) 1 tab PO 0800 [facility] Last Admin: 07/28/17 08:16 Dose: 1 tab Nifedipine (Procardia Xl) 90 mg PO DAILY [facility] PRN Reason: Protocol Last Admin: 07/28/17 10:04 Dose: 90 mg Ondansetron HCl (Zofran Inj) 4 mg IVP Q4H PRN PRN Reason: Nausea/Vomiting Last Admin: 07/27/17 10:01 Dose: 4 mg Potassium Chloride (K-Dur 20 Meq Er Tab) 20 meq PO ONCE ONE Stop: 07/28/17 16:11 Tramadol HCl (Ultram) 50 mg PO TID [facility] PRN Reason: Protocol Last Admin: 07/28/17 14:59 Dose: Not Given - Labs Labs: 07/28/17 10:00 07/28/17 10:00
[2017-07-29] MEDS: HYDROmorphone 0.5 mg/0.5 ml ISec IVP PRN (00:59)
[2017-07-29] MEDS: Cefepime 1gm in NS 100ml 1 GM/100 ML BAG IVPB SCH (05:32)
[2017-07-29 05:53] VITALS: RESP 16
[2017-07-29] MEDS: Multivitamin With Minerals Tab PO SCH (07:47)
[2017-07-29] MEDS: NIFEdipine 90 mg ER Tab PO SCH (10:40)
[2017-07-29 13:35] VITALS: PULSE 85; O2SAT 96
[2017-07-29 14:29] VITALS: BP 165/98; TEMP 98.4
--- NOTE | 2017-07-29 16:57 | CP.PCM.DIS ---
Provider - Provider Date of Admission: 07/21/17 19:57 Attending physician: Sylvester Frank MD Primary care physician: Sylvester Frank MD Consults: Dr. Merlos - surgery Dr. Cesar - Nephrology Time Spent in preparation of Discharge (in minutes): 45 Diagnosis - Discharge Diagnosis (1) PVD (peripheral vascular disease) Status: Chronic Priority: Medium Hospital Course - Lab Results Lab Results: Most Recent Lab Values WBC 6.7 10^3/ul (4.5-11.0) 07/28/17 10:00 RBC 3.84 10^6/uL (3.5-6.1) 07/28/17 10:00 Hgb 10.2 g/dL (12.0-16.0) L 07/28/17 10:00 Hct 30.6 % (36.0-48.0) L 07/28/17 10:00 MCV 79.7 fl (80.0-105.0) L 07/28/17 10:00 MCH 26.6 pg (25.0-35.0) 07/28/17 10:00 MCHC 33.3 g/dl (31.0-37.0) 07/28/17 10:00 RDW 13.9 % (11.5-14.5) 07/28/17 10:00 Plt Count 271 10^3/uL (120.0-450.0) 07/28/17 10:00 MPV 9.0 fl (7.0-11.0) 07/28/17 10:00 Gran % 59.1 % (50.0-68.0) 07/28/17 10:00 Lymph % (Auto) 30.1 % (22.0-35.0) 07/28/17 10:00 Juncos % (Auto) 6.3 % (1.0-6.0) H 07/28/17 10:00 Eos % (Auto) 4.2 % (1.5-5.0) 07/28/17 10:00 Baso % (Auto) 0.3 % (0.0-3.0) 07/28/17 10:00 Gran # 3.97 (1.4-6.5) 07/28/17 10:00 Lymph # (Auto) 2.0 (1.2-3.4) 07/28/17 10:00 Juncos # (Auto) 0.4 (0.1-0.6) 07/28/17 10:00 Eos # (Auto) 0.3 (0.0-0.7) 07/28/17 10:00 Baso # (Auto) 0.02 K/mm3 (0.0-2.0) 07/28/17 10:00 ESR 68 mm/hr (0.0-20.0) H 07/22/17 06:45 Sodium 140 mmol/L (132-148) 07/28/17 10:00 Potassium 3.5 mmol/L (3.6-5.0) L 07/28/17 10:00 Chloride 100 mmol/L (98-107) 07/28/17 10:00 Carbon Dioxide 30 mmol/L (21-33) 07/28/17 10:00 Anion Gap 14 (10-20) 07/28/17 10:00 BUN 24 mg/dL (7-21) H 07/28/17 10:00 Creatinine 1.6 mg/dl (0.7-1.2) H 07/28/17 10:00 Est GFR ( Amer) 39 07/28/17 10:00 Est GFR (Non-Af Amer) 32 07/28/17 10:00 POC Glucose (mg/dL) 140 mg/dL (65-110) H 07/29/17 05:33 Random Glucose 206 mg/dL (70-110) H 07/28/17 10:00 Hemoglobin A1c 6.2 % (4.2-6.5) 07/22/17 06:45 Calcium 9.6 mg/dL (8.4-10.5) 07/28/17 10:00 Vancomycin Trough 18.8 ug/mL (5.0-10.0) H* 07/26/17 21:45 Random Vancomycin 9.5 ug/mL (20.0-40.0) L 07/28/17 10:00 - Hospital Course Hospital Course: Internal Medicine Progress Note: July 29, 2017 67 yo AA female presenting with left lower leg pain and swelling. The patient had a splinter removed 2 weeks ago at an Urgent Care center. She was in [place] over a month ago where she received Augmentin for treatment of the leg as the pain and swelling did not subside. Still having pain and swelling to the area so she came to the ER for further evaluation. She was in [facility] for several days with IV antibiotics of Vancomycin and Zosyn for antibiotic coverage. She was sent home with Keflex and followed as an outpatient. The patient had worsening of the wound and started on Sivextro and Omnicef which she was nearing completion. The wound continued to increase in size. Persistent pain to the left leg wound at the Achilles site. Tissues here are ng and tender. The original edema is not present however. Seen by Dr. Merlos. In OR for debridement on 07/20/2017. The patient with renal insufficiency. Metformin stopped. Debridement of 3x4x1 cm left posterior leg lesion. Wound vac placed. On Cefepime alone now. Complaining of pain the left posterior ankle. On percocet for pain. Monitoring Vancomycin levels especially with Creatinine of 1.6. - Date & Time of H&P Date of H&P: 07/22/17 Time of H&P: 13:59 Discharge Exam - Head Exam Head Exam: ATRAUMATIC, NORMOCEPHALIC - Eye Exam Eye Exam: EOMI, PERRL Pupil Exam: NORMAL ACCOMODATION, PERRL - ENT Exam ENT Exam: Mucous Membranes Moist, Normal External Ear Exam, TM's Normal Bilaterally - Neck Exam Neck exam: Full Rom, Normal Inspection - Respiratory Exam Respiratory Exam: Clear to PA & Lateral, NORMAL BREATHING PATTERN. absent: Rales, Rhonchi, Wheezes - Cardiovascular Exam Cardiovascular Exam: REGULAR RHYTHM, RRR, +S1, +S2 - GI/Abdominal Exam GI & Abdominal Exam: Normal Bowel Sounds, Soft. absent: Distended, Tenderness - Extremities Exam Extremities exam: full ROM Additional comments: 4x3x1 cm wound on the posterior lower left leg at site of a splinter removal. The patient with ng tissue with continued pain and swelling. No drainage. No fevers. Debrided 07/20/2017. Wound vac in place. - Neurological Exam Neurological exam: Alert, CN II-XII Intact, Oriented x3 - Psychiatric Exam Psychiatric exam: Normal Affect, Normal Mood - Skin Skin Exam: Intact, Normal Color Additional comments: except as listed on extremity exam. Discharge Plan - Discharge Medications Prescriptions: Cephalexin [Keflex] 500 mg PO BID #28 capsule oxyCODONE/Acetaminophen [Percocet 5/325 mg Tab] 1 tab PO Q8H #21 tab - Follow Up Plan Condition: GOOD Disposition: HOME/ ROUTINE Instructions: How to Prevent Surgical Site Infections, Wound Care (DC), Debridement of a Wound or Burn (DC), Cellulitis (DC), Cellulitis (GEN) Additional Instructions: Follow up Dr. Merlos office in 1 month to evaluate for need for continued wound vac therapy Home wound vac change every 5 days. - Assessment and Plan (Free Text) Assessment: 67 yo AA female with left ankle wound that started from a splinter around the Achilles insertion point. Splinter was removed at a [facility] and sent home without antibiotics. Patient went to [place] and went to ER in the area. Given Augmentin PO. When she returned to [place], the patient came [place] [facility] [place] the pain persisted and the wound appeared to the patient to be enlarging. She was given IV antibiotics and cleared for discharge a few days later. She was initially given Keflex then Sivextro and Omnicef for antibiotic treatment. Admitted for further evaluation of the left lower leg wound. Dr. Merlos of surgery evaluated. On IV Vancomycin and Cefepime for antibiotic treatment. Debridement of the ulceration in OR on 07/20/2017. Renal insufficiency. Dr. Merlos and Dr. Cesar following patient for surgery and nephrology respectively. Wound vac in place on left posterior lower leg. Minimal drainage from wound vac. Creatinine 1.6 now. Despite being off of Vancomycin, the patient still has a level of 9.5 on blood draws(07/28/2017). Needs wound vac on discharge. Will follow with Dr. Merlos and Tali as outpatient. I will continue on Keflex on discharge 500mg PO BID for 14 days more. Follow up in one week in my office. Case discussed with Dr. Merlos and Dr. Cesar. Pain management. She still complains of left posterior leg/ankle pain. Percocet for pain management. Referrals: Sylvester Frank MD [Primary Care Provider] - Sylvester Merlos MD [Staff Provider] -
== END 2017-07-29 13:48 | disposition home or self-care (01) | DRG 300 ==
LOC: TRCU 19:57
PROVIDERS: ADMIT Internal Medicine Infectious Disease; ATTEND Internal Medicine Infectious Disease
PROC: F07Z9FZ Gait Training/Functional Ambulation Treatment using Assistive, Adaptive, Supportive or Protective Equipment (ICD-10-PCS; principal; 2017-07-23)
PROC: F07Z8FZ Transfer Training Treatment using Assistive, Adaptive, Supportive or Protective Equipment (ICD-10-PCS; 2017-07-23)
PROC: F07L6ZZ Therapeutic Exercise Treatment of Musculoskeletal System - Lower Back / Lower Extremity (ICD-10-PCS; 2017-07-23)
PROC: F08Z2FZ Grooming/Personal Hygiene Treatment using Assistive, Adaptive, Supportive or Protective Equipment (ICD-10-PCS; 2017-07-29)
DX: E11.51 Type 2 diabetes mellitus with diabetic peripheral angiopathy without gangrene (principal); L97.829 Non-pressure chronic ulcer of other part of left lower leg with unspecified severity; E11.622 Type 2 diabetes mellitus with other skin ulcer; E11.22 Type 2 diabetes mellitus with diabetic chronic kidney disease; I12.9 Hypertensive chronic kidney disease with stage 1 through stage 4 chronic kidney disease, or unspecified chronic kidney disease; N18.3 Chronic kidney disease, stage 3 (moderate); I25.10 Atherosclerotic heart disease of native coronary artery without angina pectoris; D64.9 Anemia, unspecified; E55.9 Vitamin D deficiency, unspecified; Z79.84 Long term (current) use of oral hypoglycemic drugs; I25.2 Old myocardial infarction; Z86.73 Personal history of transient ischemic attack (TIA), and cerebral infarction without residual deficits

== ENCOUNTER 2017-08-07 08:20 | Inpatient (IN) | payer MEDICARE, BC ==
[2017-08-07 09:06] VITALS: BMI 21.6
--- NOTE | 2017-08-07 09:08 | ED PDOC ---
Arrival/HPI - General Time Seen by Provider: 08/07/17 08:21 Historian: Patient - History of Present Illness Narrative History of Present Illness (Text): 08/07/17 09:00 67 year old female, whose PMH includes hypertension, CVA, and diabetes, who presents to the emergency department complaining of left leg burning pain due to an ulcer in the medial aspect of the leg. Patient reports being on antibiotics (Cephalexin), but the pain became worse last night. Patient denies any fever, shortness of breath, nausea, vomiting, diarrhea, or other complaints. PMD: Dr. Diallo Time/Duration: 24 hours Symptom Onset: Gradual Symptom Course: Unchanged Quality: Burning Context: Home Past Medical History - Provider Review Nursing Documentation Reviewed: Yes - Infectious Disease Hx of Infectious Diseases: None - Cardiac Hx Cardiac Disorders: Yes Hx Hypertension: Yes - Pulmonary Hx Respiratory Disorders: No - Neurological HX Cerebrovascular Accident: Yes - HEENT Hx HEENT Disorder: Yes Hx Blind: Yes - Renal Hx Renal Disorder: No - Endocrine/Metabolic Hx Diabetes Mellitus Type 2: Yes - Hematological/Oncological Hx Cancer: No - Integumentary Hx Dermatological Disorder: Yes - Musculoskeletal/Rheumatological Hx Falls: No - Gastrointestinal Hx Gastrointestinal Disorders: No - Genitourinary/Gynecological Hx Genitourinary Disorders: No Hx Reproductive Disorders: No - Psychiatric Hx Psychophysiologic Disorder: No Hx Substance Use: No - Surgical History Hx Mastectomy: No - Anesthesia Hx Anesthesia Reactions: No Hx Malignant Hyperthermia: No - Suicidal Assessment Feels Threatened In Home Enviroment: No Family/Social History - Physician Review Nursing Documentation Reviewed: Yes Family/Social History: Unknown Family HX Smoking Status: Never Smoked Hx Alcohol Use: No Hx Substance Use: No Allergies/Home Meds Allergies/Adverse Reactions: Allergies EGG Allergy (Intermediate, Verified 08/07/17 09:03) RASH Home Medications: Home Meds Medication Instructions Recorded Confirmed Nifedipine [Nifedipine ER] 90 mg PO DAILY 07/03/13 08/07/17 Aspirin [Ecotrin] 81 mg PO DAILY 11/15/16 08/07/17 Review of Systems - Physician Review All systems were reviewed & negative as marked: Yes - Review of Systems Constitutional: absent: Fevers Respiratory: absent: SOB Gastrointestinal: absent: Abdominal Pain Skin: Ulcer (medial left leg) Physical Exam Vital Signs Reviewed: Yes Vital Signs Temp Pulse Resp BP Pulse Ox 08/07/17 11:29 86 18 160/88 H 95 08/07/17 09:05 98.1 F 101 H 18 131/99 H 97 Temperature: Afebrile Blood Pressure: Hypertensive Pulse: Tachycardic Respiratory Rate: Normal Appearance: Positive for: Well-Appearing, Non-Toxic, Comfortable Pain Distress: None Mental Status: Positive for: Alert and Oriented X 3 - Systems Exam Head: Present: Atraumatic, Normocephalic Pupils: Present: PERRL Extroacular Muscles: Present: EOMI Conjunctiva: Present: Normal Mouth: Present: Moist Mucous Membranes Lower Extremity: Present: Normal Inspection, Normal ROM, Neurovascularly Intact , Capillary Refill < 2 s. No: Edema, NORMAL PULSES (diminished pulses), Cyanosis, Tenderness, Swelling, Deformity Neurological: Present: GCS=15, CN II-XII Intact, Speech Normal Skin: Present: Warm, Dry, Normal Color, Other (2cm ulcer on medial aspect of left leg). No: Rashes Psychiatric: Present: Alert, Oriented x 3, Normal Insight, Normal Concentration Medical Decision Making ED Course and Treatment: 08/07/17 Impression: 67 year old female with 2cm ulcer on medial aspect of left leg and diminished pulses. Plan: -- Labs -- Toradol -- Reassess and disposition Progress Notes: 08/07/17 14:[address] dangelo. accepts for obs, worsening luekocytosis. dr spring saw pt bedside. - Lab Interpretations Lab Results: 08/07/17 09:30 08/07/17 09:30 Lab Results 08/07/17 09:30: Sodium 145, Potassium 3.1 L, Chloride 103, Carbon Dioxide 26, Anion Gap 19, BUN 31 H, Creatinine 1.7 H, Est GFR ( Amer) 36, Est GFR ( Non-Af Amer) 30, Random Glucose 181 H, Calcium 9.8, Total Bilirubin 0.3, AST 37 H D, ALT 24, Alkaline Phosphatase 99, Total Protein 9.1 H, Albumin 4.7, Globulin 4.4, Albumin/Globulin Ratio 1.1 08/07/17 09:30: WBC 13.6 H D, RBC 4.12, Hgb 11.0 L, Hct 32.9 L, MCV 79.9 L, MCH 26.7, MCHC 33.4, RDW 14.2, Plt Count 379, MPV 10.2, Gran % 71.9 H, Lymph % (Auto ) 21.2 L, [place]calfe % (Auto) 3.5, Eos % (Auto) 3.1, Baso % (Auto) 0.3, Gran # 9.75 H , Lymph # (Auto) 2.9, [place]calfe # (Auto) 0.5, Eos # (Auto) 0.4, Baso # (Auto) 0.04 08/07/17 09:20: PT 12.4, INR 1.08, APTT 32.2 - Medication Orders Current Medication Orders: Discontinued Medications Vancomycin HCl (Vancomycin 1gm) 1 gm in 250 mls @ 167 mls/hr IVPB STAT STA PRN Reason: Protocol Stop: 08/07/17 11:31 Last Admin: 08/07/17 10:45 Dose: 167 mls/hr eMAR Start Stop Document 08/07/17 10:45 ANGELA (Rec: 08/07/17 10:45 [email or web address] [id number]) Intravenous Solution Start Date 08/07/17 Start Time 10:45 End Date 08/07/17 End time 12:15 Total Infusion Time 90 Piperacillin Sod/Tazobactam Sod (Zosyn 3.375 In Ns 100ml) 100 mls @ 200 mls/hr IVPB STAT STA PRN Reason: Protocol Stop: 08/07/17 10:31 Last Admin: 08/07/17 10:14 Dose: 200 mls/hr eMAR Start Stop Document 08/07/17 10:14 ANGELA (Rec: 08/07/17 10:14 [email or web address] [id number]) Intravenous Solution Start Date 08/07/17 Start Time 10:14 End Date 08/07/17 End time 10:44 Total Infusion Time 30 Ketorolac Tromethamine (Toradol) 30 mg IVP STAT STA Stop: 08/07/17 09:05 Last Admin: 08/07/17 09:15 Dose: 30 mg MAR Pain Assessment Document 08/07/17 09:15 ANGELA (Rec: 08/07/17 09:34 [email or web address] [id number]) Pain Reassessment Is this a pain reassessment? No Sleep Is patient sleeping during reassessment? No Presence of Pain Presence of Pain Yes Pain Scale Used Pain Scale Used Numeric IVP Administration Document 08/07/17 09:15 ANGELA (Rec: 08/07/17 09:34 ANGELA [id number]) Charges for Administration # of IVP Administrations 1 Re-Assess: WAYLON Pain Assessment Document 08/07/17 10:15 ANGELA (Rec: 08/07/17 13:21 ANGELA [id number]) Pain Reassessment Is this a pain reassessment? Yes Sleep Is patient sleeping during reassessment? No Presence of Pain Presence of Pain Yes Pain Scale Used Pain Scale Used Numeric Description Description Intermittent Intensity of Pain at present 5 Pneumococcal Polyvalent Vaccine (Pneumovax 23 Vaccine) 0.5 ml IM .ONCE ONE Stop: 08/07/17 14:10 Potassium Chloride (K-Dur 20 Meq Er Tab) 40 meq PO STAT STA Stop: 08/07/17 09:46 Last Admin: 08/07/17 10:14 Dose: 40 meq - Scribe Statement The provider has reviewed the documentation as recorded by the Celioiblea Le Provider Scribe Attestation: All medical record entries made by the Celioiblea were at my direction and personally dictated by me. I have reviewed the chart and agree that the record accurately reflects my personal performance of the history, physical exam, medical decision making, and the department course for this patient. I have also personally directed, reviewed, and agree with the discharge instructions and disposition. Disposition/Present on Arrival - Present on Arrival Any Indicators Present on Arrival: No History of DVT/PE: No History of Uncontrolled Diabetes: No Urinary Catheter: No History Surgical Site Infection Following: None - Disposition Have Diagnosis and Disposition been Completed?: Yes Diagnosis: Wound infection Disposition: HOSPITALIZED Disposition Time: 14:22 Condition: STABLE
[2017-08-07 09:45] LABS: ALB/GLOB RATIO 1.1 (1.1-1.8); ALBUMIN 4.7 g/dL (3.0-4.8); CALCIUM 9.8 mg/dL (8.4-10.5)
[2017-08-07] MEDS ORDERED: Potassium Chloride 20 mEq ER Tab PO STA (09:45)
[2017-08-07 09:51] LABS: BASO # 0.04 K/mm3 (0.0-2.0); BASO % 0.3 % (0.0-3.0); EOS # 0.4 (0.0-0.7); EOS % 3.1 % (1.5-5.0); GRAN # 9.75 (1.4-6.5); GRAN % 71.9 % (50.0-68.0); LYMPH # 2.9 (1.2-3.4); LYMPH % 21.2 % (22.0-35.0); MEAN CELL VOLUME 79.9 fl (80.0-105.0); MEAN CORPUSCULAR HEMOGLOBIN 26.7 pg (25.0-35.0); MEAN CORPUSCULAR HGB CONC 33.4 g/dl (31.0-37.0); MEAN PLATELET VOLUME 10.2 fl (7.0-11.0); MONO # 0.5 (0.1-0.6); MONO % 3.5 % (1.0-6.0); RBC 4.12 10^6/uL (3.5-6.1); RED CELL DISTRIBUTION WIDTH 14.2 % (11.5-14.5); WHITE BLOOD COUNT 13.6 10^3/ul (4.5-11.0)
[2017-08-07 09:58] LABS: INR 1.08 (0.93-1.08); PARTIAL THROMBOPLASTIN TIME 32.2 Seconds (25.1-36.5); PROTHROMBIN TIME 12.4 SECONDS (9.4-12.5)
[2017-08-07] MEDS ORDERED: Piperacillin/Tazobact 3.375 gm 100 ML IVPB STA (10:02)
[2017-08-07] MEDS ORDERED: Vancomycin 1gm in NS 250ml 1 GM/250 ML BAG IVPB STA (10:02)
--- NOTE | 2017-08-07 10:29 | CP.PCM.CON ---
<Serge England - Last Filed: 08/07/17 10:47> History of Present Illness - History of Present Illness History of Present Illness: 67 year old female with a past medical history of hypertension, type 2 Diabetes Mellitus, and cva (x2) who comes in complaining of left leg pain for the past couple of days. Of note the patient has a slow-healing wound that she currently uses a wound vac for. She reports the pain was so severe last night she was unable to sleep and decided to come in. The patient denies any chest pain, shortness of breath, fevers, chills, nausea, vomiting, changes in vision, or any other complaints. Surgery was consulted due to patient's leg ulcer. PMD: Dr. Frank Past medical history: Hypertension, Type 2 Diabetes ,CVA (x2) Medications: Metformin, Nifedipine, Aspirin Allergies: Egg Past surgical history: Denies Social: Denies any smoking or alcohol usage. Denies illicit drug use. Review of Systems - Constitutional Constitutional: absent: Chills, Headache - EENT Eyes: absent: Blurred Vision, Discharge, Loss of Peripheral Vision Nose/Mouth/Throat: absent: Nasal Congestion, Nose Pain, Bleeding Gums, Halitosis , Mouth Pain - Cardiovascular Cardiovascular: absent: Chest Pain, Claudication, Dyspnea on Exertion, Leg Edema , Lightheadedness, Orthopnea, Palpitations, Pedal Edema, Slow Heart Rate, Syncope - Respiratory Respiratory: absent: Dyspnea, Hemoptysis, Stridor, Pain on Inspiration - Gastrointestinal Gastrointestinal: absent: Belching, Diarrhea, Dyspepsia, Excessive Flatus, Hematochezia, Nausea, Vomiting - Genitourinary Genitourinary: absent: Hematuria, Nocturia, Urinary Incontinence - Integumentary Integumentary: Skin Ulcer Additional comments: Left leg. - Neurological Neurological: absent: Abnormal Hearing, Dizziness, Numbness, Vertigo, Weakness - Psychiatric Psychiatric: absent: Abnormal Sleep Pattern, Anxiety, Change in Appetite, Depression, Hopelessness - Endocrine Endocrine: absent: Polydipsia, Polyphagia, Polyuria Past Patient History - Infectious Disease Hx of Infectious Diseases: None - Past Medical History & Family History Past Medical History?: Yes - Past Social History Smoking Status: Never Smoked - CARDIAC Hx Cardiac Disorders: Yes Hx Hypertension: Yes - PULMONARY Hx Respiratory Disorders: No - NEUROLOGICAL HX Cerebrovascular Accident: Yes - HEENT Hx HEENT Problems: Yes Hx Blind: Yes - RENAL Hx Chronic Kidney Disease: No - ENDOCRINE/METABOLIC Hx Diabetes Mellitus Type 2: Yes - HEMATOLOGICAL/ONCOLOGICAL Hx Cancer: No - INTEGUMENTARY Hx Dermatological Problems: Yes - MUSCULOSKELETAL/RHEUMATOLOGICAL Hx Falls: No - GASTROINTESTINAL Hx Gastrointestinal Disorders: No - GENITOURINARY/GYNECOLOGICAL Hx Genitourinary Disorders: No Hx Reproductive Disorders: No - PSYCHIATRIC Hx Psychophysiologic Disorder: No Hx Substance Use: No - SURGICAL HISTORY Hx Mastectomy: No - ANESTHESIA Hx Anesthesia Reactions: No Hx Malignant Hyperthermia: No Meds Allergies/Adverse Reactions: Allergies Allergy/AdvReac Type Severity Reaction Status Date / Time EGG Allergy Intermediate RASH Verified 08/07/17 09:03 - Medications Medications: Current Medications Vancomycin HCl (Vancomycin 1gm) 1 gm in 250 mls @ 167 mls/hr IVPB STAT STA PRN Reason: Protocol Stop: 08/07/17 11:31 Piperacillin Sod/Tazobactam Sod (Zosyn 3.375 In Ns 100ml) 100 mls @ 200 mls/hr IVPB STAT STA PRN Reason: Protocol Stop: 08/07/17 10:31 Last Admin: 08/07/17 10:14 Dose: 200 mls/hr Physical Exam - Head Exam Head Exam: ATRAUMATIC, NORMAL INSPECTION, NORMOCEPHALIC - Eye Exam Eye Exam: EOMI, Normal appearance, PERRL Pupil Exam: NORMAL ACCOMODATION. absent: Mydriatic - ENT Exam ENT Exam: Mucous Membranes Moist, Normal Exam - Neck Exam Neck exam: Positive for: Normal Inspection. Negative for: Lymphadenopathy, Thyromegaly - Respiratory Exam Respiratory Exam: Clear to Auscultation Bilateral, NORMAL BREATHING PATTERN. absent: Chest Wall Tenderness, Prolonged Expiratory Phase - Cardiovascular Exam Cardiovascular Exam: REGULAR RHYTHM, +S1, +S2 - GI/Abdominal Exam GI & Abdominal Exam: Normal Bowel Sounds, Soft. absent: Hypoactive Bowel Sounds , Organomegaly, Tenderness - Neurological Exam Neurological exam: Alert, CN II-XII Intact, Oriented x3 - Psychiatric Exam Psychiatric exam: Normal Affect, Normal Mood - Skin Additional comments: Left leg ulcer Results - Vital Signs Recent Vital Signs: Last Vital Signs Temp 98.1 F 08/07/17 09:05 Pulse 101 H 08/07/17 09:05 Resp 18 08/07/17 09:05 BP 131/99 H 08/07/17 09:05 Pulse Ox 97 08/07/17 09:05 - Labs Result Diagrams: 08/07/17 09:30 08/07/17 09:30 Assessment & Plan - Assessment and Plan (Free Text) Assessment: 67 year old female with a left left ulcer. Plan: -Lyrica trial dose for pain. -Management per Medical team. -Patient to follow up with Dr. Merlos within one week. D/w Dr. Gaurang England, PGY1 <Sin Rubi - Last Filed: 08/07/17 11:37> History of Present Illness - History of Present Illness History of Present Illness: Surgery fro Dr. Merlos Results - Vital Signs Recent Vital Signs: Last Vital Signs Temp 98.1 F 08/07/17 09:05 Pulse 86 08/07/17 11:29 Resp 18 08/07/17 11:29 BP 160/88 H 08/07/17 11:29 Pulse Ox 95 08/07/17 11:29 - Labs Result Diagrams: 08/07/17 09:30 08/07/17 09:30 Assessment & Plan - Assessment and Plan (Free Text) Plan: Continue wound vac management at home. <Sylvester Merlos - Last Filed: 08/07/17 14:36> Results - Vital Signs Recent Vital Signs: Last Vital Signs Temp 98.3 F 08/07/17 13:52 Pulse 88 08/07/17 13:52 Resp 18 08/07/17 13:52 BP 153/94 H 08/07/17 13:52 Pulse Ox 97 08/07/17 13:38 - Labs Result Diagrams: 08/07/17 09:30 08/07/17 09:30 Assessment & Plan - Assessment and Plan (Free Text) Assessment: Dx Ankle Ulcer(Granulating0-Painful Peripheral Neuropathy Jason Wound Vac Lyrica No further surgery This consult done under my direct ssupervision Hayden Merlos MD FACS
[2017-08-07] MEDS ORDERED: Pneumococcal 23-Valent Vaccine IM ONE (14:09)
[2017-08-07] MEDS: Oxycodone/Acetaminophen 5/325 mg Tab PO PRN (15:27)
--- NOTE | 2017-08-07 21:18 | CON ---
DATE: 08/07/2017 TIME: 06:50 p.m. CHIEF COMPLAINT/HISTORY OF PRESENT ILLNESS: This is a 67-year-old female with a slowly healing wound on the posterior aspect of the left calf. The wound has been present for over 2 months. It was related to a wooden foreign body. There is significant associated pain. She has been followed most recently by Dr. Merlos. Her past medical history is significant for diabetes and hypertension. There has been some improvement in the wound with a wound VAC. Interestingly, she has palpable left DP and PT pulses. Her MARIBETH/PVR exam demonstrates normal MARIBETH's but there appears to be bilateral tibial disease. The distal waveforms are moderately blunted and symmetric. I spoke with Dr. Merlos concerning the case. At the present time, I do not think an arteriogram is warranted. More aggressive wound care measures may be indicated (such as grafting). If the wound healing stalls, an arteriogram can be performed at that time. Of note, her baseline creatinine is between 1.7 and 2.5. The situation was discussed at length with the patient. Bruce Castro, MDDD: 08/07/2017 18:55:03 ZION
[2017-08-07] MEDS ORDERED: Oxycodone/Acetaminophen 5/325 mg Tab PO ONE (22:39)
--- NOTE | 2017-08-07 23:50 | CP.PCM.HP ---
History of Present Illness - History of Present Illness History of Present Illness: Internal Medicine/Infectious Disease H&P: August 07, 2017 67 yo AA female presenting with left lower leg pain recently debrided secondary to enlarging ulceration after splinter removal. The patient with severe pain in the left lower calf that she rates as 9-10 out of 10 and inability to sleep secondary to the pain. The patient was seen by Dr. Merlos of surgery and Dr. Bruce Castro of Interventional Radiology. No further surgery at this time or invasive IR procedures warranted at this point in time. PMHx: Diabetes Mellitus CAD HTN Stroke and NE several years ago. Chronic Back Pain TIA PSHx: cardiac cath Allergies: NKDA Social Hx: No tobacco, EtOH, or illicit drug use Active Medications Hydrochlorothiazide (Microzide) 12.5 mg PO DAILY [facility] Morphine Sulfate (Morphine) 2 mg IVP Q6H PRN PRN Reason: Pain, severe (8-10) Nifedipine (Procardia Xl) 90 mg PO DAILY [facility] Oxycodone/Acetaminophen (Percocet 5/325 Mg Tab) 1 tab PO Q12H PRN PRN Reason: Pain, moderate (4-7) Stop: 08/10/17 15:11 Last Admin: 08/07/17 15:27 Dose: 1 tab Pregabalin (Lyrica) 50 mg PO BID [facility] Last Admin: 08/07/17 18:15 Dose: 50 mg Family Hx: none given ROS: weakness. poor appetite. Patient denies fevers, chills, nausea, vomiting, diarrhea, headaches, dizziness, chest pain, melena, hematuria, hematemesis, hematochezia, depression, anxiety. Present on Admission - Present on Admission Any Indicators Present on Admission: Yes History of Uncontrolled Diabetes: Yes History Surgical Site Infection Following: None Past Patient History - Infectious Disease Hx of Infectious Diseases: None - Past Medical History & Family History Past Medical History?: Yes - Past Social History Smoking Status: Never Smoked - CARDIAC Hx Cardiac Disorders: Yes Hx Hypertension: Yes - PULMONARY Hx Respiratory Disorders: No - NEUROLOGICAL HX Cerebrovascular Accident: Yes - HEENT Hx HEENT Problems: Yes Hx Blind: Yes - RENAL Hx Chronic Kidney Disease: No - ENDOCRINE/METABOLIC Hx Diabetes Mellitus Type 2: Yes - HEMATOLOGICAL/ONCOLOGICAL Hx Cancer: No - INTEGUMENTARY Hx Dermatological Problems: Yes - MUSCULOSKELETAL/RHEUMATOLOGICAL Hx Falls: No - GASTROINTESTINAL Hx Gastrointestinal Disorders: No - GENITOURINARY/GYNECOLOGICAL Hx Genitourinary Disorders: No Hx Reproductive Disorders: No - PSYCHIATRIC Hx Psychophysiologic Disorder: No Hx Substance Use: No - SURGICAL HISTORY Hx Mastectomy: No - ANESTHESIA Hx Anesthesia Reactions: No Hx Malignant Hyperthermia: No Meds Allergies/Adverse Reactions: Allergies Allergy/AdvReac Type Severity Reaction Status Date / Time EGG Allergy Intermediate RASH Verified 08/07/17 09:03 Physical Exam - Constitutional Appears: Non-toxic, No Acute Distress, Chronically Ill - Head Exam Head Exam: ATRAUMATIC, NORMOCEPHALIC - Eye Exam Eye Exam: EOMI, PERRL Pupil Exam: NORMAL ACCOMODATION, PERRL - ENT Exam ENT Exam: Mucous Membranes Moist, Normal External Ear Exam, TM's Normal Bilaterally - Neck Exam Neck exam: Positive for: Full Rom, Normal Inspection - Respiratory Exam Respiratory Exam: Clear to Auscultation Bilateral, NORMAL BREATHING PATTERN. absent: Rales, Rhonchi, Wheezes - Cardiovascular Exam Cardiovascular Exam: REGULAR RHYTHM, RRR, +S1, +S2 - GI/Abdominal Exam GI & Abdominal Exam: Normal Bowel Sounds, Soft. absent: Distended, Tenderness - Extremities Exam Additional comments: 4x3x1 cm wound on the posterior lower left leg at site of a splinter removal. The patient with ng tissue with continued pain and swelling. No drainage. No fevers. Debrided 07/20/2017. Wound vac was in place but not on now. - Neurological Exam Neurological exam: Alert, CN II-XII Intact, Oriented x3 - Psychiatric Exam Psychiatric exam: Normal Affect, Normal Mood - Skin Additional comments: As above. Results - Vital Signs Recent Vital Signs: Last Vital Signs Temp 98.3 F 08/07/17 13:52 Pulse 88 08/07/17 13:52 Resp 18 08/07/17 13:52 BP 153/94 H 08/07/17 13:52 Pulse Ox 97 08/07/17 13:38 - Labs Result Diagrams: 08/07/17 09:30 08/07/17 09:30 Labs: Laboratory Results - last 24 hr 08/07/17 15:54 POC Glucose (mg/dL) 113 H Assessment & Plan - Assessment and Plan (Free Text) Assessment: 67 yo AA female with recent splinter in the left lower posterior calf removed in an urgent care center and developed infection and led to ulcerations of the site. The patient needed debridement of the ulceration. The patient was having difficulty with tolerating the wound vac secondary to persistent nerve pain. Came back to [facility] for worsening pain in the debrided ulceration area. Noted consultations with Dr. Merlos and Dr. Bruce Castro. At this time, no further surgical intervention or invasive interventional radiology procedures. Supportive care. Pain management and local wound care.
[2017-08-07] MEDS ORDERED: Morphine 4 mg/ml ISec IVP ONE (23:59)
[2017-08-08] MEDS ORDERED: Morphine 4 mg/ml ISec IVP PRN (00:15)
--- NOTE | 2017-08-08 07:54 | CP.PCM.PN ---
Subjective - Date & Time of Evaluation Date of Evaluation: 08/08/17 Time of Evaluation: 07:52 - Subjective Subjective: Patient seen and examined at bedside. Per nursing no acute events occurred overnight. Patient is tolerating diet with no complaints. Patient is voiding well with no complications. Patient denies fevers, chills, nausea or vomiting. Objective - Vital Signs/Intake and Output Vital Signs (last 24 hours): Temp Pulse Resp BP Pulse Ox 98.3 F 88 18 153/94 H 97 08/07/17 13:52 08/07/17 13:52 08/07/17 13:52 08/07/17 13:52 08/07/17 13:38 Intake and Output: 08/08/17 08/08/17 06:59 18:59 Intake Total 900 Balance 900 - Medications Medications: Current Medications Hydrochlorothiazide (Microzide) 12.5 mg PO DAILY [facility] Cefepime HCl (Maxipime 1gm) 1 gm in 100 mls @ 100 mls/hr IVPB Q24H [facility] PRN Reason: Protocol Morphine Sulfate (Morphine) 2 mg IVP Q6H PRN PRN Reason: Pain, severe (8-10) Last Admin: 08/08/17 05:32 Dose: 2 mg Nifedipine (Procardia Xl) 90 mg PO DAILY [facility] Oxycodone/Acetaminophen (Percocet 5/325 Mg Tab) 1 tab PO Q12H PRN PRN Reason: Pain, moderate (4-7) Stop: 08/10/17 15:11 Last Admin: 08/07/17 15:27 Dose: 1 tab Pregabalin (Lyrica) 50 mg PO BID [facility] Last Admin: 08/07/17 18:15 Dose: 50 mg - Labs Labs: PT 12.4 SECONDS (9.4-12.5) 08/07/17 09:20 INR 1.08 (0.93-1.08) 08/07/17 09:20 APTT 32.2 Seconds (25.1-36.5) 08/07/17 09:20 - Head Exam Head Exam: ATRAUMATIC, NORMAL INSPECTION, NORMOCEPHALIC - Eye Exam Eye Exam: EOMI, Normal appearance, PERRL. absent: Periorbital tenderness Pupil Exam: NORMAL ACCOMODATION, PERRL - ENT Exam ENT Exam: Mucous Membranes Moist, Normal Oropharynx - Neck Exam Neck Exam: absent: Lymphadenopathy, Thyromegaly - Respiratory Exam Respiratory Exam: Clear to Ausculation Bilateral, NORMAL BREATHING PATTERN. absent: Chest Wall Tenderness, Prolonged Expiratory Phase, Respiratory Distress - Cardiovascular Exam Cardiovascular Exam: REGULAR RHYTHM - GI/Abdominal Exam GI & Abdominal Exam: Soft, Normal Bowel Sounds - Psychiatric Exam Psychiatric exam: Normal Affect, Normal Mood - Skin Additional comments: LLE ulcer s/p debridement (4x3x1 cm wound on the posterior lower left leg) Assessment and Plan - Assessment and Plan (Free Text) Assessment: 67 year old female with a left left ulcer. Plan: -Continue pain management. -Continue wound care. -Management per Medical team. -Patient to follow up with Dr. Merlos within one week. D/w Dr. Gaurang England, PGY1
[2017-08-08] MEDS ORDERED: Morphine 2 mg/2 mL syringe IVP PRN (09:04)
[2017-08-08] MEDS: Cefepime 1gm in NS 100ml 1 GM/100 ML BAG IVPB SCH (09:23)
[2017-08-08] MEDS: NIFEdipine 90 mg ER Tab PO SCH (09:23)
--- NOTE | 2017-08-08 10:57 | CP.PCM.PCO ---
Physician Communication Note - Physician Communication Note Physician Communication Note: Ryanna started with + Effect/Pt wants wound vac not STSG now
--- NOTE | 2017-08-08 15:23 | CP.PCM.CON ---
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 stable renal fxn Hypertension control with meds as ordered. pt was on ACEI as lisinopril 40 mg/ day (resume). If BP stays persistently high (>140/90) then can increase procardia to 120 mg/day. continue with statins Added iron supplementation multivitamin and continue with weekly vitamin D Dose meds/antibiotics for reduced GFR. Avoid fleets enema/magnesium based laxatives. Avoid nephrotoxins/NSAIDs/ iodinated contrast (unless needed emergently) Glycemic control Further work up/management as per primary team pt stable for d/c from renal perspective when planned Thanks for allowing me to participate in care of your patient. Will follow patient with you. Please call if any Qs. d/w team Dr Fernie Cesar Office: [phone] Chief Complaint; left leg non healing wound Reason for consult: renal insuff HPI: Pt is a 67 y/o F with hx of diabetes Mellitus , hypertension (x 3 years), hx of CAD/RI and stroke in past presented with complaints of non healing painful left leg wound/ulcer with burning sensation. she is s/p wound debridement. renal consult for CKD management. she has baseline ckd 3 with cr 1.4-1.7 range with intermittent episodes of JASON Denies chest pain, palpitation, shortness of breath, leg swelling Denies blood or bubbles in urine Denies OTC/herbal meds or NSAIDs. No recent iodinated contrast exposure. No obvious episodes of low BP. ROS: Constitutional Symptoms: Denies fever. No chills. No Recent Weight Changes Cardiovascular: No chest pain. No palpitations. Pulmonary: No shortness of breath no cough. All other negative except as in HPI Physical Examination: General Appearance: Comfortable, in no acute respiratory distress, co-operative . Vitals reviewed and noted as below Head; Atraumatic, normocephalic ENT: no ulcers no thrush. Tongue is midline appears dry and coated. Oropharynx: no rash or ulcers. EYES: Pupils are equal, round and reactive to light accommodation. Eye muscles and extraocular movement intact. Sclera is anicteric. Neck; supple no lymphadenopathy, no thyromegaly or bruit Lungs: Normal respiratory rate/effort. Breath sounds bilateral equal and clear Heart: Normal rate. s1s2 normal. No rub or gallop. Extremities: no edema. No varicose veins. left leg posterior aspect wound/ulcer + dressed Neurological: Patient is alert, awake and oriented to person, place and time. No focal deficit. Strength bilateral appropriate and equal Skin: Warm and dry. Normal turgor. No rash. Palpitation: Normal elasticity for age Abdomen: Abdomen is soft. Bowel sounds +. There is lower abdominal tenderness, no guarding/rigidity no organomegaly Psych: normal insight and normal affect/mood MSK: no joint tenderness or swelling. Digits and nails normal, no deformity : kidney or bladder not palpable Labs/imaging/EKG reviewed. Past medical history, past surgical history, family history, social history, allergy reviewed and noted as below Family hx: no hx of CKD. Rest non-contributory Work up; CT abdomen 2017: unremarkable kidneys/bladder/adrenals. Vitamin D 18 PTH 48 Iron saturation 25% ferritin 157 Past Patient History - Infectious Disease Hx of Infectious Diseases: None - Past Medical History & Family History Past Medical History?: Yes - Past Social History Smoking Status: Never Smoked - CARDIAC Hx Cardiac Disorders: Yes Hx Hypertension: Yes - PULMONARY Hx Respiratory Disorders: No - NEUROLOGICAL HX Cerebrovascular Accident: Yes - HEENT Hx HEENT Problems: Yes Hx Blind: Yes - RENAL Hx Chronic Kidney Disease: No - ENDOCRINE/METABOLIC Hx Diabetes Mellitus Type 2: Yes - HEMATOLOGICAL/ONCOLOGICAL Hx Cancer: No - INTEGUMENTARY Hx Dermatological Problems: Yes - MUSCULOSKELETAL/RHEUMATOLOGICAL Hx Falls: No - GASTROINTESTINAL Hx Gastrointestinal Disorders: No - GENITOURINARY/GYNECOLOGICAL Hx Genitourinary Disorders: No Hx Reproductive Disorders: No - PSYCHIATRIC Hx Psychophysiologic Disorder: No Hx Substance Use: No - SURGICAL HISTORY Hx Mastectomy: No - ANESTHESIA Hx Anesthesia Reactions: No Hx Malignant Hyperthermia: No Meds Allergies/Adverse Reactions: Allergies Allergy/AdvReac Type Severity Reaction Status Date / Time EGG Allergy Intermediate RASH Verified 08/07/17 09:03 - Medications Medications: Current Medications Ferrous Gluconate (Fergon) 324 mg PO TID [facility] Last Admin: 08/08/17 13:10 Dose: 324 mg Hydrochlorothiazide (Microzide) 12.5 mg PO DAILY [facility] Last Admin: 08/08/17 09:22 Dose: 12.5 mg Cefepime HCl (Maxipime 1gm) 1 gm in 100 mls @ 100 mls/hr IVPB Q24H [facility] PRN Reason: Protocol Last Admin: 08/08/17 09:23 Dose: 100 mls/hr Lisinopril (Zestril) 40 mg PO DAILY [facility] Last Admin: 08/08/17 12:31 Dose: 40 mg Morphine Sulfate (Morphine) 2 mg IVP Q6H PRN PRN Reason: Pain, severe (8-10) Nifedipine (Procardia Xl) 90 mg PO DAILY [facility] Last Admin: 08/08/17 09:23 Dose: 90 mg Oxycodone/Acetaminophen (Percocet 5/325 Mg Tab) 1 tab PO Q12H PRN PRN Reason: Pain, moderate (4-7) Stop: 08/10/17 15:11 Last Admin: 08/07/17 15:27 Dose: 1 tab Pregabalin (Lyrica) 50 mg PO BID [facility] Last Admin: 08/08/17 09:22 Dose: 50 mg Vitamin B Complex/Vit C/Folic Acid (Nephro-Jerry) 1 tab PO 0800 [facility] Results - Vital Signs Recent Vital Signs: Last Vital Signs Temp 98.4 F 08/08/17 08:05 Pulse 76 08/08/17 08:05 Resp 20 08/08/17 08:05 BP 153/94 H 08/07/17 13:52 Pulse Ox 94 L 08/08/17 08:05 - Labs Result Diagrams: 08/07/17 09:30 08/07/17 09:30 Labs: Laboratory Results - last 24 hr 08/07/17 08/08/17 08/08/17 15:54 07:07 11:11 POC Glucose (mg/dL) 113 H 136 H 146 H
--- NOTE | 2017-08-08 23:58 | CP.PCM.PN ---
Subjective - Date & Time of Evaluation Date of Evaluation: 08/08/17 Time of Evaluation: 22:00 - Subjective Subjective: Internal Medicine/Infectious Disease H&P: August 08, 2017 67 yo AA female presenting with left lower leg pain recently debrided secondary to enlarging ulceration after splinter removal. The patient with severe pain in the left lower calf that she rates as 9-10 out of 10 and inability to sleep secondary to the pain. The patient was seen by Dr. Merlos of surgery and Dr. rBuce Castro of Interventional Radiology. No further surgery at this time or invasive IR procedures warranted at this point in time. Leg pain has decreased somewhat with Lyrica. Patient took one Morphine oral dose at 5AM. No further doses since. Objective - Vital Signs/Intake and Output Vital Signs (last 24 hours): Temp Pulse Resp BP Pulse Ox 98.8 F 83 20 164/93 H 96 08/08/17 14:00 08/08/17 14:00 08/08/17 14:00 08/08/17 14:00 08/08/17 14:00 - Medications Medications: Current Medications Ferrous Gluconate (Fergon) 324 mg PO TID [facility] Last Admin: 08/08/17 17:32 Dose: 324 mg Hydrochlorothiazide (Microzide) 12.5 mg PO DAILY [facility] Last Admin: 08/08/17 09:22 Dose: 12.5 mg Cefepime HCl (Maxipime 1gm) 1 gm in 100 mls @ 100 mls/hr IVPB Q24H [facility] PRN Reason: Protocol Last Admin: 08/08/17 09:23 Dose: 100 mls/hr Lisinopril (Zestril) 40 mg PO DAILY [facility] Last Admin: 08/08/17 12:31 Dose: 40 mg Morphine Sulfate (Morphine) 2 mg IVP Q6H PRN PRN Reason: Pain, severe (8-10) Nifedipine (Procardia Xl) 90 mg PO DAILY [facility] Last Admin: 08/08/17 09:23 Dose: 90 mg Oxycodone/Acetaminophen (Percocet 5/325 Mg Tab) 1 tab PO Q12H PRN PRN Reason: Pain, moderate (4-7) Stop: 08/10/17 15:11 Last Admin: 08/07/17 15:27 Dose: 1 tab Pregabalin (Lyrica) 50 mg PO BID [facility] Last Admin: 08/08/17 17:28 Dose: 50 mg Vitamin B Complex/Vit C/Folic Acid (Nephro-Jerry) 1 tab PO 0800 [facility] - Labs Labs: PT 12.4 SECONDS (9.4-12.5) 08/07/17 09:20 INR 1.08 (0.93-1.08) 08/07/17 09:20 APTT 32.2 Seconds (25.1-36.5) 08/07/17 09:20 - Constitutional Appears: Non-toxic, No Acute Distress, Chronically Ill - Head Exam Head Exam: ATRAUMATIC, NORMOCEPHALIC - Eye Exam Eye Exam: EOMI, PERRL Pupil Exam: NORMAL ACCOMODATION, PERRL - ENT Exam ENT Exam: Mucous Membranes Moist, Normal External Ear Exam, TM's Normal Bilaterally - Neck Exam Neck Exam: Full ROM, Normal Inspection - Respiratory Exam Respiratory Exam: Clear to Ausculation Bilateral, NORMAL BREATHING PATTERN. absent: Rales, Rhonchi, Wheezes - Cardiovascular Exam Cardiovascular Exam: REGULAR RHYTHM, RRR, +S1, +S2 - GI/Abdominal Exam GI & Abdominal Exam: Soft, Normal Bowel Sounds. absent: Distended, Tenderness - Extremities Exam Additional comments: 4x3x1 cm wound on the posterior lower left leg at site of a splinter removal. The patient with ng tissue with continued pain and swelling. No drainage. No fevers. Debrided 07/20/2017. Wound vac. - Neurological Exam Neurological Exam: Alert, Awake, CN II-XII Intact, Oriented x3 - Psychiatric Exam Psychiatric exam: Normal Affect, Normal Mood - Skin Additional comments: As above. Assessment and Plan - Assessment and Plan (Free Text) Assessment: 67 yo AA female with recent splinter in the left lower posterior calf removed in an urgent care center and developed infection and led to ulcerations of the site. The patient needed debridement of the ulceration. The patient was having difficulty with tolerating the wound vac secondary to persistent nerve pain. Came back to [facility] [place] worsening pain in the debrided ulceration area. Noted consultation with Dr. Cesar. Lisinopril restarted. At this time, no further surgical intervention or invasive interventional radiology procedures. Lyrica appears to have helped with the pain. Supportive care. Pain management and local wound care.
[2017-08-09] MEDS: Multivitamin Vitamin B Complex (Nephro-Vite) Tab PO SCH (08:07)
[2017-08-09] MEDS: NIFEdipine 90 mg ER Tab PO SCH (09:25)
[2017-08-09] MEDS: Oxycodone/Acetaminophen 5/325 mg Tab PO PRN ×2 (09:31→21:08)
[2017-08-09] MEDS: Cefepime 1gm in NS 100ml 1 GM/100 ML BAG IVPB SCH (09:34)
--- NOTE | 2017-08-09 11:26 | CP.PCM.PCO ---
Physician Communication Note - Physician Communication Note Physician Communication Note: OK D/C with wound [id number] f/[id number]
--- NOTE | 2017-08-09 15:08 | CP.PCM.PN ---
Subjective - Date & Time of Evaluation Date of Evaluation: 08/09/17 Time of Evaluation: 13:30 - Subjective Subjective: Internal Medicine/Infectious Disease Progress Note: August 09, 2017 67 yo AA female presenting with left lower leg pain recently debrided secondary to enlarging ulceration after splinter removal. The patient with severe pain in the left lower calf that she rates as 9-10 out of 10 and inability to sleep secondary to the pain. The patient was seen by Dr. Merlos of surgery and Dr. Bruce Castro of Interventional Radiology. No further surgery at this time or invasive IR procedures warranted at this point in time. Leg pain has decreased somewhat with Lyrica. Patient took one Morphine oral dose at 5AM yesterday. No further doses since. Pain appears to be in better control. Objective - Vital Signs/Intake and Output Vital Signs (last 24 hours): Temp Pulse Resp BP Pulse Ox 98.4 F 81 21 141/83 94 L 08/09/17 06:00 08/09/17 06:00 08/09/17 06:00 08/09/17 06:00 08/09/17 06:00 Intake and Output: 08/09/17 08/09/17 06:59 18:59 Intake Total 240 960 Balance 240 960 - Medications Medications: Current Medications Ferrous Gluconate (Fergon) 324 mg PO TID [facility] Last Admin: 08/09/17 09:24 Dose: 324 mg Hydrochlorothiazide (Microzide) 12.5 mg PO DAILY [facility] Last Admin: 08/09/17 09:25 Dose: 12.5 mg Cefepime HCl (Maxipime 1gm) 1 gm in 100 mls @ 100 mls/hr IVPB Q24H [facility] PRN Reason: Protocol Last Admin: 08/09/17 09:34 Dose: 100 mls/hr Lisinopril (Zestril) 40 mg PO DAILY [facility] Last Admin: 08/09/17 09:25 Dose: 40 mg Morphine Sulfate (Morphine) 2 mg IVP Q6H PRN PRN Reason: Pain, severe (8-10) Last Admin: 08/09/17 05:45 Dose: 2 mg Mupirocin (Bactroban Ointment) 0 gm TOP BID [facility] Last Admin: 08/09/17 09:25 Dose: 1 applic Nifedipine (Procardia Xl) 90 mg PO DAILY [facility] Last Admin: 08/09/17 09:25 Dose: 90 mg Oxycodone/Acetaminophen (Percocet 5/325 Mg Tab) 1 tab PO Q12H PRN PRN Reason: Pain, moderate (4-7) Stop: 08/10/17 15:11 Last Admin: 08/09/17 09:31 Dose: 1 tab Pregabalin (Lyrica) 50 mg PO BID [facility] Last Admin: 08/09/17 09:24 Dose: 50 mg Vitamin B Complex/Vit C/Folic Acid (Nephro-Jerry) 1 tab PO 0800 [facility] Last Admin: 08/09/17 08:07 Dose: 1 tab - Labs Labs: PT 12.4 SECONDS (9.4-12.5) 08/07/17 09:20 INR 1.08 (0.93-1.08) 08/07/17 09:20 APTT 32.2 Seconds (25.1-36.5) 08/07/17 09:20 - Constitutional Appears: Non-toxic, No Acute Distress, Chronically Ill - Head Exam Head Exam: ATRAUMATIC, NORMOCEPHALIC - Eye Exam Eye Exam: EOMI, PERRL Pupil Exam: NORMAL ACCOMODATION, PERRL - ENT Exam ENT Exam: Mucous Membranes Moist, Normal External Ear Exam, TM's Normal Bilaterally - Neck Exam Neck Exam: Full ROM, Normal Inspection - Respiratory Exam Respiratory Exam: Clear to Ausculation Bilateral, NORMAL BREATHING PATTERN. absent: Rales, Rhonchi, Wheezes - Cardiovascular Exam Cardiovascular Exam: REGULAR RHYTHM, RRR, +S1, +S2 - GI/Abdominal Exam GI & Abdominal Exam: Soft, Normal Bowel Sounds. absent: Distended, Tenderness - Extremities Exam Additional comments: 4x3x1 cm wound on the posterior lower left leg at site of a splinter removal. The patient with ng tissue with continued pain and swelling. No drainage. No fevers. Debrided 07/20/2017. Wound vac. - Neurological Exam Neurological Exam: Alert, Awake, CN II-XII Intact, Oriented x3 - Psychiatric Exam Psychiatric exam: Normal Affect, Normal Mood - Skin Additional comments: As above. Assessment and Plan - Assessment and Plan (Free Text) Assessment: 67 yo AA female with recent splinter in the left lower posterior calf removed in an urgent care center and developed infection and led to ulcerations of the site. The patient needed debridement of the ulceration. The patient was having difficulty with tolerating the wound vac secondary to persistent nerve pain. Came back to [facility] [place] for worsening pain in the debrided ulceration area. Noted consultation with Dr. Cesar. Lisinopril restarted. At this time, no further surgical intervention or invasive interventional radiology procedures. Lyrica appears to have helped with the pain. Plan for discharge in next 24-48 if pain control is adequate. Supportive care. Pain management and local wound care.
--- NOTE | 2017-08-09 15:19 | CP.PCM.PN ---
Subjective - Date & Time of Evaluation Date of Evaluation: 08/09/17 Time of Evaluation: 15:17 - Subjective Subjective: Nephrology Consultation Note: Assessment: Stable Left leg wound/ulcer Status post debridement and wound VAC now with intractable pain Acute Kidney Injury (N17.9) resolved Hypertensive Chronic Kidney Disease (I12.9) Chronic Kidney Disease (N18.3) Stage 3 with 130 mg albuminuria likely due to HTN /DM Diabetic kidney Disease (E11.22) hx of CAD, CVA Anemia possible PVD Vitamin D deficiency Plan No acute need for renal replacement therapy at this time. stable renal fxn Hypertension control with meds as ordered. pt was on ACEI as lisinopril 40 mg/ day (resume). If BP stays persistently high (>140/90) then can increase procardia to 120 mg/day. continue with statins Added iron supplementation multivitamin and continue with weekly vitamin D pt advised to stop naproxen Dose meds/antibiotics for reduced GFR. Avoid fleets enema/magnesium based laxatives. Avoid nephrotoxins/NSAIDs/ iodinated contrast (unless needed emergently) Glycemic control Further work up/management as per primary team pt stable for d/c from renal perspective when planned Thanks for allowing me to participate in care of your patient. Will follow patient with you. Please call if any Qs. Dr Fernie Cesar Office: [phone] Chief Complaint; left leg non healing wound with pain and burning Reason for consult: renal insuff HPI: Pt is a 67 y/o F with hx of diabetes Mellitus , hypertension (x 3 years), hx of CAD/DE and stroke in past presented with complaints of non healing painful left leg wound/ulcer with burning sensation. she is s/p wound debridement. renal consult for CKD management. she has baseline ckd 3 with cr 1.4-1.7 range with intermittent episodes of JASON Denies chest pain, palpitation, shortness of breath, leg swelling Denies blood or bubbles in urine Denies OTC/herbal meds or NSAIDs. No recent iodinated contrast exposure. No obvious episodes of low BP. c/o burning pain over wound ROS: Constitutional Symptoms: Denies fever. No chills. No Recent Weight Changes Cardiovascular: No chest pain. No palpitations. Pulmonary: No shortness of breath no cough. All other negative except as in HPI Physical Examination: General Appearance: Comfortable, in no acute respiratory distress, co-operative . Vitals reviewed and noted as below Head; Atraumatic, normocephalic ENT: no ulcers no thrush. Tongue is midline appears dry and coated. Oropharynx: no rash or ulcers. EYES: Pupils are equal, round and reactive to light accommodation. Eye muscles and extraocular movement intact. Sclera is anicteric. Neck; supple no lymphadenopathy, no thyromegaly or bruit Lungs: Normal respiratory rate/effort. Breath sounds bilateral equal and clear Heart: Normal rate. s1s2 normal. No rub or gallop. Extremities: no edema. No varicose veins. left leg posterior aspect wound/ulcer + dressed Neurological: Patient is alert, awake and oriented to person, place and time. No focal deficit. Strength bilateral appropriate and equal Skin: Warm and dry. Normal turgor. No rash. Palpitation: Normal elasticity for age Abdomen: Abdomen is soft. Bowel sounds +. There is lower abdominal tenderness, no guarding/rigidity no organomegaly Psych: normal insight and normal affect/mood MSK: no joint tenderness or swelling. Digits and nails normal, no deformity : kidney or bladder not palpable Labs/imaging/EKG reviewed. Past medical history, past surgical history, family history, social history, allergy reviewed and noted as below Family hx: no hx of CKD. Rest non-contributory Work up; CT abdomen 2017: unremarkable kidneys/bladder/adrenals. Vitamin D 18 PTH 48 Iron saturation 25% ferritin 157 Objective - Vital Signs/Intake and Output Vital Signs (last 24 hours): Temp Pulse Resp BP Pulse Ox 98.4 F 81 21 141/83 94 L 08/09/17 06:00 08/09/17 06:00 08/09/17 06:00 08/09/17 06:00 08/09/17 06:00 Intake and Output: 08/09/17 08/09/17 06:59 18:59 Intake Total 240 960 Balance 240 960 - Medications Medications: Current Medications Ferrous Gluconate (Fergon) 324 mg PO TID [facility] 234 BEDS AT [facility] Last Admin: 08/09/17 15:07 Dose: 324 mg Hydrochlorothiazide (Microzide) 12.5 mg PO DAILY [facility] 234 BEDS AT [facility] Last Admin: 08/09/17 09:25 Dose: 12.5 mg Cefepime HCl (Maxipime 1gm) 1 gm in 100 mls @ 100 mls/hr IVPB Q24H [facility] PRN Reason: Protocol Last Admin: 08/09/17 09:34 Dose: 100 mls/hr Lisinopril (Zestril) 40 mg PO DAILY [facility] 234 BEDS AT [facility] Last Admin: 08/09/17 09:25 Dose: 40 mg Morphine Sulfate (Morphine) 2 mg IVP Q6H PRN PRN Reason: Pain, severe (8-10) Last Admin: 08/09/17 05:45 Dose: 2 mg Mupirocin (Bactroban Ointment) 0 gm TOP BID [facility] 234 BEDS AT [facility] Last Admin: 08/09/17 09:25 Dose: 1 applic Nifedipine (Procardia Xl) 90 mg PO DAILY [facility] 234 [facility]S [facility] Last Admin: 08/09/17 09:25 Dose: 90 mg Oxycodone/Acetaminophen (Percocet 5/325 Mg Tab) 1 tab PO Q12H PRN PRN Reason: Pain, moderate (4-7) Stop: 08/10/17 15:11 Last Admin: 08/09/17 09:31 Dose: 1 tab Pregabalin (Lyrica) 50 mg PO BID [facility] 234 [facility]S [facility] Last Admin: 08/09/17 09:24 Dose: 50 mg Vitamin B Complex/Vit C/Folic Acid (Nephro-Jerry) 1 tab PO 0800 [facility] 234 B[facility]S [facility] Last Admin: 08/09/17 08:07 Dose: 1 tab - Labs Labs: PT 12.4 SECONDS (9.4-12.5) 08/07/17 09:20 INR 1.08 (0.93-1.08) 08/07/17 09:20 APTT 32.2 Seconds (25.1-36.5) 08/07/17 09:20
[2017-08-09] MEDS: Morphine 4 mg/ml ISec IVP PRN (17:39)
[2017-08-09 22:05] VITALS: RESP 20
[2017-08-10] MEDS: Morphine 4 mg/ml ISec IVP PRN (04:50)
[2017-08-10 07:47] VITALS: BP 119/91; PULSE 80; TEMP 98.1; O2SAT 95
[2017-08-10] MEDS: Multivitamin Vitamin B Complex (Nephro-Vite) Tab PO SCH (08:41)
[2017-08-10] MEDS: NIFEdipine 90 mg ER Tab PO SCH (10:35)
[2017-08-10] MEDS: Cefepime 1gm in NS 100ml 1 GM/100 ML BAG IVPB SCH (10:35)
--- NOTE | 2017-08-10 11:09 | CP.PCM.PCO ---
Physician Communication Note - Physician Communication Note Physician Communication Note: Plan wound vac home for marcel
--- NOTE | 2017-08-10 15:05 | CP.PCM.PN ---
Subjective - Date & Time of Evaluation Date of Evaluation: 08/10/17 Time of Evaluation: 15:04 - Subjective Subjective: Nephrology Consultation Note: Assessment: Stable Left leg wound/ulcer Status post debridement and wound VAC now with intractable pain Acute Kidney Injury (N17.9) resolved Hypertensive Chronic Kidney Disease (I12.9) Chronic Kidney Disease (N18.3) Stage 3 with 130 mg albuminuria likely due to HTN /DM Diabetic kidney Disease (E11.22) hx of CAD, CVA Anemia possible PVD Vitamin D deficiency Plan No acute need for renal replacement therapy at this time. stable renal fxn Hypertension control with meds as ordered. pt was on ACEI as lisinopril 40 mg/ day (resume). If BP stays persistently high (>140/90) then can increase procardia to 120 mg/day. continue with statins Added iron supplementation multivitamin and continue with weekly vitamin D pt advised to stop naproxen Dose meds/antibiotics for reduced GFR. Avoid fleets enema/magnesium based laxatives. Avoid nephrotoxins/NSAIDs/ iodinated contrast (unless needed emergently) Glycemic control Further work up/management as per primary team pt stable for d/c from renal perspective when planned. she was advised to f/up with me in 1-2 weeks Thanks for allowing me to participate in care of your patient. Will follow patient with you. Please call if any Qs. Dr Fernie Cesar Office: [phone] Chief Complaint; left leg non healing wound with pain and burning Reason for consult: renal insuff HPI: Pt is a 67 y/o F with hx of diabetes Mellitus , hypertension (x 3 years), hx of CAD/VT and stroke in past presented with complaints of non healing painful left leg wound/ulcer with burning sensation. she is s/p wound debridement. renal consult for CKD management. she has baseline ckd 3 with cr 1.4-1.7 range with intermittent episodes of JASON Denies chest pain, palpitation, shortness of breath, leg swelling Denies blood or bubbles in urine Denies OTC/herbal meds or NSAIDs. No recent iodinated contrast exposure. No obvious episodes of low BP. c/o burning pain over wound which is better and improved ROS: Constitutional Symptoms: Denies fever. No chills. No Recent Weight Changes Cardiovascular: No chest pain. No palpitations. Pulmonary: No shortness of breath no cough. All other negative except as in HPI Physical Examination: General Appearance: Comfortable, in no acute respiratory distress, co-operative . Vitals reviewed and noted as below Head; Atraumatic, normocephalic ENT: no ulcers no thrush. Tongue is midline appears dry and coated. Oropharynx: no rash or ulcers. EYES: Pupils are equal, round and reactive to light accommodation. Eye muscles and extraocular movement intact. Sclera is anicteric. Neck; supple no lymphadenopathy, no thyromegaly or bruit Lungs: Normal respiratory rate/effort. Breath sounds bilateral equal and clear Heart: Normal rate. s1s2 normal. No rub or gallop. Extremities: no edema. No varicose veins. left leg posterior aspect wound/ulcer + dressed Neurological: Patient is alert, awake and oriented to person, place and time. No focal deficit. Strength bilateral appropriate and equal Skin: Warm and dry. Normal turgor. No rash. Palpitation: Normal elasticity for age Abdomen: Abdomen is soft. Bowel sounds +. There is lower abdominal tenderness, no guarding/rigidity no organomegaly Psych: normal insight and normal affect/mood MSK: no joint tenderness or swelling. Digits and nails normal, no deformity : kidney or bladder not palpable Labs/imaging/EKG reviewed. Past medical history, past surgical history, family history, social history, allergy reviewed and noted as below Family hx: no hx of CKD. Rest non-contributory Work up; CT abdomen 2017: unremarkable kidneys/bladder/adrenals. Vitamin D 18 PTH 48 Iron saturation 25% ferritin 157 Objective - Vital Signs/Intake and Output Vital Signs (last 24 hours): Temp Pulse Resp BP Pulse Ox 98.1 F 80 20 119/91 H 95 08/10/17 07:46 08/10/17 07:46 08/10/17 07:46 08/10/17 07:46 08/10/17 07:46 Intake and Output: 08/10/17 08/10/17 06:59 18:59 Intake Total 960 760 Balance 960 760 - Medications Medications: Current Medications Ferrous Gluconate (Fergon) 324 mg PO TID [facility] Last Admin: 08/10/17 14:13 Dose: Not Given Hydrochlorothiazide (Microzide) 12.5 mg PO DAILY [facility] Last Admin: 08/10/17 10:35 Dose: 12.5 mg Cefepime HCl (Maxipime 1gm) 1 gm in 100 mls @ 100 mls/hr IVPB Q24H [facility] PRN Reason: Protocol Last Admin: 08/10/17 10:35 Dose: 100 mls/hr Lisinopril (Zestril) 40 mg PO DAILY [facility] Last Admin: 08/10/17 10:35 Dose: 40 mg Morphine Sulfate (Morphine) 2 mg IVP Q6 PRN PRN Reason: PAIN SEVERE [8-10] Last Admin: 08/10/17 04:50 Dose: 2 mg Mupirocin (Bactroban Ointment) 0 gm TOP BID [facility] Last Admin: 08/10/17 14:13 Dose: Not Given Nifedipine (Procardia Xl) 90 mg PO DAILY [facility] Last Admin: 08/10/17 10:35 Dose: 90 mg Oxycodone/Acetaminophen (Percocet 5/325 Mg Tab) 1 tab PO Q12H PRN PRN Reason: Pain, moderate (4-7) Stop: 08/10/17 15:11 Last Admin: 08/09/17 21:08 Dose: 1 tab Pregabalin (Lyrica) 50 mg PO BID [facility] Last Admin: 08/10/17 10:35 Dose: 50 mg Vitamin B Complex/Vit C/Folic Acid (Nephro-Jerry) 1 tab PO 0800 [facility] Last Admin: 08/10/17 08:41 Dose: 1 tab - Labs Labs: PT 12.4 SECONDS (9.4-12.5) 08/07/17 09:20 INR 1.08 (0.93-1.08) 08/07/17 09:20 APTT 32.2 Seconds (25.1-36.5) 08/07/17 09:20
--- NOTE | 2017-08-10 17:28 | CP.PCM.DIS ---
Provider - Provider Date of Admission: 08/08/17 23:08 Attending physician: Sylvester Frank MD Primary care physician: Sylvester Frank MD Consults: Surgery - Dr. Sylvester Merlos Interventional Radiology - Dr. Bruce Castro Nephrology - Dr. Fernie Cesar Time Spent in preparation of Discharge (in minutes): 35 Hospital Course - Lab Results Lab Results: Most Recent Lab Values WBC 13.6 10^3/ul (4.5-11.0) H D 08/07/17 09:30 RBC 4.12 10^6/uL (3.5-6.1) 08/07/17 09:30 Hgb 11.0 g/dL (12.0-16.0) L 08/07/17 09:30 Hct 32.9 % (36.0-48.0) L 08/07/17 09:30 MCV 79.9 fl (80.0-105.0) L 08/07/17 09:30 MCH 26.7 pg (25.0-35.0) 08/07/17 09:30 MCHC 33.4 g/dl (31.0-37.0) 08/07/17 09:30 RDW 14.2 % (11.5-14.5) 08/07/17 09:30 Plt Count 379 10^3/uL (120.0-450.0) 08/07/17 09:30 MPV 10.2 fl (7.0-11.0) 08/07/17 09:30 Gran % 71.9 % (50.0-68.0) H 08/07/17 09:30 Lymph % (Auto) 21.2 % (22.0-35.0) L 08/07/17 09:30 [place] % (Auto) 3.5 % (1.0-6.0) 08/07/17 09:30 Eos % (Auto) 3.1 % (1.5-5.0) 08/07/17 09:30 Baso % (Auto) 0.3 % (0.0-3.0) 08/07/17 09:30 Gran # 9.75 (1.4-6.5) H 08/07/17 09:30 Lymph # (Auto) 2.9 (1.2-3.4) 08/07/17 09:30 [place] # (Auto) 0.5 (0.1-0.6) 08/07/17 09:30 Eos # (Auto) 0.4 (0.0-0.7) 08/07/17 09:30 Baso # (Auto) 0.04 K/mm3 (0.0-2.0) 08/07/17 09:30 PT 12.4 SECONDS (9.4-12.5) 08/07/17 09:20 INR 1.08 (0.93-1.08) 08/07/17 09:20 APTT 32.2 Seconds (25.1-36.5) 08/07/17 09:20 Sodium 145 mmol/L (132-148) 08/07/17 09:30 Potassium 3.1 mmol/L (3.6-5.0) L 08/07/17 09:30 Chloride 103 mmol/L (98-107) 08/07/17 09:30 Carbon Dioxide 26 mmol/L (21-33) 08/07/17 09:30 Anion Gap 19 (10-20) 08/07/17 09:30 BUN 31 mg/dL (7-21) H 08/07/17 09:30 Creatinine 1.7 mg/dl (0.7-1.2) H 08/07/17 09:30 Est GFR ( Amer) 36 08/07/17 09:30 Est GFR (Non-Af Amer) 30 08/07/17 09:30 POC Glucose (mg/dL) 215 mg/dL (65-110) H 08/10/17 11:18 Random Glucose 181 mg/dL (70-110) H 08/07/17 09:30 Calcium 9.8 mg/dL (8.4-10.5) 08/07/17 09:30 Total Bilirubin 0.3 mg/dL (0.2-1.3) 08/07/17 09:30 AST 37 U/L (14-36) H D 08/07/17 09:30 ALT 24 U/L (7-56) 08/07/17 09:30 Alkaline Phosphatase 99 U/L (38-126) 08/07/17 09:30 Total Protein 9.1 g/dL (5.8-8.3) H 08/07/17 09:30 Albumin 4.7 g/dL (3.0-4.8) 08/07/17 09:30 Globulin 4.4 gm/dL 08/07/17 09:30 Albumin/Globulin Ratio 1.1 (1.1-1.8) 08/07/17 09:30 - Hospital Course Hospital Course: Internal Medicine/Infectious Disease Progress Note: August 10, 2017 67 yo AA female presenting with left lower leg pain recently debrided secondary to enlarging ulceration after splinter removal. The patient with severe pain in the left lower calf that she rates as 9-10 out of 10 and inability to sleep secondary to the pain. The patient was seen by Dr. Merlos of surgery and Dr. Bruce Castro of Interventional Radiology. No further surgery at this time or invasive IR procedures warranted at this point in time. Leg pain has decreased somewhat with Lyrica. Patient took two Morphine oral doses over the past 24 hours. Pain appears to be in better control since addition of Lyrica. - Date & Time of H&P Date of H&P: 08/07/17 Time of H&P: 23:49 Discharge Exam - Head Exam Head Exam: ATRAUMATIC, NORMAL INSPECTION, NORMOCEPHALIC - Eye Exam Eye Exam: EOMI, PERRL Pupil Exam: NORMAL ACCOMODATION, PERRL - ENT Exam ENT Exam: Mucous Membranes Moist, Normal External Ear Exam, TM's Normal Bilaterally - Neck Exam Neck exam: Full Rom, Normal Inspection - Respiratory Exam Respiratory Exam: Clear to PA & Lateral, NORMAL BREATHING PATTERN. absent: Rales, Rhonchi, Wheezes - Cardiovascular Exam Cardiovascular Exam: REGULAR RHYTHM, RRR, +S1, +S2 - GI/Abdominal Exam GI & Abdominal Exam: Normal Bowel Sounds, Soft. absent: Distended, Tenderness - Extremities Exam Additional comments: 4x3x1 cm wound on the posterior lower left leg at site of a splinter removal. The patient with ng tissue with continued pain and swelling. No drainage. No fevers. Debrided 07/20/2017. Wound vac. - Neurological Exam Neurological exam: Alert, CN II-XII Intact, Oriented x3 - Psychiatric Exam Psychiatric exam: Normal Affect, Normal Mood - Skin Additional comments: As above Discharge Plan - Discharge Medications Prescriptions: Mupirocin 2% Ointment [Bactroban Ointment] 0 gm TOP BID 30 Days tube Ciprofloxacin [Cipro] 500 mg PO Q12H 7 Days #14 tab Ferrous Gluconate [Fergon] 324 mg PO TID 30 Days #90 tab Pregabalin [Lyrica] 50 mg PO BID #30 cap hydroCHLOROthiazide [Microzide] 12.5 mg PO DAILY 30 Days #30 cap Vitamin B Complex/Vit C/Folic [Nephro-Jerry] 1 tab PO 0800 #30 tab Lisinopril [Zestril] 40 mg PO DAILY 30 Days #30 tab - Follow Up Plan Condition: STABLE Disposition: HOME/ ROUTINE Instructions: Heart Healthy Diet, Peripheral Vascular (Arterial) Disease (DC), Preventing Falls, Wound Infection, Negative Pressure Wound Therapy Additional Instructions: Cleanse with saline, apply bactroban. Change wound vac every 3-4 days with 100mmttg pressure. Follow up with primary care provider. Take medications as directed. Return to local ER if symptoms worsen. 67 yo AA female with recent splinter in the left lower posterior calf removed in an urgent care center and developed infection and led to ulcerations of the site. The patient needed debridement of the ulceration. The patient was having difficulty with tolerating the wound vac secondary to persistent nerve pain. Came back to [facility] for worsening pain in the debrided ulceration area. Continue with Lyrica. Lisinopril restarted. NSAIDs stopped. Supportive care. Pain management and local wound care. Follow up in my office in 1 week.
== END 2017-08-10 15:11 | disposition home or self-care (01) | DRG 593 ==
LOC: ED 08:20 → ERH 10:03 → 5RNO 12:19 → OBSVTOIN 08-08 23:08
PROVIDERS: ADMIT Internal Medicine Infectious Disease; ATTEND Internal Medicine Infectious Disease
DX: L97.229 Non-pressure chronic ulcer of left calf with unspecified severity (principal); N17.9 Acute kidney failure, unspecified; I25.10 Atherosclerotic heart disease of native coronary artery without angina pectoris; E11.22 Type 2 diabetes mellitus with diabetic chronic kidney disease; N18.3 Chronic kidney disease, stage 3 (moderate); E11.622 Type 2 diabetes mellitus with other skin ulcer; E11.42 Type 2 diabetes mellitus with diabetic polyneuropathy; E55.9 Vitamin D deficiency, unspecified; I12.9 Hypertensive chronic kidney disease with stage 1 through stage 4 chronic kidney disease, or unspecified chronic kidney disease; D64.9 Anemia, unspecified; I25.2 Old myocardial infarction; Z86.73 Personal history of transient ischemic attack (TIA), and cerebral infarction without residual deficits; Z79.82 Long term (current) use of aspirin

== ENCOUNTER 2017-08-12 09:07 | Observation (INO) | payer MEDICARE, BC ==
[2017-08-12 09:07] VITALS: BMI 21.6
--- NOTE | 2017-08-12 09:57 | ED PDOC ---
Arrival/HPI - General Historian: Patient <Benjie Guerra - Last Filed: 08/12/17 12:50> <Dasha Joiner - Last Filed: 08/12/17 15:45> - General Chief Complaint: Lower Extremity Problem/Injury Time Seen by Provider: 08/12/17 09:36 - History of Present Illness Narrative History of Present Illness (Text): 08/12/17 09:41 67 y/o female, pmh including renal failure history/pvd/htn/cva/dm, nkda except EGG leads?, c/o worsening of the pain on the left lower calf for the past 2 days. Pt. stated that she had a splinter removal from the lt. posterior calf, removed and infected which she started on the keflex and now on the ciprofloxacin, stated that she has been taking her medication at home around the clock, still in pain, came to the ER for evaluation and the pmd is infectious disease Dr. Frank. Pt. has no chest pain or shortness of breath, no palpitation, no fever or chills, no night sweat, no other medical or psychological complaints. (Benjie Guerra) Past Medical History - Provider Review Nursing Documentation Reviewed: Yes - Infectious Disease Hx of Infectious Diseases: None - Cardiac Hx Cardiac Disorders: Yes Hx Hypertension: Yes - Pulmonary Hx Respiratory Disorders: No - Neurological HX Cerebrovascular Accident: Yes - HEENT Hx HEENT Disorder: Yes Hx Blind: Yes - Renal Hx Renal Disorder: No - Endocrine/Metabolic Hx Diabetes Mellitus Type 2: Yes - Hematological/Oncological Hx Cancer: No - Integumentary Hx Dermatological Disorder: Yes - Musculoskeletal/Rheumatological Hx Falls: No - Gastrointestinal Hx Gastrointestinal Disorders: No - Genitourinary/Gynecological Hx Genitourinary Disorders: No Hx Reproductive Disorders: No - Psychiatric Hx Psychophysiologic Disorder: No Hx Substance Use: No - Surgical History Hx Mastectomy: No Other/Comment: had recent procedure left lower leg [address] Merlos - Anesthesia Hx Anesthesia: Yes Hx Anesthesia Reactions: No Hx Malignant Hyperthermia: No - Suicidal Assessment Feels Threatened In Home Enviroment: No <Benjie Guerra - Last Filed: 08/12/17 12:50> Family/Social History - Physician Review Nursing Documentation Reviewed: Yes Family/Social History: Unknown Family HX Smoking Status: Never Smoked Hx Alcohol Use: No Hx Substance Use: No <Benjie Guerra - Last Filed: 08/12/17 12:50> Allergies/Home Meds <Benjie Guerra - Last Filed: 08/12/17 12:50> <Dulce Maria Joinermayo - Last Filed: 08/12/17 15:45> Allergies/Adverse Reactions: Allergies EGG Allergy (Intermediate, Verified 08/12/17 14:04) RASH Home Medications: Home Meds Medication Instructions Recorded Confirmed Nifedipine [Nifedipine ER] 90 mg PO DAILY 07/03/13 08/12/17 Aspirin [Ecotrin] 81 mg PO DAILY 11/15/16 08/12/17 metFORMIN [glucOPHAGE] 500 mg PO BID 08/12/17 08/12/17 Review of Systems - Review of Systems Constitutional: absent: Fatigue, Fevers Eyes: absent: Vision Changes ENT: absent: Hearing Changes Respiratory: absent: SOB, Cough Cardiovascular: absent: Chest Pain Gastrointestinal: absent: Abdominal Pain, Nausea, Vomiting Skin: Skin Lesions, Ulcer. absent: Rash, Pruritis Neurological: absent: Headache, Dizziness <Benjie Guerra - Last Filed: 08/12/17 12:50> Physical Exam Vital Signs Reviewed: Yes Temperature: Afebrile Blood Pressure: Normal Pulse: Regular Respiratory Rate: Normal Appearance: Positive for: Well-Appearing, Non-Toxic, Comfortable Pain Distress: Moderate Mental Status: Positive for: Alert and Oriented X 3 - Systems Exam Head: Present: Atraumatic, Normocephalic Pupils: Present: PERRL Extroacular Muscles: Present: EOMI Conjunctiva: Present: Normal Mouth: Present: Moist Mucous Membranes Neck: Present: Normal Range of Motion Respiratory/Chest: Present: Clear to Auscultation, Good Air Exchange. No: Respiratory Distress, Accessory Muscle Use Cardiovascular: Present: Regular Rate and Rhythm, Normal S1, S2. No: Murmurs Abdomen: No: Tenderness, Distention, Peritoneal Signs Back: Present: Normal Inspection Upper Extremity: Present: Normal Inspection. No: Cyanosis, Edema Lower Extremity: Present: Normal Inspection. No: Edema Neurological: Present: GCS=15, Speech Normal, Motor Func Grossly Intact, Gait Normal, Memory Normal Skin: Present: Warm, Dry, Rashes (Lt. lower posterior calf region noted to have [id number] superficial ulcerated wound with mukherjee color wound edges but erythematous noted on the medial aspect noted on the surrounding, negative monroe signs. ), Normal Color Psychiatric: Present: Alert, Oriented x 3, Normal Insight, Normal Concentration <Benjie Guerra - Last Filed: 08/12/17 12:50> Vital Signs Temp Pulse Resp BP Pulse Ox 08/12/17 13:00 80 17 125/70 99 08/12/17 11:56 86 18 123/69 98 08/12/17 09:17 98.6 F 92 H 19 125/71 98 Medical Decision Making - RAD Interpretation [place]: Radiologist - EKG Interpretation Interpreted by ED Physician: Yes Type: 12 lead EKG Comparison: Com.w/previous EKG <Benjie Guerra - Last Filed: 08/12/17 12:50> <Dasha Joiner - Last Filed: 08/12/17 15:45> ED Course and Treatment: 08/12/17 09:59 -Labs/blood and wound culture/ua/uc/CK -CXR -LLE venuous doppler -EKG -IV antibiotics (clindamycin for MRSA and zosyn)/morphine/zofran prn -Observe and reassesss 08/12/17 11:41 -EKG: NSR @ 77 BPM, no ST elevation or depression, no T wave inversion. -Chest xray show no active disease -LLE Venuous Doppler: as per preliminary, no acute DVT -Labs show no acute findings except BUN 29 and creatine 1.6, K+ 3.3 (potassium chloride 40meq po ordered), hgb 10.6 from 11.0 (chronic anemia) -UA show +UTI -Pt. needs admission for IV antibiotics and control the electrolyte plus new on set of UTI. She has UTI noted on the Urine. -Paging Dr. Frank for admission. 08/12/17 12:50 -Pt. still has pain, percocet ordered -I spoke to Dr. Frank about the case/labs/radiology result, agreed to admit the patient over night . (Benjie Guerra) - Lab Interpretations Lab Results: 08/12/17 10:40 08/12/17 10:40 Lab Results 08/12/17 10:40: WBC 10.7 D, RBC 4.00, Hgb 10.6 L, Hct 31.9 L, MCV 79.8 L, MCH 26.5, MCHC 33.2, RDW 14.0, Plt Count 348, MPV 9.4, Gran % 70.1 H, Lymph % (Auto ) 22.9, [place] % (Auto) 3.7, Eos % (Auto) 3.1, Baso % (Auto) 0.2, Gran # 7.49 H, Lymph # (Auto) 2.5, [place] # (Auto) 0.4, Eos # (Auto) 0.3, Baso # (Auto) 0.02 08/12/17 10:40: Sodium 143, Potassium 3.3 L, Chloride 101, Carbon Dioxide 27, Anion Gap 18, BUN 29 H, Creatinine 1.6 H, Est GFR ( Amer) 39, Est GFR ( Non-Af Amer) 32, Random Glucose 201 H, Calcium 9.3, Magnesium 2.0, Total Bilirubin 0.3, AST 39 H, ALT 20, Alkaline Phosphatase 104, Total Creatine Kinase 84, NT-Pro-B Natriuret Pep 209, Total Protein 8.9 H, Albumin 4.7, Globulin 4.1, Albumin/Globulin Ratio 1.1 08/12/17 10:15: Urine Color Yellow, Urine Appearance Cloudy, Urine pH 6.0, Ur Specific [place] 1.025, Urine Protein 100 H, Urine Glucose (UA) Negative, Urine Ketones Negative, Urine Blood Trace-intact H, Urine Nitrate Negative, Urine Bilirubin Negative, Urine Urobilinogen 0.2, Ur Leukocyte Esterase Small H, Urine RBC 1 - 3, Urine WBC 2 - 5, Ur Epithelial Cells 6 - 8, Urine Bacteria Few - RAD Interpretation Radiology Orders: 08/12/17 10:02 CHEST PORTABLE [RAD] Stat TIBIA FIBULA LEFT [RAD] Stat DUPLEX LOWER EXTRM VEIN LEFT [US] Stat Chest xray: - Left tibia/fibula xray: - LLE Venuous doppler: PROCEDURE: Left lower extremity venous US HISTORY: Leg pain and swelling. Evaluate for DVT. PHYSICIAN(S): Bruce Castro MD. TECHNIQUE: Duplex sonography and color-flow Doppler with graded compression were used to evaluate the deep venous system of the left lower extremity. FINDINGS: The visualized deep venous system of the left lower extremity is sonographically normal and compressible. Normal wave forms and augmentation are seen. There is no sonographic evidence for deep venous thrombosis in the visualized segments of the left lower extremity. IMPRESSION: 1. No sonographic evidence for deep venous thrombosis in the visualized segments of the left lower extremity. (Benjie Guerra) - EKG Interpretation EKG Interpretation (Text): 08/12/17 12:20 -EKG: NSR @ 77 BPM, no ST elevation or depression, no T wave inversion. (Benjie Guerra) - Medication Orders Current Medication Orders: Discontinued Medications Piperacillin Sod/Tazobactam Sod (Zosyn 3.375 In Ns 100ml) 100 mls @ 200 mls/hr IVPB STAT STA PRN Reason: Protocol Stop: 08/12/17 10:30 Last Admin: 08/12/17 10:16 Dose: 200 mls/hr eMAR Start Stop Document 08/12/17 10:16 SF (Rec: 08/12/17 10:17 [email or web address] Intravenous Solution Start Date 08/12/17 Start Time 10:17 End Date 08/12/17 End time 10:47 Total Infusion Time 30 Clindamycin Phosphate 600 mg/ (Sodium Chloride) 54 mls @ 108 mls/hr IVPB STAT STA PRN Reason: Protocol Stop: 08/12/17 12:07 Last Admin: 08/12/17 12:26 Dose: 108 mls/hr eMAR Start Stop Document 08/12/17 12:26 SF (Rec: 08/12/17 12:26 SF [email or web address] Intravenous Solution Start Date 08/12/17 Start Time 12:26 End Date 08/12/17 End time 13:00 Total Infusion Time 34 Morphine Sulfate (Morphine) 4 mg IVP STAT STA Stop: 08/12/17 10:02 Last Admin: 08/12/17 10:18 Dose: Morphine Sulfate (Morphine) 4 mg IVP STAT STA Stop: 08/12/17 10:12 Last Admin: 08/12/17 10:18 Dose: 4 mg MAR Pain Assessment Document 08/12/17 10:18 SF (Rec: 08/12/17 10:[address] [email or web address] Pain Reassessment Is this a pain reassessment? Yes Sleep Is patient sleeping during reassessment? No Presence of Pain Presence of Pain Yes Pain Scale Used Pain Scale Used Numeric IVP Administration Document 08/12/17 10:18 SF (Rec: 08/12/17 10:18 SF [email or web address]) Charges for Administration # of IVP Administrations 1 Ondansetron HCl (Zofran Inj) 4 mg IVP STAT STA Stop: 08/12/17 10:37 Last Admin: 08/12/17 10:39 Dose: 4 mg IVP Administration Document 08/12/17 10:39 SF (Rec: 08/12/17 10:[address] [email or web address]) Charges for Administration # of IVP Administrations 1 Oxycodone/Acetaminophen (Percocet 5/325 Mg Tab) 1 tab PO STAT STA Stop: 08/12/17 12:33 Last Admin: 08/12/17 12:40 Dose: 1 tab MAR Pain Assessment Document 08/12/17 12:40 SF (Rec: 08/12/17 12:[address] [email or web address] Pain Reassessment Is this a pain reassessment? Yes Sleep Is patient sleeping during reassessment? No Presence of Pain Presence of Pain Yes Potassium Chloride (K-Dur 20 Meq Er Tab) 40 meq PO STAT STA Stop: 08/12/17 11:42 Last Admin: 08/12/17 12:26 Dose: 40 meq - PA / PERFORATOR OPERATOR [employer] / Resident Statement MD/DO has reviewed & agrees with the documentation as recorded. <Benjie Guerra - Last Filed: 08/12/17 12:50> - PA / PERFORATOR OPERATOR [employer] / Resident Statement / has reviewed & agrees with the documentation as recorded. <Dasha Joiner - Last Filed: 08/12/17 15:45> Disposition/Present on Arrival - Present on Arrival Any Indicators Present on Arrival: No History of DVT/PE: No History of Uncontrolled Diabetes: Yes Urinary Catheter: No History of Decub. Ulcer: No History Surgical Site Infection Following: None - Disposition Have Diagnosis and Disposition been Completed?: Yes Disposition Time: 10:37 Patient Plan: Admission, Observation <Benjie Guerra - Last Filed: 08/12/17 12:50> <Dasha Joiner - Last Filed: 08/12/17 15:45> - Disposition Diagnosis: Wound, open, leg, Wound infection, Hypokalemia, UTI (urinary tract infection), Renal insufficiency Disposition: HOSPITALIZED Patient Problems: Current Active Problems Problem Status Onset Hypokalemia Acute Renal insufficiency Acute UTI (urinary tract infection) Acute Wound infection Acute Wound, open, leg Acute Condition: STABLE
[2017-08-12] MEDS ORDERED: Piperacillin/Tazobact 3.375 gm 100 ML IVPB STA (10:01)
[2017-08-12] MEDS ORDERED: Morphine 4 mg/ml ISec IVP STA (10:01)
[2017-08-12 10:33] LABS: URINE BILIRUBIN NEGATIVE (NEGATIVE); URINE BLOOD TRACE-INTACT (NEGATIVE); URINE GLUCOSE (UA) NEGATIVE (NEGATIVE); URINE LEUKOCYTE ESTERASE SMALL Leu/uL (NEGATIVE); URINE PROTEIN 100 mg/dL (<30 mg/dL); URINE UROBILINOGEN 0.2 E.U./dL (<1 E.U./dL)
[2017-08-12 10:36] LABS: URINE APPEARANCE CLOUDY (CLEAR); URINE COLOR YELLOW (YELLOW)
[2017-08-12 10:39] LABS: URINE BACTERIA FEW (NEG)
[2017-08-12 10:50] LABS: BASO # 0.02 K/mm3 (0.0-2.0); BASO % 0.2 % (0.0-3.0); EOS # 0.3 (0.0-0.7); EOS % 3.1 % (1.5-5.0); GRAN # 7.49 (1.4-6.5); GRAN % 70.1 % (50.0-68.0); HEMOGLOBIN 10.6 g/dL (12.0-16.0); LYMPH # 2.5 (1.2-3.4); LYMPH % 22.9 % (22.0-35.0); MEAN CELL VOLUME 79.8 fl (80.0-105.0); MEAN CORPUSCULAR HEMOGLOBIN 26.5 pg (25.0-35.0); MEAN CORPUSCULAR HGB CONC 33.2 g/dl (31.0-37.0); MEAN PLATELET VOLUME 9.4 fl (7.0-11.0); MONO # 0.4 (0.1-0.6); MONO % 3.7 % (1.0-6.0); WHITE BLOOD COUNT 10.7 10^3/ul (4.5-11.0)
[2017-08-12 10:59] LABS: ALB/GLOB RATIO 1.1 (1.1-1.8); ALBUMIN 4.7 g/dL (3.0-4.8); CALCIUM 9.3 mg/dL (8.4-10.5)
[2017-08-12] MEDS ORDERED: Potassium Chloride 20 mEq ER Tab PO STA (11:41)
--- NOTE | 2017-08-12 12:00 | US ---
PROCEDURE: Left lower extremity venous US HISTORY: Leg pain and swelling. Evaluate for DVT. PHYSICIAN(S): Bruce Castro MD. TECHNIQUE: Duplex sonography and color-flow Doppler with graded compression were used to evaluate the deep venous system of the left lower extremity. FINDINGS: The visualized deep venous system of the left lower extremity is sonographically normal and compressible. Normal wave forms and augmentation are seen. There is no sonographic evidence for deep venous thrombosis in the visualized segments of the left lower extremity. IMPRESSION: 1. No sonographic evidence for deep venous thrombosis in the visualized segments of the left lower extremity.
[2017-08-12] MEDS ORDERED: Oxycodone/Acetaminophen 5/325 mg Tab PO STA (12:32)
--- NOTE | 2017-08-12 12:34 | RAD ---
HISTORY: medical clearance COMPARISON: 11/22/2016 FINDINGS: LUNGS: No active pulmonary disease. PLEURA: No significant pleural effusion identified, no pneumothorax apparent. CARDIOVASCULAR: Normal. OSSEOUS STRUCTURES: No significant abnormalities. VISUALIZED UPPER ABDOMEN: Normal. OTHER FINDINGS: None. IMPRESSION: No active disease.
[2017-08-12] MEDS ORDERED: Pneumococcal 23-Valent Vaccine IM ONE (16:15)
--- NOTE | 2017-08-12 17:56 | CP.PCM.HP ---
History of Present Illness - History of Present Illness History of Present Illness: Internal Medicine/Infectious Disease H&P: August 12, 2017 67 yo AA female presenting with left lower leg pain recently debrided secondary to enlarging ulceration after splinter removal. The patient with severe pain in the left lower calf that she rates as 9-10 out of 10 and inability to sleep secondary to the pain. The patient was seen by Dr. Merlos of surgery and Dr. Bruce Castro of Interventional Radiology. No further surgery at this time or invasive IR procedures warranted at this point in time. Patient was discharged [place] [facility] [place]10/[place]. She returns again for severe pain to the left posterior lower calf at site of debridement. She did not allow placement of the wound vac as she states it was too painful. She has been admitted for observation. PMHx: Diabetes Mellitus CAD HTN Stroke and ND several years ago. Chronic Back Pain TIA PSHx: cardiac cath Allergies: NKDA Social Hx: No tobacco, EtOH, or illicit drug use Active Medications Aspirin (Ecotrin) 81 mg PO DAILY [facility] Ciprofloxacin (Cipro) 500 mg PO Q12H [facility] PRN Reason: Protocol Ferrous Gluconate (Fergon) 324 mg PO TID [facility] Lisinopril (Zestril) 40 mg PO DAILY [facility] Metformin HCl (Glucophage) 500 mg PO BID [facility] Mupirocin (Bactroban Ointment) 0 gm TOP BID [facility] Nifedipine (Procardia Xl) 90 mg PO DAILY [facility] Oxycodone/Acetaminophen (Percocet 5/325 Mg Tab) 1 tab PO Q6H PRN PRN Reason: Pain, moderate (4-7) Stop: 08/15/17 16:03 Pregabalin (Lyrica) 50 mg PO BID [facility] Family Hx: none given ROS: weakness. poor appetite. Left leg pain Patient denies fevers, chills, nausea, vomiting, diarrhea, headaches, dizziness , chest pain, melena, hematuria, hematemesis, hematochezia, depression, anxiety. Present on Admission - Present on Admission Any Indicators Present on Admission: Yes History of Uncontrolled Diabetes: Yes Past Patient History - Infectious Disease Hx of Infectious Diseases: None - Past Medical History & Family History Past Medical History?: Yes - Past Social History Smoking Status: Never Smoked - CARDIAC Hx Cardiac Disorders: Yes Hx Hypertension: Yes Hx Peripheral Vascular Disease: Yes - PULMONARY Hx Respiratory Disorders: No - NEUROLOGICAL Hx Neurological Disorder: Yes HX Cerebrovascular Accident: Yes (RIGHT SIDED WEAKNESS) Hx Dizziness: Yes - HEENT Hx HEENT Problems: Yes Hx Blind: Yes (DENIES) - RENAL Hx Chronic Kidney Disease: Yes Hx Renal Failure: Yes - ENDOCRINE/METABOLIC Hx Endocrine Disorders: Yes Hx Diabetes Mellitus Type 2: Yes - HEMATOLOGICAL/ONCOLOGICAL Hx Blood Disorders: No - INTEGUMENTARY Hx Dermatological Problems: Yes Other/Comment: 08-12-17 NON HEALING WOUND TO LEFT CALF. SPLINTER REMOVED BY DR. MERLOS. FEBRUARY.5X3 CM. MEDIUM AMOUNT OF SEROUS DRAINAGE. - MUSCULOSKELETAL/RHEUMATOLOGICAL Hx Musculoskeletal Disorders: Yes Hx Falls: Yes - GASTROINTESTINAL Hx Gastrointestinal Disorders: No - GENITOURINARY/GYNECOLOGICAL Hx Genitourinary Disorders: Yes Hx Urinary Tract Infection: Yes (08-12-17) - PSYCHIATRIC Hx Psychophysiologic Disorder: No Hx Substance Use: No - SURGICAL HISTORY Hx Surgeries: Yes Hx Mastectomy: No Other/Comment: had recent procedure left lower leg [address] Merlos.SPLINTER REMOVED TO LEFT CALF. - ANESTHESIA Hx Anesthesia: Yes Hx Anesthesia Reactions: No Hx Malignant Hyperthermia: No Meds Allergies/Adverse Reactions: Allergies Allergy/AdvReac Type Severity Reaction Status Date / Time EGG Allergy Intermediate RASH Verified 08/12/17 14:04 Physical Exam - Constitutional Appears: Non-toxic, No Acute Distress, Chronically Ill - Head Exam Head Exam: ATRAUMATIC, NORMOCEPHALIC - Eye Exam Eye Exam: EOMI, PERRL Pupil Exam: NORMAL ACCOMODATION, PERRL - ENT Exam ENT Exam: Mucous Membranes Moist, Normal External Ear Exam, TM's Normal Bilaterally - Neck Exam Neck exam: Positive for: Full Rom, Normal Inspection - Respiratory Exam Respiratory Exam: Clear to Auscultation Bilateral, NORMAL BREATHING PATTERN. absent: Rales, Rhonchi, Wheezes - Cardiovascular Exam Cardiovascular Exam: REGULAR RHYTHM, RRR, +S1, +S2 - GI/Abdominal Exam GI & Abdominal Exam: Normal Bowel Sounds, Soft. absent: Distended, Tenderness - Extremities Exam Additional comments: 4x3x1 cm wound on the posterior lower left leg at site of a splinter removal. The patient with ng tissue with continued pain and swelling. No drainage. No fevers. Debrided 07/20/2017. Wound vac. - Neurological Exam Neurological exam: Alert, CN II-XII Intact, Oriented x3 - Psychiatric Exam Psychiatric exam: Normal Affect, Normal Mood - Skin Additional comments: As Above. Results - Vital Signs Recent Vital Signs: Last Vital Signs Temp 98.6 F 08/12/17 15:44 Pulse 80 08/12/17 15:44 Resp 17 08/12/17 15:44 BP 125/70 08/12/17 15:44 Pulse Ox 99 08/12/17 13:00 - Labs Result Diagrams: 08/12/17 10:40 08/12/17 10:40 Labs: Laboratory Results - last 24 hr 08/12/17 16:09 POC Glucose (mg/dL) 132 H Assessment & Plan - Assessment and Plan (Free Text) Assessment: 67 yo AA female with recent splinter in the left lower posterior calf removed in an urgent care center and developed infection and led to ulcerations of the site. The patient needed debridement of the ulceration. The patient was having difficulty with tolerating the wound vac secondary to persistent nerve pain. Came back to [facility] for worsening pain in the debrided ulceration area. Reconsulted Dr. Merlos. Supportive care. Pain management and local wound care. Patient does have a low tolerance to pain.
--- NOTE | 2017-08-12 20:07 | CP.PCM.CON ---
<Sin Rubi - Last Filed: 08/12/17 20:04> History of Present Illness - History of Present Illness History of Present Illness: SUrgery 67 year old female with a past medical history of hypertension, type 2 Diabetes Mellitus, and cva (x2) who comes in complaining of left leg pain for the past couple of days. Pt is s/p wound debridement of non healing leg ulcer after trauma. She has been on wound vac therapy since then. She reports the pain was so severe and decided to come in. reports Wound vac is painful and she came w/o wound vac. The patient denies any chest pain, shortness of breath, fevers, chills, nausea, vomiting, changes in vision, or any other complaints. Pt was recently discharged for same reason. Surgery was consulted due to patient's leg ulcer. PMD: Dr. Frank Past medical history: Hypertension, Type 2 Diabetes ,CVA (x2) Medications: Metformin, Nifedipine, Aspirin Allergies: Egg Past surgical history: Denies Social: Denies any smoking or alcohol usage. Denies illicit drug use. 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 SPLINTER REMOVED BY DR. CULLEN. JUNE.5X3 CM. MEDIUM AMOUNT OF SEROUS DRAINAGE. - MUSCULOSKELETAL/RHEUMATOLOGICAL Hx Musculoskeletal Disorders: Yes Hx Falls: Yes - GASTROINTESTINAL Hx Gastrointestinal Disorders: No - GENITOURINARY/GYNECOLOGICAL Hx Genitourinary Disorders: Yes Hx Urinary Tract Infection: Yes (08-12-17) - PSYCHIATRIC Hx Psychophysiologic Disorder: No Hx Substance Use: No - SURGICAL HISTORY Hx Surgeries: Yes Hx Mastectomy: No Other/Comment: had recent procedure left lower leg [address] Cullen.SPLINTER REMOVED TO LEFT CALF. - ANESTHESIA Hx Anesthesia: Yes Hx Anesthesia Reactions: No Hx Malignant Hyperthermia: No Meds Allergies/Adverse Reactions: Allergies Allergy/AdvReac Type Severity Reaction Status Date / Time EGG Allergy Intermediate RASH Verified 08/12/17 14:04 - Medications Medications: Current Medications Aspirin (Ecotrin) 81 mg PO DAILY [facility] Ciprofloxacin (Cipro) 500 mg PO Q12H [facility] PRN Reason: Protocol Last Admin: 08/12/17 18:01 Dose: 500 mg Ferrous Gluconate (Fergon) 324 mg PO TID [facility] Last Admin: 08/12/17 18:01 Dose: 324 mg Lisinopril (Zestril) 40 mg PO DAILY [facility] Metformin HCl (Glucophage) 500 mg PO BID [facility] Last Admin: 08/12/17 18:01 Dose: 500 mg Mupirocin (Bactroban Ointment) 0 gm TOP BID [facility] Last Admin: 08/12/17 19:50 Dose: 1 applic Nifedipine (Procardia Xl) 90 mg PO DAILY [facility] Oxycodone/Acetaminophen (Percocet 5/325 Mg Tab) 1 tab PO Q6H PRN PRN Reason: Pain, moderate (4-7) Stop: 08/15/17 16:03 Pregabalin (Lyrica) 50 mg PO BID [facility] Last Admin: 08/12/17 18:01 Dose: 50 mg Physical Exam - Constitutional Appears: No Acute Distress - Head Exam Head Exam: ATRAUMATIC, NORMAL INSPECTION, NORMOCEPHALIC - Eye Exam Eye Exam: EOMI, Normal appearance, PERRL Pupil Exam: NORMAL ACCOMODATION, PERRL - ENT Exam ENT Exam: Mucous Membranes Moist, Normal Exam - Neck Exam Neck exam: Positive for: Normal Inspection - Respiratory Exam Respiratory Exam: Clear to Auscultation Bilateral, NORMAL BREATHING PATTERN - Cardiovascular Exam Cardiovascular Exam: REGULAR RHYTHM - GI/Abdominal Exam GI & Abdominal Exam: Normal Bowel Sounds, Soft. absent: Tenderness - Extremities Exam Extremities exam: Positive for: full ROM, tenderness, pedal pulses present. Negative for: joint swelling Additional comments: L LE ulcer 3x4x0.5cm ulceration with granulation tissue. TTP. Mild discoloration of the LE - Back Exam Back exam: NORMAL INSPECTION - Neurological Exam Neurological exam: Alert, CN II-XII Intact, Normal Gait, Oriented x3, Reflexes Normal - Psychiatric Exam Psychiatric exam: Normal Affect, Normal Mood - Skin Skin Exam: Warm Results - Vital Signs Recent Vital Signs: Last Vital Signs Temp 98.6 F 08/12/17 15:44 Pulse 80 08/12/17 15:44 Resp 17 08/12/17 15:44 BP 125/70 08/12/17 15:44 Pulse Ox 99 08/12/17 13:00 - Labs Result Diagrams: 08/12/17 10:40 08/12/17 10:40 Labs: Laboratory Results - last 24 hr 08/12/17 16:09 POC Glucose (mg/dL) 132 H Assessment & Plan - Assessment and Plan (Free Text) Assessment: slow healing LLE ulcer -COntinue wound vac therapy with lower suction setting as tolerated. -Medihoney and optiform in the meantime while pt's family brings wound vac supplies. -Pain control -ABX DW Dr. Cullen <Sylvester Cullen - Last Filed: 08/14/17 10:36> Meds - Medications Medications: Current Medications Aspirin (Ecotrin) 81 mg PO DAILY [facility] Last Admin: 08/14/17 10:16 Dose: 81 mg Ciprofloxacin (Cipro) 500 mg PO 0600,1800 [facility] PRN Reason: Protocol Last Admin: 08/14/17 05:35 Dose: 500 mg Ferrous Gluconate (Fergon) 324 mg PO TID [facility] Last Admin: 08/14/17 10:16 Dose: 324 mg Lisinopril (Zestril) 40 mg PO DAILY [facility] Last Admin: 08/14/17 10:18 Dose: 40 mg Metformin HCl (Glucophage) 500 mg PO BID [facility] Last Admin: 08/14/17 10:16 Dose: 500 mg Mupirocin (Bactroban Ointment) 0 gm TOP BID [facility] Last Admin: 08/14/17 10:18 Dose: 1 applic Nifedipine (Procardia Xl) 90 mg PO DAILY [facility] Last Admin: 08/14/17 10:17 Dose: 90 mg Oxycodone/Acetaminophen (Percocet 5/325 Mg Tab) 1 tab PO Q6H PRN PRN Reason: Pain, moderate (4-7) Stop: 08/15/17 16:03 Last Admin: 08/13/17 23:50 Dose: 1 tab Pregabalin (Lyrica) 50 mg PO BID [facility] Last Admin: 08/14/17 10:16 Dose: 50 mg Results - Vital Signs Recent Vital Signs: Last Vital Signs Temp 98.4 F 08/13/17 22:00 Pulse 78 08/14/17 10:24 Resp 20 08/13/17 22:00 BP 148/95 H 08/14/17 10:24 Pulse Ox 99 08/13/17 22:00 - Labs Result Diagrams: 08/13/17 06:00 08/13/17 06:00 Labs: Laboratory Results - last 24 hr 08/13/17 08/13/17 08/13/17 11:25 15:58 21:27 POC Glucose (mg/dL) 162 H 239 H 86 Assessment & Plan - Assessment and Plan (Free Text) Assessment: Dx Dhr Leg Ulcer(Sm Vessel Disease) DMII(better control 17--6.2) Pt c/o new drainage at ankle and pain NB NO NEW INFECTION SEEN Pt will bring in wound Vac--Refusing STSG Now This consult done under my direct supervision Hayden Cullen MD FACS
[2017-08-12] MEDS: Oxycodone/Acetaminophen 5/325 mg Tab PO PRN (22:42)
[2017-08-13 07:08] LABS: BASO # 0.03 K/mm3 (0.0-2.0); BASO % 0.4 % (0.0-3.0); EOS # 0.3 (0.0-0.7); EOS % 4.5 % (1.5-5.0); GRAN # 3.54 (1.4-6.5); HEMOGLOBIN 9.3 g/dL (12.0-16.0); LYMPH # 2.8 (1.2-3.4); LYMPH % 39.3 % (22.0-35.0); MEAN CELL VOLUME 80.3 fl (80.0-105.0); MEAN CORPUSCULAR HEMOGLOBIN 25.5 pg (25.0-35.0); MEAN CORPUSCULAR HGB CONC 31.7 g/dl (31.0-37.0); MEAN PLATELET VOLUME 9.7 fl (7.0-11.0); MONO # 0.4 (0.1-0.6); MONO % 5.8 % (1.0-6.0); RBC 3.65 10^6/uL (3.5-6.1); WHITE BLOOD COUNT 7.1 10^3/ul (4.5-11.0)
[2017-08-13 07:23] LABS: ALB/GLOB RATIO 1.1 (1.1-1.8); CALCIUM 8.9 mg/dL (8.4-10.5)
--- NOTE | 2017-08-13 07:49 | CP.PCM.PCO ---
Physician Communication Note - Physician Communication Note Physician Communication Note: call sx resident when wound vac bedside will re- apply
--- NOTE | 2017-08-13 09:16 | CARD ---
APPROVED REPORT EKG Measurement Heart [id number] CO [id number] <Conclusion> Normal sinus rhythm Left axis deviation PRWP V 1 - 6 STTW changes c/w ischemia No change except The QTC is now mildly prolonged
[2017-08-13] MEDS: NIFEdipine 90 mg ER Tab PO SCH (10:00)
[2017-08-13] MEDS: Oxycodone/Acetaminophen 5/325 mg Tab PO PRN ×3 (10:00→23:50)
--- NOTE | 2017-08-13 17:59 | CP.PCM.PN ---
Subjective - Date & Time of Evaluation Date of Evaluation: 08/13/17 Time of Evaluation: 16:54 - Subjective Subjective: Internal Medicine/Infectious Disease Follow Up: August 13, 2017 67 yo AA female presenting with left lower leg pain recently debrided secondary to enlarging ulceration after splinter removal. The patient with severe pain in the left lower calf that she rates as 9-10 out of 10 and inability to sleep secondary to the pain. The patient was seen by Dr. Merlos of surgery and Dr. Bruce Castro of Interventional Radiology. No further surgery at this time or invasive IR procedures warranted at this point in time. Patient was discharged from [facility] on 08/10/2017. She returns again for severe pain to the left posterior lower calf at site of debridement. She did not allow placement of the wound vac as she states it was too painful. She has been admitted for observation. Seen by surgery. Objective - Vital Signs/Intake and Output Vital Signs (last 24 hours): Temp Pulse Resp BP Pulse Ox 98.6 F 88 17 154/100 H 99 08/12/17 15:44 08/13/17 10:00 08/12/17 15:44 08/13/17 10:00 08/12/17 13:00 Intake and Output: 08/13/17 08/13/17 06:59 18:59 Intake Total 720 480 Balance 720 480 - Medications Medications: Current Medications Aspirin (Ecotrin) 81 mg PO DAILY [facility] Last Admin: 08/13/17 10:00 Dose: 81 mg Ciprofloxacin (Cipro) 500 mg PO 0600,1800 [facility] PRN Reason: Protocol Last Admin: 08/13/17 17:02 Dose: 500 mg Ferrous Gluconate (Fergon) 324 mg PO TID [facility] Last Admin: 08/13/17 17:02 Dose: 324 mg Lisinopril (Zestril) 40 mg PO DAILY [facility] Last Admin: 08/13/17 10:01 Dose: 40 mg Metformin HCl (Glucophage) 500 mg PO BID [facility] Last Admin: 08/13/17 17:02 Dose: 500 mg Mupirocin (Bactroban Ointment) 0 gm TOP BID [facility] Last Admin: 08/13/17 17:03 Dose: 1 applic Nifedipine (Procardia Xl) 90 mg PO DAILY [facility] Last Admin: 08/13/17 10:00 Dose: 90 mg Oxycodone/Acetaminophen (Percocet 5/325 Mg Tab) 1 tab PO Q6H PRN PRN Reason: Pain, moderate (4-7) Stop: 08/15/17 16:03 Last Admin: 08/13/17 17:13 Dose: 1 tab Pregabalin (Lyrica) 50 mg PO BID [facility] Last Admin: 08/13/17 17:02 Dose: 50 mg - Labs Labs: 08/13/17 06:00 08/13/17 06:00 - Constitutional Appears: Non-toxic, No Acute Distress, Chronically Ill - Head Exam Head Exam: ATRAUMATIC, NORMOCEPHALIC - Eye Exam Eye Exam: EOMI, PERRL Pupil Exam: NORMAL ACCOMODATION, PERRL - ENT Exam ENT Exam: Mucous Membranes Moist, Normal External Ear Exam, TM's Normal Bilaterally - Neck Exam Neck Exam: Full ROM, Normal Inspection - Respiratory Exam Respiratory Exam: Clear to Ausculation Bilateral, NORMAL BREATHING PATTERN. absent: Rales, Rhonchi, Wheezes - Cardiovascular Exam Cardiovascular Exam: REGULAR RHYTHM, RRR, +S1, +S2 - GI/Abdominal Exam GI & Abdominal Exam: Soft, Normal Bowel Sounds. absent: Distended, Tenderness - Extremities Exam Additional comments: 4x3x1 cm wound on the posterior lower left leg at site of a splinter removal. The patient with ng tissue with continued pain and swelling. No drainage. No fevers. Debrided 07/20/2017. Wound vac. - Neurological Exam Neurological Exam: Alert, Awake, CN II-XII Intact, Oriented x3 - Psychiatric Exam Psychiatric exam: Normal Affect, Normal Mood - Skin Additional comments: As Above. Assessment and Plan - Assessment and Plan (Free Text) Assessment: 67 yo AA female with recent splinter in the left lower posterior calf removed in an urgent care center and developed infection and led to ulcerations of the site. The patient needed debridement of the ulceration. The patient was having difficulty with tolerating the wound vac secondary to persistent nerve pain. Came back to [facility] for worsening pain in the debrided ulceration area. Reconsulted Dr. Merlos. Surgery to place wound vac back on. Supportive care. Pain management and local wound care. Patient does have a low tolerance to pain. For discharge tomorrow after placement of wound vac. If patient agrees to skin graft, will change patient to full admission.
[2017-08-13 22:08] VITALS: RESP 20
--- NOTE | 2017-08-14 07:43 | CP.PCM.PN ---
Subjective - Date & Time of Evaluation Date of Evaluation: 08/14/17 Time of Evaluation: 07:42 - Subjective Subjective: Surgery Pt seen and examined. No acute events. Awaiting family to bring home wound vac. Objective - Vital Signs/Intake and Output Vital Signs (last 24 hours): Temp Pulse Resp BP Pulse Ox 98.4 F 80 20 140/89 99 08/13/17 22:00 08/13/17 22:00 08/13/17 22:00 08/13/17 22:00 08/13/17 22:00 Intake and Output: 08/14/17 08/14/17 06:59 18:59 Intake Total 120 Output Total 400 Balance -280 - Medications Medications: Current Medications Aspirin (Ecotrin) 81 mg PO DAILY [facility] Last Admin: 08/13/17 10:00 Dose: 81 mg Ciprofloxacin (Cipro) 500 mg PO 0600,1800 [facility] PRN Reason: Protocol Last Admin: 08/14/17 05:35 Dose: 500 mg Ferrous Gluconate (Fergon) 324 mg PO TID [facility] Last Admin: 08/13/17 17:02 Dose: 324 mg Lisinopril (Zestril) 40 mg PO DAILY [facility] Last Admin: 08/13/17 10:01 Dose: 40 mg Metformin HCl (Glucophage) 500 mg PO BID [facility] Last Admin: 08/13/17 17:02 Dose: 500 mg Mupirocin (Bactroban Ointment) 0 gm TOP BID [facility] Last Admin: 08/13/17 17:03 Dose: 1 applic Nifedipine (Procardia Xl) 90 mg PO DAILY [facility] Last Admin: 08/13/17 10:00 Dose: 90 mg Oxycodone/Acetaminophen (Percocet 5/325 Mg Tab) 1 tab PO Q6H PRN PRN Reason: Pain, moderate (4-7) Stop: 08/15/17 16:03 Last Admin: 08/13/17 23:50 Dose: 1 tab Pregabalin (Lyrica) 50 mg PO BID [facility] Last Admin: 08/13/17 17:02 Dose: 50 mg - Labs Labs: 08/13/17 06:00 08/13/17 06:00 - Constitutional Appears: No Acute Distress - Head Exam Head Exam: ATRAUMATIC, NORMAL INSPECTION, NORMOCEPHALIC - Eye Exam Eye Exam: EOMI, Normal appearance, PERRL Pupil Exam: NORMAL ACCOMODATION, PERRL - ENT Exam ENT Exam: Mucous Membranes Moist, Normal Exam - Neck Exam Neck Exam: Full ROM, Normal Inspection. absent: Lymphadenopathy - Respiratory Exam Respiratory Exam: Clear to Ausculation Bilateral, NORMAL BREATHING PATTERN - Cardiovascular Exam Cardiovascular Exam: REGULAR RHYTHM, +S1, +S2. absent: Murmur - GI/Abdominal Exam GI & Abdominal Exam: Soft, Normal Bowel Sounds. absent: Distended, Tenderness - Extremities Exam Extremities Exam: Full ROM, Normal Capillary Refill, Tenderness. absent: Joint Swelling, Pedal Edema Additional comments: LLE has 4x4x0.5cm wound. Granulation tissue. Optiform in place - Back Exam Back Exam: NORMAL INSPECTION - Neurological Exam Neurological Exam: Alert, Awake, CN II-XII Intact, Normal Gait, Oriented x3 - Psychiatric Exam Psychiatric exam: Normal Affect, Normal Mood - Skin Skin Exam: Erythema, Warm. absent: Intact Additional comments: Skin discoloration Assessment and Plan - Assessment and Plan (Free Text) Assessment: slow healing LLE ulcer -COntinue wound vac therapy with lower suction setting as tolerated. -Medihoney and optiform in the meantime while pt's family brings home wound vac supplies. -Pain control -ABX -Once vac applied cleared to go home. Will LEONARDO Merlos
[2017-08-14] MEDS: NIFEdipine 90 mg ER Tab PO SCH (10:17)
[2017-08-14 10:25] VITALS: BP 148/95; PULSE 78
[2017-08-14 11:17] VITALS: TEMP 98.5; O2SAT 96
[2017-08-14] MEDS: Oxycodone/Acetaminophen 5/325 mg Tab PO PRN (18:06)
--- NOTE | 2017-08-14 18:06 | CP.PCM.PN ---
Subjective - Date & Time of Evaluation Date of Evaluation: 08/14/17 Time of Evaluation: 16:45 - Subjective Subjective: Internal Medicine/Infectious Disease Follow Up: August 14, 2017 67 yo AA female presenting with left lower leg pain recently debrided secondary to enlarging ulceration after splinter removal. The patient with severe pain in the left lower calf that she rates as 9-10 out of 10 and inability to sleep secondary to the pain. The patient was seen by Dr. Merlos of surgery and Dr. Bruce Castro of Interventional Radiology. No further surgery at this time or invasive IR procedures warranted at this point in time. Patient was discharged from [facility] on 08/10/2017. She returns again for severe pain to the left posterior lower calf at site of debridement. She did not allow placement of the wound vac as she states it was too painful. She has been admitted for observation. Seen by surgery. Awaiting family to bring the portable wound vac at home so surgery can apply to wound and discharge the patient. Objective - Vital Signs/Intake and Output Vital Signs (last 24 hours): Temp Pulse Resp BP Pulse Ox 98.5 F 78 20 148/95 H 96 08/14/17 06:00 08/14/17 10:24 08/14/17 06:00 08/14/17 10:24 08/14/17 06:00 Intake and Output: 08/14/17 08/14/17 06:59 18:59 Intake Total 120 480 Output Total 400 Balance -280 480 - Medications Medications: Current Medications Aspirin (Ecotrin) 81 mg PO DAILY [facility] Last Admin: 08/14/17 10:16 Dose: 81 mg Ferrous Gluconate (Fergon) 324 mg PO TID [facility] Last Admin: 08/14/17 17:22 Dose: 324 mg Lisinopril (Zestril) 40 mg PO DAILY [facility] Last Admin: 08/14/17 10:18 Dose: 40 mg Metformin HCl (Glucophage) 500 mg PO BID [facility] Last Admin: 08/14/17 17:22 Dose: 500 mg Mupirocin (Bactroban Ointment) 0 gm TOP BID [facility] Last Admin: 08/14/17 17:22 Dose: 1 applic Nifedipine (Procardia Xl) 90 mg PO DAILY [facility] Last Admin: 08/14/17 10:17 Dose: 90 mg Oxycodone/Acetaminophen (Percocet 5/325 Mg Tab) 1 tab PO Q6H PRN PRN Reason: Pain, moderate (4-7) Stop: 08/15/17 16:03 Last Admin: 08/13/17 23:50 Dose: 1 tab Pregabalin (Lyrica) 50 mg PO BID [facility] Last Admin: 08/14/17 17:22 Dose: 50 mg - Labs Labs: 08/13/17 06:00 08/13/17 06:00 - Constitutional Appears: Non-toxic, No Acute Distress, Chronically Ill - Head Exam Head Exam: ATRAUMATIC, NORMOCEPHALIC - Eye Exam Eye Exam: EOMI, PERRL Pupil Exam: NORMAL ACCOMODATION, PERRL - ENT Exam ENT Exam: Mucous Membranes Moist, Normal External Ear Exam, TM's Normal Bilaterally - Neck Exam Neck Exam: Full ROM, Normal Inspection - Respiratory Exam Respiratory Exam: Clear to Ausculation Bilateral, NORMAL BREATHING PATTERN. absent: Rales, Rhonchi, Wheezes - Cardiovascular Exam Cardiovascular Exam: REGULAR RHYTHM, RRR, +S1, +S2 - GI/Abdominal Exam GI & Abdominal Exam: Soft, Normal Bowel Sounds. absent: Distended, Tenderness - Extremities Exam Additional comments: 4x4x0.5 cm wound on the posterior lower left leg at site of a splinter removal. The patient with ng tissue with continued pain and swelling. No drainage. No fevers. Debrided 07/20/2017. Wound vac placement pending. - Neurological Exam Neurological Exam: Alert, Awake, CN II-XII Intact, Oriented x3 - Psychiatric Exam Psychiatric exam: Normal Affect, Normal Mood - Skin Additional comments: As Above. Assessment and Plan - Assessment and Plan (Free Text) Assessment: 67 yo AA female with recent splinter in the left lower posterior calf removed in an urgent care center and developed infection and led to ulcerations of the site. The patient needed debridement of the ulceration. The patient was having difficulty with tolerating the wound vac secondary to persistent nerve pain. Came back to [facility] for worsening pain in the debrided ulceration area. Reconsulted Dr. Merlos. Surgery to place wound vac back on. Supportive care. Pain management and local wound care. Patient does have a low tolerance to pain. For discharge after placement of wound vac once family bring in the portable one that she went home with two hospitalizations ago. If patient agrees to skin graft, will change patient to full admission. Patient refused skin graft and TRCU.
--- NOTE | 2017-08-14 19:00 | CP.PCM.DIS ---
Provider - Provider Date of Admission: 08/12/17 12:49 Attending physician: Sylvester Frank MD Primary care physician: Sylvester Frank MD Consults: Dr. Sylvester Merlos Time Spent in preparation of Discharge (in minutes): 45 Diagnosis - Discharge Diagnosis (1) Wound, open, leg Status: Acute Priority: Medium Hospital Course - Lab Results Lab Results: Most Recent Lab Values WBC 7.1 10^3/ul (4.5-11.0) D 08/13/17 06:00 RBC 3.65 10^6/uL (3.5-6.1) 08/13/17 06:00 Hgb 9.3 g/dL (12.0-16.0) L 08/13/17 06:00 Hct 29.3 % (36.0-48.0) L 08/13/17 06:00 MCV 80.3 fl (80.0-105.0) 08/13/17 06:00 MCH 25.5 pg (25.0-35.0) 08/13/17 06:00 MCHC 31.7 g/dl (31.0-37.0) 08/13/17 06:00 RDW 14.0 % (11.5-14.5) 08/13/17 06:00 Plt Count 295 10^3/uL (120.0-450.0) 08/13/17 06:00 MPV 9.7 fl (7.0-11.0) 08/13/17 06:00 Gran % 50.0 % (50.0-68.0) 08/13/17 06:00 Lymph % (Auto) 39.3 % (22.0-35.0) H 08/13/17 06:00 [place] % (Auto) 5.8 % (1.0-6.0) 08/13/17 06:00 Eos % (Auto) 4.5 % (1.5-5.0) 08/13/17 06:00 Baso % (Auto) 0.4 % (0.0-3.0) 08/13/17 06:00 Gran # 3.54 (1.4-6.5) 08/13/17 06:00 Lymph # (Auto) 2.8 (1.2-3.4) 08/13/17 06:00 [place] # (Auto) 0.4 (0.1-0.6) 08/13/17 06:00 Eos # (Auto) 0.3 (0.0-0.7) 08/13/17 06:00 Baso # (Auto) 0.03 K/mm3 (0.0-2.0) 08/13/17 06:00 Sodium 142 mmol/L (132-148) 08/13/17 06:00 Potassium 3.5 mmol/L (3.6-5.0) L 08/13/17 06:00 Chloride 103 mmol/L (98-107) 08/13/17 06:00 Carbon Dioxide 29 mmol/L (21-33) 08/13/17 06:00 Anion Gap 14 (10-20) 08/13/17 06:00 BUN 28 mg/dL (7-21) H 08/13/17 06:00 Creatinine 1.5 mg/dl (0.7-1.2) H 08/13/17 06:00 Est GFR ( Amer) 42 08/13/17 06:00 Est GFR (Non-Af Amer) 35 08/13/17 06:00 POC Glucose (mg/dL) 112 mg/dL (65-110) H 08/14/17 16:01 Random Glucose 127 mg/dL (70-110) H 08/13/17 06:00 Calcium 8.9 mg/dL (8.4-10.5) 08/13/17 06:00 Magnesium 2.0 mg/dL (1.7-2.2) 08/12/17 10:40 Total Bilirubin 0.2 mg/dL (0.2-1.3) 08/13/17 06:00 AST 32 U/L (14-36) 08/13/17 06:00 ALT 21 U/L (7-56) 08/13/17 06:00 Alkaline Phosphatase 71 U/L (38-126) 08/13/17 06:00 Total Creatine Kinase 84 U/L (35-230) 08/12/17 10:40 NT-Pro-B Natriuret Pep 209 pg/mL (0-450) 08/12/17 10:40 Total Protein 7.4 g/dL (5.8-8.3) 08/13/17 06:00 Albumin 4.0 g/dL (3.0-4.8) 08/13/17 06:00 Globulin 3.5 gm/dL 08/13/17 06:00 Albumin/Globulin Ratio 1.1 (1.1-1.8) 08/13/17 06:00 Urine Color Yellow (YELLOW) 08/12/17 10:15 Urine Appearance Cloudy (CLEAR) 08/12/17 10:15 Urine pH 6.0 (4.7-8.0) 08/12/17 10:15 Ur Specific [place] 1.025 (1.005-1.035) 08/12/17 10:15 Urine Protein 100 mg/dL (<30 mg/dL) H 08/12/17 10:15 Urine Glucose (UA) Negative mg/dL (NEGATIVE) 08/12/17 10:15 Urine Ketones Negative mg/dL (NEGATIVE) 08/12/17 10:15 Urine Blood Trace-intact (NEGATIVE) H 08/12/17 10:15 Urine Nitrate Negative (NEGATIVE) 08/12/17 10:15 Urine Bilirubin Negative (NEGATIVE) 08/12/17 10:15 Urine Urobilinogen 0.2 E.U./dL (<1 E.U./dL) 08/12/17 10:15 Ur Leukocyte Esterase Small Raghav/uL (NEGATIVE) H 08/12/17 10:15 Urine RBC 1 - 3 /hpf (0-2) 08/12/17 10:15 Urine WBC 2 - 5 /hpf (0-6) 08/12/17 10:15 Ur Epithelial Cells 6 - 8 /hpf (0-5) 08/12/17 10:15 Urine Bacteria Few (NEG) 08/12/17 10:15 - Hospital Course Hospital Course: Internal Medicine/Infectious Disease Follow Up: August 14, 2017 67 yo AA female presenting with left lower leg pain recently debrided secondary to enlarging ulceration after splinter removal. The patient with severe pain in the left lower calf that she rates as 9-10 out of 10 and inability to sleep secondary to the pain. The patient was seen by Dr. Merlos of surgery and Dr. Bruce Castro of Interventional Radiology. No further surgery at this time or invasive IR procedures warranted at this point in time. Patient was discharged from [facility] on 08/10/2017. She returns again for severe pain to the left posterior lower calf at site of debridement. She did not allow placement of the wound vac as she states it was too painful. She has been admitted for observation. Seen by surgery. Awaiting family to bring the portable wound vac at home so surgery can apply to wound and discharge the patient. Wound vac applied. - Date & Time of H&P Date of H&P: 08/12/17 Time of H&P: 17:49 Discharge Exam - Head Exam Head Exam: ATRAUMATIC, NORMOCEPHALIC - Eye Exam Eye Exam: EOMI, PERRL Pupil Exam: NORMAL ACCOMODATION, PERRL - ENT Exam ENT Exam: Mucous Membranes Moist, Normal External Ear Exam, TM's Normal Bilaterally - Neck Exam Neck exam: Full Rom, Normal Inspection - Respiratory Exam Respiratory Exam: Clear to PA & Lateral, NORMAL BREATHING PATTERN. absent: Rales, Rhonchi, Wheezes - Cardiovascular Exam Cardiovascular Exam: REGULAR RHYTHM, RRR, +S1, +S2 - GI/Abdominal Exam GI & Abdominal Exam: Normal Bowel Sounds, Soft. absent: Distended, Tenderness - Extremities Exam Additional comments: 4x4x0.5 cm wound on the posterior lower left leg at site of a splinter removal. The patient with ng tissue with continued pain and swelling. No drainage. No fevers. Debrided 07/20/2017. Wound vac placement just done. - Neurological Exam Neurological exam: Alert, CN II-XII Intact, Oriented x3 - Psychiatric Exam Psychiatric exam: Normal Affect, Normal Mood - Skin Additional comments: As Above Discharge Plan - Follow Up Plan Condition: STABLE Disposition: HOME/ ROUTINE Instructions: Hypokalemia, Wound Infection, Negative Pressure Wound Therapy, Urinary Tract Infection in Women (DC), Renal Failure Diet (DC) Additional Instructions: Keep wound vac on. Follow up with primary care provider. Take medications as directed. Return to Local ER if symptoms worsen. 67 yo AA female with recent splinter in the left lower posterior calf removed in an urgent care center and developed infection and led to ulcerations of the site. The patient needed debridement of the ulceration. The patient was having difficulty with tolerating the wound vac secondary to persistent nerve pain. Came back to [facility] for worsening pain in the debrided ulceration area. Reconsulted Dr. Merlos. Surgery to place wound vac back on. Supportive care. Pain management and local wound care. Patient does have a low tolerance to pain. For discharge after placement of wound vac once family bring in the portable one that she went home with two hospitalizations ago. If patient agrees to skin graft, will change patient to full admission. Patient refused skin graft and TRCU. Follow up in Dr. Sylvester Frank's office in 1 week. Referrals: Sylvester Frank MD [Primary Care Provider] - Sylvester Merlos MD [Staff Provider] -
--- NOTE | 2017-08-15 18:56 | RAD ---
PROCEDURE: Left tibia and fibula HISTORY: Not provided COMPARISON: None available TECHNIQUE: AP and lateral radiographs FINDINGS: No fracture. No lytic or blastic osseous lesion. No periosteal reaction. There is a cutaneous ulcer along the dorsal aspect of the lower extremity at the junction of the middle and distal thirds. IMPRESSION: Cutaneous ulcer. No osseous abnormality.
== END 2017-08-14 20:59 | disposition home or self-care (01) ==
LOC: ED 09:07 → ERH 12:49 → 5RNO 14:52
PROVIDERS: ADMIT Internal Medicine Infectious Disease; ATTEND Internal Medicine Infectious Disease
DX: E11.622 Type 2 diabetes mellitus with other skin ulcer (principal); L97.929 Non-pressure chronic ulcer of unspecified part of left lower leg with unspecified severity; G47.00 Insomnia, unspecified; I25.10 Atherosclerotic heart disease of native coronary artery without angina pectoris; E11.51 Type 2 diabetes mellitus with diabetic peripheral angiopathy without gangrene; E11.22 Type 2 diabetes mellitus with diabetic chronic kidney disease; N18.9 Chronic kidney disease, unspecified; I12.9 Hypertensive chronic kidney disease with stage 1 through stage 4 chronic kidney disease, or unspecified chronic kidney disease; N39.0 Urinary tract infection, site not specified; M54.9 Dorsalgia, unspecified; G89.29 Other chronic pain; I25.2 Old myocardial infarction; E87.6 Hypokalemia; Z86.73 Personal history of transient ischemic attack (TIA), and cerebral infarction without residual deficits
CPT/HCPCS: 36415; 71045; 73590; 80053; 81001; 82550; 82948; 83735; 83880; 85025; 87040; 87070; 87086; 93005; 93971; 96365; 96367; 96375; 97116; 97161; 99285; G0378; G8978; G8979; J2270; J2405; J2543

== ENCOUNTER 2018-01-02 18:35 | Emergency (ER) | payer BC, MEDICARE ==
[2018-01-02 19:04] VITALS: BMI 20.7
[2018-01-02 19:06] VITALS: TEMP 98.4
[2018-01-02 20:35] LABS: BASO # 0.04 K/mm3 (0.0-2.0); BASO % 0.5 % (0.0-3.0); EOS # 0.3 (0.0-0.7); GRAN # 4.29 (1.4-6.5); GRAN % 48.6 % (50.0-68.0); HEMOGLOBIN 11.9 g/dL (12.0-16.0); LYMPH # 3.9 (1.2-3.4); MEAN CELL VOLUME 79.3 fl (80.0-105.0); MEAN CORPUSCULAR HEMOGLOBIN 26.2 pg (25.0-35.0); MEAN CORPUSCULAR HGB CONC 33.1 g/dl (31.0-37.0); MEAN PLATELET VOLUME 9.7 fl (7.0-11.0); MONO # 0.3 (0.1-0.6); MONO % 3.9 % (1.0-6.0); RBC 4.54 10^6/uL (3.5-6.1); WHITE BLOOD COUNT 8.8 10^3/ul (4.5-11.0)
[2018-01-02 20:39] LABS: ALB/GLOB RATIO 1.1 (1.1-1.8); ALBUMIN 4.9 g/dL (3.0-4.8); CALCIUM 9.7 mg/dL (8.4-10.5)
[2018-01-02] MEDS ORDERED: Tmp-Smz 800 mg-160 mg DS Tab PO STA (20:48)
--- NOTE | 2018-01-02 21:04 | ED PDOC ---
Arrival/HPI - General Chief Complaint: Abnormal Skin Integrity Time Seen by Provider: 01/02/18 19:36 Historian: Patient - History of Present Illness Narrative History of Present Illness (Text): 01/02/18 21:00 67-year-old diabetic female presents today with a wound to the left lateral leg. Patient states she has a history of recurrent wounds of the left lower leg. Patient states this wound developed 3 weeks ago. Patient states 2 days ago she noticed some swelling and increased pain around the area. She denies numbness weakness or tingling in the extremities. Denies fevers or chills. Patient presents today requesting antibiotics by mouth. Patient denies headaches dizziness or weakness. No chest pain or shortness of breath. Denies any trauma or injury. No other complaints Past Medical History - Provider Review Nursing Documentation Reviewed: Yes - Travel History Have you recently traveled outside [place] w/in the past 3 mons?: No - Infectious Disease Hx of Infectious Diseases: None - Cardiac Hx Cardiac Disorders: Yes Hx Hypertension: Yes - Pulmonary Hx Respiratory Disorders: No - Neurological Hx Neurological Disorder: Yes HX Cerebrovascular Accident: Yes (RIGHT SIDED WEAKNESS) - HEENT Hx HEENT Disorder: No - Renal Hx Renal Disorder: No - Endocrine/Metabolic Hx Endocrine Disorders: Yes Hx Diabetes Mellitus Type 2: Yes - Hematological/Oncological Hx Blood Disorders: No - Integumentary Hx Dermatological Disorder: Yes Other/Comment: 08-12-17 NON HEALING WOUND TO LEFT CALF. SPLINTER REMOVED BY DR. MERLOS. JUNE.5X3 CM. MEDIUM AMOUNT OF SEROUS DRAINAGE. - Musculoskeletal/Rheumatological Hx Musculoskeletal Disorders: Yes Hx Falls: Yes - Gastrointestinal Hx Gastrointestinal Disorders: No - Genitourinary/Gynecological Hx Genitourinary Disorders: Yes Hx Urinary Tract Infection: Yes (08-12-17) - Psychiatric Hx Psychophysiologic Disorder: No Hx Substance Use: No - Surgical History Other/Comment: had recent procedure left lower leg [address] Merlos.SPLINTER REMOVED TO LEFT CALF. - Anesthesia Hx Anesthesia: Yes Hx Anesthesia Reactions: No Hx Malignant Hyperthermia: No - Suicidal Assessment Feels Threatened In Home Enviroment: No Family/Social History - Physician Review Nursing Documentation Reviewed: Yes Family/Social History: Unknown Family HX Smoking Status: Never Smoked Hx Alcohol Use: No Hx Substance Use: No Allergies/Home Meds Allergies/Adverse Reactions: Allergies EGG Allergy (Intermediate, Verified 01/02/18 19:05) RASH Home Medications: Home Meds Medication Instructions Recorded Confirmed Nifedipine [Nifedipine ER] 90 mg PO DAILY 07/03/13 08/12/17 Aspirin [Ecotrin] 81 mg PO DAILY 11/15/16 08/12/17 metFORMIN [glucOPHAGE] 500 mg PO BID 08/12/17 08/12/17 Review of Systems - Review of Systems Constitutional: absent: Fatigue, Fevers Respiratory: absent: SOB, Cough Cardiovascular: absent: Chest Pain, Palpitations Gastrointestinal: absent: Abdominal Pain, Nausea, Vomiting Musculoskeletal: Arthralgias Skin: Skin Lesions Neurological: absent: Headache, Dizziness Psychiatric: absent: Anxiety, Depression Physical Exam Vital Signs Reviewed: Yes Vital Signs Temp Pulse Resp BP Pulse Ox 01/02/18 21:38 86 17 136/89 99 01/02/18 19:05 98.4 F 79 18 158/86 H 97 Temperature: Afebrile Blood Pressure: Hypertensive Pulse: Regular Respiratory Rate: Normal Appearance: Positive for: Well-Appearing, Non-Toxic, Comfortable Pain Distress: None Mental Status: Positive for: Alert and Oriented X 3 - Systems Exam Head: Present: Atraumatic Mouth: Present: Moist Mucous Membranes Neck: Present: Normal Range of Motion Respiratory/Chest: Present: Clear to Auscultation, Good Air Exchange. No: Respiratory Distress, Accessory Muscle Use Cardiovascular: Present: Regular Rate and Rhythm, Normal S1, S2. No: Murmurs Lower Extremity: Present: NORMAL PULSES, Normal ROM, Tenderness (left leg; + quarted sided ulceration with eschar noted; no surrounding erythema; no warmth. + edema noted posteriorly. full rom of ankle and knee. sensation and distal pulses intact; ), Swelling, Neurovascularly Intact, Capillary Refill < 2 s. No : CALF TENDERNESS, Erythema, Deformity Neurological: Present: GCS=15, Speech Normal Skin: Present: Warm, Dry Psychiatric: Present: Alert, Oriented x 3 Medical Decision Making ED Course and Treatment: 01/02/18 21:06 67yr old female with 3 week history of left leg ulceration with swelling x 2 days. pt non toxic well appearing; no distress. stable vitals. cbc; wnl cmp; glucose; 171 venous duplex left leg; no dvt; Discussed with Dr. Sylvester Frank in depth. He will see the patient in the office on at 3 PM. will start patient on bactrim and keflex. Bactrim and Keflex ordered by mouth All results discussed in depth with the patient. Patient was advised to follow- up with on at 3 PM in the office. Patient was advised immediate return if symptoms worsen persist or if new concerning symptoms develop Patient verbalizes understanding of discharge instructions and need for immediate followup. all aspects of this case were discussed the attending of record. Impression: Ulcer left leg , history of diabetes Bactrim 1 tablet twice daily 7 days Keflex one capsule 4 times daily 7 days Follow-up with the primary care physician within the next 2 days Follow-up with Dr. Sylvester Frank on at 3 PM in the office Return immediately if symptoms worsen persist or if new concerning symptoms develop: High fevers, increasing pain, increasing redness, increasing swelling, purulent discharge - Lab Interpretations Lab Results: 01/02/18 19:55 01/02/18 19:55 Lab Results 01/02/18 19:55: WBC 8.8 D, RBC 4.54, Hgb 11.9 L D, Hct 36.0, MCV 79.3 L, MCH 26.2, MCHC 33.1, RDW 14.0, Plt Count 304, MPV 9.7, Gran % 48.6 L, Lymph % (Auto ) 44.0 H, [place] % (Auto) 3.9, Eos % (Auto) 3.0, Baso % (Auto) 0.5, Gran # 4.29, Lymph # (Auto) 3.9 H, [place] # (Auto) 0.3, Eos # (Auto) 0.3, Baso # (Auto) 0.04 01/02/18 19:55: Sodium 143, Potassium 3.6, Chloride 103, Carbon Dioxide 28, Anion Gap 16, BUN 29 H, Creatinine 1.6 H, Est GFR ( Amer) 39, Est GFR ( Non-Af Amer) 32, Random Glucose 171 H, Calcium 9.7, Total Bilirubin 0.5, AST 23 , ALT 14, Alkaline Phosphatase 108, Total Protein 9.5 H, Albumin 4.9 H, Globulin 4.6, Albumin/Globulin Ratio 1.1 - RAD Interpretation Radiology Orders: 01/02/18 19:37 DUPLEX LOWER EXTRM VEIN LEFT [US] Stat - Medication Orders Current Medication Orders: Discontinued Medications Cephalexin Monohydrate (Keflex) 500 mg PO STAT STA PRN Reason: Protocol Stop: 01/02/18 20:49 Last Admin: 01/02/18 21:02 Dose: 500 mg Trimethoprim/Sulfamethoxazole (Bactrim Ds Tab) 1 tab PO STAT STA PRN Reason: Protocol Stop: 01/02/18 20:49 Last Admin: 01/02/18 21:02 Dose: 1 tab Disposition/Present on Arrival - Present on Arrival Any Indicators Present on Arrival: Yes History of DVT/PE: Yes History of Uncontrolled Diabetes: Yes Urinary Catheter: No History of Decub. Ulcer: No History Surgical Site Infection Following: None - Disposition Have Diagnosis and Disposition been Completed?: Yes Diagnosis: Hyperglycemia, Wound, open, leg Disposition: HOME/ ROUTINE Disposition Time: 21:32 Patient Plan: Discharge Condition: GOOD Additional Instructions: Bactrim 1 tablet twice daily 7 days Keflex one capsule 4 times daily 7 days Follow-up with the primary care physician within the next 2 days Follow-up with Dr. Sylvester Frank on at 3 PM in the office Return immediately if symptoms worsen persist or if new concerning symptoms develop: High fevers, increasing pain, increasing redness, increasing swelling, purulent discharge Prescriptions: Cephalexin [Keflex] 500 mg PO QID #28 capsule Sulfamethoxazole/Trimethoprim [Bactrim DS 800 mg-160 mg] 1 tab PO BID #14 tab Referrals: Sylvester Frank MD [Primary Care Provider] - Follow up with primary Forms: [employer] (Polish), WORK NOTE
[2018-01-02 21:39] VITALS: BP 136/89; PULSE 86; RESP 17; O2SAT 99
== END 2018-01-02 21:38 | disposition home or self-care (01) ==
LOC: ED 18:35
DX: S81.802A Unspecified open wound, left lower leg, initial encounter (principal); X58.XXXA Exposure to other specified factors, initial encounter; E11.65 Type 2 diabetes mellitus with hyperglycemia; I10 Essential (primary) hypertension; Z86.73 Personal history of transient ischemic attack (TIA), and cerebral infarction without residual deficits

== ENCOUNTER 2018-08-22 06:54 | Outpatient (CLI) | payer BC | END 2018-08-22 06:55 | disposition home or self-care (01) | LOC: LAB 06:54 ==

== ENCOUNTER 2018-09-23 14:32 | Emergency (ER) | payer BC ==
[2018-09-23 14:33] VITALS: BMI 20.7
[2018-09-23] MEDS ORDERED: Sodium Chloride 0.9% 1,000 ML IV STA (15:12)
--- NOTE | 2018-09-23 15:20 | ED PDOC ---
Arrival/HPI - General Chief Complaint: Abdominal Pain Time Seen by Provider: 09/23/18 14:35 Historian: Patient - History of Present Illness Narrative History of Present Illness (Text): 09/23/18 15:15 A 68 year old female, whose past medical history includes renal failure, PVD, hypertension, CVA and diabetes, presents to the ED complaining of epigastric abdominal pain since this morning. Patient reports associated mild nausea and vomiting twice prior to arrival. Patient notes urinary frequency that has resolved upon taking medication. Patient denies any fevers, headache, dizziness, chest pain, shortness of breath, dyspnea on exertion, cough, diarrhea, back pain, neck pain, or any other complaints. PMD: Time/Duration: 4-6 hours Symptom Onset: Gradual Symptom Course: Unchanged Activities at Onset: Light Context: Home Past Medical History - Provider Review Nursing Documentation Reviewed: Yes - Infectious Disease Hx of Infectious Diseases: None - Cardiac Hx Cardiac Disorders: Yes Hx Hypertension: Yes - Pulmonary Hx Respiratory Disorders: No - Neurological Hx Neurological Disorder: Yes HX Cerebrovascular Accident: Yes (RIGHT SIDED WEAKNESS) - HEENT Hx HEENT Disorder: No - Renal Hx Renal Disorder: No - Endocrine/Metabolic Hx Endocrine Disorders: Yes Hx Diabetes Mellitus Type 2: Yes - Hematological/Oncological Hx Blood Disorders: No - Integumentary Hx Dermatological Disorder: Yes Other/Comment: 08-12-17 NON HEALING WOUND TO LEFT CALF. SPLINTER REMOVED BY DR. CULLEN. FEBRUARY.5X3 CM. MEDIUM AMOUNT OF SEROUS DRAINAGE. - Musculoskeletal/Rheumatological Hx Musculoskeletal Disorders: Yes Hx Falls: Yes - Gastrointestinal Hx Gastrointestinal Disorders: No - Genitourinary/Gynecological Hx Genitourinary Disorders: Yes Hx Urinary Tract Infection: Yes (08-12-17) - Psychiatric Hx Psychophysiologic Disorder: No Hx Substance Use: No - Surgical History Other/Comment: had recent procedure left lower leg [address] Cullen[address]SPLINTER REMOVED TO LEFT CALF. - Anesthesia Hx Anesthesia: Yes Hx Anesthesia Reactions: No Hx Malignant Hyperthermia: No - Suicidal Assessment Feels Threatened In Home Enviroment: No Family/Social History - Physician Review Nursing Documentation Reviewed: Yes Family/Social History: No Known Family HX Smoking Status: Never Smoked Hx Alcohol Use: No Hx Substance Use: No Allergies/Home Meds Allergies/Adverse Reactions: Allergies EGG Allergy (Intermediate, Verified 01/02/18 19:05) RASH Home Medications: Home Meds Medication Instructions Recorded Confirmed Nifedipine [Nifedipine ER] 90 mg PO DAILY 07/03/13 09/23/18 Aspirin [Ecotrin] 81 mg PO DAILY 11/15/16 09/23/18 metFORMIN [glucOPHAGE] 500 mg PO BID 08/12/17 09/23/18 Review of Systems - Physician Review All systems were reviewed & negative as marked: Yes - Review of Systems Gastrointestinal: Abdominal Pain, Nausea, Vomiting Genitourinary Female: absent: Dysuria, Hematuria Physical Exam Vital Signs Reviewed: Yes Vital Signs Temp Pulse Resp BP Pulse Ox 09/23/18 14:53 98.2 F 97 H 18 110/73 97 Temperature: Afebrile Blood Pressure: Normal Pulse: Regular Respiratory Rate: Normal Appearance: Positive for: Well-Appearing, Non-Toxic, Comfortable Pain Distress: Mild Mental Status: Positive for: Alert and Oriented X 3 - Systems Exam Head: Present: Atraumatic, Normocephalic Pupils: Present: PERRL Extroacular Muscles: Present: EOMI Conjunctiva: Present: Normal Respiratory/Chest: Present: Clear to Auscultation, Good Air Exchange. No: Respiratory Distress, Accessory Muscle Use Cardiovascular: Present: Regular Rate and Rhythm, Normal S1, S2. No: Murmurs Abdomen: Present: Tenderness (Epigastric), Normal Bowel Sounds (Positive bowel sounds) Psychiatric: Present: Alert, Oriented x 3, Normal Insight, Normal Concentration Medical Decision Making ED Course and Treatment: 09/23/18 15:24 Impression: A 68 year old female who presents to the ED for abdominal pain since this morning. Plan: -- Labs -- CT Abdomen/Pelvis -- Pepcid -- Zofran -- IV Fluids -- Urine Culture -- Urinalysis -- Reassess and disposition Prior Visits: Notes and results from previous visits were reviewed. Patient was last seen in the emergency department on 01/02/18. Progress Notes: EKG: NSR @ 85 bpm. Left axis deviation. 09/23/18 17:48 Abdomen/Pelvis CT IMPRESSION: No acute abdominal pelvic pathology. Questionable rectal wall thickening. 09/23/18 17:55 Patient re-evaluated, feels much better. Patient will be discharged with prescriptions and will follow up with PCP. - RAD Interpretation Radiology Orders: 09/23/18 15:12 ABD & PELVIS IV CONTRAST ONLY [CT] Stat - Medication Orders Current Medication Orders: Famotidine (Pepcid) 20 mg IVP STAT STA Stop: 09/23/18 15:13 Sodium Chloride (Sodium Chloride 0.9%) 1,000 mls @ 100 mls/hr IV .Q10H STA Stop: 09/24/18 01:11 Ondansetron HCl (Zofran Inj) 4 mg IVP STAT STA Stop: 09/23/18 15:13 - Scribe Statement The provider has reviewed the documentation as recorded by the Colin Camarena Provider Scribe Attestation: All medical record entries made by the Scribe were at my direction and personally dictated by me. I have reviewed the chart and agree that the record accurately reflects my personal performance of the history, physical exam, medical decision making, and the department course for this patient. I have also personally directed, reviewed, and agree with the discharge instructions and di sposition. Disposition/Present on Arrival - Present on Arrival Any Indicators Present on Arrival: No History of DVT/PE: Yes History of Uncontrolled Diabetes: Yes Urinary Catheter: No History of Decub. Ulcer: No History Surgical Site Infection Following: None - Disposition Have Diagnosis and Disposition been Completed?: Yes Diagnosis: Gastritis, UTI (urinary tract infection) Disposition: HOME/ ROUTINE Disposition Time: 17:40 Condition: IMPROVED Discharge Instructions (ExitCare): Urinary Tract Infection, Adult (DC), Gastritis (DC) Additional Instructions: JAZMINE IBRAHIM, thank you for letting us take care of you today. The emergency medical care you received today was directed at your acute symptoms. If you were prescribed any medication, please fill it and take as directed. It may take several days for your symptoms to resolve. Return to the Emergency Department if your symptoms worsen, do not improve, or if you have any other problems. Please contact your doctor or call one of the physicians/clinics you have been referred to that are listed on the Patient Visit Information form that is included in your discharge packet. Bring any paperwork you were given at discharge with you along with any medications you are taking to your follow up visit. Our treatment cannot replace ongoing medical care by a primary care provider outside of the emergency department. Thank you for allowing the [facility] team to be part of your care today. Follow up with your primary care doctor this week for re-evaluation and further management. Prescriptions: Famotidine [Pepcid] 20 mg PO BID #14 tab Nitrofurantoin Macrocrystals [Macrobid] 100 mg PO BID #14 cap Referrals: Driss Garcia MD [Family Provider] - Follow up with primary Forms: [employer] (Serbian)
[2018-09-23 15:43] VITALS: RESP 16
[2018-09-23 15:46] LABS: BASO # 0.02 K/mm3 (0.0-2.0); BASO % 0.2 % (0.0-3.0); EOS # 0.1 (0.0-0.7); EOS % 1.3 % (1.5-5.0); HEMOGLOBIN 14.2 g/dL (12.0-16.0); LYMPH # 4.1 (1.2-3.4); LYMPH % 38.7 % (22.0-35.0); MEAN CELL VOLUME 75.9 fl (80.0-105.0); MEAN CORPUSCULAR HGB CONC 34.2 g/dl (31.0-37.0); MEAN PLATELET VOLUME 10.4 fl (7.0-11.0); MONO # 0.4 (0.1-0.6); MONO % 3.3 % (1.0-6.0); RBC 5.47 10^6/uL (3.5-6.1); RED CELL DISTRIBUTION WIDTH 13.7 % (11.5-14.5); URINE BILIRUBIN NEGATIVE (NEGATIVE); URINE BLOOD NEGATIVE (NEGATIVE); URINE GLUCOSE (UA) >=1000 mg/dL (NEGATIVE); URINE LEUKOCYTE ESTERASE SMALL Leu/uL (NEGATIVE); URINE PROTEIN 100 mg/dL (<30 mg/dL); URINE UROBILINOGEN 0.2 E.U./dL (<1 E.U./dL); WHITE BLOOD COUNT 10.6 10^3/uL (4.5-11.0)
[2018-09-23 15:49] LABS: URINE APPEARANCE SLIGHT-CLOUDY (CLEAR); URINE COLOR YELLOW (YELLOW)
[2018-09-23 16:03] LABS: URINE BACTERIA FEW /hpf; URINE RBC 0 - 2 /hpf (0-2)
[2018-09-23 16:54] LABS: ALB/GLOB RATIO 1.1 (1.1-1.8); ALBUMIN 4.1 g/dL (3.0-4.8); CALCIUM 9.1 mg/dL (8.4-10.5)
--- NOTE | 2018-09-23 17:43 | CT ---
Date of service: 09/23/2018 PROCEDURE: CT Abdomen and Pelvis without intravenous contrast HISTORY: upper abdominal tenderness COMPARISON: CT scan of the abdomen pelvis dated 11/22/2016. TECHNIQUE: Contiguous images were obtained from the domes of the diaphragms to the upper thighs without the administration of intravenous contrast. Oral contrast was not administered. Radiation dose: Total exam DLP = 308.88 mGy-cm. This CT exam was performed using one or more of the following dose reduction techniques: Automated exposure control, adjustment of the mA and/or kV according to patient size, and/or use of iterative reconstruction technique. FINDINGS: LOWER THORAX: Cardiomegaly. Coronary arterial and valvular calcifications. No focal consolidation or pleural effusion. LIVER: Punctate calcified granulomas no gross lesion or ductal dilatation. GALLBLADDER AND BILE DUCTS: Unremarkable. PANCREAS: Unremarkable. No gross lesion or ductal dilatation. SPLEEN: Unremarkable. ADRENALS: Unremarkable. No mass. KIDNEYS AND URETERS: Unremarkable. No hydronephrosis. No solid mass. VASCULATURE: Unremarkable. No aortic aneurysm. No aortic atherosclerotic calcification or mural plaque present. BOWEL: Questionable rectal wall thickening. No obstruction. APPENDIX: Unremarkable. Normal appendix. PERITONEUM: Unremarkable. No free fluid. No free air. LYMPH NODES: Unremarkable. No enlarged lymph nodes. BLADDER: Unremarkable. REPRODUCTIVE: Fibroid uterus with calcified fibroids. BONES: Stable appearance of T11. Grade 1 anterolisthesis of L4 on L5. No acute fracture. OTHER FINDINGS: None. IMPRESSION: No acute abdominal pelvic pathology. Questionable rectal wall thickening.
[2018-09-23 18:14] VITALS: BP 139/87; PULSE 84; TEMP 98.4; O2SAT 98
--- NOTE | 2018-09-24 11:27 | CARD ---
APPROVED REPORT Date of service: 09/23/2018 EKG Measurement Heart [id number] <Conclusion> Sinus rhythm with premature atrial complexes Left axis deviation Minimal voltage criteria for LVH, may be normal variant T wave abnormality, consider lateral ischemia Abnormal ECG
== END 2018-09-23 18:12 | disposition home or self-care (01) ==
LOC: ED 14:32
DX: K29.70 Gastritis, unspecified, without bleeding (principal); N39.0 Urinary tract infection, site not specified; I12.9 Hypertensive chronic kidney disease with stage 1 through stage 4 chronic kidney disease, or unspecified chronic kidney disease; E11.22 Type 2 diabetes mellitus with diabetic chronic kidney disease; N18.9 Chronic kidney disease, unspecified; Z86.73 Personal history of transient ischemic attack (TIA), and cerebral infarction without residual deficits; Z86.718 Personal history of other venous thrombosis and embolism
CPT/HCPCS: 74176; 80053; 81001; 83690; 83735; 85025; 87086; 93005; 96374; 96375; 99283; J2405; J7030